=== PATIENT | male | born 1935 | race Caucasian/White ===

== ENCOUNTER 2020-08-05 23:30 | Inpatient (IN) | payer MEDICARE, SELFPAY ==
--- NOTE | 2020-08-05 | ECG_ITS ---
Test Reason : EPIGASTRIC PAIN Blood Pressure : / mmHG Vent. Rate : 057 BPM Atrial Rate : 057 BPM P-R Int : 160 ms QRS Dur : 092 ms QT Int : 446 ms P-R-T Axes : 036 012 031 degrees QTc Int : 434 ms Sinus bradycardia Incomplete right bundle branch block Borderline ECG When compared with ECG of 28-FEB-2015 13:59, No significant change was found Referred By: Kia Patel Electronically Signed By:GRAHAM VELARDE
--- NOTE | 2020-08-05 | CT_ITS ---
EXAMINATION: CT ABDOMEN AND PELVIS WITHOUT CONTRAST CLINICAL INFORMATION: Abdominal pain and distention. COMPARISON: Multiple prior exams are reviewed. The most recent is from 12/18/2014. TECHNIQUE: Contiguous axial thin section helical images of the abdomen and pelvis were performed without oral or IV contrast. The data set was reformatted in the coronal and sagittal planes and reviewed on an independent workstation. DLP: 847 mGy-cm. FINDINGS: There is stable scarring within the right lower lobe with a large bulla and several smaller blebs. The visualized portions of the heart are unremarkable. The liver is of normal size and attenuation without focal lesions nor intrahepatic biliary ductal dilation. A normal gallbladder is identified. There is no wall thickening or discernible pericholecystic fluid. The spleen, pancreas, adrenal glands are unremarkable. Both kidneys are of normal size and attenuation without hydronephrosis or nephrolithiasis. There is no abdominal free fluid. There is neither mesenteric nor retroperitoneal lymphadenopathy. There are numerous dilated loops of small bowel along with small bowel fecalization. The transition point appears to be close to a likely anastomosis site manifested by surgical chain sutures. There are numerous air-fluid levels within the dilated loops of small bowel. There is colonic diverticulosis without evidence of diverticulitis. Otherwise, unremarkable unopacified of small and large bowel are identified. There is no pelvic free fluid. The urinary bladder is unremarkable. There is neither pelvic nor inguinal lymphadenopathy. Bone windows: Neither sclerotic nor lytic bone lesions are identified. There is disc height loss at L3/L4 and L4/L5. 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 Diverticulosis without evidence of diverticulitis. Stable chronic changes at the right lung base. Automated exposure control (Care Dose) Adjustment of the mA and/or kv according to patient size (this includes techniques or standardized protocols for targeted exams where dose is matched to indication / reason for exam; i.e. extremities or head).
[2020-08-05 23:46] VITALS: BP 190/90; BP 191/83; PULSE 56; PULSE 61; RESP 18; TEMP 36.9; O2SAT 98; BMI 31.9
[2020-08-06] VITALS (10 sets, daily range): BP systolic 125–166; BP diastolic 66–83; PULSE 55–85; RESP 16–20; TEMP 35.9–37.4; O2SAT 92–99; BMI 31.8
--- NOTE | 2020-08-06 | XR_ITS ---
EXAMINATION: XR CHEST CLINICAL INFORMATION: NG tube placement COMPARISON: 04/09/2020 TECHNIQUE: Frontal view of the chest was obtained. FINDINGS: NG tube has been placed with its tip in the proximal stomach with the distal end near the GE junction. Again seen are chronic changes predominantly at the lung bases. IMPRESSION: NG tube coiled near the GE junction. It can probably be advanced.
--- NOTE | 2020-08-06 | XR_ITS ---
EXAMINATION: CHEST 1 VIEW CLINICAL INFORMATION: Enteric tube placement. COMPARISON: Same day film obtained at 0048 hours. TECHNIQUE: An AP view of the chest was obtained at 0148 hours. FINDINGS: The cardiac silhouette is not enlarged. An enteric tube is in place. The tip overlies left upper quadrant, likely within the stomach. The mediastinal and hilar contours are unremarkable. There are neither pleural effusions nor pneumothoraces. There are no consolidations. Mild interstitial prominence throughout both lungs is stable. The osseous structures are stable. IMPRESSION: Enteric tube in place. Stable mild interstitial prominence throughout both lungs. No consolidations.
--- NOTE | 2020-08-06 00:03 | PC.NURSE ---
Son Isrrael Methot to be call with updates [phone]
[2020-08-06] MEDS: 0.9 % Sodium Chloride 1,000 ML 999 ML IVCONT (00:11)
--- NOTE | 2020-08-06 00:11 | ED_ITS ---
HPI - Abdominal Pain General Chief Complaint: Abdominal Pain <SUKHDEV Ramos Last Filed: 08/06/20 03:26> Stated Complaint: abd pain <SUKHDEV Ramos Last Filed: 08/06/20 03:26> Time Seen by Provider: 08/05/20 23:52 <SUKHDEV Ramos Last Filed: 08/06/20 03:26> Source: patient <SUKHDEV Ramos Last Filed: 08/06/20 03:26> Mode of arrival: ambulatory <SUKHDEV Ramos Last Filed: 08/06/20 03:26> Limitations: no limitations <SUKHDEV Ramos Last Filed: 08/06/20 03:26> History of Present Illness HPI narrative: 85-year-old male presents with gradual onset of severe abdominal pain, abdominal distention, nausea, vomiting, and inability to pass flatus. he has had multiple abdominal surgeries in the past, has had a colon resection, colostomy, colostomy with reversal, has a history of lung cancer and hypertension. He is unable to get comfortable, and states that his abdomen is getting larger and harder by the minute. He does not report any chest pain or pressure, fevers, chills, dysuria, hematuria, edema, dizziness, lightheadedness, and weakness. <SUKHDEV Ramos Last Filed: 08/06/20 03:26> MD elicited complaint: abdominal pain <SUKHDEV Ramos Last Filed: 08/06/20 03:26> Pertinent past history: other ( colon resection, colostomy with reversal, lung cancer, hyper tension, obesity) <SUKHDEV Ramos Last Filed: 08/06/20 03:26> Onset (ago): day(s) ( 1) <SUKHDEV Ramos Last Filed: 08/06/20 03:26> Pain Consistency: intermittent <SUKHDEV Ramos Last Filed: 08/06/20 03:26> Location: diffuse <SUKHDEV Ramos Last Filed: 08/06/20 03:26> Severity: severe <SUKHDEV Ramos Last Filed: 08/06/20 03:26> Pain scale (0-10): 10 <Kia Patel NP - Last Filed: 08/06/20 03:26> Quality: cramping and fullness <Kia Patel NP - Last Filed: 08/06/20 03:26> Radiation: none <Kia Patel NP - Last Filed: 08/06/20 03:26> Migration to: no migration <Kia Patel NP - Last Filed: 08/06/20 03:26> Exacerbating factors: movement <Kia Patel NP - Last Filed: 08/06/20 03:26> Relieving factors: nothing <Kia Patel NP - Last Filed: 08/06/20 03:26> Associated symptoms: nausea, vomiting and anorexia <SUKHDEV Ramos Last Filed: 08/06/20 03:26> Related Data Home Medications: Home Medications Medication Instructions Recorded Confirmed Mucinex 08/06/20 albuterol sulfate 08/06/20 azithromycin 250 mg PO 3XW 08/06/20 08/06/20 bimatoprost [Lumigan] 1 drp OPHTHALMIC (EYE) BEDTIME 08/06/20 08/06/20 dextromethorphan-guaifenesin 1 tab PO Q12H PRN 08/06/20 08/06/20 [Mucinex DM] dorzolamide 2 drp OPHTHALMIC (EYE) BID 08/06/20 08/06/20 yvgcfqkiola-srhwzhsho-xdroyiqf 1 inh INHALATION DAILY 08/06/20 08/06/20 [Trelegy Ellipta] nystatin 4 ml PO 08/06/20 simvastatin 10 mg PO BEDTIME 08/06/20 08/06/20 tamsulosin 0.8 mg PO DAILY 08/06/20 08/06/20 <Kia Patel NP - Last Filed: 08/06/20 03:26> Allergies/Adverse Reactions: Allergies Allergy/AdvReac Type Severity Reaction Status Date / Time No Known Allergies Allergy Verified 08/06/20 10:18 <SUKHDEV Ramos Last Filed: 08/06/20 03:26> Review of Systems Review of Systems Yes all other systems are reviewed and are negative <Kia Patel NP - Last Filed: 08/06/20 03:26> Constitutional: Reports lethargy and Reports poor appetite <Candy Jorge, ELEVATOR TROUBL[employer]HO[employer]ER - Last Filed: 08/06/20 03:26> Eyes: Reports no additional eye complaints <Candy Jorge, ELEVATOR TROUBL[employer]HO[employer]ER - Last Filed: 08/06/20 03:26> Reports system reviewed and no additional complaints, except as documented <Candy Jorge, ELEVATOR TROUBL[employer]HO[employer]ER - Last Filed: 08/06/20 03:26> Cardiovascular: Reports no additional cardiovascular complaints, Reports Abdominal Distension, Reports Epigastric Pain and Reports epigastric discomfort <Candy Jorge, ELEVATOR TROUBL[employer]HO[employer]ER - Last Filed: 08/06/20 03:26> Respiratory: Reports no additional respiratory complaints <Candy Jorge, ELEVATOR TROUBLESHOOTER - Last Filed: 08/06/20 03:26> Gastrointestinal: Reports abdominal pain, Reports bloating, Reports GI cramping and Reports nausea <Candy Jorge, ELEVATOR TROUBL[employer]HO[employer]ER - Last Filed: 08/06/20 03:26> Comments: Inability to pass flatus <Candy Jorge, ELEVATOR TROUBLESHOOTER - Last Filed: 08/06/20 03:26> Genitourinary: Reports no additional male genitourinary complaints <Candy Jorge, ELEVATOR TROUBLESHOOTER - Last Filed: 08/06/20 03:26> Musculoskeletal: Reports no additional musculoskeletal complaints <Candy Jorge, ELEVATOR TROUBL[employer]HO[employer]ER - Last Filed: 08/06/20 03:26> Skin/Breast: Reports system reviewed and no additional complaints, except as docu <Candy Jorge, ELEVATOR TROUBLESHOOTER - Last Filed: 08/06/20 03:26> Reports system reviewed and no additional complaints, except as documented <Candy Jorge, ELEVATOR TROUBLESHOOTER - Last Filed: 08/06/20 03:26> Psychiatric: Reports no additional psychiatric complaints <Candy Jorge, ELEVATOR TROUBL[employer]HOOTER - Last Filed: 08/06/20 03:26> Endocrine: Reports no additional endocrine complaints <Candy Jorge, ELEVATOR TROUBLESHOOTER - Last Filed: 08/06/20 03:26> Hematologic/Lymphatic: Reports no additional hematologic/lymphatic complaints <Candy Jorge, ELEVATOR TROUBL[employer]HO[employer]ER - Last Filed: 08/06/20 03:26> Physical Exam Vital Signs and I&O and Narrative: Vital Signs and I&O: Vital Signs Temp 99.3 F 08/06/20 23:22 Pulse 65 08/06/20 23:22 Resp 16 08/06/20 23:22 BP 144/68 H 08/06/20 23:22 Pulse Ox 95 08/06/20 23:22 Intake & Output 08/06/20 08/06/20 08/07/20 06:59 18:59 06:59 Intake Total 1000 / 1050 Balance 1000 / 550 Weight 95.254 kg Intake: Intake, IV Amoun t 1000 / 1050 0.9 % Sodium C hloride 1,000 ml 1000 / 1000 @ 999 mls/hr I VCONT .Q1H1M [facility] Rx#:[id number] Body Mass Index 31.9 <Kia Patel ELEVATOR TR[employer]ER - Last Filed: 08/06/20 03:26> Vital Signs and I&O: Vital Signs Temp 99.3 F 08/06/20 23:22 Pulse 65 08/06/20 23:22 Resp 16 08/06/20 23:22 BP 144/68 H 08/06/20 23:22 Pulse Ox 95 08/06/20 23:22 Intake & Output 08/06/20 08/06/20 08/07/20 06:59 18:59 06:59 Intake Total 1000 / 1050 Balance 1000 / 550 Weight 95.254 kg Intake: Intake, IV Amoun t 1000 / 1050 0.9 % Sodium C hloride 1,000 ml 1000 / 1000 @ 999 mls/hr I VCONT .Q1H1M [facility] Rx#:[id number] Body Mass Index 31.9 <José Miguel Hutchinson DO - Last Filed: 08/07/20 02:11> Const: General: cooperative, well developed, alert, awake, Physically active, acute distress moderate and ill appearing <Kia Patel ELEVATOR TR[employer]BL[employer]ER - Last Filed: 08/06/20 03:26> Nutritional Appearance: obese <Kia Patel ELEVATOR TROU[employer]HO[employer]ER - Last Filed: 08/06/20 03:26> Orientation/consciousness: patient oriented x3 <Kia Patel ELEVATOR TROU[employer]HO[employer]ER - Last Filed: 08/06/20 03:26> Limitations: no limitations <Kia Patel ELEVATOR TROUBL[employer]HO[employer]ER - Last Filed: 08/06/20 03:26> HENMT: Head: Yes normal to inspection <Kia Patel ELEVATOR TROUBL[employer]HO[employer]ER - Last Filed: 08/06/20 03:26> Ears: hearing grossly normal bilaterally <Kia Patel ELEVATOR TROUBL[employer]HO[employer]ER - Last Filed: 08/06/20 03:26> General nose exam: Normal external nose present <Kia Patel NP - Last Filed: 08/06/20 03:26> Face and sinus: Yes normal facial exam <Kia Patel ELEVATOR TROUBL[employer]HO[employer]ER - Last Filed: 08/06/20 03:26> Mouth: Normal oral and palatal mucosa present <Kia Patel ELEVATOR TROUBL[employer]HO[employer]ER - Last Filed: 08/06/20 03:26> Throat: Yes posterior oropharynx normal <Kia Patel ELEVATOR TROUBL[employer]HO[employer]ER - Last Filed: 08/06/20 03:26> Eyes: General: appearance normal, both eyes and all related structures <Kia Patel ELEVATOR TROUBL[employer]HOOTER - Last Filed: 08/06/20 03:26> Pupils: Equal, round and reactive pupils present <Kia Patel ELEVATOR TROUBL[employer]HO[employer]ER - Last Filed: 08/06/20 03:26> EOM: EOMs intact bilaterally <Kia Patel ELEVATOR TROUBL[employer]HOOTER - Last Filed: 08/06/20 03:26> Neck: Neck: Yes normal visual inspection, Yes full ROM, Yes no lymp hadenopathy, Yes no meningeal signs and Yes trachea midline <Kia Patel ELEVATOR TROUBL[employer]HO[employer]ER - Last Filed: 08/06/20 03:26> Chest: Chest palpation & inspection: normal inspection of the chest and normal palpation of entire chest wall <Kia Patel ELEVATOR TROUBL[employer]HO[employer]ER - Last Filed: 08/06/20 03:26> Resp: Effort & Inspection: normal respiratory effort and able to speak in complete sentences <Kia Patel ELEVATOR TROUBL[employer]HO[employer]ER - Last Filed: 08/06/20 03:26> Auscultation: clear to auscultation bilaterally <Kia Patel ELEVATOR TROUBL[employer]HO[employer]ER - Last Filed: 08/06/20 03:26> Cardio: Rate: bradycardic <Kia Patel ELEVATOR TROUBL[employer]HO[employer]ER - Last Filed: 08/06/20 03:26> Rhythm: regular rhythm <Kia Patel NP - Last Filed: 08/06/20 03:26> Peripheral pulses: Peripheral pulses 2+ throughout <Kia Patel ELEVATOR TROUBL[employer]HOOTER - Last Filed: 08/06/20 03:26> GI: Inspection: Yes distended <Kia Patel ELEVATOR TROUBLESHOOTER - Last Filed: 08/06/20 03:26> Palpation (GI): Firmness to palpation present (GI) in the LLQ, in the RLQ, in the LUQ and in the RUQ <Kia Patel ELEVATOR TROUBLESHOOTER - Last Filed: 08/06/20 03:26> Percussion: Yes tympanic to percussion <Kia Patel ELEVATOR TROUBL[employer]HOOTER - Last Filed: 08/06/20 03:26> Auscultation: Hyperactive bowel sounds present <Candpelon Patel ELEVATOR TROUBL[employer]HOOTER - Last Filed: 08/06/20 03:26> Rectal Exam - Male: Yes deferred <iKa Patel ELEVATOR TROUBLESHOOTER - Last Filed: 08/06/20 03:26> Skin: General skin exam: no rashes or lesions noted <Kia Patel ELEVATOR TROUBL[employer]HOOTER - Last Filed: 08/06/20 03:26> Neuro: General: patient oriented x3 and no meningeal signs <Kia Patel ELEVATOR TROUBL[employer]HOOTER - Last Filed: 08/06/20 03:26> Cranial nerves: Yes CN's II-XII intact bilaterally, Yes Facial sensation intact/muscles of mastication intact, Yes Intact sense of smell present, Yes Equal, round and reactive pupils present and Yes Bilaterally intact EOM present <Kia Patel ELEVATOR TROUBL[employer]HOOTER - Last Filed: 08/06/20 03:26> Cognition (Neuro): normal cognition <Kia Patel ELEVATOR TROUBLESHOOTER - Last Filed: 08/06/20 03:26> Motor exam (neuro): 5/5 motor strength present throughout <Candpelon Patel ELEVATOR TROUBLESHOOTER - Last Filed: 08/06/20 03:26> Extrem: General: Yes normal to inspection and Yes full ROM <Kia Patel ELEVATOR TROUBLESHO[employer]ER - Last Filed: 08/06/20 03:26> Psych: Appearance: grossly normal <Kia Patel ELEVATOR TROUBLESHOOTER - Last Filed: 08/06/20 03:26> Mental Status: mental status grossly normal <Kia Patel ELEVATOR TROUBL[employer]HO[employer]ER - Last Filed: 08/06/20 03:26> Speech and movement: Normal speech and movement present <Kia Patel ELEVATOR TROUBL[employer]HO[employer]ER - Last Filed: 08/06/20 03:26> Affect: normal affect <Kia Patel NP - Last Filed: 08/06/20 03:26> Attitude: cooperative <Kia Patel NP - Last Filed: 08/06/20 03:26> Thought process: Normal thought process present <Kia Patel NP - Last Filed: 08/06/20 03:26> Thought content: Normal thought content present <Kia Patel NP - Last Filed: 08/06/20:26> Insight: Good insight present (Psych) <Kia Patel NP - Last Filed: 08/06/20 03:26> Judgement: Good judgement present (Psych) <Kia Patel NP - Last Filed: 08/06/20 03:26> Course Course Hospital Course: 85-year-old male presents with 10/10 abdominal pain, abdominal distention, nausea, vomiting, and inability to passed flatus. He did have a bowel movement earlier today. Looks very uncomfortable and has a high suspicion for small bowel obstruction. We will order CT scan of abdomen, CBC, Chem 7, lactic, cultures, EKG and troponins. <Kia Patel NP - Last Filed: 08/06/20 03:26> Reevaluation(s) Reevaluation #1: This ELEVATOR TROUBLESHOOTER was at bedside for CT scan. wet read of EKG shows indication of a bowel obstruction. We will order NG tube, NPO, pain management. Labs are pending. <Kia Patel NP - Last Filed: 08/06/20:> Time: 00:12 <Kia Patel NP - Last Filed: 08/06/20 03:26> Reevaluation #2: discussion with Dr. Sandhu at 1:[address] scan results. Plan is to admit to [facility] for bowel obstruction. Discussion with patient regarding plan of care, patient verbalized understanding of and agrees to plan. <Kia Patel NP - Last Filed: 08/06/20 03:26> Consultations Consultation #1: Edson <Kia Patel NP - Last Filed: 08/06/20:26> Time: 01:34 <Kia Patel NP - Last Filed: 08/06/20 03:26> MDM - Abdominal Pain Differential Diagnosis Differential diagnosis: Likely abdominal pain, aortic dissection, acute appendicitis, bowel perforation, calculus of kidney, diverticulitis, gastroenteritis, gastritis, mesenteric ischemia, pancreatitis and small bowel obstruction <Kia Patel NP - Last Filed: 08/06/20 03:26> Medical Records Attestation: I reviewed the patient's medical records. <Kia Patel NP - Last Filed: 08/06/20 03:26> Lab Data Attestation: I reviewed the patient's lab results. <Kia Patel NP - Last Filed: 08/06/20 03:26> Result diagrams: : 08/06/20 01:08 08/06/20 01:08 <Kia Patel NP - Last Filed: 08/06/20 03:26> Labs: Lab Results 08/06/20 08/06/20 08/06/20 Range/Units 01:08 01:08 01:08 WBC 10.9 H (4.8-10.8) X10*3/uL RBC 4.79 (4.60-5.80) X10*6/uL Hgb 14.6 (14.0-18.0) g/dl Hct 43.4 (42-52) % MCV 90.6 (80-98) fL MCH 30.5 (27.0-33.0) pg MCHC 33.6 (31.0-36.0) g/dl RDW 14.6 (11.0-16.0) % Plt Count 115 L (160-400) X10*3/uL MPV 9.4 (9.4-12.4) fL Immature Gran % (Auto) 0.8 H (0.0-0.4) % Neut % (Auto) 83.2 H (45-73) % Lymph % (Auto) 10.0 L (20-40) % [place] % (Auto) 4.8 (2-11) % Eos % (Auto) 0.7 (0-4) % Baso % (Auto) 0.5 (0-2) % Neut # (Auto) 9.1 H (2.0-8.3) X10*3/uL Lymph # (Auto) 1.1 L (1.2-4.9) X10*3/uL [place] # (Auto) 0.5 (0.1-1.2) X10*3/uL Eos # (Auto) 0.1 (0.0-0.4) X10*3/uL Baso # (Auto) 0.1 (0.0-0.2) X10*3/uL Abs Immat Gran (auto) 0.09 H (0.00-0.03) X10*3/uL Absolute Nucleated RBC 0.000 (0.0-0.012) X10*3/uL Nucleated RBC % (auto) 0.0 (0.0-0.2) /100WBC Sodium 140 (135-145) mmol/L Potassium 4.5 (3.3-5.1) mmol/l Chloride 107 (96-108) mmol/L Carbon Dioxide 25 (22-29) mmol/L Anion Gap 13 (12-20) BUN 24 H (9-16) mg/dL Creatinine 1.17 (0.5-1.4) mg/dL Estim Creat Clear Calc 51.6 Estimated GFR 59 Random Glucose 132 H (60-115) mg/dL Lactic Acid 0.9 (0.5-2.0) mmol/L Calcium 8.5 (8.4-10.2) mg/dL Total Bilirubin 0.7 (0.0-1.0) mg/dL Direct Bilirubin 0.3 (0.0-0.5) mg/dL AST 15 (5-37) U/L ALT 16 (0-40) U/L Alkaline Phosphatase 91 (39-117) U/L Troponin I High Sens (<3.5-35.0) ng/L Total Protein 6.4 L (6.5-8.0) g/dL Albumin 4.1 (3.5-5.0) g/dL Lipase 48 (8-78) U/L Blood Type Antibody Screen 08/06/20 08/06/20 Range/Units 01:08 01:43 WBC (4.8-10.8) X10*3/uL RBC (4.60-5.80) X10*6/uL Hgb (14.0-18.0) g/dl Hct (42-52) % MCV (80-98) fL MCH (27.0-33.0) pg MCHC (31.0-36.0) g/dl RDW (11.0-16.0) % Plt Count (160-400) X10*3/uL MPV (9.4-12.4) fL Immature Gran % (Auto) (0.0-0.4) % Neut % (Auto) (45-73) % Lymph % (Auto) (20-40) % Lar[place] % (Auto) (2-11) % Eos % (Auto) (0-4) % Baso % (Auto) (0-2) % Neut # (Auto) (2.0-8.3) X10*3/uL Lymph # (Auto) (1.2-4.9) X10*3/uL [place] # (Auto) (0.1-1.2) X10*3/uL Eos # (Auto) (0.0-0.4) X10*3/uL Baso # (Auto) (0.0-0.2) X10*3/uL Abs Immat Gran (auto) (0.00-0.03) X10*3/uL Absolute Nucleated RBC (0.0-0.012) X10*3/uL Nucleated RBC % (auto) (0.0-0.2) /100WBC Sodium (135-145) mmol/L Potassium (3.3-5.1) mmol/l Chloride (96-108) mmol/L Carbon Dioxide (22-29) mmol/L Anion Gap (12-20) BUN (9-16) mg/dL Creatinine (0.5-1.4) mg/dL Estim Creat Clear Calc Estimated GFR Random Glucose (60-115) mg/dL Lactic Acid (0.5-2.0) mmol/L Calcium (8.4-10.2) mg/dL Total Bilirubin (0.0-1.0) mg/dL Direct Bilirubin (0.0-0.5) mg/dL AST (5-37) U/L ALT (0-40) U/L Alkaline Phosphatase (39-117) U/L Troponin I High Sens 7.6 (<3.5-35.0) ng/L Total Protein (6.5-8.0) g/dL Albumin (3.5-5.0) g/dL Lipase (8-78) U/L Blood Type O Positive Antibody Screen NEGATIVE <Kia Patel NP - Last Filed: 08/06/20 03:26> Lab Results 08/06/20 08/06/20 08/06/20 Range/Units 01:08 01:08 01:08 WBC 10.9 H (4.8-10.8) X10*3/uL RBC 4.79 (4.60-5.80) X10*6/uL Hgb 14.6 (14.0-18.0) g/dl Hct 43.4 (42-52) % MCV 90.6 (80-98) fL MCH 30.5 (27.0-33.0) pg MCHC 33.6 (31.0-36.0) g/dl RDW 14.6 (11.0-16.0) % Plt Count 115 L (160-400) X10*3/uL MPV 9.4 (9.4-12.4) fL Immature Gran % (Auto) 0.8 H (0.0-0.4) % Neut % (Auto) 83.2 H (45-73) % Lymph % (Auto) 10.0 L (20-40) % [place] % (Auto) 4.8 (2-11) % Eos % (Auto) 0.7 (0-4) % Baso % (Auto) 0.5 (0-2) % Neut # (Auto) 9.1 H (2.0-8.3) X10*3/uL Lymph # (Auto) 1.1 L (1.2-4.9) X10*3/uL [place] # (Auto) 0.5 (0.1-1.2) X10*3/uL Eos # (Auto) 0.1 (0.0-0.4) X10*3/uL Baso # (Auto) 0.1 (0.0-0.2) X10*3/uL Abs Immat Gran (auto) 0.09 H (0.00-0.03) X10*3/uL Absolute Nucleated RBC 0.000 (0.0-0.012) X10*3/uL Nucleated RBC % (auto) 0.0 (0.0-0.2) /100WBC Sodium 140 (135-145) mmol/L Potassium 4.5 (3.3-5.1) mmol/l Chloride 107 (96-108) mmol/L Carbon Dioxide 25 (22-29) mmol/L Anion Gap 13 (12-20) BUN 24 H (9-16) mg/dL Creatinine 1.17 (0.5-1.4) mg/dL Estim Creat Clear Calc 51.6 Estimated GFR 59 Random Glucose 132 H (60-115) mg/dL Lactic Acid 0.9 (0.5-2.0) mmol/L Calcium 8.5 (8.4-10.2) mg/dL Total Bilirubin 0.7 (0.0-1.0) mg/dL Direct Bilirubin 0.3 (0.0-0.5) mg/dL AST 15 (5-37) U/L ALT 16 (0-40) U/L Alkaline Phosphatase 91 (39-117) U/L Troponin I High Sens (<3.5-35.0) ng/L Total Protein 6.4 L (6.5-8.0) g/dL Albumin 4.1 (3.5-5.0) g/dL Lipase 48 (8-78) U/L Blood Type Antibody Screen 08/06/20 08/06/20 Range/Units 01:08 01:43 WBC (4.8-10.8) X10*3/uL RBC (4.60-5.80) X10*6/uL Hgb (14.0-18.0) g/dl Hct (42-52) % MCV (80-98) fL MCH (27.0-33.0) pg MCHC (31.0-36.0) g/dl RDW (11.0-16.0) % Plt Count (160-400) X10*3/uL MPV (9.4-12.4) fL Immature Gran % (Auto) (0.0-0.4) % Neut % (Auto) (45-73) % Lymph % (Auto) (20-40) % [place] % (Auto) (2-11) % Eos % (Auto) (0-4) % Baso % (Auto) (0-2) % Neut # (Auto) (2.0-8.3) X10*3/uL Lymph # (Auto) (1.2-4.9) X10*3/uL [place] # (Auto) (0.1-1.2) X10*3/uL Eos # (Auto) (0.0-0.4) X10*3/uL Baso # (Auto) (0.0-0.2) X10*3/uL Abs Immat Gran (auto) (0.00-0.03) X10*3/uL Absolute Nucleated RBC (0.0-0.012) X10*3/uL Nucleated RBC % (auto) (0.0-0.2) /100WBC Sodium (135-145) mmol/L Potassium (3.3-5.1) mmol/l Chloride (96-108) mmol/L Carbon Dioxide (22-29) mmol/L Anion Gap (12-20) BUN (9-16) mg/dL Creatinine (0.5-1.4) mg/dL Estim Creat Clear Calc Estimated GFR Random Glucose (60-115) mg/dL Lactic Acid (0.5-2.0) mmol/L Calcium (8.4-10.2) mg/dL Total Bilirubin (0.0-1.0) mg/dL Direct Bilirubin (0.0-0.5) mg/dL AST (5-37) U/L ALT (0-40) U/L Alkaline Phosphatase (39-117) U/L Troponin I High Sens 7.6 (<3.5-35.0) ng/L Total Protein (6.5-8.0) g/dL Albumin (3.5-5.0) g/dL Lipase (8-78) U/L Blood Type O Positive Antibody Screen NEGATIVE <José Miguel Hutchinson DO - Last Filed: 08/07/20 02:11> Imaging Data CT scan - abdomen: Attestation: I personally reviewed and interpreted this imaging study as follows: <Kia Patel NP - Last Filed: 08/06/20 03:26> Radiologist's impression: CLINICAL INFORMATION: Abdominal pain and distention. COMPARISON: Multiple prior exams are reviewed. The most recent is from 12/18/2014. TECHNIQUE: Contiguous axial thin section helical images of the abdomen and pelvis were performed without oral or IV contrast. The data set was reformatted in the coronal and sagittal planes and reviewed on an independent workstation. DLP: 847 mGy-cm. FINDINGS: There is stable scarring within the right lower lobe with a large bulla and several smaller blebs. The visualized portions of the heart are unremarkable. The liver is of normal size and attenuation without focal lesions nor intrahepatic biliary ductal dilation. A normal gallbladder is identified. There is no wall thickening or discernible pericholecystic fluid. The spleen, pancreas, adrenal glands are unremarkable. Both kidneys are of normal size and attenuation without hydronephrosis or nephrolithiasis. There is no abdominal free fluid. There is neither mesenteric nor retroperitoneal lymphadenopathy. There are numerous dilated loops of small bowel along with small bowel fecalization. The transition point appears to be close to a likely anastomosis site manifested by surgical chain sutures. There are numerous air-fluid levels within the dilated loops of small bowel. There is colonic diverticulosis without evidence of diverticulitis. Otherwise, unremarkable unopacified of small and large bowel are identified. There is no pelvic free fluid. The urinary bladder is unremarkable. There is neither pelvic nor inguinal lymphadenopathy. Bone windows: Neither sclerotic nor lytic bone lesions are identified. There is disc height loss at L3/L4 and L4/L5. IMPRESSION: Multiple dilated loops of small bowel with small bowel fecalization and several air-fluid levels patient financial representative of a mid to distal small bowel obstruction. Diverticulosis without evidence of diverticulitis. Stable chronic changes at the right lung base. <Kia Patel NP - Last Filed: 08/06/20 03:26> ECG Data Attestation: I personally reviewed and interpreted this ECG as follows: <Kia Patel NP - Last Filed: 08/06/20 03:26> ECG interpretation date: 08/06/20 <Kia Patel NP - Last Filed: 08/06/20 03:26> ECG interpretation time: 01:15 <Kia Patel NP - Last Filed: 08/06/20 03:26> Interpretation: Sinus bradycardia 57 beats per minute, incomplete right bundle-branch block, p.r. interval 160, QT 446, QTC 434, no indication of ST elevation or d epression, no indication of ischemia at this time. No significant difference when compared to the EKG on February 28, 2015 <Kia Patel NP - Last Filed: 08/06/20 03:26> Critical Care Time Critical Care Time Critical Care Time: Yes <Kia Patel NP - Last Filed: 08/06/20 03:26> Total Critical Care Time: 60 <Kia Patel NP - Last Filed: 08/06/20 03:26> Attestation: I personally attest this time spent taking care of this patient <Kia Patel NP - Last Filed: 08/06/20 03:26> Discharge Plan Discharge Clinical Impression: Small bowel obstruction <Kia Patel NP - Last Filed: 08/06/20 03:26> Patient Disposition: Admitted As Inpatient <Kia Patel NP - Last Filed: 08/06/20 03:26> Interventions: Admission Worksheet (ED) Last Done: 08/06/20 02:57 <Kia Patel NP - Last Filed: 08/06/20 03:26> Discharge Date/Time: 08/06/20 03:01 <Kia Patel NP - Last Filed: 08/06/20 03:26> PMF Past Medical History Attestation statement: The following information was validated with the patient. <Kia Patel NP - Last Filed: 08/06/20 03:26> Medical History: Medical History (Updated 08/06/20 @ 09:50 by Carole Sandhu MD) COPD (chronic obstructive pulmonary disease) Diverticulitis Glaucoma History of lung cancer Hypercholesterolemia Osteoarthritis <Kia Patel NP - Last Filed: 08/06/20 03:26> Surgical History: Surgical History (Updated 08/06/20 @ 09:46 by Carole Sandhu MD) History of ERCP History of laparoscopic cholecystectomy History of total left knee replacement Status post Pat procedure <Kia Patel NP - Last Filed: 08/06/20 03:26> Family History Family History: Family History (Updated 08/06/20 @ 09:51 by Caroel Sandhu MD) Mother ALS (amyotrophic lateral sclerosis) <Kia Patel NP - Last Filed: 08/06/20 03:26> Social History Social History: Social History Alcohol intake: current Alcohol intake frequency: holidays/special occasions only Alcohol type: beer Smoking Status: Former smoker Smoked in Last 30 Days: No Use of substances other than those prescribed or required for medical reasons: No Currently Displaying Signs/Symptoms of Drug Intoxication Withdrawal: No Advance Directives: No Do you have thoughts of harming others: None Do you have a plan to hurt others: No Plan service: No Current occupational status: retired <Kia Patel NP - Last Filed: 08/06/20 03:26>
[2020-08-06] MEDS: ondansetron HCL 4 MG/2 ML VIAL IVPUSH (00:12)
[2020-08-06] MEDS: Morphine Sulfate 4 MG/ML CARTRIDGE IVPUSH ×2 (00:12→02:38)
--- NOTE | 2020-08-06 01:03 | PC.NURSE ---
pt ng tube inserted. 300 cc of food taken out. confirmed by x ray. pt pain better after ng tube placed.
[2020-08-06] MEDS: LORazepam 2 MG/ML VIAL 0.5 MG IVPUSH (01:16)
[2020-08-06 01:19] LABS: MANUAL DIFF FLAG NO
[2020-08-06 01:21] LABS: Basophils Absolute Auto 0.1 X10*3/uL (0.0-0.2); Basophils Percent Auto 0.5 % (0-2); Eosinophils Absolute Auto 0.1 X10*3/uL (0.0-0.4); Eosinophils Percent Auto 0.7 % (0-4); Hematocrit 43.4 % (42-52); Hemoglobin 14.6 g/dl (14.0-18.0); Imm Gran Abs Auto 0.09 X10*3/uL (0.00-0.03); Imm Gran Pct Auto 0.8 % (0.0-0.4); Lymphocytes Absolute Auto 1.1 X10*3/uL (1.2-4.9); Mean Corpuscular HGB Conc 33.6 g/dl (31.0-36.0); Mean Corpuscular Hemoglobin 30.5 pg (27.0-33.0); Mean Corpuscular Volume 90.6 fL (80-98); Mean Platelet Volume 9.4 fL (9.4-12.4); Monocytes Absolute Auto 0.5 X10*3/uL (0.1-1.2); Monocytes Percent Auto 4.8 % (2-11); Neutrophils Absolute Auto 9.1 X10*3/uL (2.0-8.3); Neutrophils Percent Auto 83.2 % (45-73); Platelet Count 115 X10*3/uL (160-400); Red Blood Count 4.79 X10*6/uL (4.60-5.80); Red Cell Distribution Width 14.6 % (11.0-16.0); White Blood Count 10.9 X10*3/uL (4.8-10.8)
[2020-08-06 01:45] LABS: Lactic Acid 0.9 mmol/L (0.5-2.0)
[2020-08-06 01:48] LABS: Alanine Aminotransferase 16 U/L (0-40); Albumin Level 4.1 g/dL (3.5-5.0); Alkaline Phosphatase 91 U/L (39-117); Anion Gap 13 (12-20); Aspartate Amino Transferase 15 U/L (5-37); Bilirubin Direct 0.3 mg/dL (0.0-0.5); Bilirubin Total 0.7 mg/dL (0.0-1.0); Blood Urea Nitrogen 24 mg/dL (9-16); Calcium 8.5 mg/dL (8.4-10.2); Carbon Dioxide 25 mmol/L (22-29); Chloride 107 mmol/L (96-108); Creatinine Clr Calc Pharmacy 51.6; Estimated Glomerular Filt Rate 59; Glucose Random 132 mg/dL (60-115); Lipase 48 U/L (8-78); Potassium 4.5 mmol/l (3.3-5.1); Sodium 140 mmol/L (135-145); Total Protein 6.4 g/dL (6.5-8.0)
[2020-08-06 01:54] LABS: Troponin-I High Sensitivity 7.6 ng/L (<3.5-35.0)
--- NOTE | 2020-08-06 02:00 | PC.NURSE ---
rico newton coiled per x ray. pulled out more. chest x ray confirmed better placement. labs sent. type and screen done. pt resting comfortably in stretcher. plan for antibiotics. vitals wnl. copd 92-95% on ra. called son and to give update.
[2020-08-06] MEDS: Piperacillin Sodium/Tazobactam 3.375 GM in 0.9 % Sodium Chloride 50 ML IV (02:13)
[2020-08-06] MEDS: Dextrose 5 % and Lactated Ring 1,000 ML 100 ML IVCONT ×2 (03:04→12:42)
[2020-08-06] MEDS: Heparin Sodium,Porcine 5,000 UNIT/ML VIAL 5000 UNIT SUBCUT ×2 (03:14→14:50)
--- NOTE | 2020-08-06 08:41 | P.HPGS_ITS ---
History of Present Illness History of Present Illness Chief complaint: abd pain Narrative: Fidencio Pastor is a 85 year old male who was feeling well early yesterday. After supper, he reports that he noted increasing abdominal distension and worsening pressure-like pain that would come and go. It was associated with nausea. He had 1 episode of vomiting just prior to coming to the emergency room. He has not had similar problems in the past. He does not report fever or chills. 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 He also has a history of laparoscopic cholecystectomy complicated by bile leak, which was treated by drainage and ERCP with sphincterotomy. Review of Systems Constitutional: Constitutional: Reports no additional constitutional complaints Eyes: Eyes: Reports blurry vision, Denies dry eyes and Reports loss of vision ( glaucoma, macular degeneration) Cardiovascular: Cardiovascular: Denies chest pain, Denies irregular heart rhythm, Denies palpitations and Reports dyspnea on exertion Respiratory: Respiratory: Reports cough, Reports dyspnea on exertion and Denies wheezing Gastrointestinal: Gastrointestinal: Reports as per HPI Genitourinary: Genitourinary: Denies dysuria, Denies nocturia (nocturia x 1-2) and Denies urinary frequency Musculoskeletal: Musculoskeletal: Reports abnormal gait ( due to difficulty with vision) Comments: Reports right knee arthritis and right-sided low back pain Integumentary/Breasts: Skin/Breast: Denies pruritus and Denies rash Neurologic: Denies Abnormal speech present, Reports abnormal gait ( due to difficulty with vision), Reports loss of vision ( glaucoma, macular degeneration) and Denies memory loss Psychiatric: Psychiatric: Denies memory loss Endocrine: Endocrine: Denies palpitations Hematologic/Lymphatic: Hematologic/Lymphatic: Denies easy bleeding and Reports other (history of blood clots) Allergic/Immunologic: Allergic/Immunologic: Denies wheezing PMFSH Past Medical History Medical History (Updated 08/06/20 @ 09:50 by Carole Sandhu MD) COPD (chronic obstructive pulmonary disease) Diverticulitis Glaucoma History of lung cancer Hypercholesterolemia Osteoarthritis Family History Family History (Updated 08/06/20 @ 09:51 by Carole Sandhu MD) Mother ALS (amyotrophic lateral sclerosis) Surgical History Surgical History (Updated 08/06/20 @ 09:46 by Carole Sandhu MD) History of ERCP History of laparoscopic cholecystectomy History of total left knee replacement Status post Pat procedure Social History Social History Alcohol intake: current Alcohol intake frequency: holidays/special occasions only Alcohol type: beer Smoking Status: Former smoker Smoked in Last 30 Days: No Use of substances other than those prescribed or required for medical reasons: No Currently Displaying Signs/Symptoms of Drug Intoxication Withdrawal: No Advance Directives: No Do you have thoughts of harming others: None Do you have a plan to hurt others: No Plan service: No Current occupational status: retired [employer] Allergies Allergy/AdvReac Type Severity Reaction Status Date / Time No Known Allergies Allergy Verified 08/06/20 10:18 Home Medications Medication Instructions Recorded Confirmed Type Mucinex 08/06/20 History albuterol sulfate 08/06/20 History azithromycin 250 mg PO 3XW 08/06/20 08/06/20 History bimatoprost [Lumigan] 1 drp OPHTHALMIC (EYE) BEDTIME 08/06/20 08/06/20 History dextromethorphan-guaifenesin 1 tab PO Q12H PRN 08/06/20 08/06/20 History [Mucinex DM] dorzolamide 2 drp OPHTHALMIC (EYE) BID 08/06/20 08/06/20 History szjhwbwjqdp-bqoundjkk-gvxcmhsg 1 inh INHALATION DAILY 08/06/20 08/06/20 History [Trelegy Ellipta] nystatin 4 ml PO 08/06/20 History simvastatin 10 mg PO BEDTIME 08/06/20 08/06/20 History tamsulosin 0.8 mg PO DAILY 08/06/20 08/06/20 History Physical Exam Vital Signs and I&O and Narrative: Vital Signs and I&O: Vital Signs Temp 96.6 F L 08/06/20 07:09 Pulse 58 08/06/20 07:09 Resp 19 08/06/20 07:09 BP 166/81 H 08/06/20 07:09 Pulse Ox 96 08/06/20 07:09 Intake & Output 08/05/20 08/06/20 08/06/20 18:59 06:59 18:59 Intake Total 1050 / 1050 Output Total 500 / 500 Balance 550 / 550 Urine Output (Aver age ml/kg/hr) 0.17 Weight 210 lb Intake: Intake, IV Amoun t 1050 / 1050 Piperacillin S odium/Tazobactam 50 / 50 3.375 gm In 0. 9 % Sodium Chloride 50 ml @ 100 mls/hr IV ONCE ONE Rx#:H [id number] 0.9 % Sodium C hloride 1,000 ml 1000 / 1000 @ 999 mls/hr I VCONT .Q1H1M KRISHNA Rx#:[id number] Output: Output, Urine Am ount 200 / 200 Output, Gastric Drainage Amount 300 / 300 Right Nare 300 / 300 Body Mass Index 31.9 Const: General: healthy appearing, no acute distress and alert Orientation/consciousness: oriented to person and oriented to place HENMT: Head: Yes normal to inspection Ears: hearing grossly normal bilaterally Face and sinus: Yes normal facial exam Eyes: Conjunctivae: conjunctivae normal Sclerae: sclerae normal EOM: EOMs intact bilaterally Neck: Neck: Yes normal visual inspection and Yes trachea midline Resp: Effort & Inspection: normal respiratory effort Auscultation: diminished lung sounds Cardio: Rate: regular rate Rhythm: regular rhythm Heart sounds: no murmurs GI: Inspection: Yes distended Palpation (GI): Soft to palpation, Tenderness to palpation present (GI) in the RUQ ( mild), no guarding and not rigid Auscultation: High-pitched bowel sounds present Rectal Exam - Male: Yes d eferred Skin: Other: normal color, warm and dry Neuro: General: oriented to person and oriented to place Cognition (Neuro): normal cognition Speech: No Abnormal speech present Extrem: General: Yes normal to inspection ( well-healed scar anterior aspect left knee) Psych: Appearance: grossly normal Mental Status: mental status grossly normal Affect: normal affect Thought process: Normal thought process present Insight: Good insight present (Psych) Results Results Labs: Short CBC 08/06/20 Range/Units 01:08 WBC 10.9 H (4.8-10.8) X10*3/uL Hgb 14.6 (14.0-18.0) g/dl Hct 43.4 (42-52) % Plt Count 115 L (160-400) X10*3/uL BMP 08/06/20 01:08 Sodium 140 Potassium 4.5 Chloride 107 Carbon Dioxide 25 BUN 24 H Creatinine 1.17 Calcium 8.5 Liver Function 10/05/20 Range/Units 01:08 Total Bilirubin 0.7 (0.0-1.0) mg/dL Direct Bilirubin 0.3 (0.0-0.5) mg/dL AST 15 (5-37) U/L ALT 16 (0-40) U/L Alkaline Phosphatase 91 (39-117) U/L Albumin 4.1 (3.5-5.0) g/dL Laboratory Tests Assessment and Plan (1) COPD (chronic obstructive pulmonary disease): Status: Acute continue usual medications, add incentive spirometry (2) Small bowel obstruction: Status: Acute He presents with a small-bowel obstruction, likely secondary to adhesions. NG tube has been placed. He is symptomatically improved. Continue NPO and IV fluids, NG decompression for now. If no clear improvement over next 24 hours, consider Gastrografin challenge. I discussed the plan with him and also with his son by phone.
[2020-08-06] MEDS: Tamsulosin HCL 0.4 MG CAPSULE PO (08:53)
--- NOTE | 2020-08-06 11:26 | MHC.CM.PN ---
PATIENT LIVES WITH HIS HCP/. HE USES NO DME OR [facility]NA SERVICES. 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 CASE MANAGEMENT FOLLOWING FOR DISCHARGE PLANS. IMM 08/06 IN CHART.
--- NOTE | 2020-08-06 11:30 | MHC.CM.PN ---
PER REVIEW OF ELECTRONIC CHART. NO HCP ON FILE. CASE MANAGEMENT TO ASK PATIENT TO HAVE IT BROUGHT IN FOR HIS CHART.
[2020-08-06 12:13] LABS: Glucose Urine UA NEG (NEG); Leukocyte Esterase Urine NEG (NEG); Nitrite Urine NEG (NEG); PH 5.5 (5.0-8.0); Specific Gravity - Urine >= 1.030 (1.005-1.025); Urine Blood TRACE (NEG); Urine Ketones NEG (NEG); Urine Protein NEG (NEG-TRACE)
[2020-08-06 12:29] LABS: Appearance Urine CLEAR; Color Urine YELLOW
[2020-08-06 14:06] LABS: RBC Urine 0 /HPF (0); Squamous Epithelial Cell Urine TRACE /LPF; WBC Urine 0-2 /HPF (0-4)
[2020-08-06 14:08] LABS: Amorphous Sediment Urine TRACE /LPF
[2020-08-06] MEDS: Morphine Sulfate 4 MG/ML CARTRIDGE 2 MG IVPUSH (16:45)
[2020-08-06] MEDS: 0.9 % Sodium Chloride Flush 3 ML SYRINGE 2 ML IVFLUSH (16:46)
[2020-08-07] VITALS (7 sets, daily range): BP systolic 135–156; BP diastolic 64–76; PULSE 55–84; RESP 16–19; TEMP 36.4–37.3; O2SAT 92–95
--- NOTE | 2020-08-07 | XR_ITS ---
EXAMINATION: XR ABDOMEN COMPLETE CLINICAL INDICATION: Follow-up small bowel obstruction COMPARISON: Previous CT of the abdomen and pelvis from yesterday TECHNIQUE: Supine and upright views of the abdomen and pelvis FINDINGS: There is a nasogastric tube with tip projecting over the proximal stomach. There are dilated loops of small bowel and air-fluid levels similar to previous CT scan. There is a paucity of bowel gas seen in the large bowel. There is no evidence of free air. There are no suspicious calcifications. There is evidence of atherosclerotic disease. There are surgical clips in the right upper quadrant suggestive of cholecystectomy. There are degenerative changes of the spine. IMPRESSION: No change in small bowel dilatation and air-fluid levels from yesterday's CT scan.
[2020-08-07] MEDS: Dextrose 5 % and Lactated Ring 1,000 ML 100 ML IVCONT ×3 (00:12→23:54)
[2020-08-07] MEDS: Heparin Sodium,Porcine 5,000 UNIT/ML VIAL 5000 UNIT SUBCUT ×2 (03:39→14:33)
[2020-08-07] MEDS: Morphine Sulfate 4 MG/ML CARTRIDGE 2 MG IVPUSH ×2 (03:39→23:52)
[2020-08-07] MEDS: ondansetron HCL 4 MG/2 ML VIAL IVPUSH (03:42)
[2020-08-07 06:47] LABS: Hemoglobin 14.4 g/dl (14.0-18.0); Mean Corpuscular HGB Conc 33.3 g/dl (31.0-36.0); PLT CLUMP 1
[2020-08-07 06:48] LABS: Hematocrit 43.3 % (42-52); Mean Corpuscular Hemoglobin 30.3 pg (27.0-33.0); Red Blood Count 4.76 X10*6/uL (4.60-5.80); Red Cell Distribution Width 14.7 % (11.0-16.0)
[2020-08-07 07:27] LABS: Anion Gap 13 (12-20); Blood Urea Nitrogen 19 mg/dL (9-16); Calcium 8.1 mg/dL (8.4-10.2); Carbon Dioxide 24 mmol/L (22-29); Chloride 107 mmol/L (96-108); Creatinine Clr Calc Pharmacy 62.3; Estimated Glomerular Filt Rate > 60; Glucose Fasting 134 mg/dL (60-99); Potassium 4.8 mmol/l (3.3-5.1); Sodium 139 mmol/L (135-145)
[2020-08-07 07:48] LABS: Platelet Count 151 X10*3/uL (160-400)
--- NOTE | 2020-08-07 08:07 | P.PNGS_ITS ---
Subjective Subjective Interval history: Feels better this morning. Continues to have intermittent abd pain but severity has improved significantly. Did have some nausea this morning but NGT was also clogged. Feels like gas is moving but has not passed flatus. <MORGAN Covington Last Filed: 08/07/20 08:13> Physical Exam Vital Signs and I&O and Narrative: Vital Signs and I&O: Vital Signs Temp 98.6 F 08/07/20 04:00 Pulse 84 08/07/20 04:00 Resp 19 08/07/20 04:00 BP 140/70 H 08/07/20 04:00 Pulse Ox 95 08/07/20 04:00 Intake & Output 08/06/20 08/07/20 08/07/20 18:59 06:59 18:59 Intake Total 963.334 / 6882.324 7624 / 1963.334 Output Total 500 / 1300 800 / 1300 Balance 463.334 / 663.334 200 / 663.334 Urine Output (Aver age ml/kg/hr) 0.44 0.00 Weight 209 lb 14.081 oz Intake: Intake, IV Amoun t 963.334 / 4621.139 7813 / 1963.334 Dextrose 5 % a nd Lactated Ring 963.334 / 4081.667 5550 / 1963.334 1,000 ml @ 100 mls/hr IVCONT . Q10H [facility] Rx#:H [id number] Output: Output, Urine Am ount 500 / 500 0 / 500 Output, Gastric Drainage Amount 800 / 800 Right Nare 800 / 800 Other: NPO Yes Yes Number of Incont inent Voids 0 Urine Urinal Urine Color Tea Body Mass Index 31.8 <MORGAN Tam Last Filed: 08/07/20 08:13> Const: General: comfortable, no acute distress and alert <MORGAN Tam Last Filed: 08/07/20 08:13> Orientation/consciousness: patient oriented x3 <MORGAN Tam Last Filed: 08/07/20 08:13> Eyes: Sclerae: sclerae normal <MORGAN Tam Last Filed: 08/07/20 08:13> Resp: Effort & Inspection: normal respiratory effort <Izzy Ibarraau, PALashanda Manjarrez Last Filed: 08/07/20 08:13> Cardio: Rate: regular rate <Izzy MejiaBALJINDER delacruzLashanda Manjarrez Last Filed: 08/07/20 08:13> GI: Inspection: Yes distended <Izzy MejiaBALJINDER delacruzLashanda Manjarrez Last Filed: 08/07/20 08:13> Palpation (GI): Soft to palpation, Tenderness to palpation present (GI) periumbilically, no guarding, not rigid and No Rebound tenderness present <Izzy MejiaBALJINDER delacruzLashanda Manjarrez Last Filed: 08/07/20 08:13> Percussion: Yes tympanic to percussion <Izzy MejiaBALJINDER delacruzLashanda Manjarrez Last Filed: 08/07/20 08:13> Auscultation: Hypoactive bowel sounds present <IzzyBALJINDER LarsonLashanda Manjarrez Last Filed: 08/07/20 08:13> Skin: General skin exam: no rashes or lesions noted <IzzyBALJINDER LarsonLashanda Manjarrez Last Filed: 08/07/20 08:13> Neuro: General: patient oriented x3 <Izzy BALJINDER SykesLashanda Manjarrez Last Filed: 08/07/20 08:13> Extrem: General: Yes no clubbing, cyanosis or edema <IzzyBALJINDER LarsonLashanda Manjarrez Last Filed: 08/07/20 08:13> Progress Note: A&P Assessment and plan (1) COPD (chronic obstructive pulmonary disease): Status: Acute <DAWN TamLisa Manjarrez Last Filed: 08/07/20 08:13> Assessment and Plan: Stable. Continue home meds. <IzzyDAWN LarsonLisa Manjarrez Last Filed: 08/07/20 08:13> (2) Small bowel obstruction: Status: Acute <BALJINDER TamLashanda Manjarrez Last Filed: 08/07/20 08:13> Assessment and Plan: Improving symptomatically. NGT out remains high. Will continue current treatment of NGT for decompression, NPO status, IVF. Strongly encouraged OOB and to ambulate today. Await return of GI fxn. If no further improvement, may still require further imaging. <Izzy Sykes PA-C - Last Filed: 08/07/20 08:13> Patient seen and examined, agree with above. Will repeat abdominal films today. <Carole Sandhu MD - Last Filed: 08/07/20 08:25> Fall Risk Details Current Medications: Current Medications Generic Name Dose Route Start Last Admin Trade Name Freq PRN Reason Stop Dose Admin Acetaminophen 650 mg 08/06/20 02:38 Acetaminophen 650 Mg Supp.Rect [place] Q6H PRN Pain, Mild (Pain Scale 1-3) Albuterol/Ipratropium 3 ml 08/06/20 11:44 Albuterol/Iprat 2.5/0.5mg 3 Ml Ampul.Neb INHALE RQ6H PRN Shortness of Breath/Wheezing Dorzolamide HCl 2 drop 08/06/20 21:00 08/07/20 01:22 Dorzolamide Hcl 2 % Ophth Fina 10 Ml Drpbtl EYE-BOTH Not Given BID KRISHNA Heparin Sodium (Porcine) 5,000 unit 08/06/20 02:38 08/07/20 03:39 Heparin Sodium,Porcine 5,000 Unit/Ml Vial SUBCUT 5,000 unit Q12H KRISHNA Administration Dextrose/Lactated Ringer's 1,000 mls @ 100 mls/hr 08/06/20 02:38 08/07/20 00:12 D5lr IVCONT 100 mls/hr .Q10H KRISHNA Administration Morphine Sulfate 2 mg 08/06/20 02:38 08/07/20 03:39 Morphine Sulfate 4 Mg/Ml Cartridge IVPUSH 2 mg Q3H PRN Administration Pain, Severe (Pain Scale 7-10) Non-Formulary Medication 1 puff 08/06/20 09:15 Trelegy INHALE DAILY [facility] Non-Formulary Medication 1 drop 08/06/20 21:00 Bimatoprost [Lumigan] EYE-BOTH BEDTIME [facility] Ondansetron HCl 4 mg 08/06/20 02:38 08/07/20 03:42 Ondansetron Hcl 4 Mg/2 Ml Vial IVPUSH 4 mg Q8H PRN Administration Nausea and Vomiting Sodium Chloride 2 ml 08/06/20 08:00 08/07/20 08:03 0.9 % Sodium Chloride Flush 3 Ml Syringe IVFLUSH Not Given QSHIFT KRISHNA Tamsulosin HCl 0.4 mg 08/06/20 09:00 08/06/20 08:53 Tamsulosin Hcl 0.4 Mg Capsule PO 0.4 mg DAILY KRISHNA Administration <Izzy Sykes PA-C - Last Filed: 08/07/20 08:13> Time Spent With Patient Time: Total time spent is greater than 50% in coordination of care (as documented) at patient's floor/unit and/or counseling patient: <Izzy Sykes PA-C - Last Filed: 08/07/20 08:13> Time with patient: 15 - 24 minutes <MORGAN Tam Last Filed: 08/07/20 08:13>
[2020-08-07] MEDS: Tamsulosin HCL 0.4 MG CAPSULE PO (09:52)
[2020-08-07] MEDS: Throat Lozenge, Medicated LOZENGE 1 LOZENGE MUCOUS MEM (17:20)
[2020-08-07] MEDS: Famotidine/PF 20 MG/2 ML VIAL IVPUSH (20:35)
--- NOTE | 2020-08-07 22:50 | PC.NURSE ---
Zaheer Pastor requesting an update from Dr. Sandhu. His number is [phone] Patient reports no pain during this shift. 500ml dark brown drainage noted from NGT. Intermittent suction in place. ABD remains distended, noted to be less firm than yesterday.
[2020-08-08] VITALS (7 sets, daily range): BP systolic 125–159; BP diastolic 67–74; PULSE 52–76; RESP 16–20; TEMP 36–36.9; O2SAT 93–97
[2020-08-08] MEDS: Heparin Sodium,Porcine 5,000 UNIT/ML VIAL 5000 UNIT SUBCUT ×2 (02:49→14:28)
--- NOTE | 2020-08-08 09:09 | PM.PNGS ---
Subjective Subjective Interval history: F/u AXR yesterday no improvement in SB dilatation. Patient feels unchanged this morning. Continues to have crampy intermittent pain. Denies nausea. No flatus since yesterday afternoon. OOB and ambulated in room yesterday. <Izzy Sykes PA-C - Last Filed: 08/08/20 09:14> Physical Exam Vital Signs and I&O and Narrative: Vital Signs and I&O: Vital Signs Temp 98 F 08/08/20 06:57 Pulse 52 08/08/20 06:57 Resp 18 08/08/20 06:57 BP 157/74 H 08/08/20 06:57 Pulse Ox 96 08/08/20 06:57 Intake & Output 08/07/20 08/08/20 08/08/20 18:59 06:59 18:59 Intake Total 1000 / 1941.667 941.667 / 1941.667 Output Total 703 / 1503 800 / 1503 Balance 297 / 438.667 141.667 / 438.667 Urine Output (Aver age ml/kg/hr) 0.00 0.18 0.18 Intake: Intake, Oral Stacy unt 0 / 0 Intake, IV Amoun t 1000 / 1941.667 941.667 / 1941.667 Dextrose 5 % a nd Lactated Ring 1000 / 1941.667 941.667 / 1941.667 1,000 ml @ 100 mls/hr IVCONT . Q10H [facility] Rx#:H [id number] Output: Output, Urine Am ount 203 200 / 203 Output, Gastric Drainage Amount 700 / 1300 600 / 1300 Right Nare 700 / 1300 600 / 1300 Other: Meal Refused No NPO Yes Yes Yes Number of Incont inent Voids 0 Urine Urinal Urine Color Yumi Body Mass Index 31.8 <MORGAN Tam Last Filed: 08/08/20 09:14> Const: General: comfortable, no acute distress and alert <MORGAN Tam Last Filed: 08/08/20 09:14> Orientation/consciousness: patient oriented x3 <MORGAN Tam Last Filed: 08/08/20 09:14> HENMT: General nose exam: Other nasal findings present (NGT in place) <Izzy DAWN SykesLisa Last Filed: 08/08/20 09:14> Resp: Effort & Inspection: normal respiratory effort <Izzy MORGAN Sykes Loki Last Filed: 08/08/20 09:14> Cardio: Rate: regular rate <Izzy MejiaBALJINDER delacruzLashanda Manjarrez Last Filed: 08/08/20 09:14> GI: Inspection: Yes distended <BALJINDER TamLashanda Manjarrez Last Filed: 08/08/20 09:14> Palpation (GI): Soft to palpation, Tenderness to palpation present (GI) (periumbilical), no guarding, not rigid and No Rebound tenderness present <Izzyramon Sykes PA-C Loki Last Filed: 08/08/20 09:14> Percussion: Yes tympanic to percussion <IzzyBALJINDER LarsonLashanda Manjarrez Last Filed: 08/08/20 09:14> Skin: General skin exam: no rashes or lesions noted <Izzy BALJINDER SykesLashanda Last Filed: 08/08/20 09:14> Neuro: General: patient oriented x3 <BALJINDER TamLashanda Filed: 08/08/20 09:14> Extrem: General: Yes no clubbing, cyanosis or edema <BALJINDER TamLashanda Manjarrez Last Filed: 08/08/20 09:14> Progress Note: A&P Assessment and plan (1) Small bowel obstruction: Status: Acute <DAWN TamLisa Last Filed: 08/08/20 09:14> Assessment and Plan: F/u AXR yesterday showed unchanged SB dilatation and abdominal exam relatively unchanged this morning. Will give gastrograffin via NGT and clamp for 2hrs. Unclamp sooner if develops worsening symptoms. F/u AXR after. If this does not improve/resolve symptoms, he ultimately may require laparotomy for enterolysis. <Izzy Sykes PA-C Loki Last Filed: 08/08/20 09:14> Patient seen and examined, agree with above. Gastrografin ordered. Plan to check abdominal films early tomorrow morning. Likely will proceed with exploratory laparotomy later in day if no improvement by tomorrow. <Carole Sandhu MD - Last Filed: 08/08/20 12:14> (2) COPD (chronic obstructive pulmonary disease): Status: Acute <Izzy Sykes PA-C - Last Filed: 08/08/20 09:14> Assessment and Plan: Stable. <Izzy Sykes PA-C - Last Filed: 08/08/20 09:14> Fall Risk Details Current Medications: Current Medications Generic Name Dose Route Start Last Admin Trade Name Freq PRN Reason Stop Dose Admin Acetaminophen 650 mg 08/06/20 02:38 Acetaminophen 650 Mg Supp.Rect [place] Q6H PRN Pain, Mild (Pain Scale 1-3) Albuterol/Ipratropium 3 ml 08/06/20 11:44 Albuterol/Iprat 2.5/0.5mg 3 Ml Ampul.Neb INHALE RQ6H PRN Shortness of Breath/Wheezing Benzocaine 1 lozenge 08/07/20 15:29 08/07/20 17:20 Throat Lozenge, Medicated Lozenge MUCOUS MEM 1 lozenge Q2H PRN Administration Sore Throat Dorzolamide HCl 2 drop 08/06/20 21:00 08/07/20 20:40 Dorzolamide Hcl 2 % Ophth Fina 10 Ml Drpbtl EYE-BOTH Not Given BID KRISHNA Famotidine 20 mg 08/07/20 21:00 08/07/20 20:35 Famotidine/Pf 20 Mg/2 Ml Vial IVPUSH 20 mg BID KRISHNA Administration Heparin Sodium (Porcine) 5,000 unit 08/06/20 02:38 08/08/20 02:49 Heparin Sodium,Porcine 5,000 Unit/Ml Vial SUBCUT 5,000 unit Q12H [facility] Administration Dextrose/Lactated Ringer's 1,000 mls @ 100 mls/hr 08/06/20 02:38 08/07/20 23:54 D5lr IVCONT 100 mls/hr .Q10H [facility] Administration Morphine Sulfate 2 mg 08/06/20 02:38 08/07/20 23:52 Morphine Sulfate 4 Mg/Ml Cartridge IVPUSH 2 mg Q3H PRN Administration Pain, Severe (Pain Scale 7-10) Non-Formulary Medication 1 puff 08/06/20 09:15 Trelegy INHALE DAILY [facility] Non-Formulary Medication 1 drop 08/06/20 21:00 Bimatoprost [Lumigan] EYE-BOTH BEDTIME [facility] Ondansetron HCl 4 mg 08/06/20 02:38 08/07/20 03:42 Ondansetron Hcl 4 Mg/2 Ml Vial IVPUSH 4 mg Q8H PRN Administration Nausea and Vomiting Sodium Chloride 2 ml 08/06/20 08:00 08/08/20 00:08 0.9 % Sodium Chloride Flush 3 Ml Syringe IVFLUSH Not Given QSHIFT [facility]NA Tamsulosin HCl 0.4 mg 08/06/20 09:00 08/07/20 09:52 Tamsulosin Hcl 0.4 Mg Capsule PO 0.4 mg DAILY KR[facility] Administration <Izzy Sykes PA-C - Last Filed: 08/08/20 09:14> Time Spent With Patient Time: Total time spent is greater than 50% in coordination of care (as documented) at patient's floor/unit and/or counseling patient: <Izzy Sykes PA-C - Last Filed: 08/08/20 09:14> Time with patient: 15 - 24 minutes <Izzy Sykes PA-C - Last Filed: 08/08/20 09:14>
[2020-08-08] MEDS: Dextrose 5 % and Lactated Ring 1,000 ML 100 ML IVCONT ×2 (10:07→23:55)
[2020-08-08] MEDS: Famotidine/PF 20 MG/2 ML VIAL IVPUSH ×2 (10:10→21:45)
--- NOTE | 2020-08-08 11:01 | PC.NURSE ---
gastrograph given at 11am via ngt. patient tolerates without difficulty. ngt clamped.
--- NOTE | 2020-08-08 15:16 | PC.NURSE ---
contrast instilled in abdomen x 2 hours. patient tolerated with co mild abdominal pain which resolved after ngt suction resumed.
--- NOTE | 2020-08-08 15:31 | MHC.CM.PN ---
PER REVIEW OF CHART, NO PLAN FOR DISCHARGE AT THIS TIME. IMM 08/08 SIGNED AND IN CHART. PATIENT AND (IN ROOM) AWARE THAT CASE MANAGEMENT IS AVAILABLE FOR DISCHARGE NEEDS.
[2020-08-08] MEDS: Throat Lozenge, Medicated LOZENGE 1 LOZENGE MUCOUS MEM (18:50)
--- NOTE | 2020-08-08 22:50 | PC.NURSE ---
Patient OOB to bathroom with assist x1, NGT clamped. Patient had multiple large BMs with dark brown, semi formed and loose stool mixed. Patient requested to have NGT pulled immediately. Educated patient that NGT should remain in place until AM when evaluated by physician. Pt agreeable. 500ml of dark brown liquid with green sediment emptied from NGT canister. IVF paused to allow pt ability to move to bathroom unimpeded, per pt request. Report given to oncoming nurse
[2020-08-09 04:00] VITALS: BP 144/68; PULSE 66; RESP 19; TEMP 36.8; O2SAT 96
[2020-08-09 06:57] LABS: PLT CLUMP 1; Red Cell Distribution Width 14.7 % (11.0-16.0)
[2020-08-09 06:59] LABS: Hematocrit 41.5 % (42-52); Hemoglobin 13.6 g/dl (14.0-18.0); Mean Corpuscular HGB Conc 32.8 g/dl (31.0-36.0); Mean Corpuscular Volume 91.6 fL (80-98); Mean Platelet Volume 9.4 fL (9.4-12.4); Platelet Count 141 X10*3/uL (160-400); Red Blood Count 4.53 X10*6/uL (4.60-5.80); White Blood Count 8.3 X10*3/uL (4.8-10.8)
--- NOTE | 2020-08-09 07:00 | XR_ITS ---
EXAMINATION: XR ABDOMEN COMPLETE CLINICAL INDICATION: Small bowel obstruction. 100 mL of oral Gastrografin given 08/08/2020 COMPARISON: Previous abdominal x-ray 08/07/[address] 08/05/2020 TECHNIQUE: 2 views of the abdomen. FINDINGS: There are still dilated loops of small bowel with air-fluid levels similar to previous exams. There is oral contrast seen throughout the colon. The colon is normal in caliber. There is no evidence of free air. No calcifications are seen. There are degenerative changes of the spine and hip joints. IMPRESSION: There are still dilated loops of small bowel with air-fluid levels. There is oral contrast in normal caliber colon. Differential would include small bowel ileus and partial small bowel obstruction.
[2020-08-09 07:19] LABS: Anion Gap 15 (12-20); Blood Urea Nitrogen 18 mg/dL (9-16); Calcium 8.3 mg/dL (8.4-10.2); Carbon Dioxide 27 mmol/L (22-29); Chloride 106 mmol/L (96-108); Estimated Glomerular Filt Rate > 60; Glucose Fasting 103 mg/dL (60-99); Potassium 3.6 mmol/l (3.3-5.1); Sodium 144 mmol/L (135-145)
[2020-08-09 08:00] VITALS: BP 128/70; PULSE 57; RESP 18; TEMP 36.7; O2SAT 91
[2020-08-09] MEDS: Famotidine/PF 20 MG/2 ML VIAL IVPUSH ×2 (08:08→22:10)
[2020-08-09] MEDS: Tamsulosin HCL 0.4 MG CAPSULE PO (08:08)
--- NOTE | 2020-08-09 08:39 | P.PNGS_ITS ---
Subjective Subjective Interval history: Feels much better this morning. Began passing flatus again yesterday afternoon. Had multiple bowel movements last night, both loose and formed. Has had no abdominal pain since. Denies nausea or vomiting. Feels less bloated this morning. Feels hungry and wants to eat. <MORGAN Tam Last Filed: 08/09/20 08:42> Physical Exam Vital Signs and I&O and Narrative: Vital Signs and I&O: Vital Signs Temp 98.0 F 08/09/20 08:00 Pulse 57 08/09/20 08:00 Resp 18 08/09/20 08:00 BP 128/70 08/09/20 08:00 Pulse Ox 91 L 08/09/20 08:00 Intake & Output 08/08/20 08/09/20 08/09/20 18:59 06:59 18:59 Intake Total 1000 / 1813.333 813.333 / 1813.333 865 / 865 Output Total 600 / 1625 1025 / 1625 Balance 400 / 188.333 -211.667 / 188.333 865 / 865 Urine Output (Aver age ml/kg/hr) 0.24 0.24 Intake: Intake, IV Amoun t 1000 / 1813.333 813.333 / 1813.333 865 / 865 Dextrose 5 % a nd Lactated Ring 1000 / 1813.333 813.333 / 1813.333 865 / 865 1,000 ml @ 100 mls/hr IVCONT . Q10H [facility] Rx#:H [id number] Output: Output, Urine Am ount 275 / 275 Output, Gastric Drainage Amount 600 / 1350 750 / 1350 Right Nare 600 / 1350 750 / 1350 Other: NPO Yes Yes Number of Bowel Movements 3 Urine Urinal Urine Color Tea Last Bowel Movem ent 08/08/20 Stool Bathroom Stool Color Dark Brown Stool Consistenc y Semi Formed Body Mass Index 31.8 <MORGAN Tam Last Filed: 08/09/20 08:42> Const: General: comfortable, no acute distress and alert <MORGAN Tam Last Filed: 08/09/20 08:42> Orientation/consciousness: patient oriented x3 <MORGAN Tam Filed: 08/09/20 08:42> Resp: Effort & Inspection: normal respiratory effort <Izzy MORGAN Sykes - Last Filed: 08/09/20 08:42> Cardio: Rate: regular rate <Izzy MejiaOMRGAN delacruz - Last Filed: 08/09/20 08:42> GI: Inspection: No distended <Izzy Sykes PA-C - Last Filed: 08/09/20 08:42> Palpation (GI): Soft to palpation, nontender, no guarding and No Rebound tenderness present <Izzy MORGAN Sykes - Last Filed: 08/09/20 08:42> Skin: General skin exam: no rashes or lesions noted <Izzy Sykes PA-C - Last Filed: 08/09/20 08:42> Neuro: General: patient oriented x3 <Izzy Sykes PA-C Loki Last Filed: 08/09/20 08:42> Extrem: General: Yes no clubbing, cyanosis or edema <DAWN TamLisa - Last Filed: 08/09/20 08:42> Progress Note: A&P Assessment and plan (1) COPD (chronic obstructive pulmonary disease): Status: Acute <Izzy Sykes PA-C - Last Filed: 08/09/20 08:42> (2) Small bowel obstruction: Status: Acute <Izzy Sykes PA-C Loki Last Filed: 08/09/20 08:42> Assessment and Plan: Appears to have resolved. Patient has had multiple bowel movements and his abdominal exam is significantly improved- soft, NTND. Will remove NGT today and begin on clear liquids. Advance further as tolerated. Continue to encourage OOB/ambulation. <Izzy Sykes PA-C - Last Filed: 08/09/20 08:42> Patient seen and examined, progress discussed. Doing well. Clear liquid diet has been initiated in he appears to be tolerating it so far. Will stop IV fluids. Abdominal films will be done this morning per Gastrografin protocol. <Carole Sandhu MD - Last Filed: 08/09/20 08:52> Fall Risk Details Current Medications: Current Medications Generic Name Dose Route Start Last Admin Trade Name Freq PRN Reason Stop Dose Admin Acetaminophen 650 mg 08/06/20 02:38 Acetaminophen 650 Mg Supp.Rect [place] Q6H PRN Pain, Mild (Pain Scale 1-3) Albuterol/Ipratropium 3 ml 08/06/20 11:44 Albuterol/Iprat 2.5/0.5mg 3 Ml Ampul.Neb INHALE RQ6H PRN Shortness of Breath/Wheezing Benzocaine 1 lozenge 08/07/20 15:29 08/08/20 18:50 Throat Lozenge, Medicated Lozenge MUCOUS MEM 1 lozenge Q2H PRN Administration Sore Throat Dorzolamide HCl 2 drop 08/06/20 21:00 08/09/20 08:09 Dorzolamide Hcl 2 % Ophth Fina 10 Ml Drpbtl EYE-BOTH Not Given BID [facility] Famotidine 20 mg 08/07/20 21:00 08/09/20 08:08 Famotidine/Pf 20 Mg/2 Ml Vial IVPUSH 20 mg BID KRISHNA Administration Heparin Sodium (Porcine) 5,000 unit 08/06/20 02:38 08/09/20 03:05 Heparin Sodium,Porcine 5,000 Unit/Ml Vial SUBCUT Not Given Q12H [facility] Morphine Sulfate 2 mg 08/06/20 02:38 08/07/20 23:52 Morphine Sulfate 4 Mg/Ml Cartridge IVPUSH 2 mg Q3H PRN Administration Pain, Severe (Pain Scale 7-10) Non-Formulary Medication 1 puff 08/06/20 09:15 Trelegy INHALE DAILY [facility] Non-Formulary Medication 1 drop 08/06/20 21:00 Bimatoprost [Lumigan] EYE-BOTH BEDTIME [facility] Ondansetron HCl 4 mg 08/06/20 02:38 08/07/20 03:42 Ondansetron Hcl 4 Mg/2 Ml Vial IVPUSH 4 mg Q8H PRN Administration Nausea and Vomiting Sodium Chloride 2 ml 08/06/20 08:00 08/09/20 08:09 0.9 % Sodium Chloride Flush 3 Ml Syringe IVFLUSH Not Given QSHIFT [facility] Tamsulosin HCl 0.4 mg 08/06/20 09:00 08/09/20 08:08 Tamsulosin Hcl 0.4 Mg Capsule PO 0.4 mg DAILY KRISHNA Administration <Izzy Sykes PA-C - Last Filed: 08/09/20 08:42> Time Spent With Patient Time: Total time spent is greater than 50% in coordination of care (as documented) at patient's floor/unit and/or counseling patient: <Izzy Sykes PA-C - Last Filed: 08/09/20 08:42> Time with patient: 15 - 24 minutes <MORGAN Tam Last Filed: 08/09/20 08:42>
[2020-08-09 11:50] VITALS: BP 116/58; PULSE 52; RESP 18; TEMP 36.3; O2SAT 96
[2020-08-09 15:19] VITALS: BP 145/76; PULSE 55; RESP 16; TEMP 36.8; O2SAT 93
[2020-08-09] MEDS: 0.9 % Sodium Chloride Flush 3 ML SYRINGE 2 ML IVFLUSH ×2 (15:31→22:18)
[2020-08-09 20:00] VITALS: BP 131/69; PULSE 66; RESP 16; TEMP 36.3; O2SAT 94
[2020-08-10] VITALS: BP 119/59; PULSE 56; RESP 18; TEMP 36.4; O2SAT 96
[2020-08-10 03:50] VITALS: RESP 16
[2020-08-10 08:00] VITALS: BP 138/68; PULSE 62; RESP 18; TEMP 36; O2SAT 95
--- NOTE | 2020-08-10 08:09 | PM.PNGS ---
Subjective Subjective Interval history: Feels well this morning. Tolerated clear liquids yesterday for breakfast and lunch. Passed large amounts of flatus and two BM following this. Had solid food for dinner without recurrent abdominal pain, nausea or vomiting. Continues to pass flatus and BM. Denies abdominal pain. Feels ready for discharge. Physical Exam Vital Signs and I&O and Narrative: Vital Signs and I&O: Vital Signs Temp 97.6 F 08/10/20 00:00 Pulse 56 08/10/20 00:00 Resp 16 08/10/20 03:50 BP 119/59 L 08/10/20 00:00 Pulse Ox 96 08/10/20 00:00 Intake & Output 08/09/20 08/10/20 08/10/20 18:59 06:59 18:59 Intake Total 3265 / 3265 Output Total Balance 3261 / 3260 - 3260 Urine Output (Aver age ml/kg/hr) 0.00 0.00 Intake: Intake, Oral Herminia unt 2400 / 2400 Intake, IV Amoun t 865 / 865 Dextrose 5 % a nd Lactated Ring 865 / 865 1,000 ml @ 100 mls/hr IVCONT . Q10H [facility] Rx#:H [id number] Output: Output, Urine Am ount Other: NPO Yes Breakfast % Eate n 100% Lunch % Eaten 100% Number of Unmeas ured Voids 2 Number of Bowel Movements 1 Urine Bathroom Urine Color Yumi Last Bowel Movem ent 08/09/20 Stool Bathroom Stool Color Brown Stool Consistenc y Formed Body Mass Index 31.8 Const: General: comfortable, no acute distress and alert Orientation/consciousness: patient oriented x3 Eyes: Sclerae: sclerae normal Resp: Effort & Inspection: normal respiratory effort Cardio: Rate: regular rate GI: Inspection: No distended Palpation (GI): Soft to palpation, nontender, no guarding, not rigid and No Rebound tenderness present Percussion: Yes normal to percussion Auscultation: normal bowel sounds Skin: General skin exam: no rashes or lesions noted Neuro: General: patient oriented x3 Extrem: General: Yes no clubbing, cyanosis or edema Progress Note: A&P Assessment and plan (1) Small bowel obstruction: Status: Acute Assessment and Plan: Resolved. Remains asymptomatic, tolerating solid diet with good GI fxn. Abdomen is benign- soft, NTND. He feels ready for discharge. Will d/c to home today. Follow up with Dr. Sandhu in office as needed. (2) COPD (chronic obstructive pulmonary disease): Status: Acute Fall Risk Details Current Medications: Current Medications Generic Name Dose Route Start Last Admin Trade Name Freq PRN Reason Stop Dose Admin Acetaminophen 650 mg 08/06/20 02:38 Acetaminophen 650 Mg Supp.Rect [place] Q6H PRN Pain, Mild (Pain Scale 1-3) Albuterol/Ipratropium 3 ml 08/06/20 11:44 Albuterol/Iprat 2.5/0.5mg 3 Ml Ampul.Neb INHALE RQ6H PRN Shortness of Breath/Wheezing Benzocaine 1 lozenge 08/07/20 15:29 08/08/20 18:50 Throat Lozenge, Medicated Lozenge MUCOUS MEM 1 lozenge Q2H PRN Administration Sore Throat Dorzolamide HCl 2 drop 08/06/20 21:00 08/09/20 22:17 Dorzolamide Hcl 2 % Ophth Fina 10 Ml Drpbtl EYE-BOTH Not Given BID KRISHNA Famotidine 20 mg 08/07/20 21:00 08/09/20 22:10 Famotidine/Pf 20 Mg/2 Ml Vial IVPUSH 20 mg BID KRISHNA Administration Heparin Sodium (Porcine) 5,000 unit 08/06/20 02:38 08/10/20 03:57 Heparin Sodium,Porcine 5,000 Unit/Ml Vial SUBCUT Not Given Q12H KRISHNA Latanoprost 1 drop 08/09/20 21:00 08/09/20 22:16 Latanoprost 0.005 % Ophth Fina 2.5 Ml Drops EYE-BOTH Not Given BEDTIME KRISHNA Morphine Sulfate 2 mg 08/06/20 02:38 08/07/20 23:52 Morphine Sulfate 4 Mg/Ml Cartridge IVPUSH 2 mg Q3H PRN Administration Pain, Severe (Pain Scale 7-10) Non-Formulary Medication 1 puff 08/06/20 09:15 Trelegy INHALE DAILY KRISHNA Ondansetron HCl 4 mg 08/06/20 02:38 08/07/20 03:42 Ondansetron Hcl 4 Mg/2 Ml Vial IVPUSH 4 mg Q8H PRN Administration Nausea and Vomiting Sodium Chloride 2 ml 08/06/20 08:00 08/09/20 22:18 0.9 % Sodium Chloride Flush 3 Ml Syringe IVFLUSH 2 ml QSHIFT KRISHNA Administration Tamsulosin HCl 0.4 mg 08/06/20 09:00 08/09/20 08:08 Tamsulosin Hcl 0.4 Mg Capsule PO 0.4 mg DAILY KRISHNA Administration Time Spent With Patient Time: Total time spent is greater than 50% in coordination of care (as documented) at patient's floor/unit and/or counseling patient: Time with patient: 15 - 24 minutes
[2020-08-10] MEDS: Tamsulosin HCL 0.4 MG CAPSULE PO (08:23)
[2020-08-10] MEDS: Famotidine/PF 20 MG/2 ML VIAL IVPUSH (08:23)
[2020-08-10] MEDS: 0.9 % Sodium Chloride Flush 3 ML SYRINGE 2 ML IVFLUSH (08:23)
--- NOTE | 2020-08-14 10:24 | P.DS_ITS ---
DS: Providers Provider Date of admission: 08/06/20 02:32 Primary care physician: Jomar Sung MD DS: Diagnosis Discharge Diagnosis (1) Small bowel obstruction: Status: Acute (2) COPD (chronic obstructive pulmonary disease): Status: Acute DS: Summary Hospital Course Hospital Course: Brief HPI: Fidecnio Pastor is a 85 year old male who was feeling well early yesterday. After supper, he reports that he noted increasing abdominal distension and worsening pressure-like pain that would come and go. It was associated with nausea. He had 1 episode of vomiting just prior to coming to the emergency room. He has not had similar problems in the past. He does not report fever or chills. 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 He also has a history of laparoscopic cholecystectomy complicated by bile leak, which was treated by drainage and ERCP with sphincterotomy. The patient was admitted to the surgical service for further treatment of the SBO likely secondary to adhesions. NG tube was inserted to bowel decompression and NPO status and IV fluids continued. If no clear improvement over next 24 hours, consider Gastrografin challenge. The patient had an uncomplicated hospital course. He initially felt improved with decreasing abdominal pain but he had no evidence of return of GI fxn. The following day, a gastrograffin challenge was performed with administration of Gastrograffin 100mL into the NGT and clamped for two hours. The patient felt improved following this and began to pass flatus and actually have multiple darrius l movements. He did not have any abdominal pain and felt less distended. The following day his NGT was removed. He was started on clear liquids and then a low residue diet later in the day. On the day of discharge, the patient felt well and was asymptomatic. He was tolerating a solid diet and had good GI fxn. His abdominal exam was very benign. He felt ready for discharge. He was discharged to home in stable condition on 08/10/20. Time Spent with Patient Time attestation: Total time spent providing and/or coordinating discharge services: 20 Physical Exam Vital Signs: Vital Signs: Body Mass Index 31.8 Const: General: comfortable, no acute distress and alert Orientation/consci ousness: patient oriented x3 Eyes: Sclerae: sclerae normal Resp: Effort & Inspection: normal respiratory effort Cardio: Rate: regular rate GI: Inspection: No distended Palpation (GI): Soft to palpation, nontender, no guarding, not rigid and No Rebound tenderness present Auscultation: normal bowel sounds Skin: General skin exam: no rashes or lesions noted Neuro: General: patient oriented x3 Extrem: General: Yes no clubbing, cyanosis or edema Discharge Plan Discharge Patient Disposition: Home, Self-Care Referrals: Jomar Sung MD [Primary Care Provider] - Carole Sandhu MD [Physician] - (As needed) Discharge Medications: Continued albuterol sulfate 0.63 mg/3 mL Solution For Nebulization RF: 0 dorzolamide 2 % Drops 2 drp ophthalmic (eye) BID RF: 0 simvastatin 10 mg Tablet 10 mg PO BEDTIME RF: 0 tamsulosin 0.4 mg capsule 0.8 mg PO DAILY RF: 0 Mucinex RF: 0 azithromycin tablet 250 mg PO 3XW RF: 0 nystatin 100,000 unit/mL Suspension 4 ml PO RF: 0 Trelegy Ellipta 100-62.5-25 mcg Blister With Device 1 inh INHALATION DAILY RF: 0 Lumigan 0.01 % Drops 1 drp OPHTHALMIC (EYE) BEDTIME RF: 0 Mucinex DM 30-600 mg Tablet Extended Release 12 Hr 1 tab PO Q12H PRN (Reason: Congestion) RF: 0 Discharge Orders: Discharge Order (Routine); Ordered 08/10/20 Ordered By: Izzy Sykes Diet: advance to your usual diet and other Activity on Discharge: As tolerated Discharge Date/Time: 08/10/20 10:35 Activity Restrictions/Additional Instructions: Call the office or return to the ED if you develop recurrent abdominal pain, nausea or vomiting. Resume activities as tolerated. Continue low residue diet for 1 week. Visit Report Forms: Patient Portal Discharge page Care Plan Goals: Return of normal GI function; return to baseline health and activity Health Concerns: COPD, SBO Plan of Treatment: Supportive with NGT, bowel rest, IVF
== END 2020-08-10 10:35 | disposition home or self-care (01) | DRG 390 ==
LOC: HO.ED 08-06 00:39 → HO.S3 08-06 02:36
PROVIDERS: Nurse Practitioner Family; Admitting Provider Surgery; PCP Internal Medicine; Visit Provider Surgery
DX: K56.50 Intestinal adhesions [bands], unspecified as to partial versus complete obstruction (principal); E78.00 Pure hypercholesterolemia, unspecified; J44.9 Chronic obstructive pulmonary disease, unspecified; Z96.652 Presence of left artificial knee joint; Z79.899 Other long term (current) drug therapy
CPT/HCPCS: 36415; 71045; 74019; 74176; 80048; 80076; 81001; 83605; 83690; 84484; 85025; 85027; 86850; 86900; 86901; 87040; 93005; 93010; 96365; 96375; 96376; 99284; 99285; J2060; J2270; J2405; J2543

== ENCOUNTER → 2021-01-25 09:52 | Outpatient (BNVA) | payer MEDICARE, SELFPAY | PROVIDERS: PCP Internal Medicine; Visit Provider Hospitalist | DX: J41.0 Simple chronic bronchitis (principal); J84.9 Interstitial pulmonary disease, unspecified; Z99.81 Dependence on supplemental oxygen; Z79.899 Other long term (current) drug therapy | CPT/HCPCS: 99212; Q3014 ==

== ENCOUNTER → 2021-07-15 09:45 | Outpatient (BNVA) | payer MEDICARE, SELFPAY | PROVIDERS: PCP Internal Medicine; Visit Provider Hospitalist | DX: J41.0 Simple chronic bronchitis (principal); J84.9 Interstitial pulmonary disease, unspecified; Z99.81 Dependence on supplemental oxygen | CPT/HCPCS: 99212 ==

== ENCOUNTER 2021-09-18 07:50 | Outpatient (REF) | payer MEDICARE, SELFPAY ==
[2021-09-18 11:23] LABS: Appearance Urine CLOUDY; Color Urine YELLOW; Glucose Urine UA NEG (NEG); Leukocyte Esterase Urine NEG (NEG); Nitrite Urine NEG (NEG); PH 5.5 (5.0-8.0); Specific Gravity - Urine >= 1.030 (1.005-1.025); Urine Blood TRACE (NEG); Urine Ketones NEG (NEG); Urine Protein NEG (NEG-TRACE)
[2021-09-18 11:41] LABS: Amorphous Sediment Urine 3+ /LPF; Mucus Urine 3+ /LPF; RBC Urine 0-2 /HPF (0); Squamous Epithelial Cell Urine 1+ /LPF; WBC Urine 0-2 /HPF (0-4)
[2021-09-18 11:42] LABS: MANUAL DIFF FLAG SCAN; PLT CLUMP 1; Red Cell Distribution Width 15.4 % (11.0-16.0); SCAN SMEAR FLAG 1
[2021-09-18 11:44] LABS: Basophils Absolute Auto 0.1 X10*3/uL (0.0-0.2); Eosinophils Absolute Auto 0.1 X10*3/uL (0.0-0.4); Eosinophils Percent Auto 1.5 % (0-4); Hematocrit 38.8 % (42.0-52.0); Hemoglobin 12.8 g/dl (14.0-18.0); Imm Gran Abs Auto 0.08 X10*3/uL (0.00-0.03); Imm Gran Pct Auto 1.3 % (0.0-0.4); Lymphocytes Absolute Auto 1.5 X10*3/uL (1.2-4.9); Lymphocytes Percent Auto 25.3 % (20-40); Mean Corpuscular Hemoglobin 30.1 pg (27.0-33.0); Mean Corpuscular Volume 91.3 fL (80.0-98.0); Mean Platelet Volume 9.9 fL (9.4-12.4); Monocytes Absolute Auto 0.7 X10*3/uL (0.1-1.2); Neutrophils Absolute Auto 3.6 x10*3/uL (2.0-8.3); Neutrophils Percent Auto 58.9 % (45-73); Platelet Count 138 X10*3/uL (160-400); Red Blood Count 4.25 X10*6/uL (4.60-5.80); White Blood Count 6.1 X10*3/uL (4.8-10.8)
[2021-09-18 11:59] LABS: Alanine Aminotransferase 16 U/L (0-40); Alkaline Phosphatase 103 U/L (39-117); Anion Gap 15 (12-20); Aspartate Amino Transferase 14 U/L (5-37); Bilirubin Total 0.6 mg/dL (0.0-1.0); Blood Urea Nitrogen 22 mg/dL (9-16); Calcium 8.7 mg/dL (8.4-10.2); Carbon Dioxide 21 mmol/L (22-29); Chloride 108 mmol/L (96-108); Cholesterol 124 mg/dL; Estimated Glomerular Filt Rate 57; Glucose Fasting 115 mg/dL (60-99); HDL Cholesterol 32 mg/dL; LDL Cholesterol Calculated 75 mg/dl; Potassium 4.2 mmol/L (3.3-5.1); Sodium 140 mmol/L (135-145); Total Protein 6.4 g/dL (6.5-8.0); Triglycerides 86 mg/dL
[2021-09-18 12:22] LABS: Prostate Specific Antigen 2.24 ng/mL (<0.05-4.0); Vitamin D 25-OH Total 18.6 ng/mL (>30)
== END 2021-09-18 07:51 | disposition home or self-care (01) ==
LOC: HO.HMGCLDS 07:50
PROVIDERS: PCP Internal Medicine; Visit Provider Internal Medicine
DX: Z00.00 Encounter for general adult medical examination without abnormal findings (principal); Z12.5 Encounter for screening for malignant neoplasm of prostate; J44.9 Chronic obstructive pulmonary disease, unspecified; N18.9 Chronic kidney disease, unspecified; N40.0 Benign prostatic hyperplasia without lower urinary tract symptoms; Z85.118 Personal history of other malignant neoplasm of bronchus and lung
CPT/HCPCS: 36415; 80053; 80061; 81001; 82306; 84153; 85025

== ENCOUNTER 2021-10-14 10:08 | Outpatient (REF) | payer MEDICARE, SELFPAY | END 2021-10-14 10:09 | disposition home or self-care (01) | LOC: HO.LNP 10:08 | PROVIDERS: Visit Provider Hospitalist | DX: J41.0 Simple chronic bronchitis (principal); J84.9 Interstitial pulmonary disease, unspecified; Z99.81 Dependence on supplemental oxygen | CPT/HCPCS: 87070; 87205; 99212 ==

== ENCOUNTER → 2021-12-20 09:40 | Outpatient (BNVA) | payer MEDICARE, SELFPAY | PROVIDERS: PCP Internal Medicine; Visit Provider Hospitalist | DX: J41.0 Simple chronic bronchitis (principal); J84.9 Interstitial pulmonary disease, unspecified; Z99.81 Dependence on supplemental oxygen | CPT/HCPCS: 99212 ==

== ENCOUNTER 2022-01-23 09:57 | Outpatient (REF) | payer MEDICARE, SELFPAY ==
--- NOTE | ~2022-01-23 | XR_ITS ---
EXAMINATION: XR CHEST CLINICAL INFORMATION: Interstitial pulmonary disease COMPARISON: None TECHNIQUE: 2 views of the chest were obtained. FINDINGS: The lungs are hyperinflated but clear of acute pneumonic process. The heart size and pulmonary vascularity is normal. No gross bony abnormality seen. XR/XR chest 2V IMPRESSION: Hyperinflated lungs without acute process.
== END 2022-01-23 09:58 | disposition home or self-care (01) ==
LOC: HO.HMGCX 09:57
PROVIDERS: PCP Internal Medicine; Visit Provider Hospitalist
DX: J84.9 Interstitial pulmonary disease, unspecified (principal)
CPT/HCPCS: 71046

== ENCOUNTER → 2022-02-12 09:36 | Outpatient (BNVA) | payer MEDICARE, SELFPAY | PROVIDERS: PCP Internal Medicine; Visit Provider Hospitalist | DX: J84.9 Interstitial pulmonary disease, unspecified (principal); J41.8 Mixed simple and mucopurulent chronic bronchitis; Z99.81 Dependence on supplemental oxygen | CPT/HCPCS: 99212 ==

== ENCOUNTER 2022-02-25 15:36 | Inpatient (IN) | payer MEDICARE, SELFPAY ==
[2022-02-25] VITALS (11 sets, daily range): BP systolic 136–158; BP diastolic 44–76; PULSE 71–91; RESP 16–24; TEMP 36.6–36.9; O2SAT 95–100; BMI 36.9
--- NOTE | ~2022-02-25 | CT_ITS ---
EXAMINATION: CT ABDOMEN AND PELVIS WITHOUT CONTRAST CLINICAL INFORMATION: Anemia. Rule out retroperitoneal hemorrhage. COMPARISON: CT abdomen pelvis 08/05/2020. TECHNIQUE: Multidetector volumetric imaging was performed from the superior aspect of the liver through the pubic symphysis. Sagittal and coronal reformatted images were obtained on the technologist's workstation. This CT examination was performed using dose optimization techniques as appropriate, variously including the following: *Automated exposure control *Adjustment of mA and/or kV according to patient size (this includes techniques or standardized protocols for targeted exams where dose is matched to indication/reason for exam; i.e. extremities or head) *Use of iterative reconstruction technique DLP: 697 mGy-cm FINDINGS: LUNG BASES: Partial visualization is made of extensive emphysematous changes of the lungs. Partial visualization is made of a trace dependent layering left pleural effusion. Dense mitral annulus calcifications are partially visualized. LIVER, GALLBLADDER, AND BILIARY TREE: The liver is normal in size, shape, and attenuation. No focal hepatic lesion or biliary ductal dilatation is present. Cholecystectomy clips are noted. PANCREAS: Mild diffuse fatty atrophy of the pancreas is visualized. SPLEEN: Unremarkable. ADRENAL GLANDS: Unremarkable. KIDNEYS AND URETERS: Bilateral diffuse mild-moderate parenchymal atrophy of the kidneys noted. A vague 2.2 cm diameter rounded low-density (-17 Hounsfield units) focus is present inferiorly within the left pole the kidney and likely represents partial visualization of the benign, simple cyst s requiring no additional imaging follow-up. BLADDER: Physiologically distended. GASTROINTESTINAL TRACT: Sigmoid anastomotic sutures are present. Mild diverticulosis of the sigmoid colon is noted. Moderate diverticulosis of the transverse and ascending colon is visualized. A cecal bascule is noted. The appendix is not definitively visualized. No pericecal inflammatory changes are noted. No free intraperitoneal fluid or gas collections are visualized. No inflammatory changes of the sigmoid or small bowel mesentery is noted. The stomach is normal in appearance. ABDOMINAL WALL: A ventral midline incisional scar is noted. No abdominal wall hernias noted. LYMPH NODES: Normal. VASCULAR: Diffuse dense calcific atherosclerosis. PELVIC VISCERA: Unremarkable. OSSEOUS STRUCTURES: Multilevel intervertebral disc space narrowing chronic endplate discogenic changes and multilevel facet hypertrophic changes of the lumbar spine are noted. No vertebral body compression deformities visualized. CT/CT abdomen pelvis wo con IMPRESSION: Unenhanced CT of the abdomen and pelvis: *No acute intra-abdominal abnormalities identified. No retroperitoneal or abdominal wall hematomas visualized. *Partial visualization of marked centrilobular emphysematous changes of the lungs. *Partially visualized small left pleural effusion. *Status post cholecystectomy. Anastomotic sutures within the sigmoid colon. Colonic diverticulosis without evidence of diverticulitis.
--- NOTE | ~2022-02-25 | XR_ITS ---
EXAMINATION: XR CHEST CLINICAL INFORMATION: Shortness of breath COMPARISON: Chest radiograph 01/23/2022, CT abdomen pelvis 08/05/2020 TECHNIQUE: Frontal view of the chest was obtained. FINDINGS: Marked changes of COPD better appreciated on the 08/06/2020 CT scan. Increased peripheral interstitial markings consistent with interstitial lung disease which could also be seen on prior studies no new focal consolidation. Heart size normal. No evidence of CHF. No pleural effusions. No pneumothorax.. XR/XR chest 1V IMPRESSION: No acute intrathoracic disease. Stable changes of COPD and interstitial lung disease.
--- NOTE | 2022-02-25 16:51 | ECG_ITS ---
Test Reason : SOB Blood Pressure : / mmHG Vent. Rate : 072 BPM Atrial Rate : 072 BPM P-R Int : 158 ms QRS Dur : 082 ms QT Int : 390 ms P-R-T Axes : 025 034 044 degrees QTc Int : 427 ms Normal sinus rhythm Normal ECG When compared with ECG of 25-FEB-2022 12:40, No significant change was found Referred By: Ramonita Rodriguez Electronically Signed By:SOMMER RODRIGUEZ
--- NOTE | 2022-02-25 16:53 | ED.GENADULT ---
HPI - General Adult General Chief complaint: Recheck/Abnormal Lab/Rx Stated complaint: Blood transfusion Time Seen by Provider: 02/25/22 16:06 Source: patient Mode of arrival: ambulatory Limitations: no limitations History of Present Illness HPI narrative: Patient comes to the emergency room complaining of low H&H levels. Patient states that for at least 2 months, patient has noticed that with exertion he gets very short of breath, no chest pain. Patient states that he has been seen by pulmonology, he has been prescribed multiple different inhalers but nothing is working. Blood work was done today, patient went home and he got a phone call from his PCP, patient is to return to the emergency room for further evaluation and treatment for hemoglobin of 6.2. Patient has noticed that he gets lightheaded easily especially when he stands up, this recently started a few weeks ago. Again, no chest pain. 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 Patient had a colonoscopy approximately 7 years ago. Related Data Home Medications Medication Instructions Recorded Confirmed simvastatin 10 mg tablet 10 mg PO BEDTIME 08/06/20 02/25/22 tamsulosin 0.4 mg capsule 0.8 mg PO DAILY 08/06/20 02/25/22 dorzolamide 22.3 mg-timolol 6.8 1 drp OPHTHALMIC (EYE) 10/14/21 02/25/22 mg/mL eye drops BID@0900,1800 azithromycin 250 mg tablet 250 mg PO MOWEFR 02/25/22 02/25/22 tafluprost (PF) 0.0015 % eye drops 1 drp OPHTHALMIC (EYE) BEDTIME 02/25/22 02/25/22 in a dropperette (Zioptan (PF)) Previous Rx's Medication Instructions Recorded fluticasone fur. 200 mcg-umeclid 1 inh INHALATION DAILY 30 Days #60 01/25/21 62.5 mcg-vilant 25 mcg ea inhalat.powder (Trelegy Ellipta) ipratropium 0.5 mg-albuterol 3 mg 3 ml INHALATION BID 30 Days #180 ml 01/27/22 (2.5 mg base)/3 mL nebulization soln budesonide 0.5 mg/2 mL suspension 0.5 mg (2 mL) INHALATION BID 30 02/12/22 for nebulization Days #120 ml sodium chloride 7 % for 4 ml INHALATION BID 30 Days #240 ml 02/13/22 nebulization Allergies Allergy/AdvReac Type Severity Reaction Status Date / Time No Known Allergies Allergy Verified 02/25/22 13:51 Review of Systems Review of Systems: Constitutional : No Weight loss, No Fever, No Chills, No Night Sweats, No Fatigue, No Malaise ENT/Mouth : No Hearing loss, No Ear Pain, No Nasal Congestion, No Sinus Pain, No Hoarseness, No sore throat, No Rhinorrhea, No Swallowing Difficulty Eyes: No Eye Pain, No Swelling, No Redness, No Foreign Body, No Discharge, No Vision Changes Cardiovascular : No Chest Pain, complaining of dyspnea on exertion, orthopnea Respiratory : No Cough, No Sputum, No Wheezing, No Smoke Exposure, complaining of chronic shortness of breath, gradually getting worse over last 2 months Gastrointestinal : No Nausea, No Vomiting, No Diarrhea, No Constipation, No abdominal Pain, No Hematochezia, No Melena Genitourinary : no irregular bleeding, No Dysuria, No Urinary Frequency, No Hematuria, No Urinary Incontinence, No Urgency, No Flank Pain, No Urinary Flow Changes, No Hesitancy Musculoskeletal : No joint pain, No Myalgias, No Joint Swelling Skin : No Skin Lesions, No rash Neuro : No Weakness, No Numbness, No Paresthesias, No Loss of Consciousness, No Dizziness, No Headache Psych : No Anxiety/Panic, No Depression, No SI/HI/AH/VH, No Social Issues, Heme/Lymph: No Bruising, No Bleeding,No Lymphadenopathy Endocrine : No Polyuria, No Polydipsia, No Temperature Intolerance [facility] Past Medical History Medical History COPD (chronic obstructive pulmonary disease) Diverticulitis Glaucoma History of lung cancer Hypercholesterolemia ILD (interstitial lung disease) Osteoarthritis Oxygen dependent Surgical History History of ERCP History of laparoscopic cholecystectomy History of total left knee replacement Status post Pat procedure Family History Family History (Updated 08/06/20 @ 09:51 by Carole Sandhu MD) Mother ALS (amyotrophic lateral sclerosis) Social History Social History (Updated 07/15/21 @ 09:58 by Ree Laws Arlette) Alcohol intake: current Alcohol intake frequency: holidays/special occasions only Alcohol type: beer Patient Tobacco Use Status: Former Tobacco user Tobacco use type: Cigarette Years Smoked: 20 years Advance Directives: No Advance Directives Information Provided: No service: No Current occupational status: retired Physical Exam ED Vital Signs: Vital Signs - 24 hr 02/25/22 16:02 02/25/22 16:15 02/25/22 18:14 Temperature 98 F 98.1 F Pulse Rate 91 72 71 Respiratory Rate 24 H 16 18 Blood Pressure 138/44 L 156/72 H 153/57 H Pulse Oximetry 95 96 02/25/22 18:29 Temperature 98.3 F Pulse Rate 74 Respiratory Rate 20 Blood Pressure 136/76 Pulse Oximetry BMI result Body Mass Index 36.9 Const Other: Appearance: Alert. Oriented X3. No acute distress. Eyes: Pupils equal, round and reactive to light. ENT: Pharynx normal. Neck: Normal inspection. Neck supple. No lymph nodes noted. No crepitus CVS: Normal heart rate and rhythm. Pulses normal. Normal S1 and S2 Respiratory: No respiratory distress. Breath sounds normal. No Wheezing. No rales Abdomen: Soft and nontender. No rigidity. No distention. Digital rectal exam showed brown stool Skin: Skin warm and dry. Normal skin color. Normal skin turgor. Extremities: No lower extremity edema. No Lacerations. No Rash Neuro: Oriented X 3. No motor deficit. No sensory deficit. Moving all extremities. No slurred speech. CN 2 through 12 grossly intact Psych: calm, cooperative, normal affect Course Course Course Narrative: With minimal physical exertion, patient's oxygen dropped quite a bit. When I asked patient to roll to the side for digital rectal exam, his oxygen dropped to 87%. I discussed the benefits versus risks of a blood transfusion. Patient has never had a transfusion before. Patient agrees to have a blood transfusion. Consent signed. Fecal Occult blood test negative. Patient has history of lung cancer. Medical Decision Making Lab Data Result diagrams: 02/25/22 17:29 02/25/22 17:29 Labs: Lab Results 02/25/22 02/25/22 02/25/22 Range/Units 16:52 17:14 17:29 WBC 5.0 (4.8-10.8) X10*3/uL RBC 3.59 L (4.60-5.80) X10*6/uL Hgb 6.2 L* (14.0-18.0) g/dl Hct 23.9 L (42.0-52.0) % MCV 66.6 L (80.0-98.0) fL MCH 17.3 L (27.0-33.0) pg MCHC 25.9 L (31.0-36.0) g/dl RDW 19.1 H (11.0-16.0) % Plt Count 119 L (160-400) X10*3/uL MPV 8.1 L (9.4-12.4) fL Immature Gran % (Auto) 1.2 H (0.0-0.4) % Neut % (Auto) 60.6 (45-73) % Lymph % (Auto) 22.4 (20-40) % [place] % (Auto) 10.0 (2-11) % Eos % (Auto) 5.0 H (0-4) % Baso % (Auto) 0.8 (0-2) % Lymph # (Auto) 1.1 L (1.2-4.9) X10*3/uL [place] # (Auto) 0.5 (0.1-1.2) X10*3/uL Eos # (Auto) 0.3 (0.0-0.4) X10*3/uL Baso # (Auto) 0.0 (0.0-0.2) X10*3/uL Abs Immat Gran (auto) 0.06 H (0.00-0.03) X10*3/uL Absolute Neuts (auto) 3.0 (2.0-8.3) x10*3/uL Absolute Nucleated RBC 0.000 (0.0-0.012) X10*3/uL Nucleated RBC % (auto) 0.0 (0.0-0.2) /100WBC PT (9.9-13.0) SEC INR (0.9-1.1) Sodium (135-145) mmol/L Potassium (3.3-5.1) mmol/L Chloride (96-108) mmol/L Carbon Dioxide (22-29) mmol/L Anion Gap (12-20) BUN (9-16) mg/dL Creatinine (0.5-1.4) mg/dL Estim Creat Clear Calc Estimated GFR Random Glucose (60-115) mg/dL Calcium (8.4-10.2) mg/dL Magnesium (1.6-2.6) mg/dL Total Bilirubin (0.0-1.0) mg/dL Direct Bilirubin (0.0-0.5) mg/dL AST (5-37) U/L ALT (0-40) U/L Alkaline Phosphatase (39-117) U/L Troponin I High Sens (<3.5-35.0) ng/L B-Natriuretic Peptide (<100) pg/mL Total Protein (6.5-8.0) g/dL Albumin (3.5-5.0) g/dL Stool Occult Blood NEGATIVE (NEGATIVE) COVID-19 ([facility]) (Negative) COVID-19 Clin Com Blood Type O Positive Antibody Screen NEGATIVE Crossmatch See Detail 02/25/22 02/25/22 02/25/22 Range/Units 17:29 17:29 17:29 WBC (4.8-10.8) X10*3/uL RBC (4.60-5.80) X10*6/uL Hgb (14.0-18.0) g/dl Hct (42.0-52.0) % MCV (80.0-98.0) fL MCH (27.0-33.0) pg MCHC (31.0-36.0) g/dl RDW (11.0-16.0) % Plt Count (160-400) X10*3/uL MPV (9.4-12.4) fL Immature Gran % (Auto) (0.0-0.4) % Neut % (Auto) (45-73) % Lymph % (Auto) (20-40) % [place] % (Auto) (2-11) % Eos % (Auto) (0-4) % Baso % (Auto) (0-2) % Lymph # (Auto) (1.2-4.9) X10*3/uL [place] # (Auto) (0.1-1.2) X10*3/uL Eos # (Auto) (0.0-0.4) X10*3/uL Baso # (Auto) (0.0-0.2) X10*3/uL Abs Immat Gran (auto) (0.00-0.03) X10*3/uL Absolute Neuts (auto) (2.0-8.3) x10*3/uL Absolute Nucleated RBC (0.0-0.012) X10*3/uL Nucleated RBC % (auto) (0.0-0.2) /100WBC PT 13.8 H (9.9-13.0) SEC INR 1.2 H (0.9-1.1) Sodium 142 (135-145) mmol/L Potassium 4.2 (3.3-5.1) mmol/L Chloride 111 H (96-108) mmol/L Carbon Dioxide 23 (22-29) mmol/L Anion Gap 12 (12-20) BUN 24 H (9-16) mg/dL Creatinine 1.45 H (0.5-1.4) mg/dL Estim Creat Clear Calc 39.2 Estimated GFR 46 Random Glucose 98 (60-115) mg/dL Calcium 8.7 (8.4-10.2) mg/dL Magnesium 2.0 (1.6-2.6) mg/dL Total Bilirubin 0.7 (0.0-1.0) mg/dL Direct Bilirubin 0.3 (0.0-0.5) mg/dL AST 12 (5-37) U/L ALT 11 (0-40) U/L Alkaline Phosphatase 94 (39-117) U/L Troponin I High Sens 5.6 (<3.5-35.0) ng/L B-Natriuretic Peptide 96 (<100) pg/mL Total Protein 5.9 L (6.5-8.0) g/dL Albumin 3.7 (3.5-5.0) g/dL Stool Occult Blood (NEGATIVE) COVID-19 ([facility]) (Negative) COVID-19 Clin Com Blood Type Antibody Screen Crossmatch 02/25/22 Range/Units 17:29 WBC (4.8-10.8) X10*3/uL RBC (4.60-5.80) X10*6/uL Hgb (14.0-18.0) g/dl Hct (42.0-52.0) % MCV (80.0-98.0) fL MCH (27.0-33.0) pg MCHC (31.0-36.0) g/dl RDW (11.0-16.0) % Plt Count (160-400) X10*3/uL MPV (9.4-12.4) fL Immature Gran % (Auto) (0.0-0.4) % Neut % (Auto) (45-73) % Lymph % (Auto) (20-40) % [place] % (Auto) (2-11) % Eos % (Auto) (0-4) % Baso % (Auto) (0-2) % Lymph # (Auto) (1.2-4.9) X10*3/uL [place] # (Auto) (0.1-1.2) X10*3/uL Eos # (Auto) (0.0-0.4) X10*3/uL Baso # (Auto) (0.0-0.2) X10*3/uL Abs Immat Gran (auto) (0.00-0.03) X10*3/uL Absolute Neuts (auto) (2.0-8.3) x10*3/uL Absolute Nucleated RBC (0.0-0.012) X10*3/uL Nucleated RBC % (auto) (0.0-0.2) /100WBC PT (9.9-13.0) SEC INR (0.9-1.1) Sodium (135-145) mmol/L Potassium (3.3-5.1) mmol/L Chloride (96-108) mmol/L Carbon Dioxide (22-29) mmol/L Anion Gap (12-20) BUN (9-16) mg/dL Creatinine (0.5-1.4) mg/dL Estim Creat Clear Calc Estimated GFR Random Glucose (60-115) mg/dL Calcium (8.4-10.2) mg/dL Magnesium (1.6-2.6) mg/dL Total Bilirubin (0.0-1.0) mg/dL Direct Bilirubin (0.0-0.5) mg/dL AST (5-37) U/L ALT (0-40) U/L Alkaline Phosphatase (39-117) U/L Troponin I High Sens (<3.5-35.0) ng/L B-Natriuretic Peptide (<100) pg/mL Total Protein (6.5-8.0) g/dL Albumin (3.5-5.0) g/dL Stool Occult Blood (NEGATIVE) COVID-19 ([facility]) Negative (Negative) COVID-19 Clin Com See Note Blood Type Antibody Screen Crossmatch Discharge Plan Discharge Clinical Impression: Anemia Patient Disposition: Admitted As Inpatient Prescriptions: No Action ipratropium-albuterol 0.5 mg-3 mg(2.5 mg base)/3 mL solution for nebulization 3 ml inhalation BID 30 Days Qty: 180 11RF sodium chloride 7 % solution for nebulization 4 ml inhalation BID 30 Days Qty: 240 11RF simvastatin 10 mg Tablet 10 mg PO BEDTIME 0RF tamsulosin 0.4 mg capsule 0.8 mg PO DAILY 0RF azithromycin 250 mg tablet 250 mg PO MOWEFR 0RF Rx Instructions: Take 1 tablet on Thursday/Thursday/Thursday Zioptan (PF) 0.0015 % dropperette 1 drp ophthalmic (eye) BEDTIME 0RF Trelegy Ellipta 200-62.5-25 mcg blister with device 1 inh inhalation DAILY 30 Days Qty: 60 12RF dorzolamide-timolol 22.3-6.8 mg/mL drops 1 drp ophthalmic (eye) BID@0900,1800 0RF budesonide 0.5 mg/2 mL suspension for nebulization 0.5 mg inhalation BID 30 Days Qty: 120 11RF
[2022-02-25 17:28] LABS: OBS Int Ctl Valid YES; OBS1 NEGATIVE (NEGATIVE)
[2022-02-25 17:33] LABS: MANUAL DIFF FLAG NO
[2022-02-25 17:38] LABS: Basophils Percent Auto 0.8 % (0-2); Eosinophils Absolute Auto 0.3 X10*3/uL (0.0-0.4); Hematocrit 23.9 % (42.0-52.0); Imm Gran Abs Auto 0.06 X10*3/uL (0.00-0.03); Imm Gran Pct Auto 1.2 % (0.0-0.4); Lymphocytes Absolute Auto 1.1 X10*3/uL (1.2-4.9); Lymphocytes Percent Auto 22.4 % (20-40); Mean Corpuscular HGB Conc 25.9 g/dl (31.0-36.0); Mean Corpuscular Hemoglobin 17.3 pg (27.0-33.0); Mean Corpuscular Volume 66.6 fL (80.0-98.0); Mean Platelet Volume 8.1 fL (9.4-12.4); Monocytes Absolute Auto 0.5 X10*3/uL (0.1-1.2); Neutrophils Percent Auto 60.6 % (45-73); Platelet Count 119 X10*3/uL (160-400); Red Blood Count 3.59 X10*6/uL (4.60-5.80); Red Cell Distribution Width 19.1 % (11.0-16.0)
[2022-02-25 17:48] LABS: Hemoglobin 6.2 g/dl (14.0-18.0)
[2022-02-25 17:52] LABS: INTERNATIONAL NORM RATIO 1.2 (0.9-1.1); Prothrombin Time 13.8 SEC (9.9-13.0)
[2022-02-25 17:54] LABS: Alanine Aminotransferase 11 U/L (0-40); Albumin Level 3.7 g/dL (3.5-5.0); Alkaline Phosphatase 94 U/L (39-117); Anion Gap 12 (12-20); Aspartate Amino Transferase 12 U/L (5-37); Bilirubin Direct 0.3 mg/dL (0.0-0.5); Bilirubin Total 0.7 mg/dL (0.0-1.0); Blood Urea Nitrogen 24 mg/dL (9-16); Calcium 8.7 mg/dL (8.4-10.2); Carbon Dioxide 23 mmol/L (22-29); Chloride 111 mmol/L (96-108); Creatinine Clr Calc Pharmacy 39.2; Estimated Glomerular Filt Rate 46; Glucose Random 98 mg/dL (60-115); Potassium 4.2 mmol/L (3.3-5.1); Sodium 142 mmol/L (135-145); Total Protein 5.9 g/dL (6.5-8.0)
[2022-02-25 17:57] LABS: COVID-19 Test Negative (Negative); IDNOW Serial# 16C4AD1C
[2022-02-25 17:59] LABS: B Type Natriuretic Peptide 96 pg/mL (<100); Troponin-I High Sensitivity 5.6 ng/L (<3.5-35.0)
--- NOTE | 2022-02-25 18:49 | PHA.MEDREC ---
Pharmacy Consult ? Medication Reconciliation Pharmacy has completed the medication reconciliation.
--- NOTE | 2022-02-25 19:44 | PM.IMHP ---
History of Present Illness Date of Service: 02/25/22 Chief Complaint: SOB 87-year-old male with a past medical history of hypertension, hyperlipidemia, COPD/ILD-not on home oxygen, history of lung cancer status post resection, legally blind; presented to the hospital today with chief complaint of shortness of breath/dyspnea on exertion. 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 But had routine blood work done today and noted to have drop in hemoglobin to 6.2; subsequently asked him to go to the ER for further evaluation. Patient denies any nausea vomiting diarrhea. Denies any chest pain palpitations lightheadedness or dizziness. Denies any fever chills cough. Mentions that he is legally blind and has not checked his stool-unsure if he has black stool or red stool. Denies any numbness tingling or focal weakness. Review of all other systems is negative except mentioned above ER course: Per ER team patient's stool guaiac was negative; hemoglobin noted to be 6.2; vitals stable; chest x-ray showed no acute findings; EKG was nonischemic; troponin negative; patient being transfused 2 units of blood. Admitted to the hospital for further management [facility] Medical History COPD (chronic obstructive pulmonary disease) Diverticulitis Glaucoma History of lung cancer Hypercholesterolemia ILD (interstitial lung disease) Osteoarthritis Oxygen dependent Family History (Updated 08/06/20 @ 09:51 by Carole Sandhu MD) Mother ALS (amyotrophic lateral sclerosis) Surgical History History of ERCP History of laparoscopic cholecystectomy History of total left knee replacement Status post Pat procedure Social History (Updated 07/15/21 @ 09:58 by HAROON Ramos) Alcohol intake: never Patient Tobacco Use Status: Former Tobacco user Tobacco use type: Cigarette Years Smoked: 20 years Use of substances other than those prescribed or required for medical reasons: No Advance Directives: No Advance Directives Information Provided: No service: No Current occupational status: retired Meds Allergies Allergy/AdvReac Type Severity Reaction Status Date / Time No Known Allergies Allergy Verified 02/25/22 13:51 Active Medications: Current Medications Albuterol/Ipratropium (Albuterol/Iprat 2.5/0.5mg 3 Ml Ampul.Neb) 3 ml INHALE BID [facility] Azithromycin (Azithromycin 250 Mg Tablet) 250 mg PO MOWEFR [facility] Dorzolamide/Timolol (Dorzolamide/Timolo 2.23%/0.68% 10 Ml Drbtl) 1 drop EYE-BOTH BID@0900,1800 [facility] Non-Formulary Medication (Budesonide) 0.5 mg INHALE BID [facility] Non-Formulary Medication (Nkganieqccw-Oovghuzmt-Jirifkem [Trelegy Ellipta]) 1 inhalation INHALE DAILY [facility] Non-Formulary Medication (Simvastatin) 10 mg PO BEDTIME [facility] Non-Formulary Medication (Sodium Chloride) 4 ml INHALE BID [facility] Non-Formulary Medication (Tafluprost (Pf) [Zioptan (Pf)]) 1 drop EYE-BOTH BEDTIME [facility] Pharmacy Consult (Consult Rx Perform Med Rec) 1 each MISCELLANE ONCE PRN PRN Reason: Consult order Tamsulosin HCl (Tamsulosin Hcl 0.4 Mg Capsule) 0.8 mg PO DAILY [facility] Home Medications Medication Instructions Recorded Confirmed Last Taken Type simvastatin 10 mg tablet 10 mg PO BEDTIME 08/06/20 02/25/22 02/24/22 History tamsulosin 0.4 mg capsule 0.8 mg PO DAILY 08/06/20 02/25/22 02/25/22 History dorzolamide 22.3 mg-timolol 6.8 1 drp OPHTHALMIC (EYE) 10/14/21 02/25/22 02/25/22 History mg/mL eye drops BID@0900,1800 azithromycin 250 mg tablet 250 mg PO MOWEFR 02/25/22 02/25/22 02/24/22 History tafluprost (PF) 0.0015 % eye drops 1 drp OPHTHALMIC (EYE) BEDTIME 02/25/22 02/25/22 02/24/22 History in a dropperette (Zioptan (PF)) Physical Exam Vital Signs and Narrative: Vital Signs: Last Vital Signs Temp 98.3 F 02/25/22 18:29 Pulse 74 02/25/22 18:29 Resp 20 02/25/22 18:29 BP 136/76 02/25/22 18:29 Pulse Ox 96 02/25/22 16:15 BMI result Body Mass Index 36.9 Gen: Appears be in no acute distress. Saturating 98% on room air. Desaturating to 87% with minimal exertion. Able to finish full sentences. Placed on supplemental exam. HEENT: NCAT, Moist mucosa. Pulmonary: Slightly diminished breath sounds. Occasional expiratory wheezing noted. CVS: Normal S1-S2 Abdomen: BS+, Soft, Nontender Extremities: Warm well perfused Neuro: Alert and awake. Grossly nonfocal Results Labs CBC and Chem 7: 02/25/22 17:29 02/25/22 17:29 Labs: Laboratory Results - last 24 hr 02/25/22 02/25/22 02/25/22 16:52 17:14 17:29 MCV 66.6 L MCH 17.3 L MCHC 25.9 L RDW 19.1 H Plt Count 119 L MPV 8.1 L Immature Gran % (Auto) 1.2 H Neut % (Auto) 60.6 Lymph % (Auto) 22.4 [place] % (Auto) 10.0 Eos % (Auto) 5.0 H Baso % (Auto) 0.8 Lymph # (Auto) 1.1 L [place] # (Auto) 0.5 Eos # (Auto) 0.3 Baso # (Auto) 0.0 Abs Immat Gran (auto) 0.06 H Absolute Neuts (auto) 3.0 Absolute Nucleated RBC 0.000 Nucleated RBC % (auto) 0.0 PT INR Anion Gap Estim Creat Clear Calc Estimated GFR Random Glucose Calcium Magnesium Total Bilirubin Direct Bilirubin AST ALT Alkaline Phosphatase Troponin I High Sens B-Natriuretic Peptide Total Protein Albumin Stool Occult Blood NEGATIVE COVID-19 ([facility]) COVID-19 Clin Com Blood Type O Positive Antibody Screen NEGATIVE Crossmatch See Detail 02/25/22 02/25/22 02/25/22 17:29 17:29 17:29 MCV MCH MCHC RDW Plt Count MPV Immature Gran % (Auto) Neut % (Auto) Lymph % (Auto) [place] % (Auto) Eos % (Auto) Baso % (Auto) Lymph # (Auto) [place] # (Auto) Eos # (Auto) Baso # (Auto) Abs Immat Gran (auto) Absolute Neuts (auto) Absolute Nucleated RBC Nucleated RBC % (auto) PT 13.8 H INR 1.2 H Anion Gap 12 Estim Creat Clear Calc 39.2 Estimated GFR 46 Random Glucose 98 Calcium 8.7 Magnesium 2.0 Total Bilirubin 0.7 Direct Bilirubin 0.3 AST 12 ALT 11 Alkaline Phosphatase 94 Troponin I High Sens 5.6 B-Natriuretic Peptide 96 Total Protein 5.9 L Albumin 3.7 Stool Occult Blood COVID-19 ([facility]) COVID-19 Clin Com Blood Type Antibody Screen Crossmatch 02/25/22 17:29 MCV MCH MCHC RDW Plt Count MPV Immature Gran % (Auto) Neut % (Auto) Lymph % (Auto) [place] % (Auto) Eos % (Auto) Baso % (Auto) Lymph # (Auto) [place] # (Auto) Eos # (Auto) Baso # (Auto) Abs Immat Gran (auto) Absolute Neuts (auto) Absolute Nucleated RBC Nucleated RBC % (auto) PT INR Anion Gap Estim Creat Clear Calc Estimated GFR Random Glucose Calcium Magnesium Total Bilirubin Direct Bilirubin AST ALT Alkaline Phosphatase Troponin I High Sens B-Natriuretic Peptide Total Protein Albumin Stool Occult Blood COVID-19 ([facility]) Negative COVID-19 Clin Com See Note Blood Type Antibody Screen Crossmatch Imaging Radiologist's Impressions: Impressions Chest X-Ray 02/25/22 16:59 IMPRESSION: No acute intrathoracic disease. Stable changes of COPD and interstitial lung disease. 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 Being transfused blood. Admitted for further management. Anemia: Stool guaiac negative in the ER Microcytic. Will obtain iron studies, folate B12, LDH. Hematology consult. Baseline hemoglobin around 12 to 14. Hemoglobin on presentation was 6.2. Monitor H&H. Will obtain CT abdomen to rule out any retroperitoneal hemorrhage. Hematology consult Dyspnea on exertion: Likely in setting of symptomatic anemia. Patient denies any chest pain. EKG nonischemic. Troponin negative. Also has chronic ILD/COPD contributing. Patient being following with pulmonology. History of COPD/ILD: Patient reports he is not on home oxygen. Patient has slightly diminished breath sounds and mild expiratory wheezing. DuoNebs p.r.n.. Continue home inhalers, azithromycin Thursday. Patient currently saturating well at rest on room air. On ambulation/minimal exertion patient desaturating. Attending follow-up is oximetry. History of glaucoma: Continue home eye drops History of BPH: Continue home Flomax History of hyperlipidemia: Continue home statin DVT prophylaxis: SCD boots Code status: Full code Quality Stroke Does the patient have a stroke diagnosis?: No VTE Prior VTE?: No VTE Risk Level:: Medical - moderate - high VTE Device Contraindication: N/A - Device Ordered VTE Drug Contraindication: Treatment Not Indicated
--- NOTE | 2022-02-25 20:18 | MHC.CM.PN ---
Pt brought in own Zioptan eye gtts from home. Need to be refrigerated. Individual dosages. Per Pharmacist, they will dispense a dose nightly from pharmacy. Meds to remain in pharmacy refrigerator. Pt and son aware they need to ask for them at discharge.
--- NOTE | 2022-02-25 20:32 | PC.NURSE ---
Pt alert and oriented x4, calm and cooperative. Pt denies pain. Pt denies SOB, denies cough. Pt received 1 unit PRBC transfusion and tolerated well, denies any reaction symptoms. Vitals stable. IV intact. Pt in stretcher without complaints, son at bedside. Second PRBC transfusing at this time per MD orders, will continue to monitor.
--- NOTE | 2022-02-25 20:41 | PC.NURSE ---
Addendum entered by Karmen Holman 02/26/22 06:54: Report given to CESAR Bowman Addendum entered by Karmen Holman 02/25/22 20:42: pt currently transfusing blood. no signs or symptoms of reaction notice at this time Original Note: report received from CESAR [place]. pt is alert and oriented. resting in bed. denies any chest pain. pt on continuos cardiac monitoring
[2022-02-25 20:58] LABS: Iron 16 mcg/dL (45-160); Percent Iron Saturation 4 % (15-50); Total Iron Binding Capacity 405 mcg/dL (228-428); Unsaturated Iron Binding 389 ug/dL
[2022-02-25 21:02] LABS: Ferritin 10 ng/mL (20-250)
--- NOTE | 2022-02-25 21:02 | MHC.CM.PN ---
CM met with admitted patient with bed assignment pending. IMM 02/25. SonJose Enrique, present. Pt vaxx/boosted x2. Unknown director online marketing. Pt states his vax card is in his wallet. Will address in the morning. Pt is legally blind, uses no DME or services. Lives in elderly housing w ith his . Independent. Pt states he has a will. CM attempted to explain HCP, but patient is sure that is included in his will and would not discuss it further with CM. Copy is with his case mgr, Fransisca Mckenzie in [place] Pt and son are aware that we may need a copy at discharge if pt goes to [facility] or has [facility]NA/PT. Pt and son aware that CM can complete a HCP in the hospital if needed. Contact are pt son's Isrrael Darby ([phone]) and Jose Enrique Darby ([phone]). Pt and son aware that pt may need STR or [facility]NA services at d/c. Pt not willing to discuss at this time. States he will decide if he needs and services at discharge. Pt states he will not go to STR in a facility. Pt is a bit abrupt and dismissive in his conversations with CM. Family is requesting [facility], [facility] or [facility] for home services if needed. No referrrals placed at this time. CM contact card given to sonJose Enrique. CM to follow for d/c needs.
[2022-02-25 21:08] LABS: Lactate Dehydrogenase 248 U/L (118-273)
[2022-02-25] MEDS: Atorvastatin Calcium 10 MG TABLET PO (22:44)
[2022-02-26] VITALS (10 sets, daily range): BP systolic 132–151; BP diastolic 59–70; PULSE 69–87; RESP 18–25; TEMP 36.8–37.1; O2SAT 92–98
[2022-02-26] MEDS: 0.9 % Sodium Chloride 1,000 ML 50 ML IVCONT (00:11)
--- NOTE | 2022-02-26 05:57 | PC.NURSE ---
pt transferred into hospital bed. pt resting comfortably at this time.
[2022-02-26 06:20] LABS: Folate 12.3 ng/mL (> or = 4.0); Vitamin B12 577 pg/mL (200-900)
[2022-02-26 07:00] LABS: MANUAL DIFF FLAG NO
[2022-02-26 07:15] LABS: Anion Gap 14 (12-20); Blood Urea Nitrogen 22 mg/dL (9-16); Calcium 8.2 mg/dL (8.4-10.2); Carbon Dioxide 20 mmol/L (22-29); Chloride 112 mmol/L (96-108); Creatinine Clr Calc Pharmacy 48.5; Estimated Glomerular Filt Rate 59; Glucose Random 98 mg/dL (60-115); Potassium 4.4 mmol/L (3.3-5.1); Sodium 142 mmol/L (135-145)
[2022-02-26 07:21] LABS: Basophils Absolute Auto 0.1 X10*3/uL (0.0-0.2); Eosinophils Absolute Auto 0.3 X10*3/uL (0.0-0.4); Eosinophils Percent Auto 4.2 % (0-4); Hematocrit 29.3 % (42.0-52.0); Hemoglobin 8.4 g/dl (14.0-18.0); Imm Gran Abs Auto 0.19 X10*3/uL (0.00-0.03); Imm Gran Pct Auto 3.1 % (0.0-0.4); Lymphocytes Absolute Auto 1.1 X10*3/uL (1.2-4.9); Lymphocytes Percent Auto 18.2 % (20-40); Mean Corpuscular HGB Conc 28.7 g/dl (31.0-36.0); Mean Corpuscular Hemoglobin 20.5 pg (27.0-33.0); Mean Corpuscular Volume 71.5 fL (80.0-98.0); Mean Platelet Volume 8.8 fL (9.4-12.4); Monocytes Absolute Auto 0.6 X10*3/uL (0.1-1.2); Monocytes Percent Auto 9.9 % (2-11); Neutrophils Absolute Auto 3.9 x10*3/uL (2.0-8.3); Neutrophils Percent Auto 63.6 % (45-73); Platelet Count 107 X10*3/uL (160-400); Red Cell Distribution Width 23.8 % (11.0-16.0); White Blood Count 6.1 X10*3/uL (4.8-10.8)
[2022-02-26] MEDS: 0.9 % Sodium Chloride Flush 3 ML SYRINGE IVFLUSH ×3 (08:01→23:36)
[2022-02-26] MEDS: Albuterol/Iprat 2.5/0.5MG 3 ML AMPUL.NEB INHALE ×2 (08:05→20:33)
[2022-02-26] MEDS: Azithromycin 250 MG TABLET PO (08:59)
--- NOTE | 2022-02-26 09:04 | PC.NURSE ---
Patient is resting comfortably on hospital bed. Dr. Iraheta at bedside discussing plan for hematology consult. CBC reveals improvement since transfusion. Patient is alert and oriented, reports no pain, mild fatigue. Respirations regular and even, just finished respiratory treatment. Administered Zithromax as ordered. Patient request Flomax be administered in PM, discussed and corrected by pharmacy. Patient updated on plan for the day and is agreeable. Will continue to monitor.
--- NOTE | 2022-02-26 10:02 | HO.PM.IMPN ---
Subjective Subjective Date of Service: 02/26/22 Interval History: seen and examined this AM doesnt know how he feels because he has not walked around denies bleeding Review of Systems negative except HPI Physical Exam Vital Signs: Vital Signs: Last Vital Signs Temp 98.2 F 02/26/22 07:29 Pulse 72 02/26/22 08:06 Resp 18 02/26/22 07:29 BP 151/68 H 02/26/22 07:29 Pulse Ox 94 02/26/22 07:29 BMI result Body Mass Index 36.9 Const: Other: General - no acute distress, appears comfortable Cardiovascular - regular rate and rhythm, S1-S2 Lungs - normal respiratory effort, clear to auscultation bilaterally, no wheezing Abdomen - soft, nontender, no rebound or guarding Extremities - no edema bilaterally Neuro - awake and alert, no focal deficits Objective Data Active Medications Albuterol/Ipratropium (Albuterol/Iprat 2.5/0.5mg 3 Ml Ampul.Neb) 3 ml INHALE BID [facility] Last Admin: 02/26/22 08:05 Dose: 3 ml Documented by: STACI Atorvastatin Calcium (Atorvastatin Calcium 10 Mg Tablet) 10 mg PO BEDTIME [facility] Last Admin: 02/25/22 22:44 Dose: 10 mg Documented by: CHACHA Azithromycin (Azithromycin 250 Mg Tablet) 250 mg PO MoWeFr@0900 [facility] Last Admin: 02/26/22 08:59 Dose: 250 mg Documented by: JOHN Dorzolamide/Timolol (Dorzolamide/Timolo 2.23%/0.68% 10 Ml Drbtl) 1 drop EYE-BOTH BID@0900,1800 [facility] Last Admin: 02/26/22 09:00 Dose: Not Given Documented by: JOHN Non-Admin Reason: See Note Comments: Patient self administered with medication from home- educated patient that in future will be administered by us. Sodium Chloride (Ns) 1,000 mls @ 50 mls/hr IVCONT .Q20H [facility] Last Admin: 02/26/22 00:11 Dose: 50 mls/hr Documented by: JACKIEICL Melatonin (Melatonin 3 Mg Tablet) 6 mg PO BEDTIME PRN PRN Reason: Insomnia Non-Formulary Medication (Budesonide) 0.5 mg INHALE BID [facility] Non-Formulary Medication (Uypiaogsgdk-Gxtaqjkmg-Fdpgtfhh [Trelegy Ellipta]) 1 inhalation INHALE DAILY [facility] Non-Formulary Medication (Sodium Chloride) 4 ml INHALE BID [facility] Patient Own Med ( Tafluprost (Pf) Zioptan (Pf) 0.0015 %)) 1 each EYE-BOTH BEDTIME [facility] Last Admin: 02/25/22 20:50 Dose: 1 each Documented by: JORDEN Pharmacy Consult (Consult Rx Perform Med Rec) 1 each MISCELLANE ONCE PRN PRN Reason: Consult order Senna (Sennosides 8.6 Mg Tablet) 17.2 mg PO BEDTIME PRN PRN Reason: Constipation Sodium Chloride (0.9 % Sodium Chloride Flush 3 Ml Syringe) 3 ml IVFLUSH QSHIFT [facility] Last Admin: 02/26/22 08:01 Dose: 3 ml Documented by: JOHN Tamsulosin HCl (Tamsulosin Hcl 0.4 Mg Capsule) 0.8 mg PO DAILY@1630 [facility] Labs CBC & Chem 7: 02/26/22 06:55 02/26/22 06:55 Labs: Laboratory Results - last 24 hr 02/25/22 02/25/22 02/25/22 16:52 17:14 17:29 MCV 66.6 L MCH 17.3 L MCHC 25.9 L RDW 19.1 H Plt Count 119 L MPV 8.1 L Immature Gran % (Auto) 1.2 H Neut % (Auto) 60.6 Lymph % (Auto) 22.4 Monona % (Auto) 10.0 Eos % (Auto) 5.0 H Baso % (Auto) 0.8 Lymph # (Auto) 1.1 L Mon[place] # (Auto) 0.5 Eos # (Auto) 0.3 Baso # (Auto) 0.0 Abs Immat Gran (auto) 0.06 H Absolute Neuts (auto) 3.0 Absolute Nucleated RBC 0.000 Nucleated RBC % (auto) 0.0 PT INR Anion Gap Estim Creat Clear Calc Estimated GFR Random Glucose Calcium Magnesium Iron TIBC % Saturation Unsat Iron Binding Ferritin Total Bilirubin Direct Bilirubin AST ALT Alkaline Phosphatase Lactate Dehydrogenase Troponin I High Sens B-Natriuretic Peptide Total Protein Albumin Vitamin B12 Folate Stool Occult Blood NEGATIVE COVID-19 ([facility]) COVID-19 Clin Com Blood Type O Positive Antibody Screen NEGATIVE Crossmatch See Detail 02/25/22 02/25/22 02/25/22 17:29 17:29 17:29 MCV MCH MCHC RDW Plt Count MPV Immature Gran % (Auto) Neut % (Auto) Lymph % (Auto) Monona % (Auto) Eos % (Auto) Baso % (Auto) Lymph # (Auto) Monona # (Auto) Eos # (Auto) Baso # (Auto) Abs Immat Gran (auto) Absolute Neuts (auto) Absolute Nucleated RBC Nucleated RBC % (auto) PT 13.8 H INR 1.2 H Anion Gap 12 Estim Creat Clear Calc 39.2 Estimated GFR 46 Random Glucose 98 Calcium 8.7 Magnesium 2.0 Iron 16 L TIBC 405 % Saturation 4 L Unsat Iron Binding 389 Ferritin 10 L Total Bilirubin 0.7 Direct Bilirubin 0.3 AST 12 ALT 11 Alkaline Phosphatase 94 Lactate Dehydrogenase 248 Troponin I High Sens 5.6 B-Natriuretic Peptide 96 Total Protein 5.9 L Albumin 3.7 Vitamin B12 Folate Stool Occult Blood COVID-19 ([facility]) COVID-[employer] Com Blood Type Antibody Screen Crossmatch 02/25/22 02/25/22 02/26/22 17:29 17:29 06:55 MCV 71.5 L MCH 20.5 L MCHC 28.7 L RDW 23.8 H Plt Count 107 L MPV 8.8 L Immature Gran % (Auto) 3.1 H Neut % (Auto) 63.6 Lymph % (Auto) 18.2 L Monona % (Auto) 9.9 Eos % (Auto) 4.2 H Baso % (Auto) 1.0 Lymph # (Auto) 1.1 L Monona # (Auto) 0.6 Eos # (Auto) 0.3 Baso # (Auto) 0.1 Abs Immat Gran (auto) 0.19 H Absolute Neuts (auto) 3.9 Absolute Nucleated RBC 0.000 Nucleated RBC % (auto) 0.0 PT INR Anion Gap Estim Creat Clear Calc Estimated GFR Random Glucose Calcium Magnesium Iron TIBC % Saturation Unsat Iron Binding Ferritin Total Bilirubin Direct Bilirubin AST ALT Alkaline Phosphatase Lactate Dehydrogenase Troponin I High Sens B-Natriuretic Peptide Total Protein Albumin Vitamin B12 577 Folate 12.3 Stool Occult Blood COVID-19 ([facility]) Negative COVID-19 [employer] See Note Blood Type Antibody Screen Crossmatch 04/27/22 06:55 MCV MCH MCHC RDW Plt Count MPV Immature Gran % (Auto) Neut % (Auto) Lymph % (Auto) Monona % (Auto) Eos % (Auto) Baso % (Auto) Lymph # (Auto) Monona # (Auto) Eos # (Auto) Baso # (Auto) Abs Immat Gran (auto) Absolute Neuts (auto) Absolute Nucleated RBC Nucleated RBC % (auto) PT INR Anion Gap 14 Estim Creat Clear Calc 48.5 Estimated GFR 59 Random Glucose 98 Calcium 8.2 L Magnesium Iron TIBC % Saturation Unsat Iron Binding Ferritin Total Bilirubin Direct Bilirubin AST ALT Alkaline Phosphatase Lactate Dehydrogenase Troponin I High Sens B-Natriuretic Peptide Total Protein Albumin Vitamin B12 Folate Stool Occult Blood COVID-19 ([facility]) COVID-19 Clin Com Blood Type Antibody Screen Crossmatch Assessment and Plan (1) Anemia: Status: Acute Plan This is an 87 yo M with a PMH of HTN, HLD, COPD/ILD, Lung Ca s/p resection who prsented to the hospital with ISAAC. He was found to have a hb of 6.2 and is now admitted for further work up/treatment. 1. Acute symptomatic Anemia, WICHO no evidence of blood loss or hemolysis at this time s/p PRBC transfusion with improvement in h/h start PO iron supplementation hematology consulted 2. Chronic COPD, chronic respiratory failure with hyopxia does not appear to be in exacerbation continue baseline inhalers outpatient pulm note from 02/25 reviewed -- states the patient will be started on home O2 at 2L 3. BPH flow max 4. Generalized deconditioning PT evaluation Full Code DVT pptx, mechanical due to significant anemia Quality Stroke Does the patient have a stroke diagnosis?: No VTE Prior VTE?: No VTE Risk Level:: Medical - moderate - high VTE Device Contraindication: N/A - Device Ordered VTE Drug Contraindication: Treatment Not Indicated
--- NOTE | 2022-02-26 13:21 | PC.NURSE ---
pt a&ox3, vss, pt denies any pain at this time. requesting food - notified that lunch should be arriving soon. 20G IV in right AC - flush and patent. no new orders at this time. family at bedside.
--- NOTE | 2022-02-26 15:38 | PC.NURSE ---
pt sleeping, IV flushed and patent
--- NOTE | 2022-02-26 16:13 | PC.NURSE ---
patient expressed he was upset as he was told that he will be consulted with another provider but was unsure which one, this nurse looked up the consult and it was Dr. Holguin-Hematology. A tiger text was sent to Dr. Holguin on behalf of the patient asking if there is any update this nurse could give the patient as to when the consult would take place as he was a little upset. Awaiting answer from the doctor, patient was notified of the consult he was in for and what doctor, the patient stated at one point he used to see this provider as his cancer doctor. Patient appreciated the update and would like to be notified if we hear back as to when the consult will take place.
--- NOTE | 2022-02-26 16:18 | PM.HEMONCCN ---
Subjective - Subjective Chief complaint: Consult for: Anemia. Patient: new to practice Consult date: 02/26/22 Requesting Physician: Jasmeet. Primary Care Provider: Jomar Sung MD Medical Summary: DIAGNOSIS: ANEMIA. HPI - Consult Narrative Reason for consult: CONSULT for: Anemia. Narrative: Fidencio Pastor is a pleasant 87 year old gentleman, ; presented to the hospital today with chief complaint of shortness of breath/dyspnea on exertion. Patient reports that symptoms have been going on for the past couple of months; progressively worsened over the past couple weeks. He was able to walk shorter and shorter distance before he got short of breath. He has been following with his temporary administrative assistant, Dr. Plata,thinking is probably his COPD/ILD contributing to his symptoms. He had routine blood work done 02/25 and noted to have drop in hemoglobin to 6.2. Denies any fever chills nor night sweats. Patient does admit to feeling dizzy on movement. Denies headaches. Denies any chest pain palpitations. He did feel dyspnea on exertion. Patient denies any nausea, vomiting heartburn or indigestion. He denies diarrhea. No gross blood in the stools however patient is legally blind so hard to tell. Denies cough nor sputum production. No urinary complaints. His left knee hurts he had a replacement done 8 years ago. Malinda with the shortness of breath he felt his legs to be weak. He could not walk. Denies any numbness tingling or focal weakness. Denies depression. No rashes nor pruritus. ER course: Patient's stool guaiac was negative; Hemoglobin noted to be 6.2; vitals stable; chest x-ray showed no acute findings; EKG was nonischemic; troponin negative; Patient transfused 2 units of blood. Review of his hemoglobin in the computer revealed the following trend: 08/21: 13.6. 09/22: 12.8. 02/25/22: 6.2. He had previous colonoscopies by Dr. Dela Cruz. He does have a history of bowel obstruction related to diverticulitis. He had surgery by Dr. Sandhu. He had the temporary colostomy bag. Past medical history of: 1. Hypertension, 2. Hyperlipidemia, 3. 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 History of lung cancer status post resection, 5. 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 He is . His 2 boys. He has 7 grandkids and 17 great grand kids. He used to smoke for about 50 years. Quit in 1999. He drinks socially, cocktail after work or wine with dinner. Review of Systems - Constitutional Reports system reviewed and no additional complaints, except as documented, Reports lack of energy, Reports malaise - Eyes Reports system reviewed and no additional complaints, except as documented - ENT Reports system reviewed and no additional complaints, except as documented - Cardiovascular Reports system reviewed and no additional complaints, except as documented - Respiratory Reports no additional respiratory complaints - Gastrointestinal Reports system reviewed and no additional complaints, except as documented - Genitourinary Genitourinary: Reports no additional male genitourinary complaints - Musculoskeletal Reports system reviewed and no additional complaints, except as documented - Integumentary/Breasts Skin/Breast: Reports no additional skin complaints - Neurologic Reports system reviewed and no additional complaints, except as documented - Psychiatric Reports system reviewed and no additional complaints, except as documented - Endocrine Reports no additional endocrine complaints - Hematologic/Lymphatic Reports system reviewed and no additional complaints, except as documented - Allergic/Immunologic Reports system reviewed and no additional complaints, except as documented Oncology Screenings - ECOG Performance Status ECOG Performance Status: 1 [facility] Medical History: Medical History (Last Updated 02/28/22 @ 11:20 by Olga Garcia MD) COPD (chronic obstructive pulmonary disease) Diverticulitis Glaucoma History of lung cancer Hypercholesterolemia ILD (interstitial lung disease) Normal esophagogastroduodenoscopy (EGD) Osteoarthritis Oxygen dependent Family History: Family History (Last Reviewed 02/28/22 @ 11:16 by Olga Garcia MD) Mother ALS (amyotrophic lateral sclerosis) Surgical History: Surgical History (Last Updated 02/28/22 @ 11:20 by Olga Garcia MD) H/O colonoscopy History of ERCP History of laparoscopic cholecystectomy History of total left knee replacement Status post Pat procedure Social History: Social History (Last Reviewed 02/28/22 @ 11:16 by Olga Garcia MD) Living Situation History: Household Members: Spouse Housing: House Do you presently have visiting nurse or other home services: No Tobacco History: Patient Tobacco Use Status: Former Tobacco user Tobacco use type: Cigarette Years Smoked: 20 years Smoke Quit Date: 25 YEARS AGO Second Hand Smoke Exposure: No Occupation Assessmet: service: No Current occupational status: retired Home Medications and Allergies Current Medications: Current Medications Albuterol/Ipratropium (Albuterol/Iprat 2.5/0.5mg 3 Ml Ampul.Neb) 3 ml INHALE BID [facility] Last Admin: 02/26/22 08:05 Dose: 3 ml Documented by: Atorvastatin Calcium (Atorvastatin Calcium 10 Mg Tablet) 10 mg PO BEDTIME [facility] Last Admin: 02/25/22 22:44 Dose: 10 mg Documented by: Azithromycin (Azithromycin 250 Mg Tablet) 250 mg PO MoWeFr@0900 [facility] Last Admin: 02/26/22 08:59 Dose: 250 mg Documented by: Dorzolamide/Timolol (Dorzolamide/Timolo 2.23%/0.68% 10 Ml Drbtl) 1 drop EYE-BOTH BID@0900,1800 [facility] Last Admin: 02/26/22 09:00 Dose: Not Given Documented by: Fluticasone/Vilanterol (Fluticasone/Vilanterol 100/25 Blst.W.Dev) 1 puff INHALE RDAILY [facility] Melatonin (Melatonin 3 Mg Tablet) 6 mg PO BEDTIME PRN PRN Reason: Insomnia Non-Formulary Medication (Sodium Chloride) 4 ml INHALE BID [facility] Patient Own Med ( Tafluprost (Pf) Zioptan (Pf) 0.0015 %)) 1 each EYE-BOTH BEDTIME [facility] Last Admin: 02/25/22 20:50 Dose: 1 each Documented by: Pharmacy Consult (Consult Rx Perform Med Rec) 1 each MISCELLANE ONCE PRN PRN Reason: Consult order Senna (Sennosides 8.6 Mg Tablet) 17.2 mg PO BEDTIME PRN PRN Reason: Constipation Sodium Chloride (0.9 % Sodium Chloride Flush 3 Ml Syringe) 3 ml IVFLUSH QSHIFT [facility] Last Admin: 02/26/22 15:38 Dose: 3 ml Documented by: Tamsulosin HCl (Tamsulosin Hcl 0.4 Mg Capsule) 0.8 mg PO DAILY@1630 [facility] Home Medications Medication Instructions Recorded Confirmed Type simvastatin 10 mg tablet 10 mg PO BEDTIME 08/06/20 02/25/22 History tamsulosin 0.4 mg capsule 0.8 mg PO DAILY 08/06/20 02/25/22 History dorzolamide 22.3 mg-timolol 6.8 1 drp OPHTHALMIC (EYE) 10/14/21 02/25/22 History mg/mL eye drops BID@0900,1800 azithromycin 250 mg tablet 250 mg PO MOWEFR 02/25/22 02/25/22 History tafluprost (PF) 0.0015 % eye drops 1 drp OPHTHALMIC (EYE) BEDTIME 02/25/22 02/25/22 History in a dropperette (Zioptan (PF)) Allergies Allergy/AdvReac Type Severity Reaction Status Date / Time No Known Allergies Allergy Verified 02/25/22 13:51 Physical Exam Vital signs: Vital Signs Temp 98.2 F 02/26/22 07:29 Pulse 76 02/26/22 12:17 Resp 20 02/26/22 12:17 BP 140/63 H 02/26/22 12:17 Pulse Ox 98 02/26/22 12:17 Intake & Output 02/25/22 02/26/22 02/26/22 18:59 06:59 18:59 Intake Total 0 / 800 800 / 800 525 / 525 Output Total 150 / 150 Balance 0 / 650 650 / 650 525 / 525 Intake: Intake, Oral Amount 100 / 100 Intake (Blood Product) Amount 0 / 700 700 / 700 Red Blood Cells (E0382) Unit 0 / 350 350 / 350 [id number] Red Blood Cells (E0382) Unit 350 / 350 [id number] Intake, IV Amount 525 / 525 0.9 % Sodium Chloride 1,000 ml 525 / 525 @ 50 mls/hr IVCONT .Q20H [facility] Rx #:[id number] Output: Output, Emesis Amount 150 / 150 Other: Number of Unmeasured Voids 1 Weight 100.8 kg Weight 100.8 kg - Constitutional Present: mild distress - Routine HEENT Exam Head: Present: normal inspection ENT: Present: mucous membranes moist - Routine Neck Exam Present: supple Hem/Onc Consult Result - Labs CBC & Chem 7: 02/28/22 05:39 02/26/22 06:55 Labs: Short CBC 02/25/22 02/26/22 Range/Units 17:29 06:55 WBC 5.0 6.1 (4.8-10.8) X10*3/uL Hgb 6.2 L* 8.4 L D (14.0-18.0) g/dl Hct 23.9 L 29.3 L D (42.0-52.0) % Plt Count 119 L 107 L (160-400) X10*3/uL BMP 02/25/22 02/26/22 17:29 06:55 Sodium 142 142 Potassium 4.2 4.4 Chloride 111 H 112 H Carbon Dioxide 23 20 L BUN 24 H 22 H Creatinine 1.45 H 1.17 Calcium 8.7 8.2 L Liver Function 02/25/22 Range/Units 17:29 Total Bilirubin 0.7 (0.0-1.0) mg/dL Direct Bilirubin 0.3 (0.0-0.5) mg/dL AST 12 (5-37) U/L ALT 11 (0-40) U/L Alkaline Phosphatase 94 (39-117) U/L Albumin 3.7 (3.5-5.0) g/dL Assessment and Plan Patient Active problem list reviewed?: Yes (1) Anemia Status: Acute Assessment and plan: 87-year-old gentleman presents with fatigue and shortness of breath. Noted to have microcytic anemia. Hemoglobin down to 6.1. He did receive 2 units of blood. Hemoglobin up to 8.4. DIFFERENTIAL DIAGNOSIS: 1. IRON DEFICIENCY: Iron studies: . These are consistent with iron deficiency anemia. He most likely has occult GI blood loss. 2. ANEMIA OF CHRONIC DISEASE: Could be coexisting. 3. HEMOLYTIC ANEMIA: Is in the differential. However LDH is normal 248. 4. UNDERLYING MYELO INFILTRATIVE DISORDER: MDS versus lymphoma versus multiple myeloma. 5. B12 FOLATE DEFICIENCY: Could be combined with iron deficiency. B12 level: 577. PLAN: I will proceed with further workup. Check B12 and folate levels: 577. Check iron studies: . 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 Something that needs to be followed along. I would request further GI evaluation. He could have diverticular bleed versus angiodysplasia versus malignancy. Will make further plans based upon the above results. Thank you, Cc: Dr. Sung. Dr. Plata. - Time Spent With Patient Time Spent with Patient (in minutes): 30
[2022-02-26] MEDS: Tamsulosin HCL 0.4 MG CAPSULE 0.8 MG PO (16:45)
--- NOTE | 2022-02-26 16:46 | PC.NURSE ---
medicated per provider order. operator vacuum and son at bedside.
--- NOTE | 2022-02-26 17:46 | PC.NURSE ---
Pharmacy contacted for cosopt opth drops.
[2022-02-26] MEDS: Atorvastatin Calcium 10 MG TABLET PO (21:15)
[2022-02-27] VITALS (11 sets, daily range): BP systolic 138–170; BP diastolic 54–75; PULSE 63–78; RESP 14–22; TEMP 36.1–36.8; O2SAT 89–98; BMI 36.7
[2022-02-27] MEDS: Albuterol/Iprat 2.5/0.5MG 3 ML AMPUL.NEB INHALE ×2 (08:20→21:37)
[2022-02-27] MEDS: Fluticasone/Vilanterol 100/25 BLST.W.DEV 1 PUFF INHALE (08:28)
[2022-02-27 09:32] LABS: Hematocrit 30.6 % (42.0-52.0); Hemoglobin 8.5 g/dl (14.0-18.0); Mean Corpuscular HGB Conc 27.8 g/dl (31.0-36.0); Mean Corpuscular Hemoglobin 20.1 pg (27.0-33.0); Mean Corpuscular Volume 72.5 fL (80.0-98.0); Mean Platelet Volume 8.2 fL (9.4-12.4); NRBC Pct Auto 0.4 /100WBC (0.0-0.2); Platelet Count 116 X10*3/uL (160-400); Red Blood Count 4.22 X10*6/uL (4.60-5.80); Red Cell Distribution Width 24.6 % (11.0-16.0); White Blood Count 5.6 X10*3/uL (4.8-10.8)
--- NOTE | 2022-02-27 10:46 | MHC.SHP ---
Pre-Procedural Eval Section A Date of Service: 02/27/22 The patient is an INPATIENT: Yes Changes since office visit: No Cold of Flu in the past 2 weeks, No New Medical Problems, No Changes in Medication and No Patient answered all questions The History & Physical has been completed within 30 days and I have reviewed it.: Yes Section B Chief Complaint: Anemia Allergies: Allergies Allergy/AdvReac Type Severity Reaction Status Date / Time No Known Allergies Allergy Verified 02/25/22 13:51 Plan I have reviewed the history and physical and performed a pertinent physical examination on my patient. No changes have occurred unless specified.
--- NOTE | 2022-02-27 10:47 | PM.EVENT ---
Event Note Date of Service: 02/27/22 Event Note: GI consult dictated iron def anemia without active gi bleeding stable after 2u prbcs. egd colonoscopy scheduled 02/28 fir further evaluation. pt aware of risks and benefits and agrees to proceed.
[2022-02-27] MEDS: 0.9 % Sodium Chloride Flush 3 ML SYRINGE IVFLUSH ×3 (11:22→23:33)
[2022-02-27] MEDS: Dorzolamide/Timolo 2.23%/0.68% 10 ML DRBTL 1 DROP EYE-BOTH ×2 (11:23→17:40)
--- NOTE | 2022-02-27 11:57 | MHC.CM.PN ---
NURSE DIRECTOR OF EARLY CHILDHOOD EDUCATION NOTE ELECTRONIC MEDICAL RECORD REVIEWED ALONG WITH CASE DISCUSSED WITH STAFF NURSE AND HOSPITLSIT , MET WITH PATIENT ANS HIS SON , PATIENT IS SCHEDULED FOR EGD AND COLONOSCOPY TOMORROW DISCHARGE PLAN HOME WITH FAMILY NO SERVICES VS VNA ID NEEDED PCP DR ADILSON CURTIS HEM/ONC FOLLOW UP TO BE FURTHER DETERMINED TRANSPORTATION FAMILY MEDICARE IMM 02/24/22
--- NOTE | 2022-02-27 12:29 | P.PNIM_ITS ---
Subjective Subjective Date of Service: 02/27/22 Interval History: seen and examined this morning follow up for anemia denies GI bleeding, no abdominal pain, nausea or vomiting Review of Systems Review of Systems: Yes all other systems are reviewed and are negative Constitutional Constitutional: Denies chills and Denies fever(s) Cardiovascular Cardiovascular: Denies chest pain, Denies palpitations and Denies dyspnea Respiratory Respiratory: Denies cough and Denies dyspnea Gastrointestinal Gastrointestinal: Denies abdominal pain, Denies melena, Denies hematochezia, Denies nausea and Denies vomiting Endocrine Endocrine: Denies palpitations Physical Exam Vital Signs: Vital Signs: Last Vital Signs Temp 97.4 F 02/27/22 11:24 Pulse 68 02/27/22 11:24 Resp 18 02/27/22 11:24 BP 140/68 H 02/27/22 11:24 Pulse Ox 93 02/27/22 11:24 BMI result Body Mass Index 36.7 Const: General: cooperative, comfortable, alert and awake Nutritional Appearance: overweight Orientation/consciousness: patient oriented x3 Eyes: Pupils: Equal, round and reactive pupils present EOM: EOMs intact bilaterally Resp: Effort & Inspection: normal respiratory effort and able to speak in complete sentences Cardio: Rate: regular rate Heart sounds: S1 normal heart sound present and S2 normal heart sound present GI: Palpation (GI): Soft to palpation and nontender Neuro: General: patient oriented x3 Cranial nerves: Yes Equal, round and reactive pupils present Extrem: General: Yes no pedal edema Objective Data Active Medications Albuterol/Ipratropium (Albuterol/Iprat 2.5/0.5mg 3 Ml Ampul.Neb) 3 ml INHALE BID [facility] Last Admin: 02/27/22 08:20 Dose: 3 ml Documented by: DAHIANA Atorvastatin Calcium (Atorvastatin Calcium 10 Mg Tablet) 10 mg PO BEDTIME [facility] Last Admin: 02/26/22 21:15 Dose: 10 mg Documented by: RAMOS Azithromycin (Azithromycin 250 Mg Tablet) 250 mg PO MoWeFr@0900 [facility] Last Admin: 02/26/22 08:59 Dose: 250 mg Documented by: JOHN Dorzolamide/Timolol (Dorzolamide/Timolo 2.23%/0.68% 10 Ml Drbtl) 1 drop EYE- BOTH BID@0900,1800 [facility] Last Admin: 02/27/22 11:23 Dose: 1 drop Documented by: STEPHANIE Fluticasone/Vilanterol (Fluticasone/Vilanterol 100/25 Blst.W.Dev) 1 puff INHALE RDAILY [facility] Last Admin: 02/27/22 08:28 Dose: 1 puff Documented by: DAHIANA Melatonin (Melatonin 3 Mg Tablet) 6 mg PO BEDTIME PRN PRN Reason: Insomnia Non-Formulary Medication (Sodium Chloride) 4 ml INHALE BID [facility] Patient Own Med ( Tafluprost (Pf) Zioptan (Pf) 0.0015 %)) 1 each EYE-BOTH BEDTIME [facility] Last Admin: 02/26/22 21:10 Dose: 1 each Documented by: RAMOS Pharmacy Consult (Consult Rx Perform Med Rec) 1 each MISCELLANE ONCE PRN PRN Reason: Consult order Polyethylene Glycol/Electrolytes (Peg 3350/Na Sulf,Bicarb,Cl/Kcl 4,000 Ml Soln.Recon) 4,000 ml PO ONCE ONE Stop: 02/27/22 13:01 Senna (Sennosides 8.6 Mg Tablet) 17.2 mg PO BEDTIME PRN PRN Reason: Constipation Sodium Chloride (0.9 % Sodium Chloride Flush 3 Ml Syringe) 3 ml IVFLUSH QSHIFT [facility] Last Admin: 02/27/22 11:22 Dose: 3 ml Documented by: STEPHANIE Tamsulosin HCl (Tamsulosin Hcl 0.4 Mg Capsule) 0.8 mg PO DAILY@1630 [facility] Last Admin: 02/26/22 16:45 Dose: 0.8 mg Documented by: PB Labs CBC & Chem 7: 02/27/22 09:25 02/26/22 06:55 Labs: Laboratory Results - last 24 hr 02/27/22 09:25 MCV 72.5 L MCH 20.1 L MCHC 27.8 L RDW 24.6 H Plt Count 116 L MPV 8.2 L Absolute Nucleated RBC 0.020 H Nucleated RBC % (auto) 0.4 H Assessment and Plan (1) Anemia: Status: Acute Plan This is an 87 yo M with a PMH of HTN, HLD, COPD/ILD, Lung Ca s/p resection who prsented to the hospital with ISAAC. He was found to have a hb of 6.2 and is now admitted for further work up/treatment. Acute symptomatic Anemia, WICHO no evidence of blood loss or hemolysis at this time s/p PRBC transfusion with improvement in h/h start PO iron supplementation hematology consulted, recommended GI eval for ?occult GI bleed as stool occult was negative seen by GI, plan for EGD/colonoscopy in AM Chronic COPD, chronic respiratory failure with hypoxia does not appear to be in exacerbation continue baseline inhalers outpatient pulm note from 02/25 reviewed - states the patient will be started on home O2 at 2L. discussed with respiratory, rx has been sent and o2 will be set up when patient is d/c from hospital Thrombocytopenia Chronic, platelets stable BPH flomax HLD continue statin Generalized deconditioning PT evaluation prior to d/c Full Code DVT pptx, mechanical due to significant anemia Attending: dr. jackson Quality Stroke Does the patient have a stroke diagnosis?: No VTE Prior VTE?: No VTE Risk Level:: Medical - moderate - high VTE Device Contraindication: N/A - Device Ordered VTE Drug Contraindication: Treatment Not Indicated
[2022-02-27] MEDS: PEG 3350/Na Sulf,Bicarb,Cl/KCL 4,000 ML SOLN.RECON 4000 ML PO (13:39)
[2022-02-27] MEDS: Tamsulosin HCL 0.4 MG CAPSULE 0.8 MG PO (15:42)
[2022-02-27] MEDS: Atorvastatin Calcium 10 MG TABLET PO (20:17)
--- NOTE | 2022-02-27 22:37 | CONS_ITS ---
DATE OF SERVICE: 02/27/2022 REFERRING PHYSICIAN: Dr. Iraheta REASON FOR CONSULTATION: Iron-deficiency anemia. HISTORY OF PRESENT ILLNESS: The patient is a pleasant 87-year-old man who was admitted to the hospital after presenting to the emergency room with anemia. He had lab work done through his mental retardation aide yesterday, which documented a hematocrit of 24.3, which was down from 38.8 in September. Iron studies were consistent with iron deficiency. He was transfused 2 units of packed red blood cells with improvement in his symptomatic shortness of breath. He had no complaints of chest pain. The patient is legally blind and has not seen any blood or black stools. He has no complaints of abdominal pain. He was short of breath prior to his blood transfusion. He has no history of peptic ulcer disease. His last colonoscopy in March 2011 showed diverticulosis and internal hemorrhoids. PAST MEDICAL HISTORY: 1. Diverticulitis, status post colostomy and colostomy takedown. 2. Cholecystectomy with postoperative bile leak requiring ERCP and stent placement. 3. COPD/interstitial lung disease. 4. Elevated cholesterol. 5. Glaucoma. 6. Osteoarthritis. 7. Anemia. 8. Liver abscess. 9. Hypertension. 10. Lung cancer. CURRENT MEDICATIONS: Current medication list is reviewed in the chart. ALLERGIES: THERE ARE NONE REPORTED. FAMILY HISTORY: This is reviewed with the patient and is negative for GI malignancy. SOCIAL HISTORY: There is a history of tobacco use in the past, and formally, he had fairly heavy alcohol use. REVIEW OF SYSTEMS: SKIN: No pruritus. HEENT: Negative. CARDIOPULMONARY: He denies shortness of breath or chest pain currently. GASTROINTESTINAL: As above. GENITOURINARY: Negative. NEUROPSYCHIATRIC: Negative. PHYSICAL EXAMINATION: GENERAL: Shows a pleasant male, lying comfortably in bed. VITAL SIGNS: Reviewed in the electronic medical record and are stable. SKIN: Anicteric. HEENT: Shows no scleral icterus. NECK: Without lymphadenopathy or thyromegaly. LUNGS: Clear with decreased breath sounds. HEART: Shows regular rate and rhythm. S1, S2. No murmur. ABDOMEN: Soft without focal masses or tenderness. Bowel sounds present. No organomegaly is noted. EXTREMITIES: Without edema. LABORATORY DATA: Shows a white blood cell count of 5.6, hematocrit 38.6 after 2 units of packed red blood cells. Chemistries are consistent with iron deficiency. CT scanning of the abdomen and pelvis was obtained. This is reviewed and shows surgical changes in the sigmoid colon but no obvious mass lesion. IMPRESSION: Iron-deficiency anemia. I would recommend further evaluation with endoscopy and colonoscopy to rule out a malignancy as a cause for his underlying iron deficiency. I have discussed risks and benefits of both procedures with him. He understands these and agrees to proceed. This will be arranged for tomorrow. After his procedure, he can be started on iron supplementation, and if he needs further evaluation with small bowel capsule endoscopy, this can be arranged as an outpatient. Thanks for asking me to see him. I will follow him in the hospital with you. MD SHELL Pearson/BING / [phone]
[2022-02-28] VITALS (8 sets, daily range): BP systolic 98–157; BP diastolic 46–76; PULSE 63–73; RESP 16–18; TEMP 36.1–36.7; O2SAT 91–100
[2022-02-28 06:17] LABS: Hematocrit 30.1 % (42.0-52.0); Hemoglobin 8.6 g/dl (14.0-18.0); Mean Corpuscular HGB Conc 28.6 g/dl (31.0-36.0); Mean Corpuscular Hemoglobin 20.5 pg (27.0-33.0); Mean Corpuscular Volume 71.7 fL (80.0-98.0); Mean Platelet Volume 8.5 fL (9.4-12.4); Platelet Count 140 X10*3/uL (160-400)
[2022-02-28] MEDS: Albuterol/Iprat 2.5/0.5MG 3 ML AMPUL.NEB INHALE (08:26)
[2022-02-28] MEDS: Fluticasone/Vilanterol 100/25 BLST.W.DEV 1 PUFF INHALE (08:33)
[2022-02-28] MEDS: Dorzolamide/Timolo 2.23%/0.68% 10 ML DRBTL 1 DROP EYE-BOTH (09:37)
[2022-02-28] MEDS: 0.9 % Sodium Chloride Flush 3 ML SYRINGE IVFLUSH (09:37)
--- NOTE | 2022-02-28 11:14 | HO.ANESPROP2 ---
[facility] Active Problems Active Problems: All Active Problems (Updated 02/26/22 @ 16:23 by Sarah Holguin MD) Anemia (Acute) Dyspnea (Acute) Oxygen dependent- Patient denies being O2 dependent ILD (interstitial lung disease) (Acute) Osteoarthritis (Acute) Glaucoma (Acute) Hypercholesterolemia (Acute) COPD (chronic obstructive pulmonary disease) (Acute) Past Medical History Medical History (Updated 02/28/22 @ 11:20 by Olga Garcia MD) COPD (chronic obstructive pulmonary disease) Diverticulitis Glaucoma History of lung cancer Hypercholesterolemia ILD (interstitial lung disease) Normal esophagogastroduodenoscopy (EGD) Osteoarthritis Oxygen dependent Family History Family History Mother ALS (amyotrophic lateral sclerosis) Family history of problems with anesthesia: No Surgical History Surgical History (Updated 02/28/22 @ 11:20 by Olga Garcia MD) H/O colonoscopy History of ERCP History of laparoscopic cholecystectomy History of total left knee replacement Status post Pat procedure History of Problems with Anesthesia: No Social History Social History Household Members: Spouse Housing: House Do you presently have visiting nurse or other home services: No Alcohol intake: never Patient Tobacco Use Status: Former Tobacco user Quit Date: 25 YEARS AGO Tobacco use type: Cigarette Years Smoked: 20 years Second Hand Smoke Exposure: No service: No Current occupational status: retired [employer] Allergies Allergy/AdvReac Type Severity Reaction Status Date / Time No Known Allergies Allergy Verified 02/25/22 13:51 Active Medications: Current Medications Albuterol/Ipratropium (Albuterol/Iprat 2.5/0.5mg 3 Ml Ampul.Neb) 3 ml INHALE BID [facility] Last Admin: 02/28/22 08:26 Dose: 3 ml Documented by: Atorvastatin Calcium (Atorvastatin Calcium 10 Mg Tablet) 10 mg PO BEDTIME [facility] Last Admin: 02/27/22 20:17 Dose: 10 mg Documented by: Azithromycin (Azithromycin 250 Mg Tablet) 250 mg PO MoWeFr@0900 [facility] Last Admin: 02/26/22 08:59 Dose: 250 mg Documented by: Dorzolamide/Timolol (Dorzolamide/Timolo 2.23%/0.68% 10 Ml Drbtl) 1 drop EYE-BOTH BID@0900,1800 [facility] Last Admin: 02/28/22 09:37 Dose: 1 drop Documented by: Fluticasone/Vilanterol (Fluticasone/Vilanterol 100/25 Blst.W.Dev) 1 puff INHALE RDAILY [facility] Last Admin: 02/28/22 08:33 Dose: 1 puff Documented by: Melatonin (Melatonin 3 Mg Tablet) 6 mg PO BEDTIME PRN PRN Reason: Insomnia Non-Formulary Medication (Sodium Chloride) 4 ml INHALE BID [facility] Patient Own Med ( Tafluprost (Pf) Zioptan (Pf) 0.0015 %)) 1 each EYE-BOTH BEDTIME [facility] Last Admin: 02/27/22 20:40 Dose: 1 each Documented by: Pharmacy Consult (Consult Rx Perform Med Rec) 1 each MISCELLANE ONCE PRN PRN Reason: Consult order Senna (Sennosides 8.6 Mg Tablet) 17.2 mg PO BEDTIME PRN PRN Reason: Constipation Sodium Chloride (0.9 % Sodium Chloride Flush 3 Ml Syringe) 3 ml IVFLUSH QSHIFT [facility] Last Admin: 02/28/22 09:37 Dose: 3 ml Documented by: Tamsulosin HCl (Tamsulosin Hcl 0.4 Mg Capsule) 0.8 mg PO DAILY@1630 [facility] Last Admin: 02/27/22 15:42 Dose: 0.8 mg Documented by: Home Medications Medication Instructions Recorded Confirmed Last Taken Type simvastatin 10 mg tablet 10 mg PO BEDTIME 08/06/20 02/25/22 02/24/22 History tamsulosin 0.4 mg capsule 0.8 mg PO DAILY 08/06/20 02/25/22 02/25/22 History dorzolamide 22.3 mg-timolol 6.8 1 drp OPHTHALMIC (EYE) 10/14/21 02/25/22 02/25/22 History mg/mL eye drops BID@0900,1800 azithromycin 250 mg tablet 250 mg PO MOWEFR 02/25/22 02/25/22 02/24/22 History tafluprost (PF) 0.0015 % eye drops 1 drp OPHTHALMIC (EYE) BEDTIME 02/25/22 02/25/22 02/24/22 History in a dropperette (Zioptan (PF)) Exam Exam Date and Time: February 28, 2022 1114 Height,Weight and Vital Signs: Height 5 ft 5 in Weight 100.2 kg Last Vital Signs Temp 98 F 02/28/22 10:51 Pulse 71 02/28/22 10:51 Resp 18 02/28/22 10:51 BP 157/76 H 02/28/22 10:51 Pulse Ox 94 02/28/22 10:51 Pertinent Lab Results Pertinent Lab Results: Laboratory Tests 02/25/22 02/25/22 02/25/22 16:52 17:14 17:29 WBC 5.0 RBC 3.59 L Hgb 6.2 L* Hct 23.9 L MCV 66.6 L MCH 17.3 L MCHC 25.9 L RDW 19.1 H Plt Count 119 L MPV 8.1 L Immature Gran % (Auto) 1.2 H Neut % (Auto) 60.6 Lymph % (Auto) 22.4 [place] % (Auto) 10.0 Eos % (Auto) 5.0 H Baso % (Auto) 0.8 Lymph # (Auto) 1.1 L [place] # (Auto) 0.5 Eos # (Auto) 0.3 Baso # (Auto) 0.0 Abs Immat Gran (auto) 0.06 H Absolute Neuts (auto) 3.0 Absolute Nucleated RBC 0.000 Nucleated RBC % (auto) 0.0 PT INR Sodium Potassium Chloride Carbon Dioxide Anion Gap BUN Creatinine Estim Creat Clear Calc Estimated GFR Random Glucose Calcium Magnesium Iron TIBC % Saturation Unsat Iron Binding Ferritin Total Bilirubin Direct Bilirubin AST ALT Alkaline Phosphatase Lactate Dehydrogenase Troponin I High Sens B-Natriuretic Peptide Total Protein Albumin Vitamin B12 Folate Stool Occult Blood NEGATIVE COVID-19 ([facility]) COVID-19 Clin Com Blood Type O Positive Antibody Screen NEGATIVE Crossmatch See Detail 02/25/22 02/25/22 02/25/22 17:29 17:29 17:29 WBC RBC Hgb Hct MCV MCH MCHC RDW Plt Count MPV Immature Gran % (Auto) Neut % (Auto) Lymph % (Auto) [place] % (Auto) Eos % (Auto) Baso % (Auto) Lymph # (Auto) [place] # (Auto) Eos # (Auto) Baso # (Auto) Abs Immat Gran (auto) Absolute Neuts (auto) Absolute Nucleated RBC Nucleated RBC % (auto) PT 13.8 H INR 1.2 H Sodium 142 Potassium 4.2 Chloride 111 H Carbon Dioxide 23 Anion Gap 12 BUN 24 H Creatinine 1.45 H Estim Creat Clear Calc 39.2 Estimated GFR 46 Random Glucose 98 Calcium 8.7 Magnesium 2.0 Iron 16 L TIBC 405 % Saturation 4 L Unsat Iron Binding 389 Ferritin 10 L Total Bilirubin 0.7 Direct Bilirubin 0.3 AST 12 ALT 11 Alkaline Phosphatase 94 Lactate Dehydrogenase 248 Troponin I High Sens 5.6 B-Natriuretic Peptide 96 Total Protein 5.9 L Albumin 3.7 Vitamin B12 Folate Stool Occult Blood COVID-19 ([facility]) COVID-19 Clin Com Blood Type Antibody Screen Crossmatch 02/25/22 02/25/22 02/26/22 17:29 17:29 06:55 WBC 6.1 RBC 4.10 L Hgb 8.4 L D Hct 29.3 L D MCV 71.5 L MCH 20.5 L MCHC 28.7 L RDW 23.8 H Plt Count 107 L MPV 8.8 L Immature Gran % (Auto) 3.1 H Neut % (Auto) 63.6 Lymph % (Auto) 18.2 L [place] % (Auto) 9.9 Eos % (Auto) 4.2 H Baso % (Auto) 1.0 Lymph # (Auto) 1.1 L [place] # (Auto) 0.6 Eos # (Auto) 0.3 Baso # (Auto) 0.1 Abs Immat Gran (auto) 0.19 H Absolute Neuts (auto) 3.9 Absolute Nucleated RBC 0.000 Nucleated RBC % (auto) 0.0 PT INR Sodium Potassium Chloride Carbon Dioxide Anion Gap BUN Creatinine Estim Creat Clear Calc Estimated GFR Random Glucose Calcium Magnesium Iron TIBC % Saturation Unsat Iron Binding Ferritin Total Bilirubin Direct Bilirubin AST ALT Alkaline Phosphatase Lactate Dehydrogenase Troponin I High Sens B-Natriuretic Peptide Total Protein Albumin Vitamin B12 577 Folate 12.3 Stool Occult Blood COVID-19 ([facility]) Negative COVID-19 Clin Com See Note Blood Type Antibody Screen Crossmatch 02/26/22 02/27/22 02/28/22 06:55 09:25 05:39 WBC 5.6 5.0 RBC 4.22 L 4.20 L Hgb 8.5 L 8.6 L Hct 30.6 L 30.1 L MCV 72.5 L 71.7 L MCH 20.1 L 20.5 L MCHC 27.8 L 28.6 L RDW 24.6 H 25.0 H Plt Count 116 L 140 L MPV 8.2 L 8.5 L Immature Gran % (Auto) Neut % (Auto) Lymph % (Auto) [place] % (Auto) Eos % (Auto) Baso % (Auto) Lymph # (Auto) [place] # (Auto) Eos # (Auto) Baso # (Auto) Abs Immat Gran (auto) Absolute Neuts (auto) Absolute Nucleated RBC 0.020 H 0.000 Nucleated RBC % (auto) 0.4 H 0.0 PT INR Sodium 142 Potassium 4.4 Chloride 112 H Carbon Dioxide 20 L Anion Gap 14 BUN 22 H Creatinine 1.17 Estim Creat Clear Calc 48.5 Estimated GFR 59 Random Glucose 98 Calcium 8.2 L Magnesium Iron TIBC % Saturation Unsat Iron Binding Ferritin Total Bilirubin Direct Bilirubin AST ALT Alkaline Phosphatase Lactate Dehydrogenase Troponin I High Sens B-Natriuretic Peptide Total Protein Albumin Vitamin B12 Folate Stool Occult Blood COVID-19 ([facility]) COVID-19 Clin Com Blood Type Antibody Screen Crossmatch Airway Mallampati Class: II TM Dist: >3cm Neck ROM: Full Denture: Upper and Lower Heart: RRR Lungs: Distant BS. Occasional wheeze. Had nebulizer treatment this am Assessment and Plan Assessment Anesthesia Assessment: Anesthesia Plan Discussed and Chart Reviewed Final Anesthetic Review Family History of Problems with Anesthesia: No History of Problems with Anesthesia: No NPO: Yes ASA Class: III Final Preanesthetic Review: No Changes in Pt Med Stat, Meds/Allgs Chart Reviewed, Consent Obtained/Reviewed and Anes Risks/Benef Reviewed Patient Risk: Intermediate Procedure Risk: Low Assessment/Block/Sedation in SS: Assess/Block/Sedation- Anesthetic Plan Anesthetic Plan: MAC: Disposition: Standard PACU
--- NOTE | 2022-02-28 11:23 | MHC.CM.PN ---
Addendum entered by Rose Marie Marie 02/28/22 13:36: nurse case manger note patient returned from his egd (per documentation showed oozing antral avm,cauterized duodenitis in bulb and in second portion antral and duodnal bx were taken ) colonscopy (per documentation showed no bleeidng or mass, mod extensive zabala diverticulosis ) case diuscussed with the hospitlait and patient will be discharge d home today after lunch no services medicare iu updated Original Note: NURSE SURVEILLANCE SYSTEM MONITOR NOTE ELECTRONIC MEDICQL RECORD REVIEWED ALONG WITH CASE DISCHUSSED WITH [facility] PATIRNE WILL BE GOING FOR EGD AND COLONOSCOPY TODAY AND PER HOSPITLAIST SHOULD BE ABLE TO BE DISCHARGED THER AFTER, MET WITHPATIENT AND SPOKE WITH HIM ABOUT VNA POST DISVHARGE INITIAL ASSESSMENT FAMILY REQUESTING VNBA , PATIENT DOES NOT FEEL VNA IS NEEDED ALSO CASE DISCUSSED WITH HOSPITLAIT AND NOP VNA SERVICES AT DISCHRGE ARE NEEDED DISCHARGE PLAN HOME WITH DFAMILY NO SERVICES PCP DR ADILSON CURTIS PATIENT TO CALL FOR POST HOSPITAL DISCHARGE FOLLOW UP TRANSPORTYATION FAMILY
--- NOTE | 2022-02-28 12:05 | PM.EVENT ---
Event Note Date of Service: 02/28/22 Event Note: EGD/Colonoscopy EGD shows 3 mm oozing antral avm, cauterized duodenitis in bulb and 2nd portion antral and duodenal biopsies taken. colonoscopy to ti showed no bleeding or mass mod-extensive pandiverticulosis rec ppi f/u bx results start iron supplementation advance diet, d/c when stable
[2022-02-28 12:37] LABS: Transglutaminase IgA <1.0 U/mL
[2022-02-28] MEDS: Azithromycin 250 MG TABLET PO (14:31)
[2022-02-28] MEDS: Omeprazole 20 MG CAPSULE.DR PO (14:31)
[2022-02-28] MEDS: Ferrous Sulfate 324 MG TABLET.DR PO (14:31)
[2022-02-28 14:37] LABS: IgA 99 mg/dL (70-320); IgG 446 mg/dL (600-1540); IgM 260 mg/dL (50-300)
--- NOTE | 2022-02-28 14:56 | P.DS_ITS ---
DS: Providers Provider Date of Service: 02/28/22 Date of admission: 02/25/22 19:43 Date of discharge: 02/28/22 Primary care physician: Jomar Sung MD Consults: 02/25/22 19:42 Consult to Hematology / Oncology Routine Consulting Provider: Sarah Holguin Reason for consultation: Anemia 02/26/22 17:13 Consult to Gastroenterology Routine Consulting Provider: Vikram Dela Cruz Reason for consultation: ANEMIA, OCCULT GI BLEEDING. 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 But had routine blood work done today and noted to have drop in hemoglobin to 6.2; subsequently asked him to go to the ER for further evaluation.? Patient denies any nausea vomiting diarrhea.? Denies any chest pain palpitations lightheadedness or dizziness.? Denies any fever chills cough.? Mentions that he is legally blind and has not checked his stool-unsure if he has black stool or red stool.? Denies any numbness tingling or focal weakness.? Review of all other systems is negative except mentioned above ER course: Per ER team patient's stool guaiac was negative; hemoglobin noted to be 6.2; vitals stable; chest x-ray showed no acute findings; EKG was nonischemic; troponin negative; patient being transfused 2 units of blood.? Admitted to the hospital for further management discharge diagnosis: acute blood loss anemia secondary to GI bleeding from gastric AVM/duodenitis Patient was noted to have decrease in H/h from baseline but was guiac negative on admission. He was seen by hematology and lab work was consistent with Iron deficiency anemia, there was no evidence of hemolysis. He was transfused two units blood with improvement in h/h. hematology recommended GI evaluation for likely occult GI bleeding. He was seen by GI and underwent EGD on 02/28/2022. EGD shows 3 mm oozing antral avm which was cauterized and duodenitis in bulb and 2nd portion. antral and duodenal biopsies were taken. patient has been started on iron supplementation as well as oral Prilosec. He should call to schedule follow-up appointment with Gastroenterology as he may need capsule endoscopy in the future. Patient is currently tolerating regular diet, he denies any shortness of breath, dizziness. He has remained hemodynamically stable, he is stable for discharge home. Results of biopsy are pending at the time of discharge. Time Spent with Patient Time attestation: Total time spent providing and/or coordinating discharge services: Discharge coordination time: Greater than 30 minutes Quality: Safe Use of Opioids Does Pt have an Active Cancer Diagnosis on the Problem List?: No Quality: Stroke Does the patient have a stroke diagnosis?: No Physical Exam Vital Signs: Vital Signs: Last Vital Signs Temp 97.8 F 02/28/22 13:01 Pulse 64 02/28/22 13:01 Resp 18 02/28/22 13:01 BP 120/60 02/28/22 13:01 Pulse Ox 94 02/28/22 13:01 BMI result Body Mass Index 36.7 Const: General: cooperative, comfortable, alert and awake Nutritional Appearance: overweight Orientation/consciousness: patient oriented x3 Eyes: Pupils: Equal, round and reactive pupils present EOM: EOMs intact bilaterally Resp: Effort & Inspection: normal respiratory effort and able to speak in complete sentences Cardio: Rate: regular rate Heart sounds: S1 normal heart sound present and S2 normal heart sound present GI: Palpation (GI): Soft to palpation and nontender Neuro: General: patient oriented x3 Cranial nerves: Yes Equal, round and reactive pupils present Extrem: General: Yes no pedal edema DS: Data Data Completed and Pending Pending studies at discharge: Pending at discharge 02/28/22 11:49 Surgical [PTH] Routine Labs on day of discharge: Laboratory Results - last 24 hr 02/26/22 02/28/22 06:55 05:39 WBC 5.0 RBC 4.20 L Hgb 8.6 L Hct 30.1 L MCV 71.7 L MCH 20.5 L MCHC 28.6 L RDW 25.0 H Plt Count 140 L MPV 8.5 L Absolute Nucleated RBC 0.000 Nucleated RBC % (auto) 0.0 IgG Total 446 L IgA Total 99 IgM 260 JILL Interpretation SEE NOTE Tiss Transglutamin IgA <1.0 Discharge Plan Discharge Patient Disposition: Home, Self-Care Discharge Diagnosis: Anemia Gastric AVM/duodenitis Referrals: Vikram Dela Cruz [Physician] - 2 Weeks Jomar Sung MD [Primary Care Provider] - 1 Week Discharge Medications: New omeprazole 20 mg Capsule,Delayed Release(Dr/Ec) 20 mg PO DAILY@0630 30 Days Qty: 30 0RF ferrous sulfate 324 mg (65 mg iron) Tablet,Delayed Release (Dr/Ec) 324 mg PO DAILY 30 Days Qty: 30 0RF Continued ipratropium-albuterol 0.5 mg-3 mg(2.5 mg base)/3 mL solution for nebulization 3 ml inhalation BID 30 Days Qty: 180 11RF sodium chloride 7 % solution for nebulization 4 ml inhalation BID 30 Days Qty: 240 11RF simvastatin 10 mg Tablet 10 mg PO BEDTIME 0RF tamsulosin 0.4 mg capsule 0.8 mg PO DAILY 0RF azithromycin 250 mg tablet 250 mg PO MOWEFR 0RF Rx Instructions: Take 1 tablet on Thursday/Thursday/Thursday Zioptan (PF) 0.0015 % dropperette 1 drp ophthalmic (eye) BEDTIME 0RF Trelegy Ellipta 200-62.5-25 mcg blister with device 1 inh inhalation DAILY 30 Days Qty: 60 12RF dorzolamide-timolol 22.3-6.8 mg/mL drops 1 drp ophthalmic (eye) BID@0900,1800 0RF budesonide 0.5 mg/2 mL suspension for nebulization 0.5 mg inhalation BID 30 Days Qty: 120 11RF Discharge Orders: Discharge Order (Routine); Ordered 02/28/22 Ordered By: Seema Kenney Activity on Discharge: As tolerated Stand Alone Forms: Patient Portal Discharge page Care Plan Goals: see below Health Concerns: gastic AVM/duodenitis anemia Plan of Treatment: start taking omeprazole and iron supplement as prescribed call to schedule follow up appointment with GI monitor for signs of bleeding Assessment: see discharge summary Discharge Date/Time: 02/28/22 16:14
--- NOTE | 2022-02-28 23:37 | OP_ITS ---
SURGEON: Vikram Dela Cruz MD INDICATIONS: Iron deficiency anemia. PREOPERATIVE DIAGNOSIS: POSTOPERATIVE DIAGNOSIS: PROCEDURE PERFORMED: 1. Upper endoscopy with control of hemorrhage. 2. Colonoscopy to the terminal ileum. ESTIMATED BLOOD LOSS: COMPLICATIONS: ANESTHESIA: ASSISTANTS: SPECIMENS: MEDICATIONS: Monitored anesthesia care. DESCRIPTION OF PROCEDURE: History and physical were performed. The risks and benefits of the procedure were explained to the patient. Informed consent was obtained. The patient was placed in the left lateral decubitus position. The Olympus video gastroscope was introduced into the esophagus, stomach, and duodenum. Examination was performed and the scope was removed. He was repositioned for colonoscopy. Digital rectal exam was performed and was found to be normal. The Olympus pediatric video colonoscope was introduced into the rectum and advanced to the cecum without difficulty. The cecum was identified by transillumination, palpation, identification of the ileocecal valve. Examination was performed. The scope was removed. He tolerated both procedures well and was taken to recovery area in stable condition. FINDINGS: UPPER ENDOSCOPY: Esophagus: The esophagus was normal. There was a small sliding hiatal hernia. Stomach: The stomach showed a single AVM in the antrum measuring approximately 2-3 mm. This oozed some blood upon irrigation and had some old blood associated with it in the antrum. The AVM was cauterized using the tip of a snare with excellent hemostasis. At the termination of the procedure, antral biopsies were obtained to evaluate for H pylori. Duodenum: There was duodenitis involving the bulb with no active bleeding and no ulcer. The major papilla appeared normal. Biopsies were obtained from the second portion of the duodenum. COLONOSCOPY: The terminal ileum was normal. The visualized colonic mucosa was normal. There was diffuse diverticulosis throughout the colon without any evidence of diverticulitis. No bleeding source was identified in the terminal ileum or colon. Retroflexed examination showed small internal hemorrhoids. The quality of the prep was good. IMPRESSION: 1. Gastric arteriovenous malformation. 2. Duodenitis. 3. Diverticulosis. RECOMMENDATION: 1. Follow up the biopsy results. 2. Proton pump inhibitor for duodenitis. 3. No NSAIDs or aspirin. MD SHELL Pearson/BING / [id number]
== END 2022-02-28 16:14 | disposition home or self-care (01) | DRG 378 ==
LOC: HO.ED 19:20 → HO.EDOVER 19:47 → HO.S3 02-27 01:23
PROVIDERS: Internal Medicine Gastroenterology; Internal Medicine Medical Oncology; Admitting Provider Hospitalist; Emergency Provider Emergency Medicine; PCP Internal Medicine; Visit Provider Physician Assistant Medical
PROC: 0DB78ZX Excision of Stomach, Pylorus, Via Natural or Artificial Opening Endoscopic, Diagnostic (ICD-10-PCS; principal; 2022-02-28 11:30)
DX: K31.811 Angiodysplasia of stomach and duodenum with bleeding (principal); J96.11 Chronic respiratory failure with hypoxia; D62 Acute posthemorrhagic anemia; J84.9 Interstitial pulmonary disease, unspecified; J41.8 Mixed simple and mucopurulent chronic bronchitis; H54.8 Legal blindness, as defined in USA; E78.5 Hyperlipidemia, unspecified; D50.9 Iron deficiency anemia, unspecified; K29.80 Duodenitis without bleeding; K57.30 Diverticulosis of large intestine without perforation or abscess without bleeding; N40.0 Benign prostatic hyperplasia without lower urinary tract symptoms; Z20.822 Contact with and (suspected) exposure to COVID-19; Z85.118 Personal history of other malignant neoplasm of bronchus and lung; Z96.652 Presence of left artificial knee joint; Z87.891 Personal history of nicotine dependence; Z79.51 Long term (current) use of inhaled steroids; Z79.899 Other long term (current) drug therapy
CPT/HCPCS: 36415; 36430; 71045; 74176; 80048; 80076; 82272; 82607; 82728; 82746; 82784; 83540; 83615; 83735; 83880; 84484; 85025; 85027; 85610; 85652; 86334; 86364; 86850; 86900; 86901; 86923; 87635; 88305; 88342; 93005; 94618; 94640; 99212; 99285; P9016

== ENCOUNTER 2022-04-14 07:23 | Outpatient (REF) | payer MEDICARE, SELFPAY ==
[2022-04-14 12:55] LABS: Eosinophils Absolute Auto 0.3 X10*3/uL (0.0-0.4); Hemoglobin 13.5 g/dl (14.0-18.0); Mean Corpuscular Hemoglobin 23.4 pg (27.0-33.0); Platelet Count 145 X10*3/uL (160-400); Red Blood Count 5.76 X10*6/uL (4.60-5.80); SCAN SMEAR FLAG 1
[2022-04-14 12:57] LABS: Basophils Absolute Auto 0.2 X10*3/uL (0.0-0.2); Basophils Percent Auto 1.7 % (0-2); Eosinophils Percent Auto 3.8 % (0-4); Hematocrit 46.6 % (42.0-52.0); Imm Gran Abs Auto 0.13 X10*3/uL (0.00-0.03); Imm Gran Pct Auto 1.5 % (0.0-0.4); Lymphocytes Absolute Auto 1.7 X10*3/uL (1.2-4.9); Lymphocytes Percent Auto 19.1 % (20-40); Mean Corpuscular Volume 80.9 fL (80.0-98.0); Mean Platelet Volume 9.4 fL (9.4-12.4); Monocytes Absolute Auto 1.2 X10*3/uL (0.1-1.2); Monocytes Percent Auto 14.4 % (2-11); Neutrophils Absolute Auto 5.1 x10*3/uL (2.0-8.3); Neutrophils Percent Auto 59.5 % (45-73); Red Cell Distribution Width 23.5 % (11.0-16.0); White Blood Count 8.6 X10*3/uL (4.8-10.8)
[2022-04-14 13:06] LABS: MANUAL DIFF FLAG NO; PLT ABN DIST 1
[2022-04-14 13:07] LABS: Alanine Aminotransferase 13 U/L (0-40); Alkaline Phosphatase 104 U/L (39-117); Anion Gap 13 (12-20); Aspartate Amino Transferase 13 U/L (5-37); Bilirubin Total 0.8 mg/dL (0.0-1.0); Blood Urea Nitrogen 25 mg/dL (9-16); Calcium 9.3 mg/dL (8.4-10.2); Carbon Dioxide 25 mmol/L (22-29); Chloride 108 mmol/L (96-108); Cholesterol 119 mg/dL; Estimated Glomerular Filt Rate 53; Glucose Fasting 100 mg/dL (60-99); HDL Cholesterol 31 mg/dL; Iron 50 mcg/dL (45-160); LDL Cholesterol Calculated 73 mg/dl; Percent Iron Saturation 14 % (15-50); Potassium 4.5 mmol/L (3.3-5.1); Sodium 141 mmol/L (135-145); Total Iron Binding Capacity 349 mcg/dL (228-428); Total Protein 6.6 g/dL (6.5-8.0); Triglycerides 79 mg/dL; Unsaturated Iron Binding 299 ug/dL
[2022-04-14 13:31] LABS: Ferritin 66 ng/mL (20-250)
[2022-04-14 13:32] LABS: Prostate Specific Antigen Scr 0.77 ng/mL (<0.05-4.0)
== END 2022-04-14 07:24 | disposition home or self-care (01) ==
LOC: HO.HMGCLDS 07:23
PROVIDERS: PCP Internal Medicine; Visit Provider Internal Medicine Gastroenterology
DX: Z12.5 Encounter for screening for malignant neoplasm of prostate (principal); J44.9 Chronic obstructive pulmonary disease, unspecified; E78.00 Pure hypercholesterolemia, unspecified; D64.9 Anemia, unspecified; N40.0 Benign prostatic hyperplasia without lower urinary tract symptoms
CPT/HCPCS: 36415; 80053; 80061; 82728; 83540; 84153; 85025

== ENCOUNTER → 2022-04-16 09:43 | Outpatient (BNVA) | payer MEDICARE, SELFPAY | PROVIDERS: PCP Internal Medicine; Visit Provider Hospitalist | DX: J41.8 Mixed simple and mucopurulent chronic bronchitis (principal); J84.9 Interstitial pulmonary disease, unspecified; J96.10 Chronic respiratory failure, unspecified whether with hypoxia or hypercapnia; R06.00 Dyspnea, unspecified; D64.9 Anemia, unspecified; Z99.81 Dependence on supplemental oxygen | CPT/HCPCS: 99212 ==

== ENCOUNTER 2022-05-29 13:19 | Outpatient (REF) | payer MEDICARE, SELFPAY ==
[2022-05-29 16:40] LABS: MANUAL DIFF FLAG NO
[2022-05-29 16:54] LABS: Basophils Absolute Auto 0.1 X10*3/uL (0.0-0.2); Basophils Percent Auto 1.5 % (0-2); Eosinophils Absolute Auto 0.1 X10*3/uL (0.0-0.4); Eosinophils Percent Auto 1.4 % (0-4); Hematocrit 48.7 % (42.0-52.0); Hemoglobin 15.3 g/dl (14.0-18.0); Imm Gran Abs Auto 0.11 X10*3/uL (0.00-0.03); Imm Gran Pct Auto 1.2 % (0.0-0.4); Lymphocytes Absolute Auto 1.6 X10*3/uL (1.2-4.9); Mean Corpuscular HGB Conc 31.4 g/dl (31.0-36.0); Mean Corpuscular Hemoglobin 25.3 pg (27.0-33.0); Mean Corpuscular Volume 80.5 fL (80.0-98.0); Mean Platelet Volume 9.6 fL (9.4-12.4); Monocytes Absolute Auto 1.3 X10*3/uL (0.1-1.2); Monocytes Percent Auto 14.3 % (2-11); Neutrophils Absolute Auto 5.8 x10*3/uL (2.0-8.3); Neutrophils Percent Auto 63.6 % (45-73); Platelet Count 154 X10*3/uL (160-400); Red Blood Count 6.05 X10*6/uL (4.60-5.80); White Blood Count 9.1 X10*3/uL (4.8-10.8)
[2022-05-29 19:30] LABS: Anion Gap 15 (12-20); Carbon Dioxide 23 mmol/L (22-29); Chloride 104 mmol/L (96-108); Potassium 4.5 mmol/L (3.3-5.1); Sodium 137 mmol/L (135-145)
== END 2022-05-29 13:20 | disposition home or self-care (01) ==
LOC: HO.HMGCLDS 13:19
DX: D69.2 Other nonthrombocytopenic purpura (principal)
CPT/HCPCS: 36415; 80051; 85025

== ENCOUNTER 2022-06-02 12:36 | Outpatient (REF) | payer MEDICARE, SELFPAY ==
[2022-06-02 15:30] LABS: Alanine Aminotransferase 11 U/L (0-40); Albumin Level 4.2 g/dL (3.5-5.0); Alkaline Phosphatase 99 U/L (39-117); Anion Gap 17 (12-20); Aspartate Amino Transferase 14 U/L (5-37); Bilirubin Total 0.8 mg/dL (0.0-1.0); Blood Urea Nitrogen 20 mg/dL (9-16); C Reactive Protein 0.62 mg/dL (< or = 0.50); Calcium 9.4 mg/dL (8.4-10.2); Carbon Dioxide 24 mmol/L (22-29); Chloride 107 mmol/L (96-108); Estimated Glomerular Filt Rate > 60; Glucose Random 96 mg/dL (60-115); Sodium 143 mmol/L (135-145); Total Protein 6.9 g/dL (6.5-8.0)
[2022-06-02 16:17] LABS: Erythrocyte Sedimentation Rate 4 MM/HR (0-15)
== END 2022-06-02 12:37 | disposition home or self-care (01) ==
LOC: HO.HMGCLDS 12:36
PROVIDERS: PCP Internal Medicine; Visit Provider Internal Medicine
DX: R21 Rash and other nonspecific skin eruption (principal); N18.9 Chronic kidney disease, unspecified; J44.9 Chronic obstructive pulmonary disease, unspecified
CPT/HCPCS: 36415; 80053; 82550; 85652; 86140

== ENCOUNTER → 2022-07-16 09:41 | Outpatient (BNVA) | payer MEDICARE, SELFPAY | PROVIDERS: PCP Internal Medicine; Visit Provider Hospitalist | DX: J41.8 Mixed simple and mucopurulent chronic bronchitis (principal); J84.9 Interstitial pulmonary disease, unspecified; R06.00 Dyspnea, unspecified; D64.9 Anemia, unspecified; Z79.899 Other long term (current) drug therapy; Z99.81 Dependence on supplemental oxygen | CPT/HCPCS: 99212 ==

== ENCOUNTER → 2022-08-07 10:39 | Outpatient (BNVA) | payer MEDICARE, SELFPAY | PROVIDERS: PCP Internal Medicine; Visit Provider Student in an Organized Health Care Education/Training Program | DX: R76.8 Other specified abnormal immunological findings in serum (principal); D69.2 Other nonthrombocytopenic purpura | CPT/HCPCS: 99202 ==

== ENCOUNTER 2022-12-17 10:23 | Outpatient (REF) | payer MEDICARE, SELFPAY ==
--- NOTE | ~2022-12-17 | XR_ITS ---
EXAMINATION: XR CHEST CLINICAL INFORMATION: Interstitial pulmonary disease COMPARISON: CT abdomen 02/26/2022, chest radiograph 02/25/2022 TECHNIQUE: 2 views of the chest were obtained. FINDINGS: The lungs are hyperinflated compatible with COPD. Consistent with findings seen on the prior CT scan. Some increased interstitial markings seen at the right lung base consistent with interstitial disease seen on the prior CT scan. No acute consolidations, lung masses or pleural effusions are seen. Heart size normal. No evidence of CHF. XR/XR chest 2V IMPRESSION: COPD. No acute intrathoracic disease.
[2022-12-17 11:21] LABS: MANUAL DIFF FLAG NO
[2022-12-17 12:01] LABS: Basophils Absolute Auto 0.2 X10*3/uL (0.0-0.2); Basophils Percent Auto 1.9 % (0-2); Eosinophils Absolute Auto 0.1 X10*3/uL (0.0-0.4); Eosinophils Percent Auto 1.4 % (0-4); Hematocrit 52.5 % (42.0-52.0); Hemoglobin 16.5 g/dl (14.0-18.0); Imm Gran Abs Auto 0.12 X10*3/uL (0.00-0.03); Imm Gran Pct Auto 1.4 % (0.0-0.4); Lymphocytes Absolute Auto 1.5 X10*3/uL (1.2-4.9); Mean Corpuscular HGB Conc 31.4 g/dl (31.0-36.0); Mean Corpuscular Hemoglobin 26.1 pg (27.0-33.0); Mean Corpuscular Volume 82.9 fL (80.0-98.0); Mean Platelet Volume 9.9 fL (9.4-12.4); Monocytes Percent Auto 12.5 % (2-11); Neutrophils Absolute Auto 5.4 x10*3/uL (2.0-8.3); Neutrophils Percent Auto 64.8 % (45-73); Platelet Count 145 X10*3/uL (160-400); Red Blood Count 6.33 X10*6/uL (4.60-5.80); Red Cell Distribution Width 17.6 % (11.0-16.0); White Blood Count 8.4 X10*3/uL (4.8-10.8)
[2022-12-17 12:55] LABS: Erythrocyte Sedimentation Rate 2 MM/HR (0-15)
[2022-12-19 09:43] LABS: Immunoglobulin E 21 kU/L (<OR=114)
[2022-12-19 12:35] LABS: Immunoglobulin G Subclass 1 424 mg/dL (382-929); Immunoglobulin G Subclass 2 255 mg/dL (241-700); Immunoglobulin G Subclass 3 33 mg/dL (22-178); Immunoglobulin G Subclass 4 42.9 mg/dL (4-86); Immunoglobulin G Total 804 mg/dL (600-1540)
[2022-12-19 14:39] LABS: Cyclic Citrullinated Peptide <16 UNITS
[2022-12-19 18:59] LABS: Anti DNA DS Antibody <1 IU/mL
[2022-12-23 14:39] LABS: Anti Nuclear Antibody Screen POSITIVE (NEGATIVE)
== END 2022-12-17 10:24 | disposition home or self-care (01) ==
LOC: HO.HMGCLDS 10:23
PROVIDERS: Visit Provider Hospitalist
DX: J41.8 Mixed simple and mucopurulent chronic bronchitis (principal); J84.9 Interstitial pulmonary disease, unspecified; R76.8 Other specified abnormal immunological findings in serum
CPT/HCPCS: 36415; 71046; 82784; 82785; 85025; 85652; 86038; 86039; 86200; 86225

== ENCOUNTER → 2023-01-14 09:53 | Outpatient (BNVA) | payer MEDICARE, SELFPAY | PROVIDERS: PCP Internal Medicine; Visit Provider Hospitalist | DX: J44.1 Chronic obstructive pulmonary disease with (acute) exacerbation (principal); J84.9 Interstitial pulmonary disease, unspecified; R06.00 Dyspnea, unspecified; D64.9 Anemia, unspecified; K12.1 Other forms of stomatitis; K12.30 Oral mucositis (ulcerative), unspecified; U09.9 Post COVID-19 condition, unspecified; Z99.81 Dependence on supplemental oxygen | CPT/HCPCS: 99212 ==

== ENCOUNTER → 2023-02-12 09:52 | Outpatient (BNVA) | payer MEDICARE, SELFPAY | PROVIDERS: PCP Internal Medicine; Visit Provider Hospitalist | DX: J44.1 Chronic obstructive pulmonary disease with (acute) exacerbation (principal); J84.9 Interstitial pulmonary disease, unspecified; R06.00 Dyspnea, unspecified; D64.9 Anemia, unspecified; Z99.81 Dependence on supplemental oxygen | CPT/HCPCS: 99212 ==

== ENCOUNTER → 2023-04-21 09:22 | Outpatient (BNVA) | payer MEDICARE, SELFPAY | PROVIDERS: PCP Internal Medicine; Visit Provider Nurse Practitioner Family | DX: J44.1 Chronic obstructive pulmonary disease with (acute) exacerbation (principal); J84.9 Interstitial pulmonary disease, unspecified; R06.00 Dyspnea, unspecified; D64.9 Anemia, unspecified | CPT/HCPCS: 94618; 99212 ==

== ENCOUNTER 2023-04-22 08:56 | Outpatient (REF) | payer MEDICARE, SELFPAY ==
[2023-04-22 11:31] LABS: Hematocrit 52.3 % (42.0-52.0); Hemoglobin 16.7 g/dl (14.0-18.0); Mean Corpuscular HGB Conc 31.9 g/dl (31.0-36.0); Mean Corpuscular Hemoglobin 25.8 pg (27.0-33.0); Mean Corpuscular Volume 80.7 fL (80.0-98.0); Mean Platelet Volume 9.5 fL (9.4-12.4); Platelet Count 156 X10*3/uL (160-400); Red Blood Count 6.48 X10*6/uL (4.60-5.80); Red Cell Distribution Width 17.5 % (11.0-16.0)
[2023-04-22 11:32] LABS: WBC ABN SCTR FOR CBC 1
[2023-04-22 12:17] LABS: Band Neutrophils Percent 0 % (3-5); Basophils Percent Manual 4 % (0-2); Eosinophils Percent Manual 7 % (0-4); Lymphocytes Percent Manual 13 % (20-40); Monocytes Percent Manual 6 % (2-11); Neutrophils Percent Manual 70 % (45-73)
[2023-04-22 12:19] LABS: Burr Cells 2+ (3-5) /OIF; Hypochromasia 1+ (5-14) /OIF; Microcytosis 1+ (5-14) /OIF; Platelet Estimate NORMAL (NORMAL); Platelet Morphology Comment NORMAL; RBC Morphology NOTED
[2023-04-22 12:22] LABS: Basophils Abs Manual 0.4 X10*3/uL (0.0-0.2); Eosinophils Absolute Manual 0.7 X10*3/uL (0.0-0.4); Lymphocytes Absolute Manual 1.4 X10*3/uL (1.2-4.9); Monocytes Absolute Manual 0.6 X10*3/uL (0.1-1.2); Neutrophils Absolute Manual 7.3 X10*3/uL (2.0-8.3); White Blood Count 10.4 X10*3/uL (4.8-10.8)
== END 2023-04-22 08:57 | disposition home or self-care (01) ==
LOC: HO.HMGCLDS 08:56
PROVIDERS: PCP Internal Medicine; Visit Provider Nurse Practitioner Family
DX: D64.9 Anemia, unspecified (principal); R06.00 Dyspnea, unspecified
CPT/HCPCS: 36415; 85007; 85027

== ENCOUNTER 2023-04-28 09:45 | Inpatient (IN) | payer MEDICARE, SELFPAY ==
[2023-04-28] VITALS (10 sets, daily range): BP systolic 90–126; BP diastolic 60–79; PULSE 69–114; RESP 18–20; TEMP 36.4–36.8; O2SAT 83–98; BMI 26.0
--- NOTE | ~2023-04-28 | XR_ITS ---
EXAMINATION: XR CHEST CLINICAL INFORMATION: Chest pain. COMPARISON: 12/17/2022 chest radiograph. TECHNIQUE: 2 views of the chest were obtained. FINDINGS: There has been interval development of a moderate-sized left pleural effusion. Mild blunting of the right costophrenic angle is again noted. Deformity is again seen posterolaterally in the right sixth rib without significant change. The heart and mediastinal structures are unremarkable. XR/XR chest 2V IMPRESSION: 1. Interval development of moderate left pleural effusion. An underlying abnormality cannot be excluded. 2. Underlying chronic interstitial changes without significant change.
--- NOTE | ~2023-04-28 | CT_ITS ---
EXAMINATION: CT ANGIOGRAM OF THE CHEST WITH AND WITHOUT CONTRAST (CT PULMONARY ANGIOGRAM FOR PE) CLINICAL INFORMATION: Reason for Exam tachycardia, hypoxia COMPARISON: Previous chest CT most recent 04/28/2023 TECHNIQUE: Prior to contrast administration, noncontrast localization images were obtained. Subsequently, multidetector volumetric imaging was performed from the thoracic inlet to below the diaphragms following the administration of 80 mL Omnipaque 350 intravenous contrast. No contrast reaction reported Sagittal, coronal, and MIP oblique sagittal reformatted images were obtained on the CT workstation, uploaded to PACS, and reviewed. This CT examination was performed using dose optimization techniques as appropriate, variously including the following: *Automated exposure control *Adjustment of mA and/or kV according to patient size (this includes techniques or standardized protocols for targeted exams where dose is matched to indication/reason for exam; i.e. extremities or head) *Use of iterative reconstruction technique Total exam dose-length product mGy-cm FINDINGS: QUALITY OF STUDY/CONTRAST BOLUS: Satisfactory. PULMONARY ARTERIES: No pulmonary emboli. Pulmonary arteries are upper normal in size. THORACIC AORTA: Upper normal-size thoracic aorta. No aneurysm. LUNG: There is evidence of emphysema. There are postsurgical changes following partial right upper lobe lobectomy. There is bronchial wall thickening and mucus plugging in the right lower lobe. There is question of mild interstitial lung disease at the right lung base with increased peripheral reticular markings, increased peripheral attenuation and small calcifications. Left apical pleural thickening and calcification. There is scarring or subsegmental atelectasis inferior segment of the lingula. There is a partial compressive atelectasis of the left lower lobe from the pleural effusion. PLEURA: Moderate to large left pleural effusion. No right pleural effusion. MEDIASTINUM: Normal heart size. Small pericardial effusion. No hilar or mediastinal lymphadenopathy. No evidence of septal bowing or right heart strain. CORONARY ARTERY CALCIFICATION: Mild CHEST WALL/AXILLA: No axillary or internal mammary lymphadenopathy. OSSEOUS STRUCTURES: No acute or suspicious osseous abnormality. Degenerative changes of the spine. Postsurgical changes following partial resection of the right posterior lateral sixth rib. UPPER ABDOMEN: Unremarkable. The gallbladder is been removed. No reflux of contrast into the hepatic veins to suggest elevated right heart pressures. CT/CT angio chest PE protocol IMPRESSION: No evidence of pulmonary embolism. Moderate to large left pleural effusion. Postsurgical changes following partial right upper lobe lobectomy. Severe emphysema. Question mild interstitial lung disease at the right lung base. Mild airways disease in the right lower lobe with bronchial wall thickening and mucus plugging. VTE: negative
--- NOTE | ~2023-04-28 | CT_ITS ---
EXAMINATION: CT CHEST WITH CONTRAST CLINICAL INFORMATION: Shortness of breath, worsening chest x-ray. COMPARISON: None available. TECHNIQUE: Multidetector volumetric CT imaging of the chest was obtained after the administration of 50 mL of Omnipaque 350 intravenous contrast without immediate adverse reactions. Axial MIP volume rendering provided. Sagittal and coronal reformatted images were obtained. This CT examination was performed using dose optimization techniques as appropriate, variously including the following: *Automated exposure control *Adjustment of mA and/or kV according to patient size (this includes techniques or standardized protocols for targeted exams where dose is matched to indication/reason for exam; i.e. extremities or head) *Use of iterative reconstruction technique DLP: 283 mGy-cm FINDINGS: LUNGS/PLEURA/AIRWAYS: Moderate to severe upper lobe predominant centrilobular and paraseptal emphysema is seen most pronounced in the right upper lobe. Postsurgical changes are seen in the right upper lobe as well. There is a moderate to large left pleural effusion with compressive atelectasis in the left lower lobe posteriorly and to a lesser extent posteriorly in the lingula. No suspicious mass/nodule is seen. The airways appear patent. MEDIASTINUM: The thyroid gland is unremarkable. The ascending aorta measures up to 4.0 cm in AP dimension (image 33, series 3). Moderate atherosclerosis is seen in the descending thoracic aorta. Mild to moderate coronary artery calcifications. Coarse mitral annular calcifications. Trace pericardial effusion. No significant esophageal abnormality. No mediastinal or hilar lymphadenopathy. UPPER ABDOMEN: Diffuse decreased hepatic attenuation in the visualized portions. MUSCULOSKELETAL: Increased thoracic kyphosis with mild to moderate multilevel flowing marginal osteophyte formation. No acute/suspicious abnormality. SOFT TISSUES: Unremarkable. CT/CT chest w IV con IMPRESSION: 1. Moderate to large left pleural effusion with associated left lower lobe and lingular compressive atelectasis. A definitive causative abnormality is not identified. Continued short-term monitoring with chest radiographs is recommended. 2. Moderate to severe centrilobular/paraseptal emphysema. 3. Borderline dilatation of the ascending aorta up to 4.0 cm. 4. Hepatic steatosis.
--- NOTE | ~2023-04-28 | US_ITS ---
EXAMINATION: Ultrasound-guided thoracentesis CLINICAL INFORMATION: Left pleural effusion COMPARISON: Previous chest x-ray and chest CT from yesterday TECHNIQUE: Procedure and risks and benefits including bleeding, infection and pneumothorax were discussed with the patient and informed consent was obtained. The left posterior lateral chest was prepped and draped in the usual sterile fashion. The skin and soft tissues were anesthetized with 1% lidocaine plain. Using ultrasound guidance and a 4 Wolof one stick system, access to the left pleural effusion was obtained. 1.16 L of clear yellow fluid was removed. Diagnostic specimen was sent as requested by the ordering physician. Postprocedure chest x-ray was performed. FINDINGS: There is a large left pleural effusion. US/US thoracentesis IMPRESSION: Ultrasound-guided left thoracentesis.
--- NOTE | ~2023-04-28 | XR_ITS ---
EXAMINATION: XR CHEST CLINICAL INFORMATION: Post left thoracentesis COMPARISON: Previous chest x-ray and chest CT from yesterday TECHNIQUE: Frontal view of the chest was obtained. FINDINGS: The cardiac and mediastinal contours are stable. There is interval decrease in the left pleural effusion post left thoracentesis. There may be atelectasis or consolidation at the left lung. There is no pneumothorax. There are increased interstitial markings seen at the right lung base. There are postsurgical changes with surgical staple line seen in the right upper lung. No right pleural effusion. There are degenerative changes of the spine. There is partial resection of the right posterior lateral sixth rib. XR/XR chest 1V IMPRESSION: No pneumothorax post left thoracentesis.
--- NOTE | 2023-04-28 09:59 | ED_ITS ---
HPI - General Adult General Chief complaint: General Medical Stated complaint: New onset afib Time Seen by Provider: 04/28/23 09:59 Source: patient and family (patient's son) Mode of arrival: ambulatory Limitations: no limitations History of Present Illness HPI narrative: Patient is an 88 year old assigned male at with a history of lung cancer status post partial lobectomy, COPD on chronic oxygen via nasal cannula, anemia, and interstitial lung disease presenting to the emergency department today with new onset atrial fibrillation and worsening shortness of breath over the last few months. Patient states that his shortness of breath has been getting worse over the last few months but he is here today because while he was in his pulmonologists office, he was found to have atrial fibrillation. Patient states that he does not have a history of atrial fibrillation. Patient states that his lung cancer was decades ago and he can't remember which side it was on. Patient denies any dizziness, lightheadedness, abdominal pain, nausea, vomiting, fever, chills, blurry vision, double vision, loss of vision, chest pain, back pain, night sweats, pain with urination, increased urinary frequency, increased uri nary urgency, blood in his urine or stool, syncope or a near syncopal episode, recent trauma or falls, bowel incontinence, bladder incontinence, bowel retention, bladder retention, or any other complaints at this time. Relieving factors: none Exacerbating factors: none Associated symptoms: shortness of breath Treatments prior to arrival: none Related Data Home Medications Medication Instructions Recorded Confirmed simvastatin 10 mg tablet 10 mg PO BEDTIME 08/06/20 04/21/23 tamsulosin 0.4 mg capsule 0.8 mg PO DAILY 08/06/20 04/21/23 dorzolamide 22.3 mg-timolol 6.8 1 drp ophthalmic (eye) 10/14/21 04/21/23 mg/mL eye drops BID@0900,1800 nebulizers 01/14/23 04/21/23 albuterol sulfate 2.5 mg/3 mL 2.5 mg inhalation QID PRN 04/28/23 04/28/23 (0.083 %) solution for nebulization Shortness Of Breath Previous Rx's Medication Instructions Recorded amoxicillin 875 mg-potassium 1 tab PO BID 10 days #20 tabs 04/21/23 clavulanate 125 mg tablet Allergies Allergy/AdvReac Type Severity Reaction Status Date / Time No Known Allergies Allergy Verified 04/21/23 09:47 Review of Systems Constitutional: Constitutional: Reports no additional constitutional complaints, Denies chills, Denies fever(s) and Denies night sweats Eyes: Eyes: Reports no additional eye complaints, Denies blurry vision, Denies change in vision, Denies diplopia, Denies eye discharge, Denies loss of vision and Denies eye pain ENT: Denies dizziness Cardiovascular: Cardiovascular: Reports no additional cardiovascular complaints, Denies chest pain, Denies lightheadedness, Denies Loss of Consciousness and Reports dyspnea Respiratory: Respiratory: Reports dyspnea Comments: patient on chronic oxygenation via nasal cannula Gastrointestinal: Gastrointestinal: Reports no additional gastrointestinal complaints, Denies abdominal pain, Denies melena, Denies hematochezia, Denies change in bowel habits and Denies change in stool character Genitourinary: Genitourinary: Reports no additional male genitourinary complaints, Denies hematuria, Denies oliguria, Denies difficulty urinating, Denies dysuria, Denies urinary frequency, Denies urinary hesitancy, Denies urinary incontinence and Denies urinary urgency Musculoskeletal: Musculoskeletal: Reports no additional musculoskeletal complaints, Denies numbness and Denies tingling Neurologic: Denies dizziness, Denies loss of vision, Denies numbness and Denies tingling Psychiatric: Psychiatric: Reports no additional psychiatric complaints Endocrine: Endocrine: Reports no additional endocrine complaints Hematologic/Lymphatic: Hematologic/Lymphatic: Reports no additional hematologic/lymphatic complaints Allergic/Immunologic: Allergic/Immunologic: Reports no additional allergic/imm unologic complaints [facility] Past Medical History Attestation statement: The following information was validated with the patient. (all information was validated with the patient's son) Source: old records reviewed, obtained from family (patient's son) and nursing notes reviewed Medical History COPD (chronic obstructive pulmonary disease) COVID-19 (~01/14/23) Diverticulitis Glaucoma History of lung cancer Hypercholesterolemia ILD (interstitial lung disease) Normal esophagogastroduodenoscopy (EGD) Osteoarthritis Oxygen dependent Purpura Surgical History H/O colonoscopy History of ERCP History of laparoscopic cholecystectomy History of total left knee replacement Status post Pat procedure Family History Family History Mother ALS (amyotrophic lateral sclerosis) Social History Social History Household Members: Spouse Housing: Apartment Do you presently have visiting nurse or other home services: No Alcohol intake: former Patient Tobacco Use Status: Former Tobacco user Quit Date: 12-13 yrs ago Tobacco use type: Cigarette Years Smoked: 20 years Smoked in Last 30 Days: No Second Hand Smoke Exposure: No Use of substances other than those prescribed or required for medical reasons: No Advance Directives: Yes Advance Directives Information Provided: Yes Advance Directives on File: No service: No Current occupational status: retired Physical Exam ED Vital Signs: Vital Signs - 24 hr 04/28/23 09:58 04/28/23 12:29 04/28/23 12:00 Temperature 98.1 F Pulse Rate 113 H 114 H Respiratory Rate 18 18 Blood Pressure 109/77 126/79 Pulse Oximetry 95 83 L 96 Oxygen Delivery Method Nasal Cannula Nasal Cannula Nasal Cannula Oxygen Flow Rate 04/28/23 12:44 04/28/23 14:32 Temperature Pulse Rate 97 109 H Respiratory Rate 20 18 Blood Pressure 107/62 116/63 Pulse Oximetry 95 98 Oxygen Delivery Method Nasal Cannula Room Air Oxygen Flow Rate 3 BMI result Body Mass Index 26.0 Const General: cooperative, no acute distress, alert and awake Nutritional Appearance: well nourished Orientation/consciousness: patient oriented x3 Limitations: no limitations HENMT Head: Yes normal to inspection and Yes atraumatic Ears: hearing grossly normal bilaterally and external ears normal General nose exam: Normal external nose present, no nasal discharge noted and no epistaxis Face and sinus: Yes normal facial exam, No abrasion and No laceration Mouth: Normal oral and palatal mucosa present, no drooling and no muffled voice Eyes General: appearance normal, both eyes and all related structures Periorbital: periorbital findings normal Eyelids: Yes eyelids normal Conjunctivae: conjunctivae normal Pupils: Equal, round and reactive pupils present EOM: EOMs intact bilaterally Neck Neck: Yes normal visual inspection, Yes full ROM and Yes no lymphadenopathy Chest Chest palpation & inspection: normal inspection of the chest Resp Other: on chronic oxygenation via nasal cannula Effort & Inspection: able to speak in complete sentences and labored Auscultation: diminished lung sounds on the left in the lower lung wilkinson Cardio Rate: tachycardic Rhythm: abnormal rhythm irregularly irregular GI Inspection: Yes normal to inspection Neuro General: patient oriented x3 and moves all extremities Cranial nerves: Yes Equal, round and reactive pupils present Cognition (Neuro): normal cognition Motor exam (neuro): 5/5 motor strength present throughout Sensory Exam: Normal double simultaneous stimulation for sensation Coordination: [id number] test normal Extrem General: Yes normal to inspection, Yes full ROM and Yes capillary refill normal Psych Appearance: grossly normal Mental Status: mental status grossly normal Affect: normal affect Attitude: cooperative Thought process: Normal thought process present Thought content: Normal thought content present Insight: Good insight present (Psych) Medications Administered Discontinued Medications Generic Name Dose Route Start Last Admin Trade Name Freq PRN Reason Stop Dose Admin Diltiazem HCl 10 mg 04/28/23 12:12 04/28/23 12:39 Diltiazem Hcl 50 Mg/10 Ml Vial IVPUSH 04/28/23 12:13 10 mg STAT STA Administration Ceftriaxone Sodium 2 gm/ 50 mls @ 100 mls/hr 04/28/23 12:08 04/28/23 13:26 Sodium Chloride IV 04/28/23 12:37 Infused ONCE ONE Infusion Iohexol 100 ml 04/28/23 11:37 04/28/23 11:39 Iohexol 350 Mg/Ml 100 Ml Infus..Btl IV 04/28/23 11:38 85 ml ONCE ONE Administration Metoprolol Tartrate 2.5 mg 04/28/23 10:10 04/28/23 10:30 Metoprolol Tartrate 5 Mg/5 Ml Vial IVPUSH 04/28/23 10:11 2.5 mg ONCE ONE Administration Sodium Polystyrene Sulfonate 15 gm 04/28/23 13:13 04/28/23 13:32 Sodium Polystyrene Sulfon/Sorb 15 Gm/60 Ml Oral.Susp PO 04/28/23 13:14 15 gm ONCE ONE Administration Medical Decision Making Medical Decision Making [facility] Narrative: Patient is an 88 year old assigned male at with a history of lung cancer status post partial lobectomy, COPD on chronic oxygen via nasal cannula, anemia, and interstitial lung disease presenting to the emergency department today with months of increased shortness of breath and new onset atrial fibrillation with RVR. Patient's physical exam was as noted in the physical exam portion of this chart. Patient's blood work showed an elevated potassium of 5.7 but was otherwis e grossly normal. Patient's EKG new onset atrial fibrillation with rapid ventricular response. Patient's chest x-ray showed interval development of moderate left pleural effusion. Patient's chest CT showed a moderate to large left pleural effusion with associated left lower lobe and lingular compressive atelectasis. Given the unknown origin of the patient's pleural effusion, patient was covered for infectious process with IV Ceftriaxone. Patient desaturated to the mid 80s while in the department and ambulating however, at rest on his baseline chronic oxygen via nasal cannula he is satting in the mid 90s. Patient was given IV metoprolol and caridzem which decreased his heart rate to the low 1 00s and his atrial fib persisted. I spoke with the hospitalist team who agreed to admission. Patient's clinical presentation is most consistent with new onset atrial fib and a moderate / large pleural effusion. Patient's clinical presentation is not consistent with sepsis (@1500). I explained my physical exam findings as well as all test results to the patient and the patient's son. I answered all questions asked by the patient and the patient's son. Patient and the patient's son verbalized agreement and understanding with this treatment plan and admission. Differential Diagnosis Differential Diagnoses: The differential diagnosis associated with the presentation includes Pleural effusion Atrial fibrillation Atrial fibrillation with RVR COPD Admission/Observation Consideration of admission/observation: Escalation of care including admission/observation considered Patient to be admitted. Consult Healthcare Provider Management of the patient was discussed with: Hospitalist (agreed to admission as noted in the MDM portion of this chart.) Lab Data [facility] Lab Attestation statement: I reviewed the patient's lab results. Patient's labs were interpreted as noted in the MDM portion of this note. 04/28/23 10:21 04/28/23 10:21 Labs: Lab Results 04/28/23 04/28/23 04/28/23 Range/Units 10:21 10:21 10:21 WBC 9.9 (4.8-10.8) X10*3/uL RBC 6.83 H (4.60-5.80) X10*6/uL Hgb 17.3 (14.0-18.0) g/dl Hct 54.6 H (42.0-52.0) % MCV 79.9 L (80.0-98.0) fL MCH 25.3 L (27.0-33.0) pg MCHC 31.7 (31.0-36.0) g/dl RDW 17.7 H (11.0-16.0) % Plt Count 143 L (160-400) X10*3/uL MPV 9.4 (9.4-12.4) fL Immature Gran % (Auto) 1.1 H (0.0-0.4) % Neut % (Auto) 65.9 (45-73) % Lymph % (Auto) 15.0 L (20-40) % [place] % (Auto) 14.1 H (2-11) % Eos % (Auto) 3.2 (0-4) % Baso % (Auto) 0.7 (0-2) % Lymph # (Auto) 1.5 (1.2-4.9) X10*3/uL [place] # (Auto) 1.4 H (0.1-1.2) X10*3/uL Eos # (Auto) 0.3 (0.0-0.4) X10*3/uL Baso # (Auto) 0.1 (0.0-0.2) X10*3/uL Abs Immat Gran (auto) 0.11 H (0.00-0.03) X10*3/uL Absolute Neuts (auto) 6.6 (2.0-8.3) x10*3/uL Absolute Nucleated RBC 0.000 (0.0-0.012) X10*3/uL Nucleated RBC % (auto) 0.0 (0.0-0.2) /100WBC PT 12.1 (10.0-13.1) SEC INR 1.1 (0.9-1.1) APTT 25.1 L (26.0-36.4) SEC Sodium 141 (135-145) mmol/L Potassium 5.7 H (3.3-5.1) mmol/L Chloride 106 (96-108) mmol/L Carbon Dioxide 24 (22-29) mmol/L Anion Gap 17 (12-20) BUN 36 H (9-16) mg/dL Creatinine 1.24 (0.5-1.4) mg/dL Estim Creat Clear Calc 41.1 Estimated GFR 55 Random Glucose 99 (60-115) mg/dL Lactic Acid (0.5-2.0) mmol/L Calcium 9.9 (8.4-10.2) mg/dL Magnesium 2.3 (1.6-2.6) mg/dL Total Bilirubin 1.8 H (0.0-1.0) mg/dL AST 33 (5-37) U/L ALT 33 (0-40) U/L Alkaline Phosphatase 81 (39-117) U/L Troponin I High Sens (<3.5-35.0) ng/L Total Protein 7.4 (6.5-8.0) g/dL Albumin 4.0 (3.5-5.0) g/dL 04/28/23 04/28/23 Range/Units 10:21 12:38 WBC (4.8-10.8) X10*3/uL RBC (4.60-5.80) X10*6/uL Hgb (14.0-18.0) g/dl Hct (42.0-52.0) % MCV (80.0-98.0) fL MCH (27.0-33.0) pg MCHC (31.0-36.0) g/dl RDW (11.0-16.0) % Plt Count (160-400) X10*3/uL MPV (9.4-12.4) fL Immature Gran % (Auto) (0.0-0.4) % Neut % (Auto) (45-73) % Lymph % (Auto) (20-40) % [place] % (Auto) (2-11) % Eos % (Auto) (0-4) % Baso % (Auto) (0-2) % Lymph # (Auto) (1.2-4.9) X10*3/uL [place] # (Auto) (0.1-1.2) X10*3/uL Eos # (Auto) (0.0-0.4) X10*3/uL Baso # (Auto) (0.0-0.2) X10*3/uL Abs Immat Gran (auto) (0.00-0.03) X10*3/uL Absolute Neuts (auto) (2.0-8.3) x10*3/uL Absolute Nucleated RBC (0.0-0.012) X10*3/uL Nucleated RBC % (auto) (0.0-0.2) /100WBC PT (10.0-13.1) SEC INR (0.9-1.1) APTT (26.0-36.4) SEC Sodium (135-145) mmol/L Potassium (3.3-5.1) mmol/L Chloride (96-108) mmol/L Carbon Dioxide (22-29) mmol/L Anion Gap (12-20) BUN (9-16) mg/dL Creatinine (0.5-1.4) mg/dL Estim Creat Clear Calc Estimated GFR Random Glucose (60-115) mg/dL Lactic Acid 0.9 (0.5-2.0) mmol/L Calcium (8.4-10.2) mg/dL Magnesium (1.6-2.6) mg/dL Total Bilirubin (0.0-1.0) mg/dL AST (5-37) U/L ALT (0-40) U/L Alkaline Phosphatase (39-117) U/L Troponin I High Sens < 2.7 (<3.5-35.0) ng/L Total Protein (6.5-8.0) g/dL Albumin (3.5-5.0) g/dL Independent Interpretation I performed an independent interpretation of an: EKG, Plain X-Ray and CT Scan Interpretation: My interpretation is in agreement with the radiologist's impression of these imaging studies. EXAMINATION: XR CHEST CLINICAL INFORMATION: Chest pain. COMPARISON: 12/17/2022 chest radiograph. TECHNIQUE: 2 views of the chest were obtained. FINDINGS: There has been interval development of a moderate-sized left pleural effusion. Mild blunting of the right costophrenic angle is again noted. Deformity is again seen posterolaterally in the right sixth rib without significant change. The heart and mediastinal structures are unremarkable. XR/XR chest 2V IMPRESSION: ? 1. Interval development of moderate left pleural effusion. An underlying abnormality cannot be excluded. 2. Underlying chronic interstitial changes without significant change. ? Dictated By: Devyn De La Rosa MD Signed By: Electronically signed by Devyn De La Rosa MD 04/28/23 1110 EXAMINATION: CT CHEST WITH CONTRAST CLINICAL INFORMATION: Shortness of breath, worsening chest x-ray.? COMPARISON: None available. TECHNIQUE: Multidetector volumetric CT imaging of the chest was obtained after the administration of 50 mL of Omnipaque 350 intravenous contrast without immediate adverse reactions. Axial MIP volume rendering provided. Sagittal and coronal reformatted images were obtained. This CT examination was performed using dose optimization techniques as appropriate, variously including the following: *Automated exposure control *Adjustment of mA and/or kV according to patient size (this includes techniques or standardized protocols for targeted exams where dose is matched to indication/reason for exam; i.e. extremities or head) *Use of iterative reconstruction technique DLP: 283 mGy-cm FINDINGS: LUNGS/PLEURA/AIRWAYS: Moderate to severe upper lobe predominant centrilobular and paraseptal emphysema is seen most pronounced in the right upper lobe. Postsurgical changes are seen in the right upper lobe as well. There is a moderate to large left pleural effusion with compressive atelectasis in the left lower lobe posteriorly and to a lesser extent posteriorly in the lingula. No suspicious mass/nodule is seen. The airways appear patent. MEDIASTINUM: The thyroid gland is unremarkable. The ascending aorta measures up to 4.0 cm in AP dimension (image 33, series 3). Moderate atherosclerosis is seen in the descending thoracic aorta. Mild to moderate coronary artery calcifications. Coarse mitral annular calcifications. Trace pericardial effusion. No significant esophageal abnormality. No mediastinal or hilar lymphadenopathy. UPPER ABDOMEN: Diffuse decreased hepatic attenuation in the visualized portions. MUSCULOSKELETAL: Increased thoracic kyphosis with mild to moderate multilevel flowing marginal osteophyte formation. No acute/suspicious abnormality. SOFT TISSUES: Unremarkable. CT/CT chest w IV con IMPRESSION: 1. Moderate to large left pleural effusion with associated left lower lobe and lingular compressive atelectasis. A definitive causative abnormality is not identified. Continued short-term monitoring with chest radiographs is recommended. 2. Moderate to severe centrilobular/paraseptal emphysema. 3. Borderline dilatation of the ascending aorta up to 4.0 cm. 4. Hepatic steatosis. Dictated By: Devyn De La Rosa MD Signed By: Electronically signed by Devyn De La Rosa MD 04/28/23 1433 Vent. Rate: 107 BPM ? ? Atrial Rate: 000 BPM P-R Int: 000 ms? QRS Dur: 084 ms QT Int: 334 ms ? ? ? P-R-T Axes: 000 017 -01 degrees QTc Int: 445 ms ? Atrial fibrillation with rapid ventricular response with premature ventricular or aberrantly conducted complexes Low voltage QRS Abnormal ECG When compared with ECG of 25-FEB-2022 16:59, Atrial fibrillation has replaced Sinus rhythm Vent. rate has increased BY? 35 BPM Nonspecific T wave abnormality now evident in Inferior leads T wave amplitude has decreased in Anterior leads DD/ 0927 ------- Vent. Rate: 101 BPM ? ? Atrial Rate: 000 BPM P-R Int: 000 ms? QRS Dur: 084 ms QT Int: 346 ms ? ? ? P-R-T Axes: 000 027 -04 degrees QTc Int: 448 ms ? Atrial fibrillation with rapid ventricular response with premature ventricular or aberrantly conducted complexes Low voltage QRS T wave abnormality, consider anterior ischemia Abnormal ECG When compared with ECG of 28-APR-2023 09:27, T wave inversion now evident in Anterior leads DD/ 1428 Radiology Impression Discussion of test interpretation with radiology: I have reviewed the radiologist's reading. Independent Historian Clinical information obtained from an independent historian. History obtained from or confirmed by: Other (patient's son provided additional history and confirmed the history provided by the patient) External Record Review External record reviewed: Office record (reviewed all records from the certified nursing assistant office) Chronic Conditions Patient?s care impacted by: Other (COPD) Critical Care Time Critical Care Time Critical Care Time: Yes Total Critical Care Time: 45 Attestation: I spent 45 minutes of Critical Care Time with this patient. This does not include time spent on separately reported billable procedures. Discharge Plan Discharge Clinical Impression: Pleural effusion, COPD (chronic obstructive pulmonary disease), Atrial fibrillation Patient Disposition: Admitted As Inpatient Prescriptions: No Action sodium chloride 7 % solution for nebulization 4 ml inhalation BID 30 Days Qty: 240 11RF budesonide 0.5 mg/2 mL suspension for nebulization 0.5 mg inhalation BID 30 Days Qty: 120 11RF fluticasone propion-salmeterol [AirDuo RespiClick] 232-14 mcg/actuation aerosol powdr breath activated 1 inh inhalation Q12H 30 Days Qty: 1 11RF albuterol sulfate 2.5 mg /3 mL (0.083 %) solution for nebulization 2.5 mg inhalation QID 30 Days Qty: 360 11RF azithromycin 250 mg tablet 250 mg PO 3XW 28 Days Qty: 12 1RF Rx Instructions: Take 1 tablet on Thursday/Thursday/Thursday Trelegy Ellipta 200-62.5-25 mcg blister with device 1 inh inhalation DAILY 30 Days Qty: 60 12RF simvastatin 10 mg Tablet 10 mg PO BEDTIME tamsulosin 0.4 mg capsule 0.8 mg PO DAILY tafluprost (PF) [Zioptan (PF)] 0.0015 % dropperette 1 drp ophthalmic (eye) BEDTIME omeprazole 20 mg Capsule,Delayed Release(Dr/Ec) 20 mg PO DAILY@0630 30 Days Qty: 30 0RF ferrous sulfate 324 mg (65 mg iron) Tablet,Delayed Release (Dr/Ec) 324 mg PO DAILY 30 Days Qty: 30 0RF dorzolamide-timolol 22.3-6.8 mg/mL drops 1 drp ophthalmic (eye) BID@0900,1800 budesonide-formoterol [Symbicort] 160-4.5 mcg/actuation HFA aerosol inhaler 2 puff inhalation BID 30 Days Qty: 10.2 11RF (DME) nebulizers Misc See Rx Instructions .Route Rx Instructions: As directed Magic Mouthwash Diphen/Lido/Antacid 1:1:1 240 mL suspension 5 ml PO .Q6 PRN (Reason: sore throat) 30 Days Qty: 240 2RF Rx Instructions: Lidocaine Viscous 2 % 80mL; diphenhydramine 12.5 mg/5 mL 80mL; aluminum-mag hydrox-simeth 224mk-[id number]-87fs/5mL 80mL prednisone 20 mg tablet 40 mg PO DAILY Qty: 10 0RF amoxicillin-pot clavulanate 875-125 mg tablet 1 tab PO BID 10 Days Qty: 20 0RF Rx Instructions: stop azithromycin while using augmentin
--- NOTE | 2023-04-28 10:04 | PC.NURSE ---
Alert and oriented. Arrived with son from pulmonogy office after ekg showed new on set afib. Patient denies chest pain or sob. Denies palpitations. afib noted on monitor. 87% on RA placed on 2 liters 02 with improvement to 97 %. No edema to bilat lower extremities. States legally blind. States history of anemia in past. Son at bedside.
[2023-04-28 10:25] LABS: MANUAL DIFF FLAG NO
[2023-04-28 10:29] LABS: Basophils Absolute Auto 0.1 X10*3/uL (0.0-0.2); Basophils Percent Auto 0.7 % (0-2); Eosinophils Absolute Auto 0.3 X10*3/uL (0.0-0.4); Eosinophils Percent Auto 3.2 % (0-4); Hematocrit 54.6 % (42.0-52.0); Hemoglobin 17.3 g/dl (14.0-18.0); Imm Gran Abs Auto 0.11 X10*3/uL (0.00-0.03); Imm Gran Pct Auto 1.1 % (0.0-0.4); Lymphocytes Absolute Auto 1.5 X10*3/uL (1.2-4.9); Mean Corpuscular HGB Conc 31.7 g/dl (31.0-36.0); Mean Corpuscular Hemoglobin 25.3 pg (27.0-33.0); Mean Corpuscular Volume 79.9 fL (80.0-98.0); Mean Platelet Volume 9.4 fL (9.4-12.4); Monocytes Absolute Auto 1.4 X10*3/uL (0.1-1.2); Monocytes Percent Auto 14.1 % (2-11); Neutrophils Absolute Auto 6.6 x10*3/uL (2.0-8.3); Neutrophils Percent Auto 65.9 % (45-73); Platelet Count 143 X10*3/uL (160-400); Red Blood Count 6.83 X10*6/uL (4.60-5.80); Red Cell Distribution Width 17.7 % (11.0-16.0); White Blood Count 9.9 X10*3/uL (4.8-10.8)
[2023-04-28] MEDS: Metoprolol Tartrate 5 MG/5 ML VIAL 2.5 MG IVPUSH (10:30)
[2023-04-28 10:36] LABS: INTERNATIONAL NORM RATIO 1.1 (0.9-1.1); Prothrombin Time 12.1 SEC (10.0-13.1)
[2023-04-28 10:39] LABS: Partial Thromboplastin Time 25.1 SEC (26.0-36.4)
[2023-04-28 11:13] LABS: Alanine Aminotransferase 33 U/L (0-40); Alkaline Phosphatase 81 U/L (39-117); Anion Gap 17 (12-20); Aspartate Amino Transferase 33 U/L (5-37); Bilirubin Total 1.8 mg/dL (0.0-1.0); Blood Urea Nitrogen 36 mg/dL (9-16); Calcium 9.9 mg/dL (8.4-10.2); Carbon Dioxide 24 mmol/L (22-29); Chloride 106 mmol/L (96-108); Creatinine Clr Calc Pharmacy 41.1; Estimated Glomerular Filt Rate 55; Glucose Random 99 mg/dL (60-115); Magnesium 2.3 mg/dL (1.6-2.6); Potassium 5.7 mmol/L (3.3-5.1); Sodium 141 mmol/L (135-145); Total Protein 7.4 g/dL (6.5-8.0); Troponin-I High Sensitivity < 2.7 ng/L (<3.5-35.0)
--- NOTE | 2023-04-28 11:19 | PC.NURSE ---
EKG performed prior to arrival, provider to cancel EKG
[2023-04-28] MEDS: iohexoL 350 MG/ML 100 ML INFUS..BTL IV (11:39)
[2023-04-28] MEDS: dilTIAZem HCL 50 MG/10 ML VIAL 10 MG IVPUSH (12:39)
[2023-04-28] MEDS: cefTRIAXone sodium 2 GM in 0.9 % Sodium Chloride 50 ML IV (12:42)
[2023-04-28 13:10] LABS: Lactic Acid 0.9 mmol/L (0.5-2.0)
[2023-04-28] MEDS: Sodium Polystyrene Sulfon/Sorb 15 GM/60 ML ORAL.SUSP PO (13:32)
--- NOTE | 2023-04-28 13:37 | PC.NURSE ---
Alert and oriented. no complaints of sob or chest pain. hr btween 100-130 bpm. ate well for lunch, family at bedside.
--- NOTE | 2023-04-28 14:04 | ECG_ITS ---
Test Reason : SOB Blood Pressure : / mmHG Vent. Rate : 101 BPM Atrial Rate : 000 BPM P-R Int : 000 ms QRS Dur : 084 ms QT Int : 346 ms P-R-T Axes : 000 027 -04 degrees QTc Int : 448 ms Atrial fibrillation with rapid ventricular response with premature ventricular or aberrantly conducted complexes Low voltage QRS T wave abnormality, consider anterior ischemia Abnormal ECG When compared with ECG of 28-APR-2023 09:27, T wave inversion now evident in Anterior leads Referred By: Marylu Landrum Electronically Signed By:Mark Rico
--- NOTE | 2023-04-28 14:33 | PC.NURSE ---
Alert and oriented, repeat ekg obtained, denies chest pain or sob, sinus tachy on monitor at this time.
--- NOTE | 2023-04-28 15:50 | PC.NURSE ---
vss, afib on monitor between 110-130`s. denies chest pain or palpitations.
--- NOTE | 2023-04-28 15:52 | PHA.MEDREC ---
Pharmacy Consult ? Medication Reconciliation Pharmacy has completed the medication reconciliation. Spoke to patient and his son at bedside, noted that he is not taking the Advair that he was prescribed. His son also stated that he is off the azithromycin while he is taking Augmentin. Unsure of how much he has left for the Augmentin rx. Pt was mostly concerned about his eye drops, his son said he would bring them in so pharmacy can label his Zioptan.
--- NOTE | 2023-04-28 15:59 | PM.IMHP ---
History of Present Illness Date of Service: 04/28/23 Chief Complaint: SOB 88-year-old man presenting from a routine Cardiology appointment after being found to be in atrial fibrillation which is a new diagnosis for the patient. He has a history of lung cancer and is status post partial lobectomy. He also has COPD and is on chronic oxygen. Apparently has had worsening shortness of breath over the last several months especially with ambulation. He denied chest pain, nausea, vomiting, diarrhea, recent illness, recent travel, sick contacts. Chest CT showing moderate to large left pleural effusion with associated left lower lobe and lingular compressive atelectasis with moderate to severe emphysema. He also had an oxygen saturation of 83% on room air which did improve after oxygen administration. Potassium 5.7, creatinine 1.24. He was placed on oxygen in the ER for hypoxia. He was given a dose of diltiazem, metoprolol. Kayexalate for hyperkalemia. He will be admitted for further management treatment of new onset atrial fibrillation with rapid ventricular response and pleural effusion. Review of Systems Review of Systems: Denies any recent fever chills or decrease in appetite respiratory see HPI cardiovascular denies chest pain gastrointestinal denies any dysphagia abdominal pain nausea vomiting or diarrhea genitourinary denies any dysuria frequency or hematuria musculoskeletal denies any joint pain or swelling neuropsych denies any weakness or seizures all other systems reviewed are negative [facility] Medical History (Updated 04/28/23 @ 15:53 by BALJINDER Lozada) COPD (chronic obstructive pulmonary disease) COVID-19 (~01/14/23) Diverticulitis Glaucoma History of lung cancer Hypercholesterolemia ILD (interstitial lung disease) Normal esophagogastroduodenoscopy (EGD) Osteoarthritis Oxygen dependent Purpura Family History Mother ALS (amyotrophic lateral sclerosis) Surgical History (Updated 04/28/23 @ 16:12 by Yanci Plata NP) H/O colonoscopy History of ERCP History of laparoscopic cholecystectomy History of total left knee replacement S/P lobectomy of lung Status post Pat procedure Social History Household Members: Spouse Housing: Apartment Do you presently have visiting nurse or other home services: No Alcohol intake: former Patient Tobacco Use Status: Former Tobacco user Quit Date: 12-13 yrs ago Tobacco use type: Cigarette Years Smoked: 20 years Smoked in Last 30 Days: No Second Hand Smoke Exposure: No Use of substances other than those prescribed or required for medical reasons: No Advance Directives: Yes Advance Directives Information Provided: Yes Advance Directives on File: No service: No Current occupational status: retired Meds Allergies Allergy/AdvReac Type Severity Reaction Status Date / Time No Known Allergies Allergy Verified 04/21/23 09:47 Active Medications: Current Medications Pharmacy Consult (Consult Rx Perform Med Rec) 1 each MISCELLANE ONCE PRN PRN Reason: Consult order Home Medications Medication Instructions Recorded Confirmed Last Taken Type simvastatin 10 mg tablet 10 mg PO BEDTIME 08/06/20 04/28/23 04/27/23 History tamsulosin 0.4 mg capsule 0.8 mg PO BEDTIME 08/06/20 04/28/23 04/27/23 History dorzolamide 22.3 mg-timolol 6.8 1 drp ophthalmic (eye) 10/14/21 04/28/23 04/28/23 History mg/mL eye drops BID@0900,1800 nebulizers 01/14/23 04/21/23 Unknown History albuterol sulfate 2.5 mg/3 mL 2.5 mg inhalation QID PRN 04/28/23 04/28/23 Unknown History (0.083 %) solution for nebulization Shortness Of Breath Physical Exam Vital Signs and Narrative: Vital Signs: Last Vital Signs Temp 98.1 F 04/28/23 09:58 Pulse 109 H 04/28/23 14:32 Resp 18 04/28/23 14:32 BP 116/63 04/28/23 14:32 Pulse Ox 98 04/28/23 14:32 O2 Del Method Room Air 04/28/23 14:32 O2 Flow Rate 3 04/28/23 12:44 Oxygen Flow Rate 2 04/28/23 09:58 BMI result Body Mass Index 26.0 Appearing in no acute distress head is normocephalic atraumatic eyes pupils are PERRLA sclera is anicteric mouth throat mucous membranes are intact and moist neck is supple no lymphadenopathy, no JVD noted lung sounds are clear to auscultation heart regular rate rhythm, clear S1, S2 positive bowel sounds, abdomen is soft, nontender neuro patient is alert x3, no focal deficits Results Labs 04/28/23 10:21 04/28/23 10:21 Labs: Laboratory Results - last 24 hr 04/28/23 04/28/23 04/28/23 10:21 10:21 10:21 MCV 79.9 L MCH 25.3 L MCHC 31.7 RDW 17.7 H Plt Count 143 L MPV 9.4 Immature Gran % (Auto) 1.1 H Neut % (Auto) 65.9 Lymph % (Auto) 15.0 L Hancock % (Auto) 14.1 H Eos % (Auto) 3.2 Baso % (Auto) 0.7 Lymph # (Auto) 1.5 Hancock # (Auto) 1.4 H Eos # (Auto) 0.3 Baso # (Auto) 0.1 Abs Immat Gran (auto) 0.11 H Absolute Neuts (auto) 6.6 Absolute Nucleated RBC 0.000 Nucleated RBC % (auto) 0.0 PT 12.1 INR 1.1 APTT 25.1 L Anion Gap 17 Estim Creat Clear Calc 41.1 Estimated GFR 55 Random Glucose 99 Lactic Acid Calcium 9.9 Magnesium 2.3 Total Bilirubin 1.8 H AST 33 ALT 33 Alkaline Phosphatase 81 Troponin I High Sens Total Protein 7.4 Albumin 4.0 04/28/23 04/28/23 10:21 12:38 MCV MCH MCHC RDW Plt Count MPV Immature Gran % (Auto) Neut % (Auto) Lymph % (Auto) Hancock % (Auto) Eos % (Auto) Baso % (Auto) Lymph # (Auto) Hancock # (Auto) Eos # (Auto) Baso # (Auto) Abs Immat Gran (auto) Absolute Neuts (auto) Absolute Nucleated RBC Nucleated RBC % (auto) PT INR APTT Anion Gap Estim Creat Clear Calc Estimated GFR Random Glucose Lactic Acid 0.9 Calcium Magnesium Total Bilirubin AST ALT Alkaline Phosphatase Troponin I High Sens < 2.7 Total Protein Albumin Imaging Radiologist's Impressions: Impressions Chest X-Ray 04/28/23 10:28 IMPRESSION: 1. Interval development of moderate left pleural effusion. An underlying abnormality cannot be excluded. 2. Underlying chronic interstitial changes without significant change. Chest CT 04/28/23 11:43 IMPRESSION: 1. Moderate to large left pleural effusion with associated left lower lobe and lingular compressive atelectasis. A definitive causative abnormality is not identified. Continued short-term monitoring with chest radiographs is recommended. 2. Moderate to severe centrilobular/paraseptal emphysema. 3. Borderline dilatation of the ascending aorta up to 4.0 cm. 4. Hepatic steatosis. Assessment and Plan (1) Pleural effusion: Status: Acute Plan 88-year-old man admitted with new onset atrial fibrillation and moderate to large pleural effusion New onset atrial fibrillation Will monitor on telemetry Cardiology consultation Echocardiogram Diltiazem 30 mg q.6 hours Acute hypoxic respiratory failure likely secondary to Pleural effusion New onset, history of partial lobectomy Thoracentesis, diagnostic and therapeutic in light of history of lung cancer Continue oxygen 2 L nasal cannula History of ILD/COPD Does not seem to be in exacerbation Albuterol as needed Recently started on oxygen Hyperkalemia Received a dose of Kayexalate in the ER Recheck potassium this evening BPH Continue tamsulosin Hyperlipidemia Continue statin DVT prophylaxis with heparin Full code Patient requires 2 inpatient midnights for treatment of new onset atrial fibrillation requiring medications to control heart rate with close monitoring and thoracentesis for pleural effusion. Time Spent With Patient Time: Total time managing care of this patient today ____ minutes. Quality Stroke Does the patient have a stroke diagnosis?: No VTE Prior VTE?: No VTE Risk Level:: Medical - moderate - high VTE Device Contraindication: Treatment Not Indicated VTE Drug Contraindication: N/A - Med Ordered
[2023-04-28] MEDS: Dorzolamide/Timolo 2.23%/0.68% 10 ML DRBTL 1 DROP EYE-BOTH (17:29)
[2023-04-28] MEDS: dilTIAZem HCL 30 MG TABLET PO (17:29)
--- NOTE | 2023-04-28 17:51 | PC.NURSE ---
Report given to [place] on receiving unit
[2023-04-28 18:15] LABS: Glucose Random 93 mg/dL (60-115); Lactate Dehydrogenase 173 U/L (118-273); Total Protein 5.4 g/dL (6.5-8.0)
--- NOTE | 2023-04-28 18:28 | PC.NURSE ---
transferred to unit by transport accompanied by family
[2023-04-28] MEDS: Atorvastatin Calcium 10 MG TABLET PO (20:57)
[2023-04-28] MEDS: Tamsulosin HCL 0.4 MG CAPSULE 0.8 MG PO (20:58)
[2023-04-28 21:29] LABS: B Type Natriuretic Peptide 167 pg/mL (<100)
--- NOTE | 2023-04-28 22:29 | PC.NURSE ---
BP 90/60 heart rate 96 afib, Cardizem 30 mg Po held tonight d/t low BP. DR Luz was notified about BP and decision was made to skip Cardizem dose tonight .
[2023-04-28] MEDS: 0.9 % Sodium Chloride Flush 3 ML SYRINGE IVFLUSH (23:42)
[2023-04-29 03:07] VITALS: BP 97/62; PULSE 85; RESP 14; TEMP 36.5; O2SAT 97
--- NOTE | 2023-04-29 07:00 | CA_ITS ---
Transthoracic Echocardiogram Patient (Last, First, Middle): Fidencio Pastor A Gender: Male Date of : 1935 Age: 88 Procedure Date: 04/29/2023 Procedure Type: Transthoracic Echocardiogram Location: [facility] [place] Height: 175.26 cm Weight: 81.19 kg BSA: 1.97 m2 Heart Rate: bpm BP: 97 / 62 mmHg Infrastructure Developer: SB Referring MD: Yanci Plata NP Symptoms: new onset afib Study Quality: Adequate ECG Rhythm: Atrial Fibrillation Conclusions: - Normal left ventricular cavity size. There is normal left ventricular wall thickness. The left ventricular systolic function is low normal. The visually estimated ejection fraction is between 50-55%. - Mildly increased right ventricular cavity size. There is mild to moderately decreased right ventricular systolic function. - The left atrium is moderately dilated. The right atrium is moderately dilated. - There is moderate calcification of the aortic valve. There is mild thickening of the aortic valve. There is no aortic valve stenosis. - Low right atrial pressure. - There is mild dilatation of the sinuses of Valsalva measuring 4.10 cm and mild dilatation of the ascending aorta measuring 3.80 cm. - There is a large left sided pleural effusion. Findings Left Ventricle Normal left ventricular cavity size. There is normal left ventricular wall thickness. The left ventricular systolic function is low normal. The visually estimated ejection fraction is between 50-55%. There is no evidence of regional wall motion abnormalities. Diastolic function is indeterminate on the basis of available data. Right Ventricle Mildly increased right ventricular cavity size. There is mild to moderately decreased right ventricular systolic function. Atria The left atrium is moderately dilated. The right atrium is moderately dilated. Aortic Valve There is a normal trileaflet aortic valve. There is moderate calcification of the aortic valve. There is mild thickening of the aortic valve. There is no aortic valve stenosis. There is no aortic valve regurgitation. Mitral Valve There is mild mitral annular calcification. There is trace mitral valve regurgitation. There is no mitral valve stenosis. Pulmonic Valve The pulmonic valve is likely normal. Tricuspid Valve Normal tricuspid valve structure and function. There is trace tricuspid valve regurgitation. Low right atrial pressure. There is no evidence of pulmonary hypertension. Great Vessels There is mild dilatation of the sinuses of Valsalva measuring 4.10 cm and mild dilatation of the ascending aorta measuring 3.80 cm. The visualized portions of the pulmonary artery and branches are normal. Venous The inferior vena cava is collapsed, consistent with reduced intravascular volume. Pericardium/Pleural Prominent epicardial adipose tissue noted. There is no evidence of pericardial effusion. There is a large left sided pleural effusion. Prior Study Comparison No prior study available for comparison. Measurements 2D Linear Measurements IVSd: 0.90 0.6-0.9/0.6-1.0 cm LVIDd: 4.51 3.9-5.3/4.2-5.9 cm LVIDd Index: 2.29 2.4-3.2/2.2-3.1 cm/m2 LVIDs: 3.58 2.0-3.6 cm LVPWd: 0.61 0.7-1.1 cm LA Diam: 3.60 2.7-3.8/3.0-4.0 cm LAIDs Index: 1.83 1.5-2.3 cm/m2 LV Mass: 131.26 67-162/88-224 g LV Mass Index: 66.63 43-95/49-115 g/m2 LVOT Diam: 2.10 3.0+(-)1.3 cm 2D Systolic Function EF 4C: 38.00 >55% EF 2C: 23.70 >55% Mitral Valve MV VTI: 0.24 MV Pk Diaz: 1.25 MV Mn Diaz: 0.80 MV Pk Grad: 6.00 MV Mn Grad: 3.00 MV Pk E: 1.24 MV Decel Time: 197.00 E'Medial: 6.87 E/E' Med: 18.00 MVA Continuity: 1.98 Aortic Valve AoV Pk Diaz: 1.62 AoV Mn Diaz: 1.13 AoV VTI: 0.28 AoV Pk Grad: 10.00 Aov Mn Grad: 6.00 ANSLEY Cont.VTI: 1.69 LVOT LVOT Pk Diaz: 0.78 LVOT Mn Diaz: 0.55 LVOT VTI: 0.14 LVOT Pk Grad: 2.00 LVOT Mn Grad: 1.00 LVOT Diam: 2.10 LVOT Area: 3.46 Diastolic Function MV Pk E: 1.24 E'Medial: 6.87 E/E' Med: 18.00 Right Ventricle TAPSE (mm): 10.20 TVS' Diaz: 6.08 Tricuspid Valve TR Pk Diaz: 2.35 TR Pk Grad: 22.00 RA Press: 3.00 RVSP: 25.00 Great Vessels Aorta Sinus of Valsalva: 4.10 2.0-3.5 cm Ao Asc: 3.80 2.1-3.4 cm Pulmonary Valve PV Pk Diaz: 0.71 Peak PV Grad: 2.00 Updated in Other Vendor System with Status of Final Mark Rico MD electronically signed on 04/29/2023 11:24:36 PM with status of Final
[2023-04-29 07:09] LABS: Alanine Aminotransferase 26 U/L (0-40); Alkaline Phosphatase 67 U/L (39-117); Anion Gap 13 (12-20); Aspartate Amino Transferase 18 U/L (5-37); Bilirubin Total 1.3 mg/dL (0.0-1.0); Blood Urea Nitrogen 24 mg/dL (9-16); Calcium 8.7 mg/dL (8.4-10.2); Carbon Dioxide 20 mmol/L (22-29); Chloride 111 mmol/L (96-108); Estimated Glomerular Filt Rate > 60; Glucose Random 104 mg/dL (60-115); Sodium 140 mmol/L (135-145); Total Protein 5.3 g/dL (6.5-8.0)
[2023-04-29 07:11] VITALS: BP 113/69; PULSE 106; RESP 20; TEMP 36.5; O2SAT 94
[2023-04-29] MEDS: dilTIAZem HCL 50 MG/10 ML VIAL IVPUSH (08:43)
[2023-04-29] MEDS: 0.9 % Sodium Chloride Flush 3 ML SYRINGE IVFLUSH ×3 (08:44→20:52)
--- NOTE | 2023-04-29 09:26 | MHC.CM.PN ---
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 PT VERIFIES PCP IS ADILSON CURTIS, FULLY VACC'D FOR COVID19 AND HCP IS PT'S TWO SONS STEPAN METHOT [phone] AND ANNA LIDA [phone], COPY REQUESTED. ANTIC D/C HOME NO SERVICES W/FAMILY FOR TRANSPORT
[2023-04-29] MEDS: dilTIAZem HCL 30 MG TABLET PO ×3 (09:31→17:01)
[2023-04-29] MEDS: Dorzolamide/Timolo 2.23%/0.68% 10 ML DRBTL 1 DROP EYE-BOTH ×2 (09:33→17:57)
--- NOTE | 2023-04-29 10:29 | HO.PM.IMPN ---
Subjective Subjective Date of Service: 04/29/23 Interval History: f/u on AFIB with RVR Interval history: no sob, no palpiation, AFIB with RVR HR 110s to 130s Physical Exam Vital Signs: Vital Signs: Last Vital Signs Temp 97.7 F 04/29/23 07:11 Pulse 106 H 04/29/23 07:11 Resp 20 04/29/23 07:11 BP 113/69 04/29/23 07:11 Pulse Ox 94 04/29/23 07:11 O2 Del Method Nasal Cannula 04/29/23 07:11 O2 Flow Rate 3 04/29/23 07:11 Oxygen Flow Rate 2 04/28/23 09:58 BMI result Body Mass Index 26.0 Const: Other: General: AO X 3, no acute distress Resp: CTA bilateral CVS: S1,S2, iregular iregular GI: +BS, NT, no distention Skin: No rash Neuro: motor grossly intact Psych: appropriate affect Objective Data Active Medications Acetaminophen (Acetaminophen 325 Mg Tablet) 650 mg PO Q6H PRN PRN Reason: Pain, Mild (Pain Scale 1-3) Albuterol Sulfate (Albuterol Sulfate (0.083%) 2.5 Mg/3 Ml Vial.Neb) 2.5 mg INHALE QID PRN PRN Reason: Shortness Of Breath Atorvastatin Calcium (Atorvastatin Calcium 10 Mg Tablet) 10 mg PO BEDTIME [facility] Last Admin: 04/28/23 20:57 Dose: 10 mg Documented By: JARRED Diltiazem HCl (Diltiazem Hcl 30 Mg Tablet) 30 mg PO QID [facility]; Protocol Last Admin: 04/29/23 09:31 Dose: 30 mg Documented By: JEN Dorzolamide/Timolol (Dorzolamide/Timolo 2.23%/0.68% 10 Ml Drbtl) 1 drop EYE-BOTH BID@0900,1800 [facility] Last Admin: 04/29/23 09:33 Dose: 1 drop Documented By: JEN Pt Own (Tafluprost ( Pf) [Zioptan (Pf)] 0 .0015 % Dropperette) 1 drop EYE-BOTH BEDTIME [facility] Last Admin: 04/28/23 21:36 Dose: 1 drop Documented By: JARRED Ondansetron HCl (Ondansetron Hcl 4 Mg/2 Ml Vial) 4 mg IVPUSH Q8H PRN PRN Reason: Nausea and Vomiting Pharmacy Consult (Consult Rx Perform Med Rec) 1 each MISCELLANE ONCE PRN PRN Reason: Consult order Sodium Chloride (0.9 % Sodium Chloride Flush 3 Ml Syringe) 3 ml IVFLUSH QSHIFT [facility] Last Admin: 04/29/23 08:44 Dose: 3 ml Documented By: JEN Tamsulosin HCl (Tamsulosin Hcl 0.4 Mg Capsule) 0.8 mg PO BEDTIME [facility] Last Admin: 04/28/23 20:58 Dose: 0.8 mg Documented By: JARRED Labs 04/28/23 10:21 04/29/23 06:26 Labs: Laboratory Results - last 24 hr 04/28/23 04/28/23 04/28/23 10:21 10:21 10:21 MCV 79.9 L MCH 25.3 L MCHC 31.7 RDW 17.7 H Plt Count 143 L MPV 9.4 Immature Gran % (Auto) 1.1 H Neut % (Auto) 65.9 Lymph % (Auto) 15.0 L [place] % (Auto) 14.1 H Eos % (Auto) 3.2 Baso % (Auto) 0.7 Lymph # (Auto) 1.5 [place] # (Auto) 1.4 H Eos # (Auto) 0.3 Baso # (Auto) 0.1 Abs Immat Gran (auto) 0.11 H Absolute Neuts (auto) 6.6 Absolute Nucleated RBC 0.000 Nucleated RBC % (auto) 0.0 PT 12.1 INR 1.1 APTT 25.1 L Anion Gap 17 Estim Creat Clear Calc 41.1 Estimated GFR 55 Random Glucose 99 Lactic Acid Calcium 9.9 Magnesium 2.3 Total Bilirubin 1.8 H AST 33 ALT 33 Alkaline Phosphatase 81 Lactate Dehydrogenase Troponin I High Sens B-Natriuretic Peptide Total Protein 7.4 Albumin 4.0 04/28/23 04/28/23 04/28/23 10:21 12:38 17:37 MCV MCH MCHC RDW Plt Count MPV Immature Gran % (Auto) Neut % (Auto) Lymph % (Auto) [place] % (Auto) Eos % (Auto) Baso % (Auto) Lymph # (Auto) [place] # (Auto) Eos # (Auto) Baso # (Auto) Abs Immat Gran (auto) Absolute Neuts (auto) Absolute Nucleated RBC Nucleated RBC % (auto) PT INR APTT Anion Gap Estim Creat Clear Calc Estimated GFR Random Glucose 93 Lactic Acid 0.9 Calcium Magnesium Total Bilirubin AST ALT Alkaline Phosphatase Lactate Dehydrogenase 173 Troponin I High Sens < 2.7 B-Natriuretic Peptide Total Protein 5.4 L Albumin 04/28/23 04/29/23 19:15 06:26 MCV MCH MCHC RDW Plt Count MPV Immature Gran % (Auto) Neut % (Auto) Lymph % (Auto) [place] % (Auto) Eos % (Auto) Baso % (Auto) Lymph # (Auto) [place] # (Auto) Eos # (Auto) Baso # (Auto) Abs Immat Gran (auto) Absolute Neuts (auto) Absolute Nucleated RBC Nucleated RBC % (auto) PT INR APTT Anion Gap 13 Estim Creat Clear Calc 63.0 Estimated GFR > 60 Random Glucose 104 Lactic Acid Calcium 8.7 D Magnesium Total Bilirubin 1.3 H AST 18 ALT 26 Alkaline Phosphatase 67 Lactate Dehydrogenase Troponin I High Sens B-Natriuretic Peptide 167 H Total Protein 5.3 L Albumin 3.0 L Assessment and Plan (1) Anemia: Status: Acute Assessment and Plan: 88-year-old man admitted with new onset atrial fibrillation and moderate to large pleural effusion New onset atrial fibrillation with RVR IV cardizem, oral diltiazem 30 qid, dig loading echo, check tsh, cardiology to offer input Acute hypoxic respiratory failure likely secondary to Pleural effusion New onset, history of partial lobectomy Thoracentesis, diagnostic and therapeutic in light of history of lung cancer Continue oxygen 2 L nasal cannula History of ILD/COPD Does not seem to be in exacerbation Albuterol as needed Recently started on oxygen Hyperkalemia-- Received a dose of Kayexalate in the ER and and now resolved BPH Continue tamsulosin Hyperlipidemia Continue statin DVT prophylaxis with heparin Full code need for inapatient: afib with RVR, (2) Pleural effusion: Status: Acute (3) Atrial fibrillation: Status: Acute Time Spent With Patient Time: Total time managing care of this patient today ____ minutes. Quality Stroke Does the patient have a stroke diagnosis?: No VTE Prior VTE?: No VTE Risk Level:: Medical - moderate - high VTE Device Contraindication: Treatment Not Indicated VTE Drug Contraindication: N/A - Med Ordered
[2023-04-29] MEDS: Lidocaine HCl 1 % MPF 5 ML VIAL SUBCUT (11:51)
[2023-04-29 12:00] VITALS: BP 114/69; PULSE 110; RESP 20; TEMP 36; O2SAT 97
[2023-04-29] MEDS: Digoxin 0.5 MG/2 ML AMPUL 0.25 MG IVPUSH ×2 (12:08→17:00)
[2023-04-29 15:12] VITALS: BP 99/67; PULSE 81; RESP 16; TEMP 35.7; O2SAT 96
--- NOTE | 2023-04-29 17:02 | P.CONCA_ITS ---
History of Present Illness History of Present Illness Date of Service: 04/29/23 Requesting physician: Ramone Mckeon Chief complaint: New onset atrial fibrillation, pleural effusion Narrative: YESY gentleman background history of COPD and previous lung cancer on the left side presenting with atrial fibrillation rapid ventricular response and left- sided pleural effusion. He is now status post thoracentesis. He is saying he is feeling better. He was short of breath previously and was having trouble taking a deep breath. No chest discomfort. His EKG showed AFib with RVR. Heart rate is better controlled currently. Thoracentesis fluid has been sent for analysis. He was previously not on anticoagulation. Overall he is feeling much better since thoracentesis. [facility] Past Medical History Medical History (Updated 04/28/23 @ 15:53 by BALJINDER Lozada) COPD (chronic obstructive pulmonary disease) COVID-19 (~01/14/23) Diverticulitis Glaucoma History of lung cancer Hypercholesterolemia ILD (interstitial lung disease) Normal esophagogastroduodenoscopy (EGD) Osteoarthritis Oxygen dependent Purpura Family History Family History Mother ALS (amyotrophic lateral sclerosis) Surgical History Surgical History (Updated 04/28/23 @ 16:12 by Yanci Plata NP) H/O colonoscopy History of ERCP History of laparoscopic cholecystectomy History of total left knee replacement S/P lobectomy of lung Status post Pat procedure Social History Social History Household Members: Significant Other Housing: Apartment Do you presently have visiting nurse or other home services: Yes Alcohol intake: former Patient Tobacco Use Status: Former Tobacco user Quit Date: 12-13 yrs ago Tobacco use type: Cigarette Years Smoked: 20 years Smoked in Last 30 Days: No Patient Interested in Nicotine Replacement: No Patient Given Instructions on How to Stop Smoking: No Second Hand Smoke Exposure: No Use of substances other than those prescribed or required for medical reasons: No Currently Displaying Signs/Symptoms of Drug Intoxication Withdrawal: No Any prior treatment program specific to substance use: No Have you been hit, kicked, punched, or otherwise hurt by someone within the past year? If so, by whom?: No Do you feel safe in your current relationship?: Yes Is there a partner from a previous relationship who is making you feel unsafe now?: No Are you made to feel afraid or neglected: No Advance Directives: Yes Advance Directives Information Provided: Yes Advance Directives on File: Yes Advance Directives Date on File: 04/28/23 Do you have thoughts of harming others: None Do you have a plan to hurt others: No Plan Recently lost weight without trying: Yes How much weight loss: 24-33 pounds Eating poorly because of decreased appetite: Yes Nutrition screen score: 6 Nutrition Risks: No Nutritional Risk Poor oral hygiene: Yes service: No Current occupational status: retired [employer] Allergies Allergy/AdvReac Type Severity Reaction Status Date / Time No Known Allergies Allergy Verified 04/21/23 09:47 Active Medications: Current Medications Acetaminophen (Acetaminophen 325 Mg Tablet) 650 mg PO Q6H PRN PRN Reason: Pain, Mild (Pain Scale 1-3) Albuterol Sulfate (Albuterol Sulfate (0.083%) 2.5 Mg/3 Ml Vial.Neb) 2.5 mg INHALE QID PRN PRN Reason: Shortness Of Breath Atorvastatin Calcium (Atorvastatin Calcium 10 Mg Tablet) 10 mg PO BEDTIME [facility] Last Admin: 04/28/23 20:57 Dose: 10 mg Diltiazem HCl (Diltiazem Hcl 30 Mg Tablet) 30 mg PO QID [facility]; Protocol Last Admin: 04/29/23 13:56 Dose: 30 mg Dorzolamide/Timolol (Dorzolamide/Timolo 2.23%/0.68% 10 Ml Drbtl) 1 drop EYE- BOTH BID@0900,1800 [facility] Last Admin: 04/29/23 09:33 Dose: 1 drop Pt Own (Tafluprost ( Pf) [Zioptan (Pf)] 0 .0015 % Dropperette) 1 drop EYE-BOTH BEDTIME [facility] Last Admin: 04/28/23 21:36 Dose: 1 drop Ondansetron HCl (Ondansetron Hcl 4 Mg/2 Ml Vial) 4 mg IVPUSH Q8H PRN PRN Reason: Nausea and Vomiting Pharmacy Consult (Consult Rx Perform Med Rec) 1 each MISCELLANE ONCE PRN PRN Reason: Consult order Sodium Chloride (0.9 % Sodium Chloride Flush 3 Ml Syringe) [facility] Last Admin: 04/29/23 08:44 Dose: 3 ml Tamsulosin HCl (Tamsulosin Hcl 0.4 Mg Capsule) 0.8 mg PO BEDTIME [facility] Last Admin: 04/28/23 20:58 Dose: 0.8 mg Home Medications Medication Instructions Recorded Confirmed Last Taken Type simvastatin 10 mg tablet 10 mg PO BEDTIME 08/06/20 04/28/23 04/27/23 History tamsulosin 0.4 mg capsule 0.8 mg PO BEDTIME 08/06/20 04/28/23 04/27/23 History dorzolamide 22.3 mg-timolol 6.8 1 drp ophthalmic (eye) 10/14/21 04/28/23 04/28/23 History mg/mL eye drops BID@0900,1800 nebulizers 01/14/23 04/21/23 Unknown History albuterol sulfate 2.5 mg/3 mL 2.5 mg inhalation QID PRN 04/28/23 04/28/23 Unknown History (0.083 %) solution for nebulization Shortness Of Breath tafluprost (PF) 0.0015 % eye drops 1 drp ophthalmic (eye) BEDTIME 04/28/23 04/28/23 Unknown History in a dropperette (Zioptan (PF)) Physical Exam Vital Signs: Vital Signs: Last Vital Signs Temp 96.2 F L 04/29/23 15:12 Pulse 81 04/29/23 15:12 Resp 16 04/29/23 15:12 BP 99/67 04/29/23 15:12 Pulse Ox 96 04/29/23 15:12 O2 Del Method Nasal Cannula 04/29/23 15:12 O2 Flow Rate 1 04/29/23 15:12 Oxygen Flow Rate 2 04/28/23 09:58 BMI result Body Mass Index 26.0 GENERAL APPEARANCE: in no acute distress, pleasant. NECK: no carotid bruit, no jugular venous distention. SKIN: no suspicious lesions, warm and dry. HEART: no murmurs, irregular rate and rhythm. LUNGS: Diminished breath sounds at left base. ABDOMEN: soft, nontender. EXTREMITIES: no edema. PERIPHERAL PULSES: equal. NEUROLOGIC: No gross deficits, AAO X 3 Objective Labs and Meds 04/28/23 10:21 04/29/23 06:26 Lab results: Laboratory Results - last 24 hr 04/28/23 04/28/23 04/28/23 17:37 17:37 19:15 Sodium Potassium 4.0 D Chloride Carbon Dioxide Anion Gap BUN Creatinine Estim Creat Clear Calc Estimated GFR Random Glucose 93 Calcium Total Bilirubin AST ALT Alkaline Phosphatase Lactate Dehydrogenase 173 B-Natriuretic Peptide 167 H Total Protein 5.4 L Albumin 04/29/23 06:26 Sodium 140 Potassium 4.0 Chloride 111 H Carbon Dioxide 20 L Anion Gap 13 BUN 24 H Creatinine 0.81 Estim Creat Clear Calc 63.0 Estimated GFR > 60 Random Glucose 104 Calcium 8.7 D Total Bilirubin 1.3 H AST 18 ALT 26 Alkaline Phosphatase 67 Lactate Dehydrogenase B-Natriuretic Peptide Total Protein 5.3 L Albumin 3.0 L Imaging Radiologist's impression: Impressions Thoracentesis Ultrasound 04/29/23 11:25 IMPRESSION: Ultrasound-guided left thoracentesis. Chest X-Ray 04/29/23 11:35 IMPRESSION: No pneumothorax post left thoracentesis. Assessment and Plan (1) Pleural effusion: Status: Acute (2) Atrial fibrillation: Status: Acute Plan 88-year-old gentleman presenting with new onset atrial fibrillation and left- sided pleural effusion. Underwent thoracentesis today and is feeling better. Heart rate is better controlled currently. He can continue Cardizem for now. We will review the echocardiogram and give further recommendations. He previously had lung cancer on the left side and has a large pleural effusion. I thing is important to know what is the cause for the pleural effusion. Does not look significantly volume overloaded to explain the pleural effusion. He has some T-wave changes precordial leads and sometimes these changes are related with pulmonary embolism which eventually can cause pleural effusion. I think he should have a D-dimer checked and if it is elevated he should have up CT pulmonary angiogram to rule out PE or malignant process in the lungs. Agree with rate control for now. Anticoagulation for AFib is to be decided ba sed on whether further workup is required for the lung were not. His ECHO showing a large effusion still present any may need thoracentesis again. Thank you for allowing me to participate in the care of your patient. Please feel free to contact me if you have any questions. Time Spent With Patient Time: Total time managing care of this patient today ____ minutes. Procedures Date of Service Date of Service: 04/29/23
[2023-04-29 19:33] VITALS: BP 102/57; PULSE 87; RESP 18; TEMP 35.9; O2SAT 93
[2023-04-29] MEDS: Atorvastatin Calcium 10 MG TABLET PO (20:52)
[2023-04-29] MEDS: Tamsulosin HCL 0.4 MG CAPSULE 0.8 MG PO (20:52)
[2023-04-30] VITALS (10 sets, daily range): BP systolic 66–140; BP diastolic 52–71; PULSE 79–100; RESP 16–20; TEMP 36.1–36.9; O2SAT 94–97
[2023-04-30] MEDS: dilTIAZem HCL 30 MG TABLET PO (08:45)
[2023-04-30] MEDS: 0.9 % Sodium Chloride Flush 3 ML SYRINGE IVFLUSH ×3 (08:45→20:59)
--- NOTE | 2023-04-30 08:52 | HO.PM.IMPN ---
Subjective Subjective Date of Service: 05/01/23 Interval History: f/u on AFIB with RVR Interval history: no sob, no palpiation, AFIB with RVR HR 110s to 130s Physical Exam Vital Signs: Vital Signs: Last Vital Signs Temp 98.3 F 04/30/23 08:00 Pulse 97 04/30/23 08:00 Resp 16 04/30/23 08:00 BP 112/66 04/30/23 08:00 Pulse Ox 95 04/30/23 08:00 O2 Del Method Room Air 04/30/23 08:00 O2 Flow Rate 1 04/30/23 03:22 Oxygen Flow Rate 2 04/28/23 09:58 BMI result Body Mass Index 26.0 GENERAL APPEARANCE: in no acute distress, pleasant. NECK: no carotid bruit, no jugular venous distention. SKIN: no suspicious lesions, warm and dry. HEART: no murmurs, irregular rate and rhythm. LUNGS: Diminished breath sounds at left base. ABDOMEN: soft, nontender. EXTREMITIES: no edema. PERIPHERAL PULSES: equal. NEUROLOGIC: No gross deficits, AAO X 3 Const: Other: General: AO X 3, no acute distress Resp: CTA bilateral CVS: S1,S2, iregular iregular GI: +BS, NT, no distention Skin: No rash Neuro: motor grossly intact Psych: appropriate affect Objective Data Active Medications Acetaminophen (Acetaminophen 325 Mg Tablet) 650 mg PO Q6H PRN PRN Reason: Pain, Mild (Pain Scale 1-3) Albuterol Sulfate (Albuterol Sulfate (0.083%) 2.5 Mg/3 Ml Vial.Neb) 2.5 mg INHALE QID PRN PRN Reason: Shortness Of Breath Atorvastatin Calcium (Atorvastatin Calcium 10 Mg Tablet) 10 mg PO BEDTIME [facility] Last Admin: 04/29/23 20:52 Dose: 10 mg Documented By: CASEYRISKg Diltiazem HCl (Diltiazem Hcl 30 Mg Tablet) 30 mg PO QID [facility]; Protocol Last Admin: 04/30/23 08:45 Dose: 30 mg Documented By: SANYA Dorzolamide/Timolol (Dorzolamide/Timolo 2.23%/0.68% 10 Ml Drbtl) 1 drop EYE-BOTH BID@0900,1800 [facility] Last Admin: 04/30/23 08:42 Dose: Not Given Documented By: SANYA Non-Admin Reason: pt used his own med previously Pt Own (Tafluprost ( Pf) [Zioptan (Pf)] 0 .0015 % Dropperette) 1 drop EYE-BOTH BEDTIME [facility] Last Admin: 04/29/23 17:52 Dose: 1 drop Documented By: FOSTEKJosé Ondansetron HCl (Ondansetron Hcl 4 Mg/2 Ml Vial) 4 mg IVPUSH Q8H PRN PRN Reason: Nausea and Vomiting Pharmacy Consult (Consult Rx Perform Med Rec) 1 each MISCELLANE ONCE PRN PRN Reason: Consult order Sodium Chloride (0.9 % Sodium Chloride Flush 3 Ml Syringe) 3 ml IVFLUSH QSHIFT [facility] Last Admin: 04/30/23 08:45 Dose: 3 ml Documented By: SANYA Tamsulosin HCl (Tamsulosin Hcl 0.4 Mg Capsule) 0.8 mg PO BEDTIME [facility] Last Admin: 04/29/23 20:52 Dose: 0.8 mg Documented By: ODRISM Labs 04/28/23 10:21 04/29/23 06:26 Microbiology Microbiology Results: Microbiology 04/29/23 11:15 Gram Stain - Final Pleural Fluid 04/28/23 12:37 Blood Culture - Preliminary Blood - Venous No growth after 24 hours. 04/28/23 12:38 Blood Culture - Preliminary Blood - Venous No growth after 24 hours. Assessment and Plan (1) Anemia: Status: Acute Assessment and Plan: 88-year-old man admitted with new onset atrial fibrillation and moderate to large pleural effusion New onset atrial fibrillation with RVR On 04/29 treated with IV cardizem, dig 0.25 x2, and oral diltiazem 30 qid and presently HR is better conrolle, echo 04/29 EF 55. cardilogy recommending continuing cardizem for now. Start Lovenox 1mg/kg for stroke prevention, and change to eliquis at discharge Acute hypoxic respiratory failure likely secondary to Pleural effusion New onset, history of partial lobectomy, s/p 1.2 L removal of pleural fluid on 04/29 Pending labs and cytology History of ILD/COPD Does not seem to be in exacerbation Albuterol as needed Recently started on oxygen Hyperkalemia-- Received a dose of Kayexalate in the ER and and now resolved BPH Continue tamsulosin Hyperlipidemia Continue statin DVT prophylaxis with heparin Full code need for inapatient: afib with RVR, (2) Pleural effusion: Status: Acute (3) Atrial fibrillation: Status: Acute Time Spent With Patient Time: Total time managing care of this patient today ____ minutes. Quality Stroke Does the patient have a stroke diagnosis?: No VTE Prior VTE?: No VTE Risk Level:: Medical - moderate - high VTE Device Contraindication: Treatment Not Indicated VTE Drug Contraindication: N/A - Med Ordered
[2023-04-30] MEDS: Enoxaparin Sodium 80 MG/0.8 ML SYRINGE SUBCUT ×2 (09:27→20:59)
[2023-04-30] MEDS: Albuterol Sulfate (0.083%) 2.5 MG/3 ML VIAL.NEB INHALE (10:28)
--- NOTE | 2023-04-30 10:44 | P.PNCA_ITS ---
Subjective Subjective Date of Service: 04/30/23 Interval history: Seen and examined at bedside. He had thoracentesis yesterday. His echocardiogram showed low normal ejection fraction and [id number] RV dysfunction. He has background of COPD. Echo also showed large left-sided pleu ral effusion. Heart rate control is okay on telemetry. He is in atrial fibrillation. Physical Exam Vital Signs: Last Vital Signs Temp 98.3 F 04/30/23 08:00 Pulse 93 04/30/23 10:29 Resp 18 04/30/23 10:29 BP 112/66 04/30/23 08:00 Pulse Ox 95 04/30/23 08:00 O2 Del Method Room Air 04/30/23 08:00 O2 Flow Rate 1 04/30/23 03:22 Oxygen Flow Rate 2 04/28/23 09:58 BMI result Body Mass Index 26.0 GENERAL APPEARANCE: in no acute distress, pleasant. NECK: no carotid bruit, no jugular venous distention. SKIN: no suspicious lesions, warm and dry. HEART: no murmurs, irregular rate and rhythm. LUNGS: Diminished breath sounds at left base. ABDOMEN: soft, nontender. EXTREMITIES: no edema. PERIPHERAL PULSES: equal. NEUROLOGIC: No gross deficits, AAO X 3 Objective Labs and Meds 04/28/23 10:21 04/29/23 06:26 Imaging Radiologist's impression: Impressions Thoracentesis Ultrasound 04/29/23 11:25 IMPRESSION: Ultrasound-guided left thoracentesis. Chest X-Ray 04/29/23 11:35 IMPRESSION: No pneumothorax post left thoracentesis. Progress Note: A&P Assessment and plan (1) Pleural effusion: Status: Acute (2) COPD (chronic obstructive pulmonary disease): Status: Acute (3) Atrial fibrillation: Status: Acute Plan 88-year-old gentleman presenting with large left-sided pleural effusion on background of previous lung cancer on the left side and new diagnosis of atrial fibrillation. He is being rate controlled. ECHO has shown [id number] RV dysfunction and low normal LV ejection fraction. Stop the diltiazem. Start metoprolol 25 mg twice a day. If heart rate not well controlled then digoxin 125 mcg every other day can be added. Adding a D-dimer. If elevated then he should get CT PA. He has precordial T- wave inversions which are sometimes seen with pulmonary emboli. ECHO also showing [id number] RV dysfunction. He also has a large effusion still present by echocardiography on the left side. Thank you for allowing me to participate in the care of your patient. Please feel free to contact me if you have any questions. Time Spent With Patient Time: Total time managing care of this patient today ____ minutes. Progress Note: Quality Stroke Does the patient have a stroke diagnosis?: No Procedures Date of Service Date of Service: 04/30/23
[2023-04-30] MEDS: 0.9 % Sodium Chloride 1,000 ML 500 ML IVCONT (12:14)
[2023-04-30 13:02] LABS: D Dimer High Sensitivity 391 NG/ML
[2023-04-30] MEDS: Dorzolamide/Timolo 2.23%/0.68% 10 ML DRBTL 1 DROP EYE-BOTH (17:11)
[2023-04-30] MEDS: Atorvastatin Calcium 10 MG TABLET PO (20:59)
[2023-04-30] MEDS: Tamsulosin HCL 0.4 MG CAPSULE 0.8 MG PO (20:59)
[2023-04-30] MEDS: Metoprolol Tartrate 25 MG TABLET PO (20:59)
[2023-05-01 03:48] VITALS: BP 106/75; PULSE 86; RESP 18; TEMP 36.8; O2SAT 94
[2023-05-01 06:24] LABS: CDiff Gene PCR NEGATIVE (Negative)
[2023-05-01 07:28] VITALS: BP 96/60; PULSE 82; RESP 20; TEMP 36.2; O2SAT 96
[2023-05-01] MEDS: Enoxaparin Sodium 80 MG/0.8 ML SYRINGE SUBCUT (08:32)
[2023-05-01] MEDS: 0.9 % Sodium Chloride Flush 3 ML SYRINGE IVFLUSH (08:32)
[2023-05-01] MEDS: Dorzolamide/Timolo 2.23%/0.68% 10 ML DRBTL 1 DROP EYE-BOTH (08:32)
[2023-05-01 09:07] VITALS: BP 96/60; PULSE 82; O2SAT 96
--- NOTE | 2023-05-01 10:21 | MHC.CM.PN ---
Addendum entered by Saranya Wright RN 05/01/23 10:24: PT WAS EVALUATED BY PHYSICAL THERAPY AND RECOMMENDATION HOME NO SERVICES NEEDED. Original Note: EMR REVIEWED, PT W/NEW AFIB AND PLEURAL EFFUSION, PLAN FOR CT SCAN TODAY AND PENDING RESULTS PT MAY BE ABLE TO D/C HOME NO SERVICES W/FAMILY FOR TRANSPORT.
[2023-05-01 11:28] VITALS: BP 97/65; PULSE 99; RESP 20; TEMP 36.4; O2SAT 94
[2023-05-01] MEDS: iohexoL 350 MG/ML 100 ML INFUS..BTL 65 ML IV (11:34)
--- NOTE | 2023-05-01 12:47 | P.DS_ITS ---
DS: Providers Provider Date of Service: 05/01/23 Date of admission: 04/28/23 16:45 Primary care physician: Joamr Sung MD Consults: 04/28/23 16:45 Consult to Cardiology Routine Consulting Provider: [facility] [place] Cardiovascular Services Reason for consultation: new afib rvr DS: Diagnosis Discharge Diagnosis (1) Anemia: Status: Acute (2) Pleural effusion: Status: Acute (3) Atrial fibrillation: Status: Acute DS: Summary Hospital Course Hospital Course: Chief Complaint: SOB 88-year-old man presenting from a routine Cardiology appointment after being found to be in atrial fibrillation which is a new diagnosis for the patient.? He has a history of lung cancer and is status post partial lobectomy.? He also has COPD and is on chronic oxygen.? Apparently has had worsening shortness of breath over the last several months especially with ambulation.? He denied chest pain, nausea, vomiting, diarrhea, recent illness, recent travel, sick contacts.? Chest CT showing moderate to large left pleural effusion with associated left lower lobe and lingular compressive atelectasis with moderate to severe emphysema.? He also had an oxygen saturation of 83% on room air which did improve after oxygen administration.? Potassium 5.7, creatinine 1.24.? He was placed on oxygen in the ER for hypoxia.? He was given a dose of diltiazem, metoprolol.? Kayexalate for hyperkalemia.? He will be admitted for further management treatment of new onset atrial fibrillation with rapid ventricular response and pleural effusion. Hospital course: This patient with history of lung cancer s/p partial lobectomy presented to cardiology office to be evaluated for ongoing dyspnea and was noted to be in atrial fibiration and sent to the ED for further evaluation. Additional work up in the ED revealed a large left pleural effusion and was admitted for further management. New onset atrial fibrillation with RVR, On 04/29 treated with IV cardizem,? dig 0.25 x2, and? oral diltiazem 30 qid and presently HR is better jagdeep, echo 04/29 EF 55. cardilogy later changed cardizem to metoprolol 25 mg twice a day. Given Lovnenox for anticoagulation and changing that to Eliquis at discharge for stroke prevention risk of increased bleeding discussed with the patient Pleural effusion --likely related to prior lobectomy, underwent thoracentesis on 04/29 with removal of 1.2 liters and feeling much better, sample pathology (cytology) is pending and no evidence of infection. PCP to follow up on final result Acute hypoxic respiratory failure likely secondary to Pleural effusionm and AFIB with RVR, resolved with addresing underlying issues. CT chest 05/01 showed persistent left effusion of moderate to large, No PTX or PE. He is seeing Dr. Plata (scrap yard worker) on Thursday05/08/23 to reassess pleural effusin and review of Pleural Cytology History of ILD/COPD Does not seem to be in exacerbation Albuterol as needed Recently started on oxygen Hyperkalemia-- Received a dose of Kayexalate in the ER and and now resolved BPH Continue tamsulosin Hyperlipidemia Continue statin Time Spent with Patient Time attestation: Total time managing care of this patient today ____ minutes. Discharge coordination time: Greater than 30 minutes Quality: Safe Use of Opioids Does Pt have an Active Cancer Diagnosis on the Problem List?: No Quality: Stroke Does the patient have a stroke diagnosis?: No Physical Exam Vital Signs: Vital Signs: Last Vital Signs Temp 97.5 F 05/01/23 11:28 Pulse 99 05/01/23 11:28 Resp 20 05/01/23 11:28 BP 97/65 05/01/23 11:28 Pulse Ox 94 05/01/23 11:28 O2 Del Method Room Air 05/01/23 11:28 O2 Flow Rate 1 04/30/23 03:22 Oxygen Flow Rate 2 04/28/23 09:58 BMI result Body Mass Index 26.0 DS: Data Data Completed and Pending Pending studies at discharge: Pending at discharge 04/28/23 16:47 Cytology [PTH] Routine Labs on day of discharge: Laboratory Results - last 24 hr 04/30/23 05/01/23 12:43 05:20 D-Dimer High Sensitivty 391 C. difficile Tox B Gene NEGATIVE Preliminary micro results at discharge 04/29/23 11:15 Anaerobic Culture - Preliminary Pleural Fluid No growth to date. 04/28/23 12:38 Blood Culture - Preliminary Blood - Venous No growth after 48 hours. 04/28/23 12:37 Blood Culture - Preliminary Blood - Venous No growth after 48 hours. Discharge Plan Discharge Anticipated Discharge Date/Time: 05/01/23 12:38 Patient Disposition: Home Health Service Discharge Diagnosis: New atrial fibrillation, Pleural effusion Referrals: Jomar Sung MD [Primary Care Provider] - 1 Week Discharge Medications: New metoprolol tartrate 25 mg Tablet 25 mg PO BID Qty: 60 0RF Protocol: Hold for SBP/HR < HOLD for SBP < : 90 HOLD for HR < : 60 Eliquis 5 mg tablet 5 mg PO BID Qty: 60 0RF digoxin 125 mcg (0.125 mg) tablet 125 mcg PO Q OTHER DAY Qty: 30 0RF Continued simvastatin 10 mg Tablet 10 mg PO BEDTIME tamsulosin 0.4 mg capsule 0.8 mg PO BEDTIME albuterol sulfate 2.5 mg /3 mL (0.083 %) solution for nebulization 2.5 mg inhalation QID PRN (Reason: Shortness Of Breath) tafluprost (PF) [Zioptan (PF)] 0.0015 % dropperette 1 drp ophthalmic (eye) BEDTIME dorzolamide-timolol 22.3-6.8 mg/mL drops 1 drp ophthalmic (eye) BID@0900,1800 (DME) nebulizers Misc See Rx Instructions .Route Rx Instructions: As directed amoxicillin-pot clavulanate 875-125 mg tablet 1 tab PO BID 10 Days Qty: 20 0RF Rx Instructions: stop azithromycin while using augmentin Discharge Orders: Discharge Order (Routine); Ordered 05/01/23 Ordered By: Ramone Mckeon Diet: Advance to usual diet Activity on Discharge: As tolerated Stand Alone Forms: Patient Portal Discharge page Other Ambulatory Orders: XR chest 2V (Routine) Timeframe: [id number] Facility: [facility] - Location: Radiology Ordered By: Ramone Mckeon Care Plan Goals: Full recovery from pleural effusion and atrial fibrilation Health Concerns: pleural effusion, atrial fibriliaton Plan of Treatment: You had pleural effusio which fluid accumulation around the lungs, and can caused by many things including cancer, pneumonia and others. The fluid was drained and sample is evaluated by pathyology and there should be result in the near future which your doctor should follow up on and make addtional testing or referal if needed. There is no specific medication to take for this You also had atrial fibrilation which is iregular beating of your heart and can cause stroke, especially if you are not on blood thiner, you are therefore been prescribed eliquis which is a blood thiner. Additionally you are prescribed Metoprolol to regulate your heart rate You should follow up with your doctor within a week, you may need more fluid drain from your lungs in the future. Assessment: See above
--- NOTE | 2023-05-01 13:08 | P.PNIM_ITS ---
Subjective Subjective Date of Service: 05/01/23 Interval History: f/u on AFIB with RVR Interval history: no sob, no palpiation, HR is controlled, wants to go home Physical Exam Vital Signs: Vital Signs: Last Vital Signs Temp 97.5 F 05/01/23 11:28 Pulse 99 05/01/23 11:28 Resp 20 05/01/23 11:28 BP 97/65 05/01/23 11:28 Pulse Ox 94 05/01/23 11:28 O2 Del Method Room Air 05/01/23 11:28 O2 Flow Rate 1 04/30/23 03:22 Oxygen Flow Rate 2 04/28/23 09:58 BMI result Body Mass Index 26.0 Const: Other: General: AO X 3, no acute distress Resp: CTA bilateral CVS: S1,S2, iregular iregular GI: +BS, NT, no distention Skin: No rash Neuro: motor grossly intact Psych: appropriate affect Objective Data Active Medications Acetaminophen (Acetaminophen 325 Mg Tablet) 650 mg PO Q6H PRN PRN Reason: Pain, Mild (Pain Scale 1-3) Albuterol Sulfate (Albuterol Sulfate (0.083%) 2.5 Mg/3 Ml Vial.Neb) 2.5 mg INHALE QID PRN PRN Reason: Shortness Of Breath Last Admin: 04/30/23 10:28 Dose: 2.5 mg Documented By: OMEGA Atorvastatin Calcium (Atorvastatin Calcium 10 Mg Tablet) 10 mg PO BEDTIME [facility] Last Admin: 04/30/23 20:59 Dose: 10 mg Documented By: LM Dorzolamide/Timolol (Dorzolamide/Timolo 2.23%/0.68% 10 Ml Drbtl) 1 drop EYE- BOTH BID@0900,1800 [facility] Last Admin: 05/01/23 08:32 Dose: 1 drop Documented By: SANYA Enoxaparin Sodium (Enoxaparin Sodium 80 Mg/0.8 Ml Syringe) 80 mg 1 mg/kg (80 mg) SUBCUT Q12H [facility] Last Admin: 05/01/23 08:32 Dose: 80 mg Documented By: SANYA Metoprolol Tartrate (Metoprolol Tartrate 25 Mg Tablet) 25 mg PO BID [facility]; Protocol Last Admin: 05/01/23 08:39 Dose: Not Given Documented By: SANYA Non-Admin Reason: Decreased Blood Pressure Pt Own (Tafluprost ( Pf) [Zioptan (Pf)] 0 .0015 % Dropperette) 1 drop EYE-BOTH BEDTIME [facility] Last Admin: 04/30/23 20:59 Dose: 1 drop Documented By: LM Ondansetron HCl (Ondansetron Hcl 4 Mg/2 Ml Vial) 4 mg IVPUSH Q8H PRN PRN Reason: Nausea and Vomiting Pharmacy Consult (Consult Rx Perform Med Rec) 1 each MISCELLANE ONCE PRN PRN Reason: Consult order Sodium Chloride (0.9 % Sodium Chloride Flush 3 Ml Syringe) 3 ml IVFLUSH QSHIFT [facility] Last Admin: 05/01/23 08:32 Dose: 3 ml Documented By: SANYA Tamsulosin HCl (Tamsulosin Hcl 0.4 Mg Capsule) 0.8 mg PO BEDTIME [facility] Last Admin: 04/30/23 20:59 Dose: 0.8 mg Documented By: LM Labs 04/28/23 10:21 04/29/23 06:26 Labs: Laboratory Results - last 24 hr 05/01/23 05:20 C. difficile Tox B Gene NEGATIVE Microbiology Microbiology Results: Microbiology 04/29/23 11:15 Gram Stain - Final Pleural Fluid Routine Culture - Final No growth after 2 days Anaerobic Culture - Preliminary No growth to date. 04/28/23 12:38 Blood Culture - Preliminary Blood - Venous No growth after 48 hours. 04/28/23 12:37 Blood Culture - Preliminary Blood - Venous No growth after 48 hours. Assessment and Plan (1) Pleural effusion: Status: Acute (2) COPD (chronic obstructive pulmonary disease): Status: Acute (3) Atrial fibrillation: Status: Acute Plan This patient with history of lung cancer s/p partial lobectomy presented to cardiology office to be evaluated for ongoing dyspnea and was noted to be in atrial fibiration and sent to the ED for further evaluation. Additional work up in the ED revealed a large left pleural effusion and was admitted for further management. New onset atrial fibrillation with RVR, On 04/29 treated with IV cardizem,? dig 0.25 x2, and? oral diltiazem 30 qid and presently HR is better lorenzorolljere, echo 04/29 EF 55. cardilogy later changed cardizem to metoprolol 25 mg twice a day. Given Lovnenox for anticoagulation and changing that to Eliquis at discharge for stroke prevention risk of increased bleeding discussed with the patient Pleural effusion --likely related to prior lobectomy, underwent thoracentesis on 04/29 with removal of 1.2 liters and feeling much better, sample pathology (cytology) is pending and no evidence of infection. PCP to follow up on final result Acute hypoxic respiratory failure likely secondary to Pleural effusionm and AFIB with RVR, resolved with addresing underlying issues. CT of chest 05/01 History of ILD/COPD Does not seem to be in exacerbation Albuterol as needed Recently started on oxygen Hyperkalemia-- Received a dose of Kayexalate in the ER and and now resolved BPH Continue tamsulosin Hyperlipidemia Continue statin DVT prophylaxis with heparin Full code need for inapatient: afib with RVR, pleural effusion Time Spent With Patient Time: Total time managing care of this patient today ____ minutes. Quality Stroke Does the patient have a stroke diagnosis?: No VTE Prior VTE?: No VTE Risk Level:: Medical - moderate - high VTE Device Contraindication: Treatment Not Indicated VTE Drug Contraindication: N/A - Med Ordered
--- NOTE | 2023-05-01 16:05 | MHC.CM.PN ---
PT WILL BE MEDICALLY CLEARED FOR D/C HOME NO SERVICES, PT HAS [employer] [employer] WHO WILL ADMINISTER LOVENOX INJECTIONS BID UNTIL NEXT WEEK, PT WILL FOLLOW UP NEXT WEEK FOR ANTIC ADDITIONAL THORACENTESIS, PT/SON PROVIDED W/A [place] 30DAY FREE TRIAL CARD, SON AT BEDSIDE AND WILL TRANSPORT
[2023-05-08 13:22] LABS: LDH Peritoneal Fluid 94
== END 2023-05-01 16:23 | disposition home or self-care (01) | DRG 186 ==
LOC: HO.ED 15:53 → HO.EDOVER 16:53 → HO.IMC 17:16
PROVIDERS: Internal Medicine Cardiovascular Disease; Physician Assistant; Physician Assistant Medical; Radiology Diagnostic Radiology; Admitting Provider Nurse Practitioner Acute Care; Emergency Provider Emergency Medicine; PCP Internal Medicine; Visit Provider Internal Medicine
PROC: 0W9B3ZZ Drainage of Left Pleural Cavity, Percutaneous Approach (ICD-10-PCS; principal; 2023-04-29 10:30)
DX: J90 Pleural effusion, not elsewhere classified (principal); J96.01 Acute respiratory failure with hypoxia; J98.11 Atelectasis; J43.9 Emphysema, unspecified; E78.00 Pure hypercholesterolemia, unspecified; Z90.2 Acquired absence of lung [part of]; I48.91 Unspecified atrial fibrillation; N40.0 Benign prostatic hyperplasia without lower urinary tract symptoms; E87.5 Hyperkalemia; Z99.81 Dependence on supplemental oxygen; Z85.118 Personal history of other malignant neoplasm of bronchus and lung; Z87.891 Personal history of nicotine dependence; Z79.899 Other long term (current) drug therapy
CPT/HCPCS: 32555; 36415; 71045; 71046; 71260; 71275; 80053; 82947; 83605; 83615; 83735; 83880; 84132; 84155; 84484; 85025; 85379; 85610; 85730; 87040; 87070; 87073; 87116; 87205; 87206; 87493; 88112; 88305; 93005; 93306; 94640; 97162; 99285; J0696; J1160; J1650; Q9957; Q9967

== ENCOUNTER 2023-05-04 08:18 | Outpatient (REF) | payer MEDICARE, SELFPAY | END 2023-05-04 08:19 | disposition home or self-care (01) | LOC: HO.HMGCX 08:18 | PROVIDERS: PCP Internal Medicine; Visit Provider Internal Medicine | DX: J90 Pleural effusion, not elsewhere classified (principal) | CPT/HCPCS: 71046 ==

== ENCOUNTER → 2023-05-06 09:24 | Outpatient (BNVA) | payer MEDICARE, SELFPAY | PROVIDERS: PCP Internal Medicine; Visit Provider Nurse Practitioner Family | DX: J44.1 Chronic obstructive pulmonary disease with (acute) exacerbation (principal); J84.9 Interstitial pulmonary disease, unspecified | CPT/HCPCS: 99212 ==

== ENCOUNTER 2023-05-12 10:48 | Outpatient (REF) | payer MEDICARE, SELFPAY ==
--- NOTE | ~2023-05-12 | XR_ITS ---
EXAMINATION: XR CHEST CLINICAL INFORMATION: Pleural effusion COMPARISON: Chest x-ray 05/04/2023 TECHNIQUE: 2 views of the chest were obtained. FINDINGS: There is moderate left pleural effusion with underlying atelectasis. There are surgical sutures visualized in right upper lobe likely from previous partial/total upper lobe lobectomy hence loss of right lung volume. The left upper lungs are clear. The right lung is expanded minimal atelectatic changes suspected in right lung base.. Heart size and progress clarities normal. No gross bony abnormality seen XR/XR chest 2V IMPRESSION: Moderate left pleural effusion with underlying atelectasis. Suspect minimal atelectatic changes right lung base.
== END 2023-05-12 10:49 | disposition home or self-care (01) ==
LOC: HO.HMGCX 10:48
PROVIDERS: PCP Internal Medicine; Visit Provider Nurse Practitioner Family
DX: J90 Pleural effusion, not elsewhere classified (principal)
CPT/HCPCS: 71046

== ENCOUNTER 2023-05-13 12:46 | Outpatient (REF) | payer MEDICARE, SELFPAY ==
[2023-05-13 16:11] LABS: MANUAL DIFF FLAG NO
[2023-05-13 16:24] LABS: Basophils Absolute Auto 0.2 X10*3/uL (0.0-0.2); Basophils Percent Auto 2.3 % (0-2); Eosinophils Absolute Auto 0.3 X10*3/uL (0.0-0.4); Eosinophils Percent Auto 3.6 % (0-4); Hemoglobin 15.2 g/dl (14.0-18.0); Imm Gran Abs Auto 0.05 X10*3/uL (0.00-0.03); Imm Gran Pct Auto 0.6 % (0.0-0.4); Lymphocytes Absolute Auto 1.3 X10*3/uL (1.2-4.9); Lymphocytes Percent Auto 17.1 % (20-40); Mean Corpuscular Hemoglobin 25.7 pg (27.0-33.0); Mean Corpuscular Volume 82.9 fL (80.0-98.0); Mean Platelet Volume 9.6 fL (9.4-12.4); Monocytes Absolute Auto 0.8 X10*3/uL (0.1-1.2); Monocytes Percent Auto 10.2 % (2-11); Neutrophils Absolute Auto 5.2 x10*3/uL (2.0-8.3); Neutrophils Percent Auto 66.2 % (45-73); Platelet Count 161 X10*3/uL (160-400); Red Blood Count 5.91 X10*6/uL (4.60-5.80); Red Cell Distribution Width 17.4 % (11.0-16.0); White Blood Count 7.8 X10*3/uL (4.8-10.8)
[2023-05-13 17:12] LABS: Alanine Aminotransferase 17 U/L (0-40); Albumin Level 3.7 g/dL (3.5-5.0); Alkaline Phosphatase 81 U/L (39-117); Anion Gap 16 (12-20); Aspartate Amino Transferase 18 U/L (5-37); Bilirubin Total 1.3 mg/dL (0.0-1.0); Blood Urea Nitrogen 19 mg/dL (9-16); Calcium 9.7 mg/dL (8.4-10.2); Carbon Dioxide 22 mmol/L (22-29); Chloride 107 mmol/L (96-108); Estimated Glomerular Filt Rate > 60; Glucose Random 87 mg/dL (60-115); Sodium 140 mmol/L (135-145); Total Protein 6.4 g/dL (6.5-8.0)
== END 2023-05-13 12:47 | disposition home or self-care (01) ==
LOC: HO.HMGCLDS 12:46
PROVIDERS: PCP Internal Medicine; Visit Provider Internal Medicine
DX: I48.91 Unspecified atrial fibrillation (principal); J44.9 Chronic obstructive pulmonary disease, unspecified; N18.9 Chronic kidney disease, unspecified
CPT/HCPCS: 36415; 80053; 85025

== ENCOUNTER 2023-06-03 08:58 | Outpatient (AMB) | payer MEDICARE, SELFPAY ==
[2023-06-03 09:02] VITALS: BP 110/64; PULSE 78; O2SAT 96; BMI 24.9
--- NOTE | 2023-06-03 09:02 | A.OFFVIS_ITS ---
Intake Vital Signs 06/03/23 09:02 Height 5 ft 9 in Weight 168 lb 10.458 oz BMI 24.9 BP 110/64 Blood Pressure Location Lt brachial Position Sitting Pulse 78 Pulse Source Pulse Oximeter Pulse Oximetry (%) 96 Oxygen Delivery Method Room Air Intake Visit Reasons: COPD Candy Bar Attendant Required: No Outside Installation Machinist: Outside Installation Machinist offered & declined Allergies No Known Allergies Allergy (Verified 06/03/23 09:06) Medication List - Last Reconciled 06/03/23 by Mariela Gomez LPN albuterol sulfate 2.5 mg inhalation QID PRN amoxicillin-pot clavulanate 875-125 mg 1 tab PO BID 10 days apixaban (Eliquis) 5 mg PO BID digoxin 125 mcg PO Q OTHER DAY dorzolamide-timolol 22.3-6.8 mg/mL 1 drp ophthalmic (eye) BID@0900,1800 furosemide (Lasix) 20 mg PO DAILY metoprolol tartrate 25 mg See Protocol PO BID nebulizers As directed simvastatin 10 mg PO BEDTIME tafluprost (PF) (Zioptan (PF)) 1 drp ophthalmic (eye) BEDTIME tamsulosin 0.8 mg PO BEDTIME HPI COPD HPI Details Fidencio is an 88 year old male who is followed for COPD and interstitial lung disease with underlying history of lung cancer s/p partial left lobectomy. Today he is here for a close follow up after having increased dyspnea secondary to large left sided pleural effusion and new onset atrial fibriallation, now on digoxin and metoprolol. He underwent a thoracentesis on 04/29/23 in which 1.16 L of clear yellow fluid was drained. Negative for malignant cells. He had repeat imaging showing recurrent effusion and patient with slowly worsening dyspnea and wheezing. Trialed lasix with no improvevments. Discussed the need for repeat thoracentesis today and patient in agreement. Of note, patient has had significant weight loss over the last few months of greater than 20 lbs in three months. He attributes this to decrease appetite related to loss of taste after COVID in October. He has tried multiple nutritional shakes with minimal improvement. [facility] Medical History (Updated 05/09/23 @ 00:10 by Scar Callahan) COPD (chronic obstructive pulmonary disease) COPD (chronic obstructive pulmonary disease) COVID-19 (~01/14/23) Diverticulitis Glaucoma History of lung cancer Hypercholesterolemia ILD (interstitial lung disease) Normal esophagogastroduodenoscopy (EGD) Osteoarthritis Oxygen dependent Purpura Surgical History H/O colonoscopy History of ERCP History of laparoscopic cholecystectomy History of total left knee replacement S/P lobectomy of lung Status post Pat procedure Family History Mother ALS (amyotrophic lateral sclerosis) Social History Household Members: Significant Other Housing: Apartment Do you presently have visiting nurse or other home services: Yes Alcohol intake: former Patient Tobacco Use Status: Former Tobacco user Quit Date: 12-13 yrs ago Tobacco use type: Cigarette Years Smoked: 20 years Second Hand Smoke Exposure: No Advance Directives Date on File: 04/28/23 service: No Current occupational status: retired Review of Systems Const Denies chills, Denies excessive sweating, Denies fever(s), Denies headache(s), Denies night sweats and Reports weight loss Eyes Details: patient legally blind ENT Reports Normal hearing present, Denies headache(s), Denies nasal congestion, Denies nasal discharge, Denies post nasal drip and Denies sore throat Card Denies chest pain, Denies chest pain at rest, Denies chest pain with activity, Reports irregular heart rhythm, Denies leg edema and Reports dyspnea on exertion Resp Reports cough, Denies hemoptysis, Reports excessive phlegm production, Denies p ain on inspiration, Denies pain with cough, Reports dyspnea on exertion, Denies stridor and Reports wheezing Musc Denies myalgias Neuro Reports Normal hearing present and Denies headache(s) Endo Denies excessive sweating Moustapha/Lymph Denies lymphadenopathy Aller/Immun Denies seasonal rhinorrhea and Reports wheezing Physical Exam Vital Signs: Last Vital Signs Pulse 78 06/03/23 09:02 BP 110/64 06/03/23 09:02 Pulse Ox 96 06/03/23 09:02 Oxygen Delivery Method Room Air 06/03/23 09:02 BMI result Body Mass Index 24.9 Const General: no acute distress and alert Orientation/consciousness: patient oriented x3 HEENT Head: Yes normal to inspection, Yes normocephalic and Yes atraumatic Ears: hearing grossly normal bilaterally and external ears normal Eyes Eyelids: Yes eyelids normal EOM: EOMs intact bilaterally Neck Neck: Yes normal visual inspection and Yes no lymphadenopathy Lymphatic: no lymphadenopathy noted Chest Chest palpation & inspection: normal inspection of the chest Resp Other: diminished lung sounds on lower left Effort & Inspection: normal respiratory effort, able to speak in complete sentences, no audible wheezes, no stridor, not tachypneic, no tripod positioning and no use of accessory muscles Auscultation: no crackles, no rales, rhonchi throughout and diminished lung sounds Cardio Rhythm: abnormal rhythm Skin Other: warm, dry General skin exam: no rashes or lesions noted Neuro General: patient oriented x3 Cranial nerves: Yes Normal hearing present Cognition (Neuro): normal cognition Gait exam (Neuro): Normal gait present Extrem General: Yes normal to inspection, Yes capillary refill normal, Yes no clubbing, cyanosis or edema and Yes no pedal edema Psych Appearance: grossly normal and well kempt Speech and movement: Normal speech and movement present and Clear speech present Affect: normal affect Attitude: cooperative Thought process: Normal thought process present Thought content: Normal thought content present Insight: Good insight present (Psych) Judgement: Good judgement present (Psych) Assessment & Plan Assessment & Plan (1) COPD (chronic obstructive pulmonary disease): Code(s): J44.9 - Chronic obstructive pulmonary disease, unspecified Qualifiers: COPD type: COPD with acute exacerbation Qualified Code(s): J44.1 - Chronic obstructive pulmonary disease with (acute) exacerbation (2) ILD (interstitial lung disease): Code(s): J84.9 - Interstitial pulmonary disease, unspecified (3) Pleural effusion: Code(s): J90 - Pleural effusion, not elsewhere classified Plan Fidencio presents for close follow up regarding recurrent left sided pleural effusion. We discussed the need for repeat thoracentesis due to worsening of symptoms and failed to improve with lasix. Discussed with Dr. Plata and will enter order for thoracentesis as well as cytology. Patient is aware that this is going to be scheduled on an outpatient basis and it may take 1-2 weeks to be scheduled. Notified patient if symptoms worsen to seek emergent care. We discussed the importance of holding Eliquis for three days prior to the procedure as well as the risks associated with holding the medication. He has a follow up with cardiology on 06/08/23, will notify office about upcoming procedure. We also discussed his weight loss and with prior history of cancer the possibility that the recurrent pleural effusion could be related to a neoplastic process. At this time, patient is in agreement of plan and all questions were answered. He will follow up at his regularly scheduled appointment with Dr. Plata next month or sooner if needed. 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
== END 2023-06-03 09:49 | disposition home or self-care (01) ==
PROVIDERS: PCP Internal Medicine; Visit Provider Nurse Practitioner Family
DX: J44.1 Chronic obstructive pulmonary disease with (acute) exacerbation (principal); J84.9 Interstitial pulmonary disease, unspecified; J90 Pleural effusion, not elsewhere classified
CPT/HCPCS: 99214

== ENCOUNTER → 2023-06-03 08:58 | Outpatient (BNVA) | payer MEDICARE, SELFPAY | PROVIDERS: PCP Internal Medicine; Visit Provider Nurse Practitioner Family | DX: J44.1 Chronic obstructive pulmonary disease with (acute) exacerbation (principal); J84.9 Interstitial pulmonary disease, unspecified; J90 Pleural effusion, not elsewhere classified | CPT/HCPCS: 99212 ==

== ENCOUNTER 2023-06-08 08:47 | Day surgery (SDC) | payer MEDICARE, SELFPAY ==
--- NOTE | ~2023-06-08 | XR_ITS ---
EXAMINATION: XR CHEST CLINICAL INFORMATION: Post left thoracentesis COMPARISON: Previous chest x-ray 8 05/12/2023 and chest CTA April 2023 TECHNIQUE: Frontal view of the chest was obtained. FINDINGS: The cardiac and mediastinal contours are stable. There is no pneumothorax post left thoracentesis. There is a moderate residual left pleural effusion. The cardiac and mediastinal contours are stable. There is evidence of previous surgery to the right upper lobe. There are emphysematous changes. There is question of increased interstitial markings at the right lung base. There is a small right pleural effusion. There are degenerative changes of the spine. There are postsurgical changes to the right sixth rib. XR/XR chest 1V IMPRESSION: No pneumothorax post left thoracentesis. Moderate residual left pleural effusion.
--- NOTE | ~2023-06-08 | US_ITS ---
EXAMINATION: Ultrasound-guided thoracentesis CLINICAL INFORMATION: Left pleural effusion COMPARISON: Previous chest x-ray recent 05/12/2023 and chest CTA 05/01/2023 TECHNIQUE: Procedure and risks and benefits including bleeding, infection and pneumothorax were discussed with the patient and informed consent was obtained. The left posterior lateral chest was prepped and draped in the usual sterile fashion. The skin and soft tissues were anesthetized with 1% lidocaine plain. Using ultrasound guidance and a 4 Jamaican one stick system, access to the left pleural effusion was obtained. 1.1 L of serosanguinous fluid was removed. Diagnostic specimen was sent. Post procedure chest x-ray was performed. FINDINGS: There is a large left pleural effusion. US/US thoracentesis IMPRESSION: Ultrasound-guided left thoracentesis.
--- OUTSIDE RECORDS SUMMARY | 2023-06-08 08:50 | XMS_ITS ---
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 339536123 Problem Iron deficiency anemia D50.9 Active 13094096 ALLERGIES No Known Allergies ENCOUNTERS Encounter Location Date Diagnosis [facility] [address] [place] [phone] Apr, Iron deficiency anemia due to chronic blood loss D50.0 and 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 [facility] [address] [place] [phone] March, Iron deficiency anemia due to chronic blood loss D50.0 [facility] Inpatient [address] [place] [id number] Jan, [facility] Outpatient [address] [place] [id number] Jan, [facility] [address] [place] [phone] Jan, [facility] [address] [place] [phone] Jan, [facility] [address] [place] [address] Jan, [facility] [address] [place] [address] Dec, [facility] [address] [place] [address] Dec, Bile leak 576.9 [facility] [address] [place] [address] Dec, [facility] Inpatient [address] [id number] Dec, [facility] Outpatient [address], [place] [id number] March, [facility] ER [address] [place], [place] [id number] Dec, IMMUNIZATIONS Vaccine Route Administration Date Status Influenza Unknown Aug 02, 2021 Administered SOCIAL HISTORY Never Assessed REASON FOR REFERRAL FUNCTIONAL STATUS PLAN OF CARE Activity Details VITAL SIGNS Weight 213 lbs 2022-04-23 Weight 204 lbs 2014-01-25 Height 69.5 in 2022-04-23 Height 69.5 in 2014-01-25 BMI 31.00 kg/m2 2022-04-23 BMI 29.69 kg/m2 2014-01-25 Heart Rate 54 /min 2014-01-25 Temperature 96.9 degrees Fahrenheit Blood pressure systolic 000 mm Hg Blood pressure diastolic 00 mm Hg 2022-04 MEDICATIONS Medication Instructions Dosage Frequency Start Date End Date Du ration Status Simvastatin Acti ve Symbicort Active Timolol Hemihydrate Active Flomax Active PROCEDURES Procedure Date Ordered Result Body Site DOC RSN FOR NOT SCREEN/REC F/U HBP April 23, 2022 Pt scrn tbco id as non user April 23, 2022 UPPER GI ENDOSCOPY, BIOPSY February 27, 2022 DOC MEDS VERIFIED W/PT OR RE April 23, 2022 DIAGNOSTIC COLONOSCOPY February 27, 2022 ENDO CHOLANGIOPANCREATOGRAPH Dec 16, 2013 ENDO CHOLANGIOPANCREATOGRAPH Dec 16, 2013 INIT HOSP-MOD CPLX February 27, 2022 OPERATIVE UPPER GI ENDOSCOPY February 27, 2022 INIT HOSP-HI CPLX Dec 16, 2013 RESULTS Name Result Date Reference Range Ferritin 2022-04-14 Ferritin 66 20-250 Pathology 2022-02-28 FLUOROSCOPY IN OR W IMAGES 2014-02-17 XR KUB 2014-02-03 BASIC METABOLIC PROFILE RANDOM 2013-12-17 NA 141 135-145 K 4.0 3.3-5.1 CL 106 96-108 CO2 26 22-29 ANION GAP 13 12-20 GLUCOSE,RANDOM 116 60-115 BUN 16 9-16 CREATININE 0.83 0.5-1.4 ESTIMATED GFR >60 ESTIMATED CrCl 71.3 CALCIUM 8.0 8.4-10.2 LIVER PROFILE 2013-12-17 PROTEIN, TOTAL 4.4 6.5-8.0 ALBUMIN 2.5 3.5-5.0 BILIRUBIN, TOTAL 1.2 0.0-1.0 BILIRUBIN, DIRECT 0.7 0.0-0.5 ALK. PHOS. 107 39-117 GOT 16 <3-37 GPT 18 <6-40 CBC w/o DIFF 2013-12-17 WBC 5.7 4.8-10.8 RBC 4.35 4.60-5.80 HEMOGLOBIN 12.7 14.0-18.0 HEMATOCRIT 36.5 42-52 MCV 83.9 80-98 MCH 29.2 27.0-33.0 MCHC 34.8 31.0-36.0 PLATELET COUNT 153 160-400 RDW 13.1 11.0-16.0 ERCP 2013-12-16 REASON FOR VISIT Patient presents today for fe def anemia, f/u appt, fe def anemia, BILE LEAK, RE: ERCP, RE; Stent removal, wants his KUB done now, 1 mo. f/u per Dr Dela Cruz, needs f/u in 1 month., Bile leak Insurance Providers Health Insurance Type Health Plan Insurance Address Health Plan Insurance Phone Health Plan Insurance Name Health Plan Coverage Dates Member ID Patient Relationship to Subscriber Patient Address Patient Phone Patient Name Patient Date of Subscriber ID Subscriber Name Subscriber Date of Group No MEDEX ATTN CLAIMS [address] [facility] [address] MEDEX self GRAHAM LIDA [id number] [facility] BLUE BCBS PROFESSION AL CLAIMS [address] [facility] [address] O BLUE self GRAHAM LIDA [id number] MEDICARE OF [place] [address] [facility] [address] MED[place]ARE OF [place] self GRAHAM HILTON [id number] MEDICARE OF [facility] [address] [facility] [address] [phone] MEDICARE OF KHUSHI rene GRAHAM HILTON [id number]
[2023-06-08 08:58] VITALS: BMI 24.8
[2023-06-08 09:22] VITALS: BP 101/65; PULSE 80; RESP 18; TEMP 36.2; O2SAT 95
[2023-06-08 09:24] LABS: MANUAL DIFF FLAG NO
[2023-06-08 09:34] LABS: Basophils Absolute Auto 0.2 X10*3/uL (0.0-0.2); Basophils Percent Auto 2.3 % (0-2); Eosinophils Absolute Auto 0.4 X10*3/uL (0.0-0.4); Eosinophils Percent Auto 5.5 % (0-4); Hematocrit 47.9 % (42.0-52.0); Hemoglobin 14.7 g/dl (14.0-18.0); Imm Gran Abs Auto 0.09 X10*3/uL (0.00-0.03); Imm Gran Pct Auto 1.2 % (0.0-0.4); Lymphocytes Absolute Auto 1.1 X10*3/uL (1.2-4.9); Lymphocytes Percent Auto 14.9 % (20-40); Mean Corpuscular HGB Conc 30.7 g/dl (31.0-36.0); Mean Corpuscular Hemoglobin 25.8 pg (27.0-33.0); Mean Platelet Volume 9.5 fL (9.4-12.4); Monocytes Absolute Auto 0.9 X10*3/uL (0.1-1.2); Monocytes Percent Auto 11.8 % (2-11); Neutrophils Absolute Auto 4.7 x10*3/uL (2.0-8.3); Neutrophils Percent Auto 64.3 % (45-73); Platelet Count 127 X10*3/uL (160-400); Red Cell Distribution Width 17.3 % (11.0-16.0); White Blood Count 7.3 X10*3/uL (4.8-10.8)
[2023-06-08 09:35] LABS: INTERNATIONAL NORM RATIO 1.1 (0.9-1.1); Prothrombin Time 13.2 SEC (11.1-13.3)
[2023-06-08 09:38] LABS: Partial Thromboplastin Time 36.6 SEC (26.0-36.4)
[2023-06-08 11:00] VITALS: BP 111/55; PULSE 81; RESP 18; TEMP 36.7; O2SAT 94
[2023-06-08] MEDS: Lidocaine HCl 1 % MPF 5 ML VIAL SUBCUT (11:03)
[2023-06-08 11:15] VITALS: BP 114/80; PULSE 80; RESP 16; O2SAT 94
[2023-06-08 11:30] VITALS: BP 115/63; PULSE 82; RESP 18; O2SAT 95
[2023-06-08 11:30] LABS: RBC Pleural Fluid 0.023 X10*6/uL; WBC Pleural Fluid 1.645 X10*3/uL
[2023-06-08 12:00] VITALS: BP 117/65; PULSE 81; RESP 18; TEMP 36.8; O2SAT 97
[2023-06-08 12:35] LABS: BF Shift QC OK YES; Eosinophils Pleural Fluid 2 %; Lymphocytes Pleural Fluid 87 %; Monocytes Pleural Fluid 8 %; Other Cells Plerual Fl 3 %
[2023-06-08 22:33] LABS: Glucose Pleural Fluid 83 MG/DL; Total Protein Pleural Fluid 3.3 GM/DL
[2023-06-08 22:34] LABS: LDH Pleural Fluid 116 U/L
== END 2023-06-08 12:17 | disposition home or self-care (01) ==
PROVIDERS: Radiology Diagnostic Radiology; PCP Internal Medicine; Visit Provider Radiology Diagnostic Radiology
DX: J90 Pleural effusion, not elsewhere classified (principal); J84.9 Interstitial pulmonary disease, unspecified; Z85.118 Personal history of other malignant neoplasm of bronchus and lung; I48.91 Unspecified atrial fibrillation; J44.9 Chronic obstructive pulmonary disease, unspecified; Z99.81 Dependence on supplemental oxygen; R63.4 Abnormal weight loss; Z68.24 Body mass index [BMI] 24.0-24.9, adult; Z79.01 Long term (current) use of anticoagulants; Z79.899 Other long term (current) drug therapy; Z87.891 Personal history of nicotine dependence
CPT/HCPCS: 32555; 36415; 71045; 82945; 83615; 84157; 85025; 85610; 85730; 87070; 87073; 87205; 88112; 88305; 88341; 88342; 89051; P9047

== ENCOUNTER → 2023-06-08 09:59 | Outpatient (BNV) | payer MEDICARE, SELFPAY | PROVIDERS: PCP Internal Medicine; Visit Provider Radiology Diagnostic Radiology | DX: J90 Pleural effusion, not elsewhere classified (principal) | CPT/HCPCS: 32555 ==

== ENCOUNTER 2023-06-29 08:37 | Outpatient (AMB) | payer MEDICARE, SELFPAY ==
--- NOTE | 2023-06-29 08:39 | MHC.OFFVIS ---
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 Allergies No Known Allergies Allergy (Verified 06/29/23 08:50) Medication List - Last Reconciled 06/29/23 by Ellie Lozano NP-C albuterol sulfate 2.5 mg inhalation QID PRN apixaban (Eliquis) 5 mg PO BID digoxin 125 mcg PO Q OTHER DAY dorzolamide-timolol 22.3-6.8 mg/mL 1 drp ophthalmic (eye) BID@0900,1800 furosemide (Lasix) 20 mg PO DAILY metoprolol tartrate 25 mg See Protocol PO BID nebulizers As directed simvastatin 10 mg PO BEDTIME tafluprost (PF) (Zioptan (PF)) 1 drp ophthalmic (eye) BEDTIME tamsulosin 0.8 mg PO BEDTIME HPI [facility] F/U PT HPI Details Fidencio is an 88-year-old male with past medical history of hyperlipidemia, lung cancer status post lobectomy, COPD, O2 dependent who was recently admitted to [facility] with increasing shortness of breath and found to have moderate to large left pleural effusion, AFib RVR. He underwent thoracentesis and was treated with heart rate control. He was started on anticoagulation with Eliquis. As outpatient he follows with Dr. Plata for pulmonology. He underwent a repeat thoracentesis on 06/08/23. Today he reports that his breathing is improved since having the 2 thoracentesis done. He says he does have chronic shortness of breath with activity which is his normal. He tells me he does not wear his oxygen all the time and tries to use it only if needed. No chest discomfort at rest or with activity. No heart palpitations, dizziness, presyncope, syncope, PND, orthopnea or edema. He is taking his medications as directed. He is mostly sedentary. He describes recent weight loss of 50 lb in the last 6 months. Tells me that he has no taste and that food is just not appealing. [facility] Medical History COPD (chronic obstructive pulmonary disease) COPD (chronic obstructive pulmonary disease) COVID-19 (~01/14/23) Diverticulitis Glaucoma History of lung cancer Hypercholesterolemia ILD (interstitial lung disease) Normal esophagogastroduodenoscopy (EGD) Osteoarthritis Oxygen dependent Purpura Surgical History H/O colonoscopy History of ERCP History of laparoscopic cholecystectomy History of total left knee replacement S/P lobectomy of lung Status post Pat procedure Family History Mother ALS (amyotrophic lateral sclerosis) Social History Household Members: Significant Other Housing: Apartment Do you presently have visiting nurse or other home services: Yes Alcohol intake: former Patient Tobacco Use Status: Former Tobacco user Quit Date: 12-13 yrs ago Tobacco use type: Cigarette Years Smoked: 20 years Second Hand Smoke Exposure: No Advance Directives Date on File: 04/28/23 service: No Current occupational status: retired Review of Systems Const All systems reviewed & are unremarkable except as noted in HPI and below ENT Denies dizziness Card Denies chest pain, Denies chest pain at rest, Denies chest pain with activity, Denies rapid heart rate, Denies pedal edema, Denies edema, Denies leg edema, Denies lightheadedness, Denies palpitations, Reports dyspnea, Reports dyspnea on exertion and Denies orthopnea Resp Denies cough, Reports dyspnea and Reports dyspnea on exertion GI Denies hematochezia and Denies change in stool character Musc Denies abnormal gait, Reports limited range of motion, Denies muscle cramps, Denies muscle weakness, Denies numbness, Denies radiating pain into limb, Denies stiffness and Denies tingling Neuro Denies abnormal gait, Denies dizziness, Denies numbness and Denies tingling Endo Denies palpitations Physical Exam Vital Signs: BMI result Body Mass Index 23.8 Const General: cooperative, healthy appearing, comfortable and no acute distress Orientation/consciousness: patient oriented x3 Neck Neck: Yes normal visual inspection Resp Effort & Inspection: normal respiratory effort Auscultation: clear to auscultation bilaterally (Diminished left lower lobe 1/2 up), no crackles, no rales, rhonchi (Few scattered on right) and no wheezes Cardio Jugular venous distension: no JVD Rate: regular rate Rhythm: abnormal rhythm Heart sounds: S1 normal heart sound present, S2 normal heart sound present, no gallops, no murmurs and no rubs Neuro General: patient oriented x3 Extrem General: Yes normal to inspection Psych Appearance: grossly normal Mental Status: mental status grossly normal Speech and movement: Normal speech and movement present Office Procedures EKG Details: Today, read by me, atrial fibrillation, low voltage QRS, T-wave abnormality V2, seen on prior EKG, this tracing has artifact as well, rate 96, QTC 449 millisecond [id number], Complete Assessment & Plan Assessment & Plan (1) Atrial fibrillation: Code(s): I48.91 - Unspecified atrial fibrillation Plan: Recent [facility] admission for increasing shortness of breath and found to have large pleural effusion, new onset atrial fibrillation. Echocardiogram showed EF 50-55%. His AFib was treated with heart rate control, initially using diltiazem then changing to metoprolol. He was discharged with metoprolol 25 mg b.i.d., digoxin 0.125 mg every other day. He was put on Eliquis for anticoagulation. An outpatient CBC was done on 06/08/2023 showing hematocrit 47.9. Today he reports no heart palpitations and no issues with bleeding. EKG done today is showing atrial fibrillation, heart rate 96. Will order Holter monitor to assess for heart rate control. Continue medications without change. Cardiology follow-up in 3 months, sooner if needed. (2) Pleural effusion: Code(s): J90 - Pleural effusion, not elsewhere classified Plan: Treated for large left pleural effusion with thoracentesis on 04/29/2023 removing 1.5 L of fluid. As outpatient he again underwent thoracentesis on 06/08/2023 with removal of 1.1 L of fluid with residual moderate left effusion. Pathology of each shows no malignant cells. He is being followed by Dr. Plata and has an outpatient CT scan scheduled for 07/08/2023 with pulmonology follow-up 07/22/2023. At present he reports his breathing is stable. He has chronic shortness of breath with activity but is not requiring his O2 continually. (3) Oxygen dependent: Code(s): Z99.81 - Dependence on supplemental oxygen Plan: Currently using as needed (4) COPD (chronic obstructive pulmonary disease): Code(s): J44.9 - Chronic obstructive pulmonary disease, unspecified Qualifiers: COPD type: COPD with acute exacerbation Qualified Code(s): J44.1 - Chronic obstructive pulmonary disease with (acute) exacerbation Plan: Being followed by Dr. 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
[2023-06-29 08:40] VITALS: BP 92/48; PULSE 96; BMI 23.8
== END 2023-06-29 09:15 | disposition home or self-care (01) ==
PROVIDERS: PCP Internal Medicine; Referring Provider Internal Medicine; Visit Provider Nurse Practitioner Family
DX: I48.91 Unspecified atrial fibrillation (principal); J90 Pleural effusion, not elsewhere classified; Z99.81 Dependence on supplemental oxygen; J44.1 Chronic obstructive pulmonary disease with (acute) exacerbation; Z09 Encounter for follow-up examination after completed treatment for conditions other than malignant neoplasm
CPT/HCPCS: 93010; 99214

== ENCOUNTER → 2023-06-29 08:37 | Outpatient (BNVA) | payer MEDICARE, SELFPAY | PROVIDERS: PCP Internal Medicine; Referring Provider Internal Medicine; Visit Provider Nurse Practitioner Family | DX: I48.91 Unspecified atrial fibrillation (principal); J90 Pleural effusion, not elsewhere classified; J44.1 Chronic obstructive pulmonary disease with (acute) exacerbation; Z79.01 Long term (current) use of anticoagulants; Z99.81 Dependence on supplemental oxygen | CPT/HCPCS: 93005; 99212 ==

== ENCOUNTER 2023-07-08 07:15 | Outpatient (REF) | payer MEDICARE, SELFPAY ==
--- NOTE | ~2023-07-08 | CT_ITS ---
EXAMINATION: CT CHEST WITHOUT CONTRAST CLINICAL INFORMATION: Pleural effusion, not elsewhere classified. COMPARISON: CTA chest 05/01/2023. TECHNIQUE: Multidetector volumetric CT imaging of the chest was done. Axial MIP volume rendering provided. Sagittal and coronal reformatted images were obtained. This CT examination was performed using dose optimization techniques as appropriate, variously including the following: *Automated exposure control *Adjustment of mA and/or kV according to patient size (this includes techniques or standardized protocols for targeted exams where dose is matched to indication/reason for exam; i.e. extremities or head) *Use of iterative reconstruction technique DLP: 197 mGy-cm. FINDINGS: BUSINESS DEVELOPMENT EXECUTIVE: There is a large opacity along the left CP angle likely pleural effusion. LUNGS: There is centrilobular emphysema. Right upper lobe post lobectomy changes are noted with expanded right middle lobe and lower lobe but no mediastinal shift. There is a large right lower lobe bulla and bullous changes in the lung base. Chronic scarring/atelectasis and postsurgical changes left lung apex, unchanged to CT chest from 04/28/2023. There is mild bronchial wall thickening and minimal mucous plugging in both lung bases. There is left basilar compressive atelectasis from large pleural effusion. MEDIASTINUM: Heart size and the great vessels are normal caliber. There is mild coronary artery and dense mitral valve calcification. Small anterior pericardial effusion is seen. No abnormal-sized mediastinal or hilar lymph nodes seen. Central trachea is widely patent. The thyroid lobes are symmetrical and normal. CORONARY ARTERY CALCIFICATION: Mild coronary artery calcification seen. PLEURA: Gunoyjas-jx-lymtv left pleural effusion. No pleural calcification or thickening visualized. AXILLA: Small shotty lymph nodes seen in the axilla. The chest wall is unremarkable. UPPER ABDOMEN: Visualized liver, spleen, pancreas and bilateral adrenal glands are unremarkable. OSSEOUS STRUCTURES: No aggressive lytic or sclerotic process seen. There is mild ventral spondylosis throughout the dorsal spine with exaggerated thoracic kyphosis. CT/CT chest wo IV con IMPRESSION: 1. [id number]-[id number] left pleural effusion with compressive atelectasis left lower lobe. 2. Right upper lobe post lobectomy changes with expanded right middle lobe and lower lobe but no mediastinal shift. 3. There is a large right lower lobe bulla and bullous changes in the right lung base. There is chronic scarring or atelectasis in left lung apex. No suspicious mass or pulmonary nodule. 4. There is mild bronchial wall thickening with minimal mucous plugging in both lung bases, stable to last exam 05/01/2023. 5. Small anterior pericardial effusion, stable. Fleischner guidelines were followed.
[2023-07-08 11:49] LABS: MANUAL DIFF FLAG NO
[2023-07-08 12:03] LABS: Basophils Absolute Auto 0.2 X10*3/uL (0.0-0.2); Eosinophils Absolute Auto 0.3 X10*3/uL (0.0-0.4); Eosinophils Percent Auto 3.2 % (0-4); Hemoglobin 15.7 g/dl (14.0-18.0); Imm Gran Abs Auto 0.08 X10*3/uL (0.00-0.03); Imm Gran Pct Auto 0.8 % (0.0-0.4); Lymphocytes Absolute Auto 1.3 X10*3/uL (1.2-4.9); Lymphocytes Percent Auto 13.3 % (20-40); Mean Corpuscular HGB Conc 31.4 g/dl (31.0-36.0); Mean Corpuscular Hemoglobin 26.2 pg (27.0-33.0); Mean Corpuscular Volume 83.3 fL (80.0-98.0); Mean Platelet Volume 10.5 fL (9.4-12.4); Monocytes Percent Auto 10.3 % (2-11); Neutrophils Percent Auto 70.4 % (45-73); Platelet Count 153 X10*3/uL (160-400); Red Cell Distribution Width 17.2 % (11.0-16.0); White Blood Count 9.9 X10*3/uL (4.8-10.8)
[2023-07-08 12:20] LABS: Alanine Aminotransferase 11 U/L (0-40); Alkaline Phosphatase 89 U/L (39-117); Anion Gap 15 (12-20); Aspartate Amino Transferase 18 U/L (5-37); Bilirubin Total 1.1 mg/dL (0.0-1.0); Blood Urea Nitrogen 32 mg/dL (9-16); Calcium 9.9 mg/dL (8.4-10.2); Carbon Dioxide 26 mmol/L (22-29); Chloride 106 mmol/L (96-108); Estimated Glomerular Filt Rate 56; Glucose Random 95 mg/dL (60-115); Potassium 4.9 mmol/L (3.3-5.1); Sodium 142 mmol/L (135-145); Total Protein 6.8 g/dL (6.5-8.0)
== END 2023-07-08 07:16 | disposition home or self-care (01) ==
LOC: HO.CT 07:15
PROVIDERS: Nurse Practitioner Family; Visit Provider Hospitalist
DX: J90 Pleural effusion, not elsewhere classified (principal); R06.00 Dyspnea, unspecified; D64.9 Anemia, unspecified
CPT/HCPCS: 36415; 71250; 80053; 85025

== ENCOUNTER 2023-07-15 11:11 | Outpatient (AMB) | payer MEDICARE, SELFPAY ==
[2023-07-15 11:44] VITALS: BP 100/60; PULSE 77; O2SAT 96; BMI 23.8
--- NOTE | 2023-07-15 11:44 | A.OFFVIS_ITS ---
Intake Vital Signs 07/15/23 11:44 Height 5 ft 9 in Weight 160 lb 14.999 oz BMI 23.8 BP 100/60 Blood Pressure Location Lt brachial Position Sitting Pulse 77 Pulse Source Pulse Oximeter Pulse Oximetry (%) 96 Oxygen Delivery Method Room Air Intake Visit Reasons: CT Chest Results Allergies No Known Allergies Allergy (Verified 07/15/23 11:48) HPI HPI Comments History of Present Illness Details The patient is an 88-year-old gentleman known COPD and also chronic respiratory failure on oxygen. She still developing dyspnea on exertion moderate severity. Does get some relief from the oxygen at times. He also continues to have cough. Cough is usually worse in the morning. We talked about making sure that he sleeps elevated to avoid pulling from the post nasal drip. He has been using budesonide and Perforomist but feels that they take too long. He is wondering if he should be using a mesh type of nebulizer. I advised him the this does not work well for his medications. However, I did provide him with a clive nebulizer kit. He continues using Mucinex as needed with good effect. He did have a chest x-ray that was read as normal. However, I did look at it myself in appears to have some hazy opacity in the right base. Increased interstitial markings an on decreased volume on the right hemithorax. Therefore, this x-rays in the abnormal specially when compared to previous and will have a repeated after we treat him with antibiotics and prednisone. In the meantime we talked about his chest x-ray that was to consider to be abnormal back in November 2019 and he is due to have a follow-up x-ray to see if there is any progression of the interstitial disease. I did send him a requisition to get an x-ray in the coming month in follow-up sometime after that. 07/27/2020 The patient is here for a follow up visit. He has been complaining of adverse effects from his nebulized medication. The budesonide is resulting in thrush and the performomist is worsening his cough. He does not want to continue that medicine. He did respond well to the trelegy and will place him back on that. He does complaining of dyspnea on exertion, mild to moderate. Does improve with the use of oxygen and rest. LAst CXR 04/2020 was jem husain. 01/25/2021 the patient is here for pulmonary follow-up visit. Since we last spoke she was having issues with his nebulized therapy getting significant symptoms. Therefore, he opted stopping the budesonide and Perforomist and restarted on the Trelegy inhaler. This is been very effective for him. He continues to have wheezing and cough although much better than before. Denies any significant shortness of breath, mild with activity. He continues to stay active as much as possible. Recently get vaccinated for the COVID-19 infection is happy about that as well. On examination he still has wheezing on exhalation so therefore will increase his his inhaler to the higher dose. 07/15/2021 the patient is here for a pulmonary follow-up visit. Overall he is doing okay. Continues to have a productive cough with chest congestion. He did stop the azithromycin. He slowly wean himself off. He did not feel like he was make much difference. He also had been on it for a while. He does continue on his respiratory therapy. The patient does have evidence of chronic bronchitis. He will be a good candidate for Daliresp in order to decrease flares and decrease prednisone need. He will start the medications slowly at the lowest dose to see that he can not tolerated. In the meantime he does use Mucinex as needed. The Trelegy inhaler has been helpful. 10/14/2021 the patient is here for a pulmonary follow-up visit. He continues to have productive cough. Seems like since he started the Daliresp he started coughing up more secretions. He is tolerating the lower dose of 250 mcg. He also had been on azithromycin previously. We work to get a sputum sample and sent for culture. In the meantime I did encourage him to continue on the Daliresp increase it to the full dose of 500 mcg to see if he has a more positive results. He continues on the Trelegy inhaler. On examination today however he does have increased wheezing. I did encourage him to him to use a nebulizer but I did not he needs a short-term prednisone taper. 12/20/2021 the patient is here for a pulmonary follow-up visit. He is complaining of worsening dyspnea on exertion. Moderate severity. Even with simple sure she is getting very winded. He was having a good response with the Daliresp. He was able to clear the mucus very well and was also help him lose weight. However when he went to fill it again it was 400 dollars due to his deductible. After his adductor was only 30 dollars. Therefore he was not able to fill it. Will go ahead and send him a prednisone to the pharmacy. Will put him on low-dose maintenance amount of prednisone to help him with the significant chronic bronchitis and wheezing. 02/12/2022 the patient is here for sick visit. Still complaining that he is not doing any better. Complains of persistent cough with chest congestion. The Trelegy has not been helpful. The Daliresp has been partially helpful. He did talk to his son was recommended that he start hypertonic saline. I do fully with his son the hypertonic saline his a good option for chest physical therapy and bronchopulmonary hygiene. But also because of his bronchospasm is a can also result in worsening bronchospasms. Therefore, he needs to uses bronchodilator prior to the hypertonic saline. the patient does have wheezing on examination. He does not want have to take prednisone again. Therefore will go back to the budesonide twice a day along with DuoNeb. As long as he is doing this he does not have to use the Trelegy. After the nebulized therapy he can use the hypertonic saline followed by the Acapella valve. I will request 1 from the [email or web address]. we did review his recent chest x-ray. Does have some hyperinflation of the lungs consistent with COPD. We can also consider a CT scan of the chest to better assess the airways. We could also consider bronchoscopy if the patient is no better. 02/25/2022 the patient is here for sick visit. Apparently he has been having worsening dyspnea on exertion. Seems that the cough has improved on the respiratory therapy but is his does notice that his shortness of breath even at rest. He feels like he should be on oxygen. He had been on oxygen before but then it was returned since he did not feel like he needed it. This point we had him come back for 6 minute walk test. Under brief walking oximetry the patient did desaturate down to 88% with activity and did benefit from oxygen at 2 L with activity. Of Will request that he starts oxygen supplementation at this time. Will make the arrangements with local [employer] company in order for him to have the oxygen delivered. In the meantime he looks very pale to me his conjunctiva appear to be very pale. Therefore I am also concerned for the possibility of other etiologies causing him to be dyspneic. The patient apparently did have blood work relatively recent but I do not have the results either at [place] nor at [facility]. Therefore prior to him leaving the hospital I will have him get blood work to assess his hemoglobin make sure that he is not anemic with the worsening dyspnea symptoms. The patient continue with current respiratory therapy. He also had a recent chest x-ray in the last few weeks which demonstrated hyperinflation COPD but otherwise no acute disease. He also had an EKG prior to arrival demonstrating no acute changes and no evidence of any ischemia. He has QT intervals also stable in order for him to tolerate the macrolide therapy. 04/16/2022 the patient is here for a pulmonary follow-up visit. Since we last spoke his want to have a critically low hemoglobin. He was admitted to the hospital and transfused 2 units. He did undergo a GI workup. Now is no longer bleeding. The patient had a hemoglobin checked to be 13.4 the last time was checked recently which is excellent. His energy level and exercise capacity significantly better. He still has a cough in moderate mucus production. But overall better. He is wondering if he should try going back inhaler therapy. At this point will be reasonable for him to travel out of try to find him something generic that is less expensive. If the inhaler therapy is not effective then he can go back on his nebulized therapy. I have given him some instructions on how to transition from the nebulized therapy to the inhaler. In the meantime he no longer needs the azithromycin. Seems that he is already exercise regularly. also to note was the patient was discharged from the hospital after the blood transfusions his breathing significantly improved and the patient no longer required oxygen. 07/16/2022 the patient is here for pulmonary follow-up visit. He continues to do very well. His shortness of breath has improved significantly. He is walking 2 miles a day. It is all since the had his hemoglobin corrected. After the blood transfusions in the hospitalizations he did develop a rash. Appears to be petechial in nature. He did follow-up with Rheumatology. Does not appear to be any worse and platelet function appears to be adequate. The patient responded well to prednisone. In the meantime from a respiratory status the patient had been on Symbicort. However, it made him cough more therefore stopped it. We switched him back to Trelegy. He seems to do very well on Trelegy response very good. Although last night he had a coughing fit while lying flat. We did talk about making sure that he is sleeping elevated. He does have a positional bed. His lungs sound good adherence significant wheezing or rhonchi to explain the episode last night although that was only transient. After that he has been doing okay. Denies any fevers or chills and denies any sick contacts. At this point will going to continue with current respiratory therapy. However, if the cough recurs or worsens he is to call the office in order to address it. 01/14/2023 the patient is here for a pulmonary follow-up visit. The patient recently had COVID-19 about 3-4 weeks ago. He did take the antiviral medication. And has been using his nebulized therapy. Since he has had COVID he has had significant weight loss about 20 lb. He cannot taste food well because of the metallic taste in his mouth. His mouth is also very dry and raw. He complains of significant coughing difficult to expectorate phlegm. He also has chest tightness and wheezing. He could not a longer afford the Trelegy so therefore he went back on his nebulized therapy. I do believe that DuoNeb is causing more dryness of his mouth in addition to stomatitis that he probably developed COVID-19. The patient looks very frail right now. He is also trying to help his who fell and fractured the hip and now is back home. He has other children that helping him with the medical issues right now. The patient has a significant weight loss in appears to be malnourished. I did give him some coupons for nutritional shakes. He does have some home. I do believe that he needs follow-up with his primary care doctor as well. In the meantime he did undergo blood work which was reassuring and also underwent an x-ray which was unchanged with COPD. 02/12/2023 the patient is here for a pulmonary follow-up visit. Overall the patient has been slowly improving. His chest congestion has improved in his mouth issues also have improved. He still having wheezing at nighttime and also coughing at night. He does continue the albuterol. A he does that once or twice a day. Will go ahead and start him on Symbicort with hopes that we can decrease some of the wheezing. We did review his imaging studies in no reassuring. He also complains of dyspnea on exertion. [id number] severity. He walks around 1-2 miles a day. More he does complaint of the chest congestion the mucus that is sticky. Will go ahead and try him on azithromycin for treatment of chronic bronchitis we can do that for 4-6 weeks to see if he tompkins s any improvement with that. 07/15/2023 the patient is here for a pulmonary follow-up visit. He continues to have significant weight loss, poor appetite and shortness of breath. He did undergo a thoracentesis draining partial of the effusion. The effusion appears to be lymphocytic predominant. Hard to know for sure if is an exudative process specially with his history of heart failure. We did request a CT scan of the chest after his thoracentesis. Still however, the still a moderate-size effusion difficult to assess if there is any occult malignancy that could explain his underlying symptoms and findings. Therefore, I do believe the patient would benefit from a video-assisted thoracoscopy with pleural biopsies and likely pleurodesis. Will go ahead and refer him to thoracic surgery to see if they can facilitate the procedure. In the meantime the patient has had worsening cough productive in nature. Very congested. Will go ahead and start him on some antibiotics to treat him for bronchitis to try to improve his overall respiratory status. [facility], [facility] Medical History COPD (chronic obstructive pulmonary disease) COPD (chronic obstructive pulmonary disease) COVID-19 (~01/14/23) Diverticulitis Glaucoma History of lung cancer Hypercholesterolemia ILD (interstitial lung disease) Normal esophagogastroduodenoscopy (EGD) Osteoarthritis Oxygen dependent Purpura Surgical History H/O colonoscopy History of ERCP History of laparoscopic cholecystectomy History of total left knee replacement S/P lobectomy of lung Status post Pat procedure Family History Mother ALS (amyotrophic lateral sclerosis) Social History Household Members: Significant Other Housing: Apartment Do you presently have visiting nurse or other home services: Yes Alcohol intake: former Patient Tobacco Use Status: Former Tobacco user Quit Date: 12-13 yrs ago Tobacco use type: Cigarette Years Smoked: 20 years Second Hand Smoke Exposure: No Advance Directives Date on File: 04/28/23 service: No Current occupational status: retired Review of Systems Const Denies daytime sleepiness, Reports fatigue, Denies night sweats, Reports poor appetite and Reports weight loss Eyes Denies change in vision ENT Denies change in voice, Reports dizziness, Denies dry mouth, Denies lip swelling, Denies mouth lesions, Denies mouth pain, Reports nasal congestion, Reports nasal discharge and Denies tongue swelling Card Denies chest pain, Denies dyspnea and Reports dyspnea on exertion Resp Reports chest congestion, Reports cough, Denies dyspnea, Reports dyspnea on exertion and Reports wheezing GI Denies abdominal pain Musc Denies no additional complaints and Reports muscle weakness Neuro Denies Neuro-related abnormal movements and Reports dizziness Psych Denies no additional complaints Endo Reports fatigue Moustapha/Lymph Denies easy bleeding and Denies lymphadenopathy Aller/Immun Denies lip swelling, Denies tongue swelling and Reports wheezing Physical Exam Vital Signs: Last Vital Signs Pulse 77 07/15/23 11:44 BP 100/60 07/15/23 11:44 Pulse Ox 96 07/15/23 11:44 Oxygen Delivery Method Room Air 07/15/23 11:44 BMI result Body Mass Index 23.8 Const General: awake, ill appearing and tired appearing Nutritional Appearance: underweight HEENT Mouth: Abnormal oral and palatal mucosa present erythematous Eyes Conjunctivae: conjunctival abnormal bilateral pallor Neck Neck: Yes normal visual inspection, Yes full ROM and Yes no lymphadenopathy Chest Chest palpation & inspection: normal inspection of the chest Resp Auscultation: no rhonchi, no wheezes and diminished lung sounds Cardio Rate: regular rate Rhythm: regular rhythm Heart sounds: S1 normal heart sound present and S2 normal heart sound present GI Palpation (GI): Soft to palpation and nontender Auscultation: normal bowel sounds Skin General skin exam: petechiae Assessment & Plan Assessment & Plan (1) COPD (chronic obstructive pulmonary disease): Code(s): J44.9 - Chronic obstructive pulmonary disease, unspecified Qualifiers: COPD type: COPD with acute exacerbation Qualified Code(s): J44.1 - Chronic obstructive pulmonary disease with (acute) exacerbation (2) ILD (interstitial lung disease): Code(s): J84.9 - Interstitial pulmonary disease, unspecified (3) Oxygen dependent: Code(s): Z99.81 - Dependence on supplemental oxygen (4) Dyspnea: Code(s): R06.00 - Dyspnea, unspecified Qualifiers: Dyspnea type: dyspnea on exertion Qualified Code(s): R06.09 - Other for ms of dyspnea (5) Pleural effusion: Comment: lymphocytic predominant Code(s): J90 - Pleural effusion, not elsewhere classified Plan Thoracic surgery referral for ?VATS and pleural biopsies and pleurodesis continue albuterol BID and as needed continue Symbicort BID stop Azithromycin MWF start Augmentin sleep with HOB elevated continue PPI F/U 4 months Orders: Referrals Thoracic Surgery Referral J90 - Pleural effusion, not elsewhere classified Medications: New amoxicillin-pot clavulanate 875-125 mg 1 tab PO BID 10 days 20 tabs 0RF Coding Level of Care Code Est Pt Level 5 (28442) Diagnoses Chronic obstructive pulmonary disease with acute exacerbation J44.1 COPD type: COPD with acute exacerbation ILD (interstitial lung disease) J84.9 Oxygen dependent Z99.81 Dyspnea on exertion R06.09 Dyspnea type: dyspnea on exertion Pleural effusion J90 Time Spent (min) 45
== END 2023-07-15 13:23 | disposition home or self-care (01) ==
PROVIDERS: PCP Internal Medicine; Visit Provider Hospitalist
DX: J44.1 Chronic obstructive pulmonary disease with (acute) exacerbation (principal); J84.9 Interstitial pulmonary disease, unspecified; Z99.81 Dependence on supplemental oxygen; J90 Pleural effusion, not elsewhere classified
CPT/HCPCS: 99215

== ENCOUNTER → 2023-07-15 11:11 | Outpatient (BNVA) | payer MEDICARE, SELFPAY | PROVIDERS: PCP Internal Medicine; Visit Provider Hospitalist | DX: J90 Pleural effusion, not elsewhere classified (principal); R06.09 Other forms of dyspnea; J84.9 Interstitial pulmonary disease, unspecified; J44.1 Chronic obstructive pulmonary disease with (acute) exacerbation; Z99.81 Dependence on supplemental oxygen | CPT/HCPCS: 99212 ==

== ENCOUNTER 2023-07-17 09:43 | Outpatient (AMB) | payer MEDICARE, SELFPAY ==
--- NOTE | 2023-07-17 10:12 | MHC.OFFVIS ---
Intake Vital Signs 07/17/23 10:13 Height 5 ft 9 in Weight 165 lb BMI 24.4 BP 100/60 Blood Pressure Location Lt brachial Position Sitting Intake Visit Reasons: Pleural Effusion Allergies No Known Allergies Allergy (Verified 07/17/23 10:46) Medication List - Last Reconciled 07/17/23 by Dann Ndiaye MD albuterol sulfate 2.5 mg inhalation QID PRN amoxicillin-pot clavulanate 875-125 mg 1 tab PO BID 10 days apixaban (Eliquis) 5 mg PO BID digoxin 125 mcg PO Q OTHER DAY dorzolamide-timolol 22.3-6.8 mg/mL 1 drp ophthalmic (eye) BID@0900,1800 furosemide (Lasix) 20 mg PO DAILY metoprolol tartrate 25 mg See Protocol PO BID nebulizers As directed simvastatin 10 mg PO BEDTIME tafluprost (PF) 0.0015% (Zioptan (PF)) 1 drp ophthalmic (eye) BEDTIME tamsulosin 0.8 mg PO BEDTIME HPI Pleural Effusion HPI Details 88-year-old man former smoker quit 25 years ago had a right upper lobectomy by thoracotomy [place] [address] Nagel's who recently has developed unintentional weight loss, poor appetite, and generalized fatigue/shortness of breath. He has had 2 thoracentesis for a large left pleural effusion after which the 1st 1 he tell me he felt much better but after the 2nd 1 he did not feel much better as not all the fluid was removed at that time. The fluid was lymphocyte rich and difficult to say whether exudate of or transudative. He had a CT scan after his last thoracentesis on 07/08/2023 which was a moderate to large left pleural effusion and postoperative changes on the right side. As above he does report weight loss decreased appetite but denies fevers chills soaking sweats or fatigue. He denies chest pain or hemoptysis. He does report shortness of breath with activity wheezing and a persistent cough. He denies any new neurologic symptoms. Of note he is on Eliquis. [facility] Medical History Atrial fibrillation (~04/2023) History of adenocarcinoma of lung (~2009) ILD (interstitial lung disease) Oxygen dependent COPD (chronic obstructive pulmonary disease) History of COVID-19 (~12/2022) Purpura Osteoarthritis Diverticulitis Hypercholesterolemia Glaucoma Surgical History History of lung surgery (~04/2010) History of thoracentesis (~2022) History of laparoscopic cholecystectomy (~12/2013) History of ERCP (~2013) History of partial colectomy (~12/2014) History of colostomy reversal (~03/2015) History of esophagogastroduodenoscopy (EGD) History of colonoscopy History of meniscectomy of left knee (~2013) History of total left knee replacement (~12/2014) Family History Mother ALS (amyotrophic lateral sclerosis) Social History Household Members: Significant Other Housing: Apartment Do you presently have visiting nurse or other home services: Yes Alcohol intake: former Patient Tobacco Use Status: Former Tobacco user Quit Date: 12-13 yrs ago Tobacco use type: Cigarette Years Smoked: 20 years Second Hand Smoke Exposure: No Advance Directives Date on File: 04/28/23 service: No Current occupational status: retired Physical Exam Vital Signs: Last Vital Signs BP 100/60 07/17/23 10:13 BMI result Body Mass Index 24.4 General: No acute distress HEENT: Moist mucous membranes, normocephalic, pupils equal round and reactive to light. Neck: No thyromegaly, supple, no JVD Lymph: No cervical, supraclavicular, or other lymphadenopathy Chest: No chest wall abnormalities or deformities well-healed thoracotomy scar on the right Heart: Regular rate and rhythm Lungs: Clear to auscultation bilaterally Abdomen: Soft, nontender, normal bowel sounds Extremities: No edema, cyanosis, or clubbing. Full range of motion Neuro: Grossly intact, alert and oriented x3, and nonfocal Skin: Warm and dry no rashes Affect: Normal Assessment & Plan Assessment & Plan (1) Pleural effusion: Onset Date: ~2022 Comment: (lymphocytic predominant - [id number] left pleural effusion - s/p thoracentesis 04/28/23 & 06/08/23) Code(s): J90 - Pleural effusion, not elsewhere classified Plan: 88-year-old man with recurrent left pleural effusions of unknown etiology in the setting of a history of right-sided lung cancer. I had a long discussion with him and his son about pleural effusions in general and how their causes can be from various different organs for example the heart/liver/or kidney versus infectious or malignant causes. Options for recurrent pleural effusions were discussed including repeated thoracentesis versus IR PleurX catheter versus surgical pleurodesis/PleurX/pleural biopsy. The risks and benefits of each of these were discussed in detail and he wants to proceed with the surgical option. Plan then will be for Davinci left-sided pleurodesis, pleural biopsy, and pleural biopsy probably in mid August. Given his symptoms now will plan on getting him a thoracentesis next week. He he will need to stop his Eliquis for both the thoracentesis and the surgery for 2 days prior at least. 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 All questions were answered. (2) Atrial fibrillation: Onset Date: ~04/2023 Code(s): I48.91 - Unspecified atrial fibrillation Plan: Hold Eliquis for at least 2 days prior to any procedure or operation. (3) History of adenocarcinoma of lung: Onset Date: ~2009 Comment: (hx RUL Adenocarcinoma Stage 1 - T2aN0 - s/p RUL wedge 04/2010) Code(s): Z85.118 - Personal history of other malignant neoplasm of bronchus and lung Coding Level of Care Code New Pt Level 5 (15401) Diagnoses Pleural effusion J90 Atrial fibrillation I48.91 History of adenocarcinoma of lung Z85.118
[2023-07-17 10:13] VITALS: BP 100/60; BMI 24.4
== END 2023-07-17 10:57 | disposition home or self-care (01) ==
PROVIDERS: PCP Internal Medicine; Visit Provider Surgery
DX: J90 Pleural effusion, not elsewhere classified (principal); I48.91 Unspecified atrial fibrillation; Z85.118 Personal history of other malignant neoplasm of bronchus and lung

== ENCOUNTER → 2023-07-17 09:43 | Outpatient (BNVA) | payer MEDICARE, SELFPAY | PROVIDERS: PCP Internal Medicine; Visit Provider Surgery | DX: J90 Pleural effusion, not elsewhere classified (principal); I48.91 Unspecified atrial fibrillation; Z85.118 Personal history of other malignant neoplasm of bronchus and lung | CPT/HCPCS: 99202 ==

== ENCOUNTER 2023-08-19 09:26 | Outpatient (REF) | payer MEDICARE, SELFPAY ==
[2023-08-19 13:22] LABS: MANUAL DIFF FLAG NO
[2023-08-19 14:02] LABS: Basophils Absolute Auto 0.2 X10*3/uL (0.0-0.2); Basophils Percent Auto 1.9 % (0-2); Eosinophils Absolute Auto 0.2 X10*3/uL (0.0-0.4); Eosinophils Percent Auto 2.3 % (0-4); Hematocrit 46.4 % (42.0-52.0); Hemoglobin 14.1 g/dl (14.0-18.0); Imm Gran Abs Auto 0.06 X10*3/uL (0.00-0.03); Imm Gran Pct Auto 0.7 % (0.0-0.4); Lymphocytes Absolute Auto 1.2 X10*3/uL (1.2-4.9); Lymphocytes Percent Auto 14.8 % (20-40); Mean Corpuscular HGB Conc 30.4 g/dl (31.0-36.0); Mean Corpuscular Hemoglobin 25.8 pg (27.0-33.0); Mean Corpuscular Volume 84.8 fL (80.0-98.0); Mean Platelet Volume 9.9 fL (9.4-12.4); Monocytes Absolute Auto 0.7 X10*3/uL (0.1-1.2); Monocytes Percent Auto 8.2 % (2-11); Neutrophils Percent Auto 72.1 % (45-73); Platelet Count 139 X10*3/uL (160-400); Red Blood Count 5.47 X10*6/uL (4.60-5.80); Red Cell Distribution Width 16.8 % (11.0-16.0); White Blood Count 8.3 X10*3/uL (4.8-10.8)
[2023-08-19 14:25] LABS: Vitamin D 25-OH Total 28.4 ng/mL (>30)
[2023-08-19 14:43] LABS: Anion Gap 15 (12-20); Blood Urea Nitrogen 23 mg/dL (9-16); Calcium 9.4 mg/dL (8.4-10.2); Carbon Dioxide 22 mmol/L (22-29); Chloride 106 mmol/L (96-108); Estimated Glomerular Filt Rate > 60; Glucose Random 108 mg/dL (60-115); Potassium 4.2 mmol/L (3.3-5.1); Sodium 139 mmol/L (135-145)
== END 2023-08-19 09:27 | disposition home or self-care (01) ==
LOC: HO.HMGCLDS 09:26
PROVIDERS: PCP Internal Medicine; Visit Provider Physician Assistant
DX: J90 Pleural effusion, not elsewhere classified (principal); N17.9 Acute kidney failure, unspecified
CPT/HCPCS: 36415; 80048; 82306; 85025

== ENCOUNTER 2023-09-12 11:42 | Emergency (ER) | payer MEDICARE, SELFPAY ==
--- NOTE | ~2023-09-12 | XR_ITS ---
EXAMINATION: XR CHEST CLINICAL INFORMATION: Left-sided effusion. COMPARISON: CT chest 07/08/2023. Chest radiograph 06/08/2023. TECHNIQUE: AP view of the chest was obtained. FINDINGS: Chronic moderate size left-sided pleural effusion. Postoperative changes with surgical anastomotic sutures projecting over the right upper lobe. Background of significant chronic interstitial coarsening with emphysematous changes and bullous distortion. Chronic focal peripheral interstitial coarsening in the lateral right lung base. Unchanged mild focal hazy opacities projecting over the right lower lobe. Chronic biapical subpleural thickening/scarring. Equivocal increase focal hazy opacities in the right lower lobe. No significant pneumothorax. Unchanged cardiomediastinal silhouette. No acute osseous findings. XR/XR chest 1V IMPRESSION: Complex examination, not significantly changed. Grossly unchanged chronic moderate left-sided pleural effusion. Overall similar appearance of significant emphysematous changes with multifocal distortion, as well as postoperative changes in the right upper lobe.
[2023-09-12 12:11] VITALS: BP 80/40; BP 90/60; PULSE 80; PULSE 92; RESP 18; TEMP 37.2; O2SAT 100; O2SAT 95; BMI 22.9
--- NOTE | 2023-09-12 12:20 | ECG_ITS ---
Test Reason : HYPOTENTION Blood Pressure : / mmHG Vent. Rate : 085 BPM Atrial Rate : 000 BPM P-R Int : 000 ms QRS Dur : 092 ms QT Int : 358 ms P-R-T Axes : 000 046 059 degrees QTc Int : 426 ms Atrial fibrillation Low voltage QRS Incomplete right bundle branch block Abnormal ECG When compared with ECG of 28-APR-2023 14:28, Nonspecific T wave abnormality no longer evident in Inferior leads Premature ventricular complexes is no longer Present Referred By: Generic ED Physician Electronically Signed By:HOA CURTIS MD
--- OUTSIDE RECORDS SUMMARY | 2023-09-12 13:22 | XMS_ITS | Patient Health Record ---
Author Name Unknown Organization [facility] Address [address] [place] [address] Care Team Providers Care Vessel Specialist Name Role Phone Jomar Sung MD Primary Care Provider Vikram Joel Jr Unavailable ALLERGIES No Known Allergies REASON FOR REFERRAL No Information MEDICATIONS Medication SIG (Take, Route, Fr equency, Duration) Notes Start Date End Date Status Timolol Hemihydrate Active Flomax Active Simvastatin Active Symbicort Active IMMUNIZATIONS Vaccine Route Administration Date Status Comme nts Influenza Unknown 08/02/2021 Administered SOCIAL HISTORY Sex Assigned At : Social History Observation Description Sex Assigned At Unknown PROBLEMS Problem Type ICD Code Onset Dates Problem Status W/U Status Risk SNOMED Code Notes Problem Iron deficiency anemia (D50.9) Active confirmed Iron deficiency anemia (48124251) Problem 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) Active confirmed 984800038 Problem 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 [id number] PLAN OF TREATMENT Pending Test Test Name Order Date IRON + IBC (FE) 03/06/2022 FERRITIN 03/06/2022 CBC w/o DIFF 03/06/2022 Future Test Test Name Order Date ERCP CHANGE OF STENT OR TUBE 01/25/2014 Insurance Providers Payer Name Payer Address Payer Phone Subscriber Number Group Number Insured Name Patient Relationship to Insured Coverage Start Date Coverage End Date [place] [address] [place] [id number] [id number] GRAHAM HILTON Self - patient is the insured [employer] ATT[employer] CLAIMS [address] [place] [phone] [id number] GRAHAM HILTON Self - patient is the insured MEDICAL (GENERAL) HISTORY Medical History History ICD Code Colonoscopy 02/28/22, diverticulosis, fol lowup p.r.n. EGD 02/28/22, gastric AVM cau terized, duodenal biopsies show duodenitis, treated with omeprazole Macular degeneration COPD Hyperlipidemia BPH Lung cancer Liver abscess, drainage by CT Legally blind Surgical History Surgery Date(Month/Year) right lung surgery in [address] f [address] Morton. This was followed by chemotherapy with Dr Holguin for 3 months. Cholecystectomy Hospitalization History Reason Date(Month/Year) Iron deficiency anemia, 2 un its packed red blood cell transfusion, EGD/colonoscopy as above 02/18
[2023-09-12 14:21] LABS: MANUAL DIFF FLAG NO
[2023-09-12 14:23] LABS: Basophils Absolute Auto 0.1 X10*3/uL (0.0-0.2); Basophils Percent Auto 1.6 % (0-2); Eosinophils Absolute Auto 0.1 X10*3/uL (0.0-0.4); Eosinophils Percent Auto 2.1 % (0-4); Hematocrit 35.7 % (42.0-52.0); Hemoglobin 11.1 g/dl (14.0-18.0); Imm Gran Abs Auto 0.04 X10*3/uL (0.00-0.03); Imm Gran Pct Auto 0.6 % (0.0-0.4); Lymphocytes Absolute Auto 0.9 X10*3/uL (1.2-4.9); Lymphocytes Percent Auto 14.2 % (20-40); Mean Corpuscular HGB Conc 31.1 g/dl (31.0-36.0); Mean Corpuscular Hemoglobin 24.3 pg (27.0-33.0); Mean Corpuscular Volume 78.3 fL (80.0-98.0); Mean Platelet Volume 8.3 fL (9.4-12.4); Monocytes Absolute Auto 0.6 X10*3/uL (0.1-1.2); Monocytes Percent Auto 10.1 % (2-11); Neutrophils Absolute Auto 4.5 x10*3/uL (2.0-8.3); Neutrophils Percent Auto 71.4 % (45-73); Platelet Count 294 X10*3/uL (160-400); Red Blood Count 4.56 X10*6/uL (4.60-5.80); Red Cell Distribution Width 15.4 % (11.0-16.0); White Blood Count 6.3 X10*3/uL (4.8-10.8)
[2023-09-12 14:28] LABS: INTERNATIONAL NORM RATIO 1.2 (0.9-1.1); Prothrombin Time 14.8 SEC (11.1-13.3)
[2023-09-12 14:30] LABS: Partial Thromboplastin Time 32.3 SEC (26.0-36.4)
[2023-09-12 14:41] LABS: Alanine Aminotransferase 13 U/L (0-40); Albumin Level 2.8 g/dL (3.5-5.0); Alkaline Phosphatase 95 U/L (39-117); Anion Gap 13 (12-20); Aspartate Amino Transferase 19 U/L (5-37); Bilirubin Total 0.6 mg/dL (0.0-1.0); Blood Urea Nitrogen 21 mg/dL (9-16); Calcium 8.6 mg/dL (8.4-10.2); Carbon Dioxide 22 mmol/L (22-29); Chloride 108 mmol/L (96-108); Creatinine Clr Calc Pharmacy 68.6; Estimated Glomerular Filt Rate > 60; Glucose Random 95 mg/dL (60-115); Potassium 4.2 mmol/L (3.3-5.1); Sodium 139 mmol/L (135-145)
[2023-09-12 14:47] VITALS: BP 106/61; PULSE 89; RESP 18; O2SAT 97
[2023-09-12 14:54] LABS: Troponin-I High Sensitivity < 2.7 ng/L (<3.5-35.0)
[2023-09-12 14:57] LABS: Influenza A PCR NEGATIVE (Negative); Influenza B PCR NEGATIVE (Negative); Resp Syncy Virus RNA Qual PCR NEGATIVE (Negative); SARS COV2 PCR INHOUSE NEGATIVE (Negative)
--- NOTE | 2023-09-12 15:53 | ED_ITS ---
HPI - General Adult General Chief complaint: General Medical Stated complaint: Low Blood Pressure Time Seen by Provider: 09/12/23 15:46 Source: patient, family (son), EMS and RN notes reviewed Mode of arrival: EMS Limitations: no limitations History of Present Illness HPI narrative: Patient is an 88-year-old male with history of atrial fibrillation on Eliquis, COPD, ILD, recent placement of drain to left chest for effusion presenting to the emergency department for low blood pressure readings and irregular heart rate at home this morning. He denies any chest pain, palpitations, shortness of breath, dizziness, lightheadedness or other physical complaint. Denies any hematochezia or melena. He states that his blood pressure typically runs low, around 100 systolic, and that his visiting nurses often have to check it several times due to it being low. He has held his Eliquis since Thursday as he is scheduled to have his chest tube removed on Thursday. Son also states that his digoxin was recently discontinued by poultry pathologist, but that he is still on metoprolol. Patient denies any cough or fever. Son reports that a family member who is a nurse assess patient's heart rate this morning and was found to be irregular. MD complaint: hypotension, irregular heart rate Onset (ago): hour(s) Associated symptoms: denies other symptoms Treatments prior to arrival: none Related Data Home Medications Medication Instructions Recorded Confirmed simvastatin 10 mg tablet 10 mg PO BEDTIME 08/06/20 07/17/23 tamsulosin 0.4 mg capsule 0.8 mg PO BEDTIME 08/06/20 07/17/23 dorzolamide 22.3 mg-timolol 6.8 1 drp ophthalmic (eye) 10/14/21 07/17/23 mg/mL eye drops BID@0900,1800 nebulizers 01/14/23 07/17/23 albuterol sulfate 2.5 mg/3 mL 2.5 mg inhalation QID PRN 04/28/23 07/17/23 (0.083 %) solution for nebulization Shortness Of Breath tafluprost (PF) 0.0015 % eye drops 1 drp ophthalmic (eye) BEDTIME 04/28/23 07/17/23 in a dropperette (Zioptan (PF)) Previous Rx's Medication Instructions Recorded apixaban 5 mg tablet (Eliquis) 5 mg PO BID #60 tabs 05/07/23 metoprolol tartrate 25 mg tablet 25 mg PO BID #60 tabs 06/02/23 furosemide 20 mg tablet (Lasix) 20 mg PO DAILY #30 tabs 06/10/23 fluticasone fur. 200 mcg-umeclid 1 inh inhalation DAILY 30 days #60 08/17/23 62.5 mcg-vilant 25 mcg ea inhalat.powder (Trelegy Ellipta) Allergies Allergy/AdvReac Type Severity Reaction Status Date / Time No Known Allergies Allergy Verified 07/17/23 10:46 Review of Systems 2 Review of Systems: As per HPI. Yes all other systems are reviewed and are negative Constitutional: Constitutional: Reports as per HPI PMFSH Past Medical History Medical History Atrial fibrillation (~04/2023) History of adenocarcinoma of lung (~2009) ILD (interstitial lung disease) Oxygen dependent COPD (chronic obstructive pulmonary disease) History of COVID-19 (~12/2022) Purpura Osteoarthritis Diverticulitis Hypercholesterolemia Glaucoma Surgical History History of lung surgery (~04/2010) History of thoracentesis (~2022) History of laparoscopic cholecystectomy (~12/2013) History of ERCP (~2013) History of partial colectomy (~12/2014) History of colostomy reversal (~03/2015) History of esophagogastroduodenoscopy (EGD) History of colonoscopy History of meniscectomy of left knee (~2013) History of total left knee replacement (~12/2014) Family History Family History Mother ALS (amyotrophic lateral sclerosis) Social History Social History Household Members: Significant Other Housing: Apartment Do you presently have visiting nurse or other home services: Yes Alcohol intake: former Patient Tobacco Use Status: Former Tobacco user Quit Date: 12-13 yrs ago Tobacco use type: Cigarette Years Smoked: 20 years Second Hand Smoke Exposure: No Advance Directives: Yes Advance Directives Information Provided: No Advance Directives on File: No Advance Directives Date on File: 04/28/23 service: No Current occupational status: retired Physical Exam ED Vital Signs: Vital Signs - 24 hr 09/12/23 12:11 09/12/23 14:47 09/12/23 18:15 Temperature 98.9 F Pulse Rate 92 89 94 Respiratory Rate 18 18 17 Blood Pressure 90/60 106/61 111/63 Pulse Oximetry 95 97 92 Oxygen Delivery Method Room Air Room Air Room Air BMI result Body Mass Index 22.9 Vital signs have been reviewed and appear to be correct. Blood pressure low initially, then improved somewhat on repeat. Heart rate normal. Respiratory rate normal. Temperature normal. Oxygen saturation normal. Const General: cooperative and no acute distress Orientation/consciousness: oriented to person, oriented to place, oriented to time and patient oriented x3 Limitations: no limitations HENMT Head: Yes normocephalic and Yes atraumatic Ears: external ears normal General nose exam: Normal external nose present Face and sinus: Yes face symmetric Mouth: oropharynx normal and moist mucous membranes Throat: Yes uvula midline Eyes Pupils: Equal, round and reactive pupils present Neck Neck: Yes normal visual inspection and Yes supple Chest Chest palpation & inspection: no tenderness and other (drain covered with clean dressing to left lower chest) Resp Effort & Inspection: normal respiratory effort and able to speak in complete sentences Auscultation: clear to auscultation bilaterally Cardio Rate: regular rate Rhythm: regular rhythm Heart sounds: S1 normal heart sound present and S2 normal heart sound present GI Palpation (GI): Soft to palpation and nontender Auscultation: normoactive bowel sounds General: Yes no CVA tenderness Back/Spine/Pelvis Back: no CVA tenderness Skin General skin exam: elasticity normal and turgor normal Neuro General: oriented to person, oriented to place, oriented to time, patient oriented x3, moves all extremities, no focal motor deficits and CN's II-XI intact bilaterally Cranial nerves: Yes Equal, round and reactive pupils present Cognition (Neuro): normal cognition Extrem General: Yes full ROM, Yes no pedal edema and Yes no calf tenderness Psych Mental Status: mental status grossly normal Affect: normal affect Thought process: Normal thought process present Medical Decision Making Medical Decision Making MDM Narrative: Patient is an 88-year-old male with history of atrial fibrillation on Eliquis, COPD, ILD, recent placement of drain to left chest for effusion presenting to the emergency department for low blood pressure readings and irregular heart rate at home this morning. On exam patient is awake, A+Ox3, VS WNL, afebrile, normal neurological exam without focal deficits, physical exam findings as above. Given reported symptoms and physical exam findings, initial differential includes dehydration, anemia, GI bleed, postprocedural blood loss. Labs notable for anemia since recent labs on 08/19, but does have history of anemia requiring transfusions in the past, elevated BUN consistent with prior values, no other significant electrolyte abnormalities. OBSX negative. EKG shows atrial fibrillation with rate of 85. Patient unable to provide urine specimen while in the ED as he used bathroom without specimen cup and was unable to go again. X- ray chest notable for no significant changes. My interpretation is in agreement with the radiologist's interpretation. Patient and family requesting discharge home as patient is asymptomatic and states he typically has low blood pressures at home and has history of anemia. Patient is not tachycardic here, blood pressure initially low, but improved in the ED. Strict return precautions discussed with patient and family. Patient and family verbalized understanding of and agreement with plan of care. Differential Diagnosis Differential Diagnoses: The differential diagnosis associated with the presentation includes As per [facility]. Admission/Observation Consideration of admission/observation: Escalation of care including admission/observation considered Lab Data [facility] Lab Attestation statement: I reviewed the patient's lab results. As per [facility] 09/12/23 14:09 09/12/23 14:09 Labs: Lab Results 09/12/23 09/12/23 Range/Units 14:09 17:52 WBC 6.3 (4.8-10.8) X10*3/uL RBC 4.56 L (4.60-5.80) X10*6/uL Hgb 11.1 L D (14.0-18.0) g/dl Hct 35.7 L D (42.0-52.0) % MCV 78.3 L (80.0-98.0) fL MCH 24.3 L (27.0-33.0) pg MCHC 31.1 (31.0-36.0) g/dl RDW 15.4 (11.0-16.0) % Plt Count 294 D (160-400) X10*3/uL MPV 8.3 L (9.4-12.4) fL Immature Gran % (Auto) 0.6 H (0.0-0.4) % Neut % (Auto) 71.4 (45-73) % Lymph % (Auto) 14.2 L (20-40) % [place] % (Auto) 10.1 (2-11) % Eos % (Auto) 2.1 (0-4) % Baso % (Auto) 1.6 (0-2) % Lymph # (Auto) 0.9 L (1.2-4.9) X10*3/uL [place] # (Auto) 0.6 (0.1-1.2) X10*3/uL Eos # (Auto) 0.1 (0.0-0.4) X10*3/uL Baso # (Auto) 0.1 (0.0-0.2) X10*3/uL Abs Immat Gran (auto) 0.04 H (0.00-0.03) X10*3/uL Absolute Neuts (auto) 4.5 (2.0-8.3) x10*3/uL Absolute Nucleated RBC 0.000 (0.0-0.012) X10*3/uL Nucleated RBC % (auto) 0.0 (0.0-0.2) /100WBC PT 14.8 H (11.1-13.3) SEC INR 1.2 H (0.9-1.1) APTT 32.3 (26.0-36.4) SEC Sodium 139 (135-145) mmol/L Potassium 4.2 (3.3-5.1) mmol/L Chloride 108 (96-108) mmol/L Carbon Dioxide 22 (22-29) mmol/L Anion Gap 13 (12-20) BUN 21 H (9-16) mg/dL Creatinine 0.74 (0.5-1.4) mg/dL Estim Creat Clear Calc 68.6 Estimated GFR > 60 Random Glucose 95 (60-115) mg/dL Calcium 8.6 D (8.4-10.2) mg/dL Magnesium 2.0 (1.6-2.6) mg/dL Total Bilirubin 0.6 (0.0-1.0) mg/dL AST 19 (5-37) U/L ALT 13 (0-40) U/L Alkaline Phosphatase 95 (39-117) U/L Troponin I High Sens < 2.7 (<3.5-35.0) ng/L Total Protein 6.0 L (6.5-8.0) g/dL Albumin 2.8 L (3.5-5.0) g/dL Stool Occult Blood NEGATIVE (NEGATIVE) Influenza Type A (PCR) NEGATIVE (Negative) Influenza Type B (PCR) NEGATIVE (Negative) RSV RNA Qual (PCR) NEGATIVE (Negative) SARS-CoV-2 RNA (RT-PCR) NEGATIVE (Negative) Independent Interpretation I performed an independent interpretation of an: EKG and Plain X-Ray Interpretation: No significant changes on CXR EKG shows atrial fibrillation, rate 85 bpm, incomplete RBBB Radiology Impression Discussion of test interpretation with radiology: I have reviewed the radiologist's reading. Radiologist Impression: XR/XR chest 1V IMPRESSION: Complex examination, not significantly changed. Grossly unchanged chronic moderate left-sided pleural effusion. Overall similar appearance of significant emphysematous changes with multifocal distortion, as well as postoperative changes in the right upper lobe. Independent Historian Clinical information obtained from an independent historian. History obtained from or confirmed by: Spouse and Other (son) External Record Review External record reviewed: Inpatient record, Office record and Outpatient record Chronic Conditions Patient?s care impacted by: Other Discharge Plan Discharge Clinical Impression: Low blood pressure reading, Atrial fibrillation Patient Disposition: Home, Self-Care Instructions: A-fib (Atrial Fibrillation) (DC) Additional Instructions: You are evaluated in the emergency department today for low blood pressure readings at home. Your blood pressures in the emergency department were normal. Your hematocrit and hemoglobin levels were lower than on your most recent labs. Please follow up with your primary care provider to discuss this. You should also make your surgeon aware of this at your visit on Thursday. Return to the emergency department if you develop chest pain, shortness of breath, palpitations, blood in your stool, dark, tarry stool, abdominal pain, vomiting blood, blood in your urine, or any other concerning symptoms. Prescriptions: No Action Eliquis 5 mg tablet 5 mg PO BID Qty: 60 5RF Rx Instructions: New medication metoprolol tartrate 25 mg tablet 25 mg PO BID Qty: 60 3RF Protocol: Hold for SBP/HR < HOLD for SBP < : 90 HOLD for HR < : 60 furosemide [Lasix] 20 mg tablet 20 mg PO DAILY Qty: 30 1RF Trelegy Ellipta 200-62.5-25 mcg blister with device 1 inh inhalation DAILY 30 Days Qty: 60 12RF simvastatin 10 mg Tablet 10 mg PO BEDTIME tamsulosin 0.4 mg capsule 0.8 mg PO BEDTIME albuterol sulfate 2.5 mg /3 mL (0.083 %) solution for nebulization 2.5 mg inhalation QID PRN (Reason: Shortness Of Breath) tafluprost (PF) [Zioptan (PF)] 0.0015 % dropperette 1 drp ophthalmic (eye) BEDTIME dorzolamide-timolol 22.3-6.8 mg/mL drops 1 drp ophthalmic (eye) BID@0900,1800 (DME) nebulizers Misc See Rx Instructions .Route Rx Instructions: As directed
[2023-09-12 18:06] LABS: OBS Int Ctl Valid YES; OBS1 NEGATIVE (NEGATIVE)
[2023-09-12 18:15] VITALS: BP 111/63; PULSE 94; RESP 17; O2SAT 92
[2023-09-12 19:49] VITALS: BP 113/69; PULSE 80; RESP 18; O2SAT 96
== END 2023-09-12 19:56 | disposition home or self-care (01) ==
PROVIDERS: Physician Assistant Medical; Registered Nurse Emergency; Emergency Provider Student in an Organized Health Care Education/Training Program; PCP Internal Medicine
DX: R03.1 Nonspecific low blood-pressure reading (principal); I48.91 Unspecified atrial fibrillation; Z20.822 Contact with and (suspected) exposure to COVID-19; Z20.828 Contact with and (suspected) exposure to other viral communicable diseases; E78.00 Pure hypercholesterolemia, unspecified; J44.9 Chronic obstructive pulmonary disease, unspecified; J84.9 Interstitial pulmonary disease, unspecified; J90 Pleural effusion, not elsewhere classified; Z99.81 Dependence on supplemental oxygen; Z85.118 Personal history of other malignant neoplasm of bronchus and lung; Z79.899 Other long term (current) drug therapy
CPT/HCPCS: 0241U; 71045; 80053; 82272; 83735; 84484; 85025; 85610; 85730; 93005; 99283; 99284

== ENCOUNTER 2023-09-29 08:55 | Outpatient (AMB) | payer MEDICARE, SELFPAY ==
[2023-09-29 09:04] VITALS: BP 86/42; PULSE 78; BMI 22.3
--- NOTE | 2023-09-29 09:04 | MHC.OFFVIS ---
Intake Vital Signs 09/29/23 09:04 Height 5 ft 9 in Weight 151 lb 3.794 oz BMI 22.3 BP 86/42 L Blood Pressure Location Lt brachial Position Sitting Pulse 78 Pulse Source Auscultation Intake Visit Reasons: 3 mth f/up holter Ear Specialist Required: No Chemical Production Machine Operator: Chemical Production Machine Operator Present Accompanied by: Son Allergies No Known Allergies Allergy (Verified 09/29/23 09:08) Medication List - Last Reconciled 09/29/23 by NOAH BlissC albuterol sulfate 2.5 mg inhalation QID PRN apixaban (Eliquis) 5 mg PO BID dorzolamide-timolol 22.3-6.8 mg/mL 1 drp ophthalmic (eye) BID@0900,1800 doxycycline hyclate 100 mg PO BID yjgpafjjuhk-nxwpwhdul-jxkckrli 200-62.5-25 mcg (Trelegy Ellipta) 1 inh inhalation DAILY 30 days metoprolol tartrate 25 mg See Protocol PO BID midodrine 5 mg PO TID nebulizers As directed simvastatin 10 mg PO BEDTIME tafluprost (PF) 0.0015% (Zioptan (PF)) 1 drp ophthalmic (eye) BEDTIME tamsulosin 0.8 mg PO BEDTIME HPI 3 mth f/up holter HPI Details Fidencio is an 88-year-old male with past medical history of hyperlipidemia, lung cancer status post lobectomy, COPD, O2 dependent who was recently admitted to [facility] with increasing shortness of breath and found to have moderate to large left pleural effusion, AFib RVR. He underwent thoracentesis and was treated with heart rate control. He was started on anticoagulation with Eliquis. As outpatient he follows with Dr. Plata for pulmonology. He underwent a repeat thoracentesis on 06/08/23. He then was seen by Dr. Ndiaye and underwent pleurodesis, pleurx and pleural biopsy recently. He was readmitted for infection and tells me he was hospitalized for 9 days at [facility]. Today he reports that since his hospital discharge he has had significant weakness and is followed by home VNA and physical therapy. He continues to have some shortness of breath with activity. He has no clear PND, orthopnea or edema. No chest discomfort at rest or with activity. No heart palpitations, presyncope, syncope, falls. Tells me he has lost 85 lb in the last year. He has a content coordinator coming to his house this week and he is hopeful this will help him choose foods that he can tolerate better. He has no appetite since having COVID last year. He is mostly sedentary and does only light activities in the home. His son is with him today. No bleeding issues have been reported. FOR[facility]LY [facility] Medical History Atrial fibrillation (~04/2023) History of adenocarcinoma of lung (~2009) ILD (interstitial lung disease) Oxygen dependent COPD (chronic obstructive pulmonary disease) History of COVID-19 (~12/2022) Purpura Osteoarthritis Diverticulitis Hypercholesterolemia Glaucoma Surgical History History of lung surgery (~04/2010) History of thoracentesis (~2022) History of laparoscopic cholecystectomy (~12/2013) History of ERCP (~2013) History of partial colectomy (~12/2014) History of colostomy reversal (~03/2015) History of esophagogastroduodenoscopy (EGD) History of colonoscopy History of meniscectomy of left knee (~2013) History of total left knee replacement (~12/2014) Family History Mother ALS (amyotrophic lateral sclerosis) Household Members: Significant Other Housing: Apartment Do you presently have visiting nurse or other home services: Yes Alcohol intake: former Patient Tobacco Use Status: Former Tobacco user Quit Date: 12-13 yrs ago Tobacco use type: Cigarette Years Smoked: 20 years Second Hand Smoke Exposure: No Advance Directives Date on File: 04/28/23 service: No Current occupational status: retired Review of Systems Const Details: general weakness. 85 lb weight loss in last year All systems reviewed & are unremarkable except as noted in HPI and below ENT Denies dizziness Card Denies chest pain, Denies chest pain at rest, Denies chest pain with activity, Denies rapid heart rate, Denies pedal edema, Denies edema, Denies leg edema, Denies lightheadedness, Denies palpitations, Reports dyspnea, Reports dyspnea on exertion and Denies orthopnea Resp Denies cough, Reports dyspnea and Reports dyspnea on exertion GI Denies hematochezia and Denies change in stool character Musc Denies abnormal gait, Denies limited range of motion, Denies muscle cramps, Reports muscle weakness, Denies numbness, Denies radiating pain into limb, Denies stiffness and Denies tingling Neuro Denies abnormal gait, Denies dizziness, Denies numbness and Denies tingling Endo Denies palpitations Physical Exam Vital Signs: Last Vital Signs Pulse 78 09/29/23 09:04 BP 86/42 L 09/29/23 09:04 BMI result Body Mass Index 22.3 Const Other: thin, frail appearance General: cooperative, comfortable and no acute distress Orientation/consciousness: patient oriented x3 Neck Neck: Yes normal visual inspection Resp Effort & Inspection: normal respiratory effort Auscultation: clear to auscultation bilaterally (Diminished left lung base), no crackles, no rales, no rhonchi and no wheezes Cardio Jugular venous distension: no JVD Rate: regular rate Rhythm: abnormal rhythm Heart sounds: S1 normal heart sound present, S2 normal heart sound present, no gallops, no murmurs and no rubs Neuro General: patient oriented x3 Extrem General: Yes normal to inspection Psych Appearance: grossly normal Mental Status: mental status grossly normal Speech and movement: Normal speech and movement present Assessment & Plan Assessment & Plan (1) Atrial fibrillation: Onset Date: ~04/2023 Code(s): I48.91 - Unspecified atrial fibrillation Plan: Recent [facility] admission for increasing shortness of breath and found to have large pleural effusion, new onset atrial fibrillation. Echocardiogram showed EF 50-55%. His AFib was treated with heart rate control, initially using diltiazem then changing to metoprolol. He was discharged with metoprolol 25 mg b.i.d., digoxin 0.125 mg every other day. He was put on Eliquis for anticoagulation. An outpatient CBC was done on 06/08/2023 showing hematocrit 47.9. Since his last visit he did undergo thoracic surgery as above. He does not recall having any complications with atrial fibrillation during his hospital admission. He was taken off digoxin and remains on metoprolol Today he reports no heart palpitations and no issues with bleeding. Pulse is noted to be irregularly irregular on exam. Rate normal range. Holter monitor ordered last visit however patient had prolonged hospital admission. Will review those records to see if any problems with AFib RVR. Will hold off on Holter monitor at this time. Continue medications without change. Cardiology follow-up in 6 months, sooner if needed. (2) Pleural effusion: Onset Date: ~2022 Comment: (lymphocytic predominant - Avgdrggk-go-yghde left pleural effusion - s/p thoracentesis 04/28/23 & 06/08/23) Code(s): J90 - Pleural effusion, not elsewhere classified Plan: Treated for large left pleural effusion with thoracentesis on 04/29/2023 removing 1.5 L of fluid. As outpatient he again underwent thoracentesis on 06/08/2023 with removal of 1.1 L of fluid with residual moderate left effusion. Pathology of each shows no malignant cells. He is being followed by Dr. Plata and has an outpatient CT scan scheduled for 07/08/2023 with pulmonology follow-up 07/22/2023. He was evaluated by Dr. DeL a Rosa and underwent pleurodesis, PleurX and pleural biopsy. Son states they have not heard any official results as of yet. He did have issues with infection following his procedure and was admitted to [facility] for 9 days. At this time he has a dry dressing in place along his left lateral chest. No drainage noted. He reports being short of breath with activity. On examination lungs are dim in the left base. He will continue to follow with Dr. Plata and Dr. Ndiaye for this issue. (3) COPD (chronic obstructive pulmonary disease): Code(s): J44.9 - Chronic obstructive pulmonary disease, unspecified Qualifiers: COPD type: COPD with acute exacerbation Qualified Code(s): J44.1 - Chronic obstructive pulmonary disease with (acute) exacerbation Plan: Being followed by Dr. Plata (4) Hospital discharge follow-up: Code(s): Z09 - Encounter for follow-up examination after completed treatment for conditions other than malignant neoplasm Coding Level of Care Code Est Pt Level 4 (06974) Diagnoses Atrial fibrillation I48.91 Pleural effusion J90 Chronic obstructive pulmonary disease with acute exacerbation J44.1 COPD type: COPD with acute exacerbation Hospital discharge follow-up Z09 Time Spent (min) 26
== END 2023-09-29 09:48 | disposition home or self-care (01) ==
PROVIDERS: PCP Internal Medicine; Visit Provider Nurse Practitioner Family
DX: I48.91 Unspecified atrial fibrillation (principal); J90 Pleural effusion, not elsewhere classified; J44.1 Chronic obstructive pulmonary disease with (acute) exacerbation; Z09 Encounter for follow-up examination after completed treatment for conditions other than malignant neoplasm
CPT/HCPCS: 99214

== ENCOUNTER → 2023-09-29 08:55 | Outpatient (BNVA) | payer MEDICARE, SELFPAY | PROVIDERS: PCP Internal Medicine; Visit Provider Nurse Practitioner Family | DX: Z09 Encounter for follow-up examination after completed treatment for conditions other than malignant neoplasm (principal); I48.91 Unspecified atrial fibrillation; J90 Pleural effusion, not elsewhere classified; J44.1 Chronic obstructive pulmonary disease with (acute) exacerbation | CPT/HCPCS: 99212 ==

== ENCOUNTER 2023-10-26 11:00 | Inpatient (IN) | payer MEDICARE, SELFPAY ==
[2023-10-26] VITALS (14 sets, daily range): BP systolic 88–125; BP diastolic 38–68; PULSE 106–129; RESP 16–26; TEMP 36–37.1; O2SAT 87–100; BMI 17.1; BMI 17.0
--- NOTE | ~2023-10-26 | CT_ITS ---
EXAMINATION: CT CHEST WITHOUT CONTRAST CLINICAL INFORMATION: Shortness of breath. Left pleural effusion. COMPARISON: 07/08/2023. Correlation made with chest x-rays performed on same day. TECHNIQUE: Multidetector volumetric CT imaging of the chest was done. Axial MIP volume rendering provided. Sagittal and coronal reformatted images were obtained. This CT examination was performed using dose optimization techniques as appropriate, variously including the following: *Automated exposure control *Adjustment of mA and/or kV according to patient size (this includes techniques or standardized protocols for targeted exams where dose is matched to indication/reason for exam; i.e. extremities or head) *Use of iterative reconstruction technique DLP: 310 mGy-cm FINDINGS: EXCELLENCE COACH: There is a left lung base opacity with volume loss on the left. LUNGS: There is complete opacification of the left lower lobe bronchus. There is significant consolidation left lower lobe with some associated patchy consolidation/infiltrate. There is also inferior lingular infiltrative change. There is diffuse emphysematous change. There is right upper lobe scarring and right lung base peripheral interstitial coarsening. MEDIASTINUM: The heart is normal in size. There is no significant pericardial effusion. There is no significant lymph node enlargement. There is atherosclerotic plaque of the aortic arch and descending thoracic aorta. CORONARY ARTERY CALCIFICATION: Moderate. PLEURA: There is a small partially loculated left pleural effusion. AXILLA: No lymphadenopathy. UPPER ABDOMEN: Unremarkable. OSSEOUS STRUCTURES: Unremarkable. CT/CT chest wo IV con IMPRESSION: Complete opacification of the left lower lobe bronchus with significant left lung base consolidation likely atelectasis with shift of the midline to the left. There is also patchy consolidation/infiltrative change left lower lobe and lingula possibly pneumonia. There is underlying diffuse emphysema/COPD. Fleischner guidelines were followed.
--- NOTE | ~2023-10-26 | XR_ITS ---
EXAMINATION: XR CHEST CLINICAL INFORMATION: Pneumonia. COMPARISON: 10/26/2023. TECHNIQUE: Frontal view of the chest was obtained. FINDINGS: There is now near-complete opacification of the left hemithorax with mild aeration at the left apex. Redemonstration of loss of left lung volume with shift of mediastinal structures to the left as before. Cardiac silhouette cannot be evaluated as it is obscured by increased opacification of the right hemithorax. Postsurgical changes right upper paramediastinal region redemonstrated. Mild patchy opacities in the [id number] right lung. Persistent chronic interstitial changes in the right lung. XR/XR chest 1V IMPRESSION: Persistent loss of left lung volume with increased opacification of the left hemithorax which could be attributable to pleural fluid, atelectasis, pneumonia and/or other underlying pathology. Mild patchy opacities in the [id number] right lung.
--- NOTE | ~2023-10-26 | XR_ITS ---
EXAMINATION: XR CHEST CLINICAL INFORMATION: Shortness of breath COMPARISON: Chest 09/12/2023 TECHNIQUE: Frontal view of the chest was obtained. FINDINGS: The lungs are hypoexpanded with moderate opacity left lung base likely pleural effusion with underlying atelectasis. There is mild increase interstitial markings in both lungs. Mild mediastinal shift to the left. No gross bony abnormality. XR/XR chest 1V IMPRESSION: Left pleural effusion and underlying atelectasis. Mild mediastinal shift to the left. Likely coarse interstitial changes in both lungs, stable.
--- NOTE | ~2023-10-26 | XR_ITS ---
EXAMINATION: XR CHEST CLINICAL INFORMATION: Atelectasis. COMPARISON: Prior chest radiographs, most recently 10/29/2023. TECHNIQUE: Frontal view of the chest was obtained. FINDINGS: There is persistent left lung field opacification and volume loss, with relatively stable mild residual left apical aeration. There is stable leftward mediastinal shift. There is now mild right perihilar airspace disease. No right pleural effusion or pneumothorax is seen. There are right perihilar and suprahilar postoperative changes. There is right apical capping. There are atherosclerotic calcifications of the thoracic aorta. No acute osseous abnormality is seen. There are degenerative changes of the shoulders. XR/XR chest 1V IMPRESSION: There is stable left lung opacification and volume loss. There is stable leftward mediastinal shift. There is interim appearance of right perihilar airspace disease.
--- NOTE | ~2023-10-26 | XR_ITS ---
EXAMINATION: XR CHEST CLINICAL INFORMATION: Shortness of breath and atelectasis. COMPARISON: Prior chest radiographs, most recently 10/28/2023. TECHNIQUE: Frontal view of the chest was obtained. FINDINGS: There is again near complete opacification of the left hemithorax, with mild, diminished left apical residual aeration. There is stable leftward mediastinal shift. Again, the cardiac contour is obscured. There is atherosclerotic calcification of the thoracic aorta. The right lung appears clear. Right perihilar and suprahilar surgical clips and scarring are noted. There is a postoperative defect of the lateral aspect of the right sixth rib. There are degenerative changes of the shoulders. XR/XR chest 1V IMPRESSION: There is persistent, increased left lung opacification and volume loss. There is stable leftward mediastinal shift. Again, differential possibilities include a large pleural effusion, diffuse airspace disease and/or central mucous plugging.
--- NOTE | ~2023-10-26 | XR_ITS ---
EXAMINATION: XR CHEST CLINICAL INFORMATION: Bradycardia. COMPARISON: None available. TECHNIQUE: Frontal view of the chest was obtained. FINDINGS: There is loss of left lung volume with patchy opacity left lung base likely effusion with chronic atelectasis or scarring. Minimal linear reticular interstitial changes seen in the left parahilar region and upper lobe as well. The right lung relatively is expanded and clear. Heart size and pulmonary vascularity is normal. There is bilateral apical pleural thickening. No gross bony abnormality seen. XR/XR chest 1V IMPRESSION: Loss of left lung volume with left lower lobe effusion/chronic atelectasis. Chronic interstitial changes left lung with bilateral apical pleural thickening.
--- NOTE | 2023-10-26 11:06 | ECG_ITS ---
Test Reason : SOB Blood Pressure : / mmHG Vent. Rate : 137 BPM Atrial Rate : 000 BPM P-R Int : 000 ms QRS Dur : 078 ms QT Int : 250 ms P-R-T Axes : 000 068 108 degrees QTc Int : 377 ms Atrial fibrillation with rapid ventricular response Low voltage QRS Septal infarct (cited on or before 26-OCT-2023) ST & T wave abnormality, consider lateral ischemia Abnormal ECG When compared with ECG of 12-SEP-2023 12:24, Vent. rate has increased BY 52 BPM Questionable change in initial forces of Septal leads Referred By: Yoly Willard Electronically Signed By:SOMMER RODRIGUEZ
--- NOTE | 2023-10-26 11:07 | ED_ITS ---
HPI - SOB/Dyspnea General Chief Complaint: Dyspnea Stated Complaint: SOB,TRIPODING PER EMS Time Seen by Provider: 10/26/23 11:06 Source: EMS Mode of arrival: EMS History of Present Illness HPI Narrative: 88-year-old patient is hypotensive but noted be in atrial fibrillation with RVR, tripoding on the toilet, hypoxic, received Solu-Medrol and nebs EN route. Has history of low blood pressure. Recently seen at [facility] and had a left pleural effusion. Related Data Home Medications Medication Instructions Recorded Confirmed simvastatin 10 mg tablet 10 mg PO BEDTIME 08/06/20 09/29/23 tamsulosin 0.4 mg capsule 0.8 mg PO BEDTIME 08/06/20 09/29/23 dorzolamide 22.3 mg-timolol 6.8 1 drp ophthalmic (eye) 10/14/21 09/29/23 mg/mL eye drops BID@0900,1800 nebulizers 01/14/23 09/29/23 albuterol sulfate 2.5 mg/3 mL 2.5 mg inhalation QID PRN 04/28/23 09/29/23 (0.083 %) solution for nebulization Shortness Of Breath tafluprost (PF) 0.0015 % eye drops 1 drp ophthalmic (eye) BEDTIME 04/28/23 09/29/23 in a dropperette (Zioptan (PF)) Previous Rx's Medication Instructions Recorded fluticasone fur. 200 mcg-umeclid 1 inh inhalation DAILY 30 days #60 08/17/23 62.5 mcg-vilant 25 mcg ea inhalat.powder (Trelegy Ellipta) apixaban 5 mg tablet (Eliquis) 5 mg PO BID #60 tabs 10/13/23 metoprolol tartrate 25 mg tablet 25 mg PO BID #60 tabs 10/13/23 midodrine 5 mg tablet 5 mg PO TID 30 days #90 tabs 10/13/23 Allergies Allergy/AdvReac Type Severity Reaction Status Date / Time No Known Allergies Allergy Verified 10/26/23 11:11 Review of Systems 2 Review of Systems: Pertinent positives and negatives as stated in HPI PMFSH Past Medical History Source: nursing notes reviewed Medical History Atrial fibrillation (~04/2023) History of adenocarcinoma of lung (~2009) ILD (interstitial lung disease) Oxygen dependent COPD (chronic obstructive pulmonary disease) History of COVID-19 (~12/2022) Purpura Osteoarthritis Diverticulitis Hypercholesterolemia Glaucoma Surgical History History of lung surgery (~04/2010) History of thoracentesis (~2022) History of laparoscopic cholecystectomy (~12/2013) History of ERCP (~2013) History of partial colectomy (~12/2014) History of colostomy reversal (~03/2015) History of esophagogastroduodenoscopy (EGD) History of colonoscopy History of meniscectomy of left knee (~2013) History of total left knee replacement (~12/2014) Family History Family History Mother ALS (amyotrophic lateral sclerosis) Social History Social History Household Members: Significant Other Housing: Apartment Do you presently have visiting nurse or other home services: Yes Alcohol intake: former Comment: SLEEPING Patient Tobacco Use Status: Former Tobacco user Quit Date: 12-13 yrs ago Tobacco use type: Cigarette Years Smoked: 20 years Smoked in Last 30 Days: No Second Hand Smoke Exposure: No Use of substances other than those prescribed or required for medical reasons: No Advance Directives: No Advance Directives Information Provided: No Advance Directives Date on File: 04/28/23 service: No Current occupational status: retired Physical Exam 2 Vital Signs: Vital Signs: Last Vital Signs Temp 98.2 F 10/26/23 11:13 Pulse 108 H 10/26/23 14:53 Resp 16 10/26/23 14:53 BP 99/61 10/26/23 15:01 Pulse Ox 91 L 10/26/23 14:53 O2 Del Method Oxymask 10/26/23 14:53 O2 Flow Rate 3 10/26/23 14:53 Oxygen Flow Rate 5 10/26/23 11:06 BMI result Body Mass Index 17.1 VITAL SIGNS: Reviewed. GENERAL: Cachectic, elderly, in moderate distress. HEAD: Normocephalic/atraumatic EYES: PERRLA, EOMI EARS: Ext canals without abnormality, TMs non-bulging and non-erythematous NOSE: Nares patent bilateral OROPHARYNX: no oral lesions noted, posterior pharynx clear and non-erythematous without noted tonsillar enlargement/erythema/exudates NECK: Supple, no adenopathy LUNGS: Decreased breath sounds on left base, expiratory wheeze, tachypnea and increased work of breathing. SpO2<91> nasal cannula CARDIOVASCULAR: IRR/IRR without noted murmurs, no JVD or lower extremity edema. ABDOMEN: Soft, non-tender, non-distended with bowel sounds. MUSCULOSKELETAL: No tenderness, deformities, or effusions noted on gross inspection. EXTREMITIES: No cyanosis, clubbing or edema. SKIN: Inspection of the skin reveals no rashes NEUROLOGIC: Alert and oriented x 3. Strength and sensation to light touch were grossly intact x 4. Medications Administered Discontinued Medications Generic Name Dose Route Start Last Admin Trade Name Freq PRN Reason Stop Dose Admin Albuterol Sulfate 5 mg/ 0 mg 10/26/23 11:10 10/26/23 11:24 Albuterol/Ipratropium 3 ml INHALE 10/26/23 11:11 1 each ONCE ONE Administration Furosemide 20 mg 10/26/23 13:32 10/26/23 14:55 Furosemide 20 Mg/2 Ml Vial IVPUSH 10/26/23 13:33 20 mg ONCE ONE Administration Protocol Sodium Chloride 1,000 mls @ 999 mls/hr 10/26/23 11:15 10/26/23 12:42 Ns IV 10/26/23 12:15 Infused .Q1H1M KRISHNA Infusion Magnesium Sulfate 2 gm in 50 mls @ 150 mls/hr 10/26/23 11:09 10/26/23 12:43 Magnesium Sulfate/H2o IV 10/26/23 11:28 Infused ONCE ONE Infusion Piperacillin Sod/Tazobactam 50 mls @ 100 mls/hr 10/26/23 13:37 10/26/23 15:00 Sod 3.375 gm/ Sodium Chloride IV 10/26/23 14:06 100 mls/hr ONCE ONE Administration Midodrine 5 mg 10/26/23 11:52 10/26/23 11:57 Midodrine Hcl 5 Mg Tablet PO 10/26/23 11:53 5 mg ONCE ONE Administration Medical Decision Making Medical Decision Making MDM Narrative: 88-year-old male with history and clinical presentation of hypoxia and increased work of breathing likely secondary to underlying significant lung disease interstitial lung, recurrent left pleural effusion, chronic lung disease, malnutrition, cachexia and significant weight loss over the past year (after discussion with patient's sons). INTERVENTION: Continued nebulized treatments, additional 5 mg of midodrine, IV fluids, bedside ultrasound demonstrates significant B-lines consistent with fluid overload-no pericardial effusion, patient already received steroids. 1245: Significant difficulty in obtaining venous access for laboratory workup, blood pressure is at patient's baseline value. 1330: I reviewed all investigations and hematologic indices demonstrate a not infectious leukocytosis as patient received 125 mg of Solu-Medrol prior to arrival, he has been afebrile, hemoglobin is decreased, patient has normocytic anemia and there is a chronically stable thrombocytopenia. Lactic acid is noted to be elevated but this is likely secondary to multiple nebulized treatments as well as a component of dehydration as we have been notified by family members that patient has had poor oral intake over several days. Coagulation studies are consistent with known chronic anticoagulation use. VBG does not demonstrate respiratory acidosis or hypercapnia. Chemistry indices do not demonstrate and WAYLON but there is a significant elevation in the BUN-of 50, otherwise electrolyte and liver enzymes are within normal limits. High sensitivity troponin is 4.2 which although detectable is likely reflective of patient's respiratory and atrial fibrillation with RVR status. BNP is noted to be elevated in patient will receive mild diuresis with 20 mg and this is in deference to patient's low blood pressure. Chest x-ray demonstrates left pleural effusion and underlying atelectasis which on reports by the family and on review of prior chest x-ray appears to be chronic in nature, radiologist also identify some mild mediastinal shift to the left however not entirely sure whether this is due to technique as patient's blood pressure is consistent with his home status for which he takes midodrine and assessment by bedside ultrasound did not demonstrate any pericardial effusion. Ultrasound-guided IV access has just blown, so will place central line. 1443: Placed right femoral central line. Patient doing well, baseline hemodynamics. Will proceed with blood transfusion and discuss patient with inpatient hospitalist for admission. May need to wait for blood transfusion. 1525: I discussed case with inpatient hospitalist who accepts admission. Differential Diagnosis Differential Diagnoses: The differential diagnosis associated with the presentation includes Please see the discussion above Admission/Observation Consideration of admission/observation: Escalation of care including admission/observation considered Please see the discussion above Consult Healthcare Provider Management of the patient was discussed with: Hospitalist Please see the discussion above Lab Data MDM Lab Attestation statement: I reviewed the patient's lab results. Please see the discussion above 10/26/23 12:43 10/26/23 12:43 Labs: Lab Results 10/26/23 10/26/23 10/26/23 Range/Units 12:41 12:43 14:55 WBC 13.0 H (4.8-10.8) X10*3/uL RBC 3.25 L D (4.60-5.80) X10*6/uL Hgb 7.9 L D (14.0-18.0) g/dl Hct 26.9 L D (42.0-52.0) % MCV 82.8 (80.0-98.0) fL MCH 24.3 L (27.0-33.0) pg MCHC 29.4 L (31.0-36.0) g/dl RDW 20.5 H (11.0-16.0) % Plt Count 136 L D (160-400) X10*3/uL MPV 10.3 (9.4-12.4) fL Immature Gran % (Auto) 0.8 H (0.0-0.4) % Neut % (Auto) 86.5 H (45-73) % Lymph % (Auto) 7.1 L (20-40) % Bibb % (Auto) 5.4 (2-11) % Eos % (Auto) 0.0 (0-4) % Baso % (Auto) 0.2 (0-2) % Lymph # (Auto) 0.9 L (1.2-4.9) X10*3/uL Bibb # (Auto) 0.7 (0.1-1.2) X10*3/uL Eos # (Auto) 0.0 (0.0-0.4) X10*3/uL Baso # (Auto) 0.0 (0.0-0.2) X10*3/uL Abs Immat Gran (auto) 0.11 H (0.00-0.03) X10*3/uL Absolute Neuts (auto) 11.3 H (2.0-8.3) x10*3/uL Absolute Nucleated RBC 0.000 (0.0-0.012) X10*3/uL Nucleated RBC % (auto) 0.0 (0.0-0.2) /100WBC PT 29.8 H D (11.1-13.3) SEC INR 2.4 H (0.9-1.1) VBG pH 7.37 (7.32-7.43) VBG pCO2 32 mmHg VBG pO2 43 mmHg VBG HCO3 18 L (22-26) mmol/L VBG O2 Saturation 64.0 % VBG Base Excess -5.5 mmol/L Sodium 142 (135-145) mmol/L Potassium 4.4 (3.3-5.1) mmol/L Chloride 109 H (96-108) mmol/L Carbon Dioxide 21 L (22-29) mmol/L Anion Gap 16 (12-20) BUN 50 H (9-16) mg/dL Creatinine 1.13 (0.5-1.4) mg/dL Estim Creat Clear Calc 38.6 Estimated GFR > 60 Random Glucose 128 H (60-115) mg/dL Lactic Acid 3.2 H* (0.5-2.0) mmol/L Lactic Acid F/U @ 2Hr (0.5-2.0) mmol/L Calcium 9.1 (8.4-10.2) mg/dL Total Bilirubin 0.9 (0.0-1.0) mg/dL AST 20 (5-37) U/L ALT 13 (0-40) U/L Alkaline Phosphatase 72 (39-117) U/L Troponin I High Sens 4.2 D (<3.5-35.0) ng/L B-Natriuretic Peptide 725 H (<100) pg/mL Total Protein 6.3 L (6.5-8.0) g/dL Albumin 3.3 L (3.5-5.0) g/dL Crossmatch See Detail 10/26/23 Range/Units 15:02 WBC (4.8-10.8) X10*3/uL RBC (4.60-5.80) X10*6/uL Hgb (14.0-18.0) g/dl Hct (42.0-52.0) % MCV (80.0-98.0) fL MCH (27.0-33.0) pg MCHC (31.0-36.0) g/dl RDW (11.0-16.0) % Plt Count (160-400) X10*3/uL MPV (9.4-12.4) fL Immature Gran % (Auto) (0.0-0.4) % Neut % (Auto) (45-73) % Lymph % (Auto) (20-40) % Bibb % (Auto) (2-11) % Eos % (Auto) (0-4) % Baso % (Auto) (0-2) % Lymph # (Auto) (1.2-4.9) X10*3/uL Bibb # (Auto) (0.1-1.2) X10*3/uL Eos # (Auto) (0.0-0.4) X10*3/uL Baso # (Auto) (0.0-0.2) X10*3/uL Abs Immat Gran (auto) (0.00-0.03) X10*3/uL Absolute Neuts (auto) (2.0-8.3) x10*3/uL Absolute Nucleated RBC (0.0-0.012) X10*3/uL Nucleated RBC % (auto) (0.0-0.2) /100WBC PT (11.1-13.3) SEC INR (0.9-1.1) VBG pH (7.32-7.43) VBG pCO2 mmHg VBG pO2 mmHg VBG HCO3 (22-26) mmol/L VBG O2 Saturation % VBG Base Excess mmol/L Sodium (135-145) mmol/L Potassium (3.3-5.1) mmol/L Chloride (96-108) mmol/L Carbon Dioxide (22-29) mmol/L Anion Gap (12-20) BUN (9-16) mg/dL Creatinine (0.5-1.4) mg/dL Estim Creat Clear Calc Estimated GFR Random Glucose (60-115) mg/dL Lactic Acid (0.5-2.0) mmol/L Lactic Acid F/U @ 2Hr 1.7 (0.5-2.0) mmol/L Calcium (8.4-10.2) mg/dL Total Bilirubin (0.0-1.0) mg/dL AST (5-37) U/L ALT (0-40) U/L Alkaline Phosphatase (39-117) U/L Troponin I High Sens (<3.5-35.0) ng/L B-Natriuretic Peptide (<100) pg/mL Total Protein (6.5-8.0) g/dL Albumin (3.5-5.0) g/dL Crossmatch Independent Interpretation I performed an independent interpretation of an: EKG Interpretation: Atrial fibrillation with RVR, HR-137, no STEMI, QRS/QTC is within normal limits. Radiology Impression Discussion of test interpretation with radiology: I have reviewed the radiologist's reading. Radiologist Impression: Please see the discussion above External Record Review External record reviewed: Outpatient record, Prior outpatient labs and Prior outpatient radiology Chronic Conditions Patient?s care impacted by: Other Atrial fibrillation with RVR, Procedures Central Line Placement Right IJ: Time Out Performed: No Patient Placed on Monitor/Pulse Ox: Yes MD Prep: mask, gown and gloves Central Line Prep: Chlorhexidine scrub Local Anesthetic: lidocaine 1% Amount of anesthesia used (mL): 2 Ultrasound Used for Placement: Yes Central Line Lumen Inserted: triple Complications: catheter malposition Additional Comments: Unable to advance guidewire beyond the 2nd at hash nikki, attempted visualization, attempted repositioning, however unable to advance. On repositioning blood return suspicious for arterial so aborted procedure and apply direct pressure for a minimum of 5 minutes and on evaluation of the site after direct pressure there is no hematoma, there is no expanding area of swelling. Right Femoral: Time Out Performed: No Patient Placed on Monitor/Pulse Ox: Yes MD Prep: mask, gown and gloves Central Line Prep: Chlorhexidine scrub Local Anesthetic: lidocaine 1% Amount of anesthesia used (mL): 2 Ultrasound Used for Placement: Yes Central Line Lumen Inserted: triple Post Procedure: sutured in place, good blood return, all ports aspirated, flushed, capped and sterile dressing applied Patient Tolerated Procedure: well Complications: none Critical Care Time Critical Care Time Critical Care Time: Yes Total Critical Care Time: 90 Attestation: I personally attest to this time spent taking care of the patient. Discharge Plan Discharge Clinical Impression: COPD exacerbation, Atrial fibrillation with RVR, Pleural effusion, left, Anemia Patient Disposition: Admitted As Inpatient Prescriptions: No Action Deheraj Oconnor 200-62.5-25 mcg blister with device 1 inh inhalation DAILY 30 Days Qty: 60 12RF metoprolol tartrate 25 mg tablet 25 mg PO BID Qty: 60 5RF Protocol: Hold for SBP/HR < HOLD for SBP < : 90 HOLD for HR < : 60 Eliquis 5 mg tablet 5 mg PO BID Qty: 60 5RF Rx Instructions: New medication midodrine 5 mg tablet 5 mg PO TID 30 Days Qty: 90 5RF Rx Instructions: do not give last dose of day after 6PM or within 4 hrs of bedtime simvastatin 10 mg Tablet 10 mg PO BEDTIME tamsulosin 0.4 mg capsule 0.8 mg PO BEDTIME albuterol sulfate 2.5 mg /3 mL (0.083 %) solution for nebulization 2.5 mg inhalation QID PRN (Reason: Shortness Of Breath) tafluprost (PF) [Zioptan (PF)] 0.0015 % dropperette 1 drp ophthalmic (eye) BEDTIME dorzolamide-timolol 22.3-6.8 mg/mL drops 1 drp ophthalmic (eye) BID@0900,1800 (DME) nebulizers Misc See Rx Instructions .Route Rx Instructions: As directed
[2023-10-26] MEDS: Magnesium Sulfate/H2O 2 GM/50 ML PIGGYBACK IV (11:14)
[2023-10-26] MEDS: 0.9 % Sodium Chloride 1,000 ML 999 ML IV (11:14)
[2023-10-26] MEDS: Albuterol Sulfate 5 MG, Albuterol/Iprat 2.5/0.5MG 3 ML 3 ML INHALE (11:24)
--- OUTSIDE RECORDS SUMMARY | 2023-10-26 11:42 | XMS_ITS | Patient Health Record ---
Author Name Unknown Organization 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 [id number] PLAN OF TREATMENT Pending Test Test Name Order Date IRON + IBC (FE) 03/06/2022 FERRITIN 03/06/2022 CBC w/o DIFF 03/06/2022 Future Test Test Name Order Date ERCP CHANGE OF STENT OR TUBE 01/25/2014 Insurance Providers Payer Name Payer Address Payer Phone Subscriber Number Group Number Insured Name Patient Relationship to Insured Coverage Start Date Coverage End Date MEDIC[place] [address] [place] [address] [id number] GRAHAM HILTON Self - patient is the insured MEDEX ATTN CLAIMS [address] [place] [phone] [id number] GRAHAM HILTON Self - patient is the [...]
[2023-10-26] MEDS: Midodrine HCl 5 MG TABLET PO (11:57)
[2023-10-26 12:48] LABS: VBG Base Excess -5.5 mmol/L; VBG HCO3 18 mmol/L (22-26); VBG pCO2 32 mmHg; VBG pH 7.37 (7.32-7.43); VBG pO2 43 mmHg
[2023-10-26 12:49] LABS: Venous Blood Gas Refer to POC result
[2023-10-26 12:54] LABS: MANUAL DIFF FLAG NO
[2023-10-26 12:56] LABS: Imm Gran Abs Auto 0.11 X10*3/uL (0.00-0.03); Monocytes Absolute Auto 0.7 X10*3/uL (0.1-1.2); Monocytes Percent Auto 5.4 % (2-11); Neutrophils Percent Auto 86.5 % (45-73); PLT CLUMP 1; Red Blood Count 3.25 X10*6/uL (4.60-5.80); SCAN SMEAR FLAG 1
[2023-10-26 12:58] LABS: Basophils Percent Auto 0.2 % (0-2); Hematocrit 26.9 % (42.0-52.0); Hemoglobin 7.9 g/dl (14.0-18.0); Imm Gran Pct Auto 0.8 % (0.0-0.4); Lymphocytes Absolute Auto 0.9 X10*3/uL (1.2-4.9); Lymphocytes Percent Auto 7.1 % (20-40); Mean Corpuscular HGB Conc 29.4 g/dl (31.0-36.0); Mean Corpuscular Hemoglobin 24.3 pg (27.0-33.0); Mean Corpuscular Volume 82.8 fL (80.0-98.0); Mean Platelet Volume 10.3 fL (9.4-12.4); Neutrophils Absolute Auto 11.3 x10*3/uL (2.0-8.3); Red Cell Distribution Width 20.5 % (11.0-16.0)
[2023-10-26 12:59] LABS: Platelet Count 136 X10*3/uL (160-400)
[2023-10-26 13:04] LABS: INTERNATIONAL NORM RATIO 2.4 (0.9-1.1); Prothrombin Time 29.8 SEC (11.1-13.3)
[2023-10-26 13:10] LABS: Alanine Aminotransferase 13 U/L (0-40); Albumin Level 3.3 g/dL (3.5-5.0); Alkaline Phosphatase 72 U/L (39-117); Anion Gap 16 (12-20); Aspartate Amino Transferase 20 U/L (5-37); Bilirubin Total 0.9 mg/dL (0.0-1.0); Blood Urea Nitrogen 50 mg/dL (9-16); Calcium 9.1 mg/dL (8.4-10.2); Carbon Dioxide 21 mmol/L (22-29); Chloride 109 mmol/L (96-108); Creatinine Clr Calc Pharmacy 38.6; Estimated Glomerular Filt Rate > 60; Glucose Random 128 mg/dL (60-115); Potassium 4.4 mmol/L (3.3-5.1); Sodium 142 mmol/L (135-145); Total Protein 6.3 g/dL (6.5-8.0)
[2023-10-26 13:16] LABS: B Type Natriuretic Peptide 725 pg/mL (<100)
[2023-10-26 13:17] LABS: Troponin-I High Sensitivity 4.2 ng/L (<3.5-35.0)
[2023-10-26 13:31] LABS: Lactic Acid 3.2 mmol/L (0.5-2.0)
--- NOTE | 2023-10-26 14:07 | PC.NURSE ---
Multiple attempts to get second IV in place/lab work. U/S guided line placed and MD bakari at bedside placing central line at this time
[2023-10-26 14:53] LABS: Reflex Lactate? Lactic Acid Added
[2023-10-26] MEDS: Furosemide 20 MG/2 ML VIAL IVPUSH (14:55)
[2023-10-26] MEDS: Piperacillin Sodium/Tazobactam 3.375 GM in 0.9 % Sodium Chloride 50 ML IV ×2 (15:00→23:15)
[2023-10-26 15:18] LABS: ~Lactic Acid-LAB USE ONLY 1.7 mmol/L (0.5-2.0)
--- NOTE | 2023-10-26 15:44 | MHC.EDTECH ---
This technician support association assist Neurpa, Hazardous Substances Scientist pivot patient for rectum temperature, change bed sheet, bed pad, and boost patient.
--- NOTE | 2023-10-26 15:46 | MHC.EDTECH ---
THIS PCT ASSUMED CARE OF PT AT 1500 ,VITALS TAKEN ,FLU/COVID SWAB COLLECTED AND SENT TO LAB ,PT BEDDING WAS SOILED ,BEDDING CHANGE ,PT FAMILY AT BEDSIDE .
[2023-10-26 15:54] LABS: COVID-19 Test Negative (Negative); IDNOW Serial# 9DB6401D; IDNOW Serial# BCCEAD1C; Influenza A Negative (Negative); Influenza B2 Negative (Negative)
--- NOTE | 2023-10-26 16:02 | PHA.MEDREC ---
Pharmacy Consult ? Medication Reconciliation Pharmacy has completed the medication reconciliation.Med rec complete, spoke with family member and compared with pharmacy claim history. Midodrine was decreased to twice a day, used to be 3 times a day.
[2023-10-26 16:11] LABS: Iron 25 mcg/dL (45-160); Percent Iron Saturation 14 % (15-50); Total Iron Binding Capacity 183 mcg/dL (228-428); Unsaturated Iron Binding 158 ug/dL
[2023-10-26 16:31] LABS: Ferritin 181 ng/mL (20-250)
--- NOTE | 2023-10-26 17:19 | PM.IMHP ---
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 De La Rosa on 07/21/2023 postoperative pathology was negative for malignancy, pleural fluid flow cytometry was also negative since drainage from the pleural catheter was only around 0-20 CC once or twice weekly therefore his pleural catheter was discontinued around Thanksgiving time patient was hospitalized during that time at [facility] since he was noted to have purulent drainage from the site of catheter removal, [facility] discharge summary is not available, today patient was brought in to [facility] since patient was unable to get out of bed to go to bathroom therefore called son he walked him to the bathroom but patient became dizzy weak, was tripoding on the toilet, was unable to stand, therefore EMS was called they found patient to be hypotensive, hypoxic, and in atrial fibrillation RVR patient was treated with IV Solu Medrol and nebulizer and he was brought in to [facility] where he was noted to be hypotensive, was in AFib with RVR ventricular rate in 130s , elevated BNP, mild leukocytosis ,BUN of 50 ,stable creatinine, low hematocrit 26.9, hemoglobin 7.9, Patient is complaining of lightheadedness and dizziness of couple week duration ,poor by mouth intake has lost 80 to100 lb in last 10 months, loss of taste, complaining of fatigue, lack of energy, has been unable to ambulate due to weakness and mostly in bed, in January patient was able to ambulate 2 mile, he complains of constipation, but gets diarrhea after protein shakes, denies hematemesis, no melena, complaining of shortness of breath with activity, no cough or sputum production, denies fever, no chills. In ED patient treated with 1 L of IV fluids 1 unit of packed RBC ordered and given 1 dose of IV Zosyn since CT chest showed complete opacification of left lower lobe bronchus with significant left lung base consult and station likely atelectasis wishes to the midline to left is also patchy consolidations/infiltrative change left lower lobe and lingula possible early pneumonia, there is also underlying diffuse emphysema. Patient will be admitted to [facility] due to acute anemia requiring blood transfusion, possible pneumonia and failure to thrive. Review of Systems Review of Systems: General no headache, on and off dizziness ,no fever chills, weakness, fatigue weight loss. CVS no chest pain, no palpitation. Respiratory no cough, no sob Gastrointestinal no nausea, no vomiting, no abdominal pain Musculoskeletal complaining of pain at site of prior pleural catheter no urgency, no frequency Skin easy bruisability [facility], [facility] Medical History (Updated 10/27/23 @ 13:13 by Med Osullivan MD) Cachexia Pneumonia Atrial fibrillation (~04/2023) History of adenocarcinoma of lung (~2009) ILD (interstitial lung disease) Oxygen dependent COPD (chronic obstructive pulmonary disease) History of COVID-19 (~12/2022) Purpura Osteoarthritis Diverticulitis Hypercholesterolemia Glaucoma Family History Mother ALS (amyotrophic lateral sclerosis) Surgical History History of lung surgery (~04/2010) History of thoracentesis (~2022) History of laparoscopic cholecystectomy (~12/2013) History of ERCP (~2013) History of partial colectomy (~12/2014) History of colostomy reversal (~03/2015) History of esophagogastroduodenoscopy (EGD) History of colonoscopy History of meniscectomy of left knee (~2013) History of total left knee replacement (~12/2014) Social History Household Members: Spouse Housing: Other Housing Other:: Elderly housing Do you presently have visiting nurse or other home services: Yes Alcohol intake: former Comment: SLEEPING Patient Tobacco Use Status: Former Tobacco user Quit Date: 12-13 yrs ago Tobacco use type: Cigarette Years Smoked: 20 years Smoked in Last 30 Days: No Patient Interested in Nicotine Replacement: No Patient Given Instructions on How to Stop Smoking: No Second Hand Smoke Exposure: No Use of substances other than those prescribed or required for medical reasons: No Currently Displaying Signs/Symptoms of Drug Intoxication Withdrawal: No Have you been hit, kicked, punched, or otherwise hurt by someone within the past year? If so, by whom?: No Do you feel safe in your current relationship?: Yes Is there a partner from a previous relationship who is making you feel unsafe now?: No Are you made to feel afraid or neglected: No Nondenominational Healthcare Practices: Bahai Advance Directives: No Advance Directives Information Provided: No Advance Directives Date on File: 04/28/23 Do you have thoughts of harming others: None Do you have a plan to hurt others: No Plan Recently lost weight without trying: Yes How much weight loss: 24-33 pounds Eating poorly because of decreased appetite: Yes Nutrition screen score: 6 Nutrition Risks: Emaciation/Cachexia and Poor intake 0-25% >4 days Poor oral hygiene: No service: No Current occupational status: retired [employer] Allergies Allergy/AdvReac Type Severity Reaction Status Date / Time No Known Allergies Allergy Verified 10/26/23 11:11 Active Medications: Current Medications Acetaminophen (Acetaminophen 325 Mg Tablet) 650 mg PO Q6H PRN PRN Reason: Pain, Mild (Pain Scale 1-3) Albuterol Sulfate (Albuterol Sulfate (0.083%) 2.5 Mg/3 Ml Vial.Neb) 2.5 mg INHALE QID PRN PRN Reason: Shortness Of Breath Apixaban (Apixaban 2.5 Mg Tablet) 2.5 mg PO BID KRISHNA Docusate Sodium (Docusate Sodium 100 Mg Capsule) 100 mg PO DAILY PRN PRN Reason: Constipation Dorzolamide/Timolol (Dorzolamide/Timolo 2.23%/0.68% 10 Ml Drbtl) 1 drop EYE-BOTH BID@0900,1800 KRISHNA Fluticasone/Umeclidinium/Vilanterol (Fluticasone/Umeclidinium/Vilanterol 200/62.5/25 Blst.W.Dev) 1 puff INHALE DAILY KRISHNA Piperacillin Sod/Tazobactam (Sod 3.375 gm/ Sodium Chloride) 50 mls @ 100 mls/hr IV Q6H KRISHNA Melatonin (Melatonin 3 Mg Tablet) 3 mg PO BEDTIME PRN PRN Reason: Insomnia Metoprolol Tartrate (Metoprolol Tartrate 25 Mg Tablet) 25 mg PO BID [facility]; Protocol Midodrine (Midodrine Hcl 5 Mg Tablet) 5 mg PO BID@0800,1500 [facility] Non-Formulary Medication (Tafluprost (Pf) [Zioptan (Pf)]) 1 drop EYE-BOTH BEDTIME [facility] Omeprazole (Omeprazole 20 Mg Capsule.Dr) 20 mg PO DAILY@0630 [facility] Ondansetron HCl (Ondansetron Hcl 4 Mg/2 Ml Vial) 4 mg IVPUSH Q8H PRN PRN Reason: Nausea and Vomiting Senna (Sennosides 8.6 Mg Tablet) 17.2 mg PO BEDTIME PRN PRN Reason: Constipation Sodium Chloride (0.9 % Sodium Chloride Flush 3 Ml Syringe) 3 ml IVFLUSH QSHIFT [facility] Tamsulosin HCl (Tamsulosin Hcl 0.4 Mg Capsule) 0.4 mg PO BEDTIME [facility] Home Medications Medication Instructions Recorded Confirmed Last Taken Type simvastatin 10 mg tablet 10 mg PO BEDTIME 08/06/20 10/26/23 04/27/23 History tamsulosin 0.4 mg capsule 0.8 mg PO BEDTIME 08/06/20 10/26/23 04/27/23 History dorzolamide 22.3 mg-timolol 6.8 1 drp ophthalmic (eye) 10/14/21 10/26/23 10/26/23 History mg/mL eye drops BID@0900,1800 nebulizers 01/14/23 09/29/23 Unknown History albuterol sulfate 2.5 mg/3 mL 2.5 mg inhalation QID PRN 04/28/23 10/26/23 Unknown History (0.083 %) solution for nebulization Shortness Of Breath tafluprost (PF) 0.0015 % eye drops 1 drp ophthalmic (eye) BEDTIME 04/28/23 10/26/23 Unknown History in a dropperette (Zioptan (PF)) midodrine 5 mg tablet 5 mg PO BID@0800,1500 10/26/23 10/26/23 10/26/23 History Physical Exam Vital Signs and Narrative: Vital Signs: Last Vital Signs Temp 98.4 F 10/26/23 16:44 Pulse 120 H 10/26/23 16:44 Resp 25 H 10/26/23 16:44 BP 104/50 L 10/26/23 16:44 Pulse Ox 98 10/26/23 16:15 O2 Del Method Oxymask 10/26/23 16:15 O2 Flow Rate 5 10/26/23 16:15 Oxygen Flow Rate 5 10/26/23 11:06 BMI result Body Mass Index 17.1 Const: Other: General awake alert x3, cachectic, pleasant gentleman in no acute distress. HEENT anicteric sclera Neck supple no JVD. CVS regular rate rhythm, Respiratory lungs clear to auscultation, no respiratory distress, no wheeze, no rhonchi. Gastrointestinal abdomen soft, non tender, bowel sounds audible, no guarding , no rigidity, small wound at the site of prior PleurX catheter no drainage. Extremities no edema. Neuro nonfocal moving all 4 extremity, speech clear. Skin multiple ecchymosis both upper extremities, skin tear right big toe Psych appropriate affect Results Labs 10/27/23 07:12 10/27/23 07:12 Labs: Laboratory Results - last 24 hr 10/26/23 10/26/23 10/26/23 12:41 12:43 14:55 MCV 82.8 MCH 24.3 L MCHC 29.4 L RDW 20.5 H Plt Count 136 L D MPV 10.3 Immature Gran % (Auto) 0.8 H Neut % (Auto) 86.5 H Lymph % (Auto) 7.1 L [place] % (Auto) 5.4 Eos % (Auto) 0.0 Baso % (Auto) 0.2 Lymph # (Auto) 0.9 L [place] # (Auto) 0.7 Eos # (Auto) 0.0 Baso # (Auto) 0.0 Abs Immat Gran (auto) 0.11 H Absolute Neuts (auto) 11.3 H Absolute Nucleated RBC 0.000 Nucleated RBC % (auto) 0.0 PT 29.8 H D INR 2.4 H VBG pH 7.37 VBG pCO2 32 VBG pO2 43 VBG HCO3 18 L VBG O2 Saturation 64.0 VBG Base Excess -5.5 Anion Gap 16 Estim Creat Clear Calc 38.6 Estimated GFR > 60 Random Glucose 128 H Lactic Acid 3.2 H* Lactic Acid F/U @ 2Hr Calcium 9.1 Iron 25 L TIBC 183 L % Saturation 14 L Unsat Iron Binding 158 Ferritin 181 Total Bilirubin 0.9 AST 20 ALT 13 Alkaline Phosphatase 72 B-Natriuretic Peptide 725 H Total Protein 6.3 L Albumin 3.3 L COVID-19 ([facility]) COVID-19 Clin Com Influenza Type A ([facility]) Influenza Type B ([facility]) Influenza A & B Note Blood Type O Positive Antibody Screen NEGATIVE Crossmatch See Detail 10/26/23 10/26/23 15:02 15:34 MCV MCH MCHC RDW Plt Count MPV Immature Gran % (Auto) Neut % (Auto) Lymph % (Auto) [place] % (Auto) Eos % (Auto) Baso % (Auto) Lymph # (Auto) [place] # (Auto) Eos # (Auto) Baso # (Auto) Abs Immat Gran (auto) Absolute Neuts (auto) Absolute Nucleated RBC Nucleated RBC % (auto) PT INR VBG pH VBG pCO2 VBG pO2 VBG HCO3 VBG O2 Saturation VBG Base Excess Anion Gap Estim Creat Clear Calc Estimated GFR Random Glucose Lactic Acid Lactic Acid F/U @ 2Hr 1.7 Calcium Iron TIBC % Saturation Unsat Iron Binding Ferritin Total Bilirubin AST ALT Alkaline Phosphatase B-Natriuretic Peptide Total Protein Albumin COVID-19 ([facility]) Negative COVID-19 Clin Com See Note Influenza Type A ([facility]) Negative Influenza Type B ([facility]) Negative Influenza A & B Note See Note Blood Type Antibody Screen Crossmatch Imaging Radiologist's Impressions: Impressions Chest X-Ray 10/26/23 11:38 IMPRESSION: Left pleural effusion and underlying atelectasis. Mild mediastinal shift to the left. Likely coarse interstitial changes in both lungs, stable. Chest X-Ray 10/26/23 14:45 IMPRESSION: Loss of left lung volume with left lower lobe effusion/chronic atelectasis. Chronic interstitial changes left lung with bilateral apical pleural thickening. Chest CT 10/26/23 15:22 IMPRESSION: Complete opacification of the left lower lobe bronchus with significant left lung base consolidation likely atelectasis with shift of the midline to the left. There is also patchy consolidation/infiltrative change left lower lobe and lingula possibly pneumonia. There is underlying diffuse emphysema/COPD. Fleischner guidelines were followed. Assessment and Plan (1) Atelectasis of left lung: Status: Acute (2) Cachexia: Status: Acute (3) Pneumonia: Qualifiers: Pneumonia type: due to unspecified organism Laterality: left Lung location: lower lobe of lung Qualified Code(s): J18.9 - Pneumonia, unspecified organism Status: Acute (4) Acute and chronic respiratory failure: Qualifiers: Respiratory failure complication: hypoxia Qualified Code(s): J96.21 - Acute and chronic respiratory failure with hypoxia Status: Acute Plan Acute on chronic hypoxic respiratory failure due to left lung collapse/pneumonia/atelectasis with shift of midline to left Admit to telemetry/place on 5 L OxyMask at home patient on 1.5 L of oxygen Obtain pulmonary consultation for possible bronchoscopy No acute COPD exacerbation noted, ABG unremarkable IV Zosyn/cough medication/ chest PT as tolerated Acute on chronic normocytic anemia likely due to malnutrition, no active bleed noted Placed on PPI ,check stool guaiac, iron profile, transfuse 1 unit of packed RBC follow repeat hematocrit Status post EGD and colonoscopy in January 2022 noted to have 3 mm oozing antral avm, cauterized, duodenitis in bulb and 2nd portion,colonoscopy showed no bleeding or mass Showed mod-extensive zabala diverticulosis. Obtain GI consult if noted to have active bleeding Chronic persistent atrial fibrillation with RVR continue metoprolol 25 mg b.i.d. treated anemia admitted to telemetry and adjust dose of Eliquis to 2.5 b.i.d. If noted to have persistent tachycardia will add digoxin. Failure to thrive/weight loss moderate to severe protein calorie malnutrition Poor by mouth intake, will obtain nutrition consult placed on protein supplements. History of ILD/COPD no acute exacerbation noted will continue home inhalers and oxygen as above. BPH Continue tamsulosin will reduce dose to 0.4 mg due to hypotension Hyperlipidemia significant weight loss hold statin DVT prophylaxis with Eliquis DNR DNI case discussed with patient's son healthcare proxy and discussed hospice care due to multiple comorbidities, son is agreeable to hospice will follow clinical course. In my clinical judgment patient need 2 night inpatient stay for management of failure to thrive atrial fibrillation with RVR and acute anemia requiring blood transfusion in need expert consultation for left lower lobe lung collapse. Quality Stroke Does the patient have a stroke diagnosis?: No VTE Prior VTE?: No VTE Risk Level:: Medical - moderate - high VTE Device Contraindication: Treatment Not Indicated VTE Drug Contraindication: N/A - Med Ordered
--- NOTE | 2023-10-26 18:22 | PC.NURSE ---
Addendum entered by Cherrie Kaplan LPN 10/26/23 18:27: 350mls emptied from previous [place] catheter drain bag. pt now utilizing bedside urinal Original Note: this nurse was called to Pt room. pt sts he thought he had an itch and thus removed his rigth triple lumen femoral line. pressure was applied, and bleeding was controlled utilizing 4x4 gauze and tegaderm. Dr Blevins notified via tiger connect. left external jugular access obtained by MD. Dixon. pt was cleaned and fresh line placed under pt. pt voided in urinal 300ml of urine. Plan is for pt to admit to IM. care ongoing
[2023-10-26] MEDS: Apixaban 2.5 MG TABLET PO (23:15)
[2023-10-26] MEDS: 0.9 % Sodium Chloride Flush 3 ML SYRINGE IVFLUSH (23:16)
[2023-10-26] MEDS: Tamsulosin HCL 0.4 MG CAPSULE PO (23:36)
[2023-10-27] VITALS (9 sets, daily range): BP systolic 84–112; BP diastolic 40–66; PULSE 94–120; RESP 12–22; TEMP 36.1–37.2; O2SAT 93–100; BMI 19.6
[2023-10-27] MEDS: Piperacillin Sodium/Tazobactam 3.375 GM in 0.9 % Sodium Chloride 50 ML IV ×4 (03:40→21:14)
[2023-10-27] MEDS: Omeprazole 20 MG CAPSULE.DR PO (05:17)
[2023-10-27 07:23] LABS: Hematocrit 33.2 % (42.0-52.0); Hemoglobin 10.1 g/dl (14.0-18.0); Mean Corpuscular HGB Conc 30.4 g/dl (31.0-36.0); Mean Corpuscular Hemoglobin 25.9 pg (27.0-33.0); Mean Corpuscular Volume 85.1 fL (80.0-98.0); Mean Platelet Volume 10.3 fL (9.4-12.4); Platelet Count 124 X10*3/uL (160-400); Red Cell Distribution Width 20.2 % (11.0-16.0)
[2023-10-27 07:43] LABS: Anion Gap 15 (12-20); Blood Urea Nitrogen 54 mg/dL (9-16); Calcium 9.3 mg/dL (8.4-10.2); Carbon Dioxide 21 mmol/L (22-29); Chloride 108 mmol/L (96-108); Creatinine Clr Calc Pharmacy 30.7; Estimated Glomerular Filt Rate 47; Glucose Random 144 mg/dL (60-115); Potassium 4.3 mmol/L (3.3-5.1); Sodium 140 mmol/L (135-145)
[2023-10-27] MEDS: Midodrine HCl 5 MG TABLET PO ×2 (08:19→14:51)
[2023-10-27] MEDS: Apixaban 2.5 MG TABLET PO (08:19)
[2023-10-27] MEDS: Metoprolol Tartrate 25 MG TABLET PO (08:19)
[2023-10-27] MEDS: Fluticasone/Umeclidinium/Vilanterol 200/62.5/25 BLST.W.DEV 1 PUFF INHALE (08:59)
--- NOTE | 2023-10-27 09:12 | MHC.CM.PN ---
IMM 10/27/23, Discussed with pt. 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 Pt lives with spouse, he was receiving skilled home care services from [facility]. He said that he is able to access assistance from [facility] in the building that he lives in which is elderly housing. PCP is Dr. Sung. Provider has spoken to pt and family about Hospice services, CM to follow and assist with DC planning.
[2023-10-27] MEDS: Digoxin 0.5 MG/2 ML AMPUL 0.25 MG IVPUSH ×2 (11:00→16:33)
[2023-10-27] MEDS: Dorzolamide/Timolo 2.23%/0.68% 10 ML DRBTL 1 DROP EYE-BOTH ×2 (11:00→16:49)
--- NOTE | 2023-10-27 12:41 | PM.CNPUL ---
History of Present Illness History of Present Illness Consult date: 10/27/23 Chief complaint: Atrial fib With RVR/Anemia Narrative: This is an inpatient pulmonary consultation. 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 De La Rosa on 07/21/2023 postoperative pathology was negative for malignancy, pleural fluid flow cytometry was also negative since drainage from the pleural catheter was only around 0-20 CC once or twice weekly therefore his pleural catheter was discontinued around Thanksgiving time patient was hospitalized during that time at [facility] since he was noted to have purulent drainage from the site of catheter removal, [facility] discharge summary is not available, today patient was brought in to [facility] since patient was unable to get out of bed to go to bathroom therefore called son he walked him to the bathroom but patient became dizzy weak, was tripoding on the toilet, was unable to stand, therefore EMS was called they found patient to be hypotensive, hypoxic, and in atrial fibrillation RVR patient was treated with IV Solu Medrol and nebulizer and he was brought in to [facility] where he was noted to be hypotensive, was in AFib with RVR ventricular rate in 130s , elevated BNP, mild leukocytosis ,BUN of 50 ,stable creatinine, low hematocrit 26.9, hemoglobin 7.9, Patient is complaining of lightheadedness and dizziness of couple week duration ,poor by mouth intake has lost 80 to100 lb in last 10 months. In ED patient treated with 1 L of IV fluids 1 unit of packed RBC ordered and given 1 dose of IV Zosyn since CT chest showed significant opacification of left lower lobe bronchus with significant left lung base consult and station likely atelectasis wishes to the midline to left is also patchy consolidations/infiltrative change left lower lobe and lingula possible early pneumonia, there is also underlying diffuse emphysema. The patient was started on Zosyn and has been on oxygen 8 L. He has also been on Eliquis. He responded well to the blood transfusion. At this point the patient is clinically feeling a little better. He does have a weakened cough. We talked about the importance of chest physical therapy. Briefly also we talked about his multiple comorbidities. Also, briefly spoke about considering bronchoscopy if no better. Although without a significant medical issues he is high risk for any semi invasive procedures. Review of Systems Review of Systems: General no headache, on and off dizziness ,no fever chills, weakness, fatigue weight loss. CVS no chest pain, no palpitation. Respiratory no cough, no sob Gastrointestinal no nausea, no vomiting, no abdominal pain Musculoskeletal complaining of pain at site of prior pleural catheter no urgency, no frequency Skin easy bruisability PMFSH Past Medical History Medical History (Updated 10/27/23 @ 12:47 by George Plata MD) Cachexia Pneumonia Atrial fibrillation (~04/2023) History of adenocarcinoma of lung (~2009) ILD (interstitial lung disease) Oxygen dependent COPD (chronic obstructive pulmonary disease) History of COVID-19 (~12/2022) Purpura Osteoarthritis Diverticulitis Hypercholesterolemia Glaucoma Family History Family History Mother ALS (amyotrophic lateral sclerosis) Surgical History Surgical History History of lung surgery (~04/2010) History of thoracentesis (~2022) History of laparoscopic cholecystectomy (~12/2013) History of ERCP (~2013) History of partial colectomy (~12/2014) History of colostomy reversal (~03/2015) History of esophagogastroduodenoscopy (EGD) History of colonoscopy History of meniscectomy of left knee (~2013) History of total left knee replacement (~12/2014) Social History Social History Household Members: Spouse Housing: Other Housing Other:: Elderly housing Do you presently have visiting nurse or other home services: Yes Alcohol intake: former Comment: SLEEPING Patient Tobacco Use Status: Former Tobacco user Quit Date: 12-13 yrs ago Tobacco use type: Cigarette Years Smoked: 20 years Smoked in Last 30 Days: No Patient Interested in Nicotine Replacement: No Patient Given Instructions on How to Stop Smoking: No Second Hand Smoke Exposure: No Use of substances other than those prescribed or required for medical reasons: No Currently Displaying Signs/Symptoms of Drug Intoxication Withdrawal: No Have you been hit, kicked, punched, or otherwise hurt by someone within the past year? If so, by whom?: No Do you feel safe in your current relationship?: Yes Is there a partner from a previous relationship who is making you feel unsafe now?: No Are you made to feel afraid or neglected: No Yarsanism Healthcare Practices: Anabaptist Advance Directives: No Advance Directives Information Provided: No Advance Directives Date on File: 04/28/23 Do you have thoughts of harming others: None Do you have a plan to hurt others: No Plan Recently lost weight without trying: Yes How much weight loss: 24-33 pounds Eating poorly because of decreased appetite: Yes Nutrition screen score: 6 Nutrition Risks: Emaciation/Cachexia and Poor intake 0-25% >4 days Poor oral hygiene: No service: No Current occupational status: retired [employer] Allergies Allergy/AdvReac Type Severity Reaction Status Date / Time No Known Allergies Allergy Verified 10/26/23 11:11 Active Medications: Current Medications Acetaminophen (Acetaminophen 325 Mg Tablet) 650 mg PO Q6H PRN PRN Reason: Pain, Mild (Pain Scale 1-3) Albuterol Sulfate (Albuterol Sulfate (0.083%) 2.5 Mg/3 Ml Vial.Neb) 2.5 mg INHALE QID PRN PRN Reason: Shortness Of Breath Digoxin (Digoxin 0.5 Mg/2 Ml Ampul) 0.25 mg IVPUSH Q6H [facility] Stop: 10/27/23 17:01 Last Admin: 10/27/23 11:00 Dose: 0.25 mg Docusate Sodium (Docusate Sodium 100 Mg Capsule) 100 mg PO DAILY PRN PRN Reason: Constipation Dorzolamide/Timolol (Dorzolamide/Timolo 2.23%/0.68% 10 Ml Drbtl) 1 drop EYE-BOTH BID@0900,1800 [facility] Last Admin: 10/27/23 11:00 Dose: 1 drop Fluticasone/Umeclidinium/Vilanterol (Fluticasone/Umeclidinium/Vilanterol 200/62.5/25 Blst.W.Dev) 1 puff INHALE RDAILY [facility] Last Admin: 10/27/23 08:59 Dose: 1 puff Piperacillin Sod/Tazobactam (Sod 3.375 gm/ Sodium Chloride) 50 mls @ 100 mls/hr IV Q6H [facility] Last Infusion: 10/27/23 08:55 Dose: Infused Melatonin (Melatonin 3 Mg Tablet) 3 mg PO BEDTIME PRN PRN Reason: Insomnia Metoprolol Tartrate (Metoprolol Tartrate 25 Mg Tablet) 25 mg PO BID [facility]; Protocol Last Admin: 10/27/23 08:19 Dose: 25 mg Midodrine (Midodrine Hcl 5 Mg Tablet) 5 mg PO BID@0800,1500 [facility] Last Admin: 10/27/23 08:19 Dose: 5 mg Non-Formulary Medication (Tafluprost (Pf) [Zioptan (Pf)]) 1 drop EYE-BOTH BEDTIME [facility] Omeprazole (Omeprazole 20 Mg Capsule.Dr) 20 mg PO DAILY@0630 [facility] Last Admin: 10/27/23 05:17 Dose: 20 mg Ondansetron HCl (Ondansetron Hcl 4 Mg/2 Ml Vial) 4 mg IVPUSH Q8H PRN PRN Reason: Nausea and Vomiting Senna (Sennosides 8.6 Mg Tablet) 17.2 mg PO BEDTIME PRN PRN Reason: Constipation Sodium Chloride (0.9 % Sodium Chloride Flush 3 Ml Syringe) 3 ml IVFLUSH QSHIFT [facility] Last Admin: 10/27/23 08:22 Dose: Not Given Tamsulosin HCl (Tamsulosin Hcl 0.4 Mg Capsule) 0.4 mg PO BEDTIME [facility] Last Admin: 10/26/23 23:36 Dose: 0.4 mg Home Medications Medication Instructions Recorded Confirmed Last Taken Type simvastatin 10 mg tablet 10 mg PO BEDTIME 08/06/20 10/26/23 04/27/23 History tamsulosin 0.4 mg capsule 0.8 mg PO BEDTIME 08/06/20 10/26/23 04/27/23 History dorzolamide 22.3 mg-timolol 6.8 1 drp ophthalmic (eye) 10/14/21 10/26/23 10/26/23 History mg/mL eye drops BID@0900,1800 nebulizers 01/14/23 09/29/23 Unknown History albuterol sulfate 2.5 mg/3 mL 2.5 mg inhalation QID PRN 04/28/23 10/26/23 Unknown History (0.083 %) solution for nebulization Shortness Of Breath tafluprost (PF) 0.0015 % eye drops 1 drp ophthalmic (eye) BEDTIME 04/28/23 10/26/23 Unknown History in a dropperette (Zioptan (PF)) midodrine 5 mg tablet 5 mg PO BID@0800,1500 10/26/23 10/26/23 10/26/23 History Physical Exam Vital Signs: Vital Signs: Last Vital Signs Temp 97.3 F 10/27/23 11:54 Pulse 107 H 10/27/23 11:54 Resp 20 10/27/23 11:54 BP 90/50 L 10/27/23 11:54 Pulse Ox 93 10/27/23 11:54 O2 Del Method Nasal Cannula 10/27/23 11:54 O2 Flow Rate 8 10/27/23 11:54 Oxygen Flow Rate 5 10/26/23 11:06 BMI result Body Mass Index 17.0 Const: Other: thin, frail appearance General: cooperative and comfortable Nutritional Appearance: underweight Orientation/consciousness: patient oriented x3 HEENT: Head: Yes atraumatic Neck: Neck: Yes normal visual inspection and Yes supple Chest: Chest palpation & inspection: normal inspection of the chest Resp: Effort & Inspection: normal respiratory effort Auscultation: no crackles, no rales, no rhonchi, no wheezes and diminished lung sounds Cardio: Jugular venous distension: no JVD Heart sounds: S1 normal heart sound present and S2 normal heart sound present GI: Palpation (GI): Soft to palpation Skin: General skin exam: no rashes or lesions noted Neuro: General: patient oriented x3 Extrem: General: Yes no clubbing, cyanosis or edema Psych: Appearance: grossly normal Mental Status: mental status grossly normal Speech and movement: Normal speech and movement present Results Laboratory Findings 10/27/23 07:12 10/27/23 07:12 ABG, PT/INR, D-dimer: PT/INR, D-dimer PT 29.8 SEC (11.1-13.3) H D 10/26/23 12:43 INR 2.4 (0.9-1.1) H 10/26/23 12:43 Abnormal lab findings: Abnormal Labs 10/26/23 10/26/23 10/26/23 12:41 12:43 14:55 WBC 13.0 H RBC 3.25 L D Hgb 7.9 L D Hct 26.9 L D MCH 24.3 L MCHC 29.4 L RDW 20.5 H Plt Count 136 L D Immature Gran % (Auto) 0.8 H Neut % (Auto) 86.5 H Lymph % (Auto) 7.1 L Lymph # (Auto) 0.9 L Abs Immat Gran (auto) 0.11 H Absolute Neuts (auto) 11.3 H PT 29.8 H D INR 2.4 H VBG HCO3 18 L Chloride 109 H Carbon Dioxide 21 L BUN 50 H Creatinine Random Glucose 128 H Lactic Acid 3.2 H* Iron 25 L TIBC 183 L % Saturation 14 L B-Natriuretic Peptide 725 H Total Protein 6.3 L Albumin 3.3 L Crossmatch See Detail 10/27/23 07:12 WBC RBC 3.90 L Hgb 10.1 L D Hct 33.2 L D MCH 25.9 L MCHC 30.4 L RDW 20.2 H Plt Count 124 L Immature Gran % (Auto) Neut % (Auto) Lymph % (Auto) Lymph # (Auto) Abs Immat Gran (auto) Absolute Neuts (auto) PT INR VBG HCO3 Chloride Carbon Dioxide 21 L BUN 54 H Creatinine 1.41 H Random Glucose 144 H Lactic Acid Iron TIBC % Saturation B-Natriuretic Peptide Total Protein Albumin Crossmatch Assessment and Plan (1) Acute and chronic respiratory failure: Qualifiers: Respiratory failure complication: hypoxia Qualified Code(s): J96.21 - Acute and chronic respiratory failure with hypoxia Status: Acute (2) Pneumonia: Qualifiers: Pneumonia type: due to unspecified organism Laterality: left Lung location: lower lobe of lung Qualified Code(s): J18.9 - Pneumonia, unspecified organism Status: Acute (3) Cachexia: Status: Acute (4) ILD (interstitial lung disease): Status: Acute (5) COPD (chronic obstructive pulmonary disease): Qualifiers: COPD type: COPD with acute exacerbation Qualified Code(s): J44.1 - Chronic obstructive pulmonary disease with (acute) exacerbation Status: Acute (6) Atrial fibrillation: Qualifiers: Atrial fibrillation type: paroxysmal Qualified Code(s): I48.0 - Paroxysmal atrial fibrillation Status: Acute (7) Anemia: Qualifiers: Anemia type: other cause Other causes of anemia: other cause, not classified Qualified Code(s): D64.89 - Other specified anemias Status: Acute Plan continue Zosyn Add CPT with acapella valve continue oxygen supplementation Hold Eliquis for now. OK to start Lovenox once INR is below 2. Would be high risk for bronchosocopy but we will consider if no better or worse start mucomyst BID and xopenex x 3 days multi organ failure, concerned with poor prognosis. Goals of care discussion with the family is important. Pt is a DNI/DNR CXR tomorrow Procedures Date of Service Date of Service: 10/27/23
--- NOTE | 2023-10-27 13:09 | HO.THORCON_ITS ---
History of Present Illness Consult details Consult date: 10/27/23 Narrative: Patient is an 88-year-old man with a plethora of comorbidities who presents here because of feeling unwell, weak, and on workup was found to have significant left lower lung atelectasis/consolidation. Patient has a very intricate past medical and surgical history. He recently had a PleurX catheter removed from his left hemithorax for treatment of chronic/recurrent left pleural effusion which was negative for malignancy. Chart was reviewed patient evaluated. Patient was on Eliquis pre-admission. Patient is status post right upper lobectomy for early stage lung cancer. He underwent thorascopic left pleurodesis and PleurX catheter placement at [facility]. [facility] Past Medical History Medical History (Updated 10/27/23 @ 13:13 by Med Osullivan MD) Cachexia Pneumonia Atrial fibrillation (~04/2023) History of adenocarcinoma of lung (~2009) ILD (interstitial lung disease) Oxygen dependent COPD (chronic obstructive pulmonary disease) History of COVID-19 (~12/2022) Purpura Osteoarthritis Diverticulitis Hypercholesterolemia Glaucoma Family History Family History Mother ALS (amyotrophic lateral sclerosis) Surgical History Surgical History History of lung surgery (~04/2010) History of thoracentesis (~2022) History of laparoscopic cholecystectomy (~12/2013) History of ERCP (~2013) History of partial colectomy (~12/2014) History of colostomy reversal (~03/2015) History of esophagogastroduodenoscopy (EGD) History of colonoscopy History of meniscectomy of left knee (~2013) History of total left knee replacement (~12/2014) Social History Social History Household Members: Spouse Housing: Other Housing Other:: Elderly housing Do you presently have visiting nurse or other home services: Yes Alcohol intake: former Comment: SLEEPING Patient Tobacco Use Status: Former Tobacco user Quit Date: 12-13 yrs ago Tobacco use type: Cigarette Years Smoked: 20 years Smoked in Last 30 Days: No Patient Interested in Nicotine Replacement: No Patient Given Instructions on How to Stop Smoking: No Second Hand Smoke Exposure: No Use of substances other than those prescribed or required for medical reasons: No Currently Displaying Signs/Symptoms of Drug Intoxication Withdrawal: No Have you been hit, kicked, punched, or otherwise hurt by someone within the past year? If so, by whom?: No Do you feel safe in your current relationship?: Yes Is there a partner from a previous relationship who is making you feel unsafe now?: No Are you made to feel afraid or neglected: No Pentecostal Healthcare Practices: Baptism Advance Directives: No Advance Directives Information Provided: No Advance Directives Date on File: 04/28/23 Do you have thoughts of harming others: None Do you have a plan to hurt others: No Plan Recently lost weight without trying: Yes How much weight loss: 24-33 pounds Eating poorly because of decreased appetite: Yes Nutrition screen score: 6 Nutrition Risks: Emaciation/Cachexia and Poor intake 0-25% >4 days Poor oral hygiene: No service: No Current occupational status: retired Meds Allergies Allergy/AdvReac Type Severity Reaction Status Date / Time No Known Allergies Allergy Verified 10/26/23 11:11 Active Medications: Current Medications Acetaminophen (Acetaminophen 325 Mg Tablet) 650 mg PO Q6H PRN PRN Reason: Pain, Mild (Pain Scale 1-3) Acetylcysteine (Acetylcysteine 10 % 400 Mg/4 Ml Vial) 400 mg INHALE RBID [facility] Albuterol Sulfate (Albuterol Sulfate (0.083%) 2.5 Mg/3 Ml Vial.Neb) 2.5 mg INHALE QID PRN PRN Reason: Shortness Of Breath Digoxin (Digoxin 0.5 Mg/2 Ml Ampul) 0.25 mg IVPUSH Q6H [facility] Stop: 10/27/23 17:01 Last Admin: 10/27/23 11:00 Dose: 0.25 mg Docusate Sodium (Docusate Sodium 100 Mg Capsule) 100 mg PO DAILY PRN PRN Reason: Constipation Dorzolamide/Timolol (Dorzolamide/Timolo 2.23%/0.68% 10 Ml Drbtl) 1 drop EYE- BOTH BID@0900,1800 [facility] Last Admin: 10/27/23 11:00 Dose: 1 drop Fluticasone/Umeclidinium/Vilanterol (Fluticasone/Umeclidinium/Vilanterol 200/62.5/25 Blst.W.Dev) 1 puff INHALE RDAILY [facility] Last Admin: 10/27/23 08:59 Dose: 1 puff Piperacillin Sod/Tazobactam (Sod 3.375 gm/ Sodium Chloride) 50 mls @ 100 mls/hr IV Q6H [facility] Last Infusion: 10/27/23 08:55 Dose: Infused Levalbuterol HCl (Levalbuterol Hcl 1.25 Mg/3 Ml Vial.Neb) 1.25 mg INHALE RBID [facility] Melatonin (Melatonin 3 Mg Tablet) 3 mg PO BEDTIME PRN PRN Reason: Insomnia Metoprolol Tartrate (Metoprolol Tartrate 25 Mg Tablet) 25 mg PO BID [facility]; Protocol Last Admin: 10/27/23 08:19 Dose: 25 mg Midodrine (Midodrine Hcl 5 Mg Tablet) 5 mg PO BID@0800,1500 [facility] Last Admin: 10/27/23 08:19 Dose: 5 mg Non-Formulary Medication (Tafluprost (Pf) [Zioptan (Pf)]) 1 drop EYE-BOTH BEDTIME [facility] Omeprazole (Omeprazole 20 Mg Capsule.Dr) 20 mg PO DAILY@0630 [facility] Last Admin: 10/27/23 05:17 Dose: 20 mg Ondansetron HCl (Ondansetron Hcl 4 Mg/2 Ml Vial) 4 mg IVPUSH Q8H PRN PRN Reason: Nausea and Vomiting Senna (Sennosides 8.6 Mg Tablet) 17.2 mg PO BEDTIME PRN PRN Reason: Constipation Sodium Chloride (0.9 % Sodium Chloride Flush 3 Ml Syringe) 3 ml IVFLUSH QSHIFT [facility] Last Admin: 10/27/23 08:22 Dose: Not Given Tamsulosin HCl (Tamsulosin Hcl 0.4 Mg Capsule) 0.4 mg PO BEDTIME [facility] Last Admin: 10/26/23 23:36 Dose: 0.4 mg Home Medications Medication Instructions Recorded Confirmed Last Taken Type simvastatin 10 mg tablet 10 mg PO BEDTIME 08/06/20 10/26/23 04/27/23 History tamsulosin 0.4 mg capsule 0.8 mg PO BEDTIME 08/06/20 10/26/23 04/27/23 History dorzolamide 22.3 mg-timolol 6.8 1 drp ophthalmic (eye) 10/14/21 10/26/23 10/26/23 History mg/mL eye drops BID@0900,1800 nebulizers 01/14/23 09/29/23 Unknown History albuterol sulfate 2.5 mg/3 mL 2.5 mg inhalation QID PRN 04/28/23 10/26/23 Unknown History (0.083 %) solution for nebulization Shortness Of Breath tafluprost (PF) 0.0015 % eye drops 1 drp ophthalmic (eye) BEDTIME 04/28/23 10/26/23 Unknown History in a dropperette (Zioptan (PF)) midodrine 5 mg tablet 5 mg PO BID@0800,1500 10/26/23 10/26/23 10/26/23 History Physical Exam 2 Vital Signs: Vital Signs: Last Vital Signs Temp 97.3 F 10/27/23 11:54 Pulse 107 H 10/27/23 11:54 Resp 20 10/27/23 11:54 BP 90/50 L 10/27/23 11:54 Pulse Ox 93 10/27/23 11:54 O2 Del Method Nasal Cannula 10/27/23 11:54 O2 Flow Rate 8 10/27/23 11:54 Oxygen Flow Rate 5 10/26/23 11:06 BMI result Body Mass Index 17.0 Const: Other: Elderly , thin frail looking patient. Chest: Other: Chest breath sounds bilaterally, bilateral scars. Diminished breath sounds left base GI: Other: Abdomen soft, scaphoid, benign. Results Labs 10/27/23 07:12 10/27/23 07:12 Labs: Abnormal lab results 10/26/23 10/26/23 10/27/23 Range/Units 12:43 14:55 07:12 RBC 3.90 L (4.60-5.80) X10*6/uL Hgb 10.1 L D (14.0-18.0) g/dl Hct 33.2 L D (42.0-52.0) % MCH 25.9 L (27.0-33.0) pg MCHC 30.4 L (31.0-36.0) g/dl RDW 20.2 H (11.0-16.0) % Plt Count 124 L (160-400) X10*3/uL PT 29.8 H D (11.1-13.3) SEC INR 2.4 H (0.9-1.1) Chloride 109 H (96-108) mmol/L Carbon Dioxide 21 L 21 L (22-29) mmol/L BUN 50 H 54 H (9-16) mg/dL Creatinine 1.41 H (0.5-1.4) mg/dL Random Glucose 128 H 144 H (60-115) mg/dL Lactic Acid 3.2 H* (0.5-2.0) mmol/L Iron 25 L (45-160) mcg/dL TIBC 183 L (228-428) mcg/dL % Saturation 14 L (15-50) % B-Natriuretic Peptide 725 H (<100) pg/mL Total Protein 6.3 L (6.5-8.0) g/dL Albumin 3.3 L (3.5-5.0) g/dL Crossmatch See Detail Short CBC 10/27/23 Range/Units 07:12 WBC 7.0 (4.8-10.8) X10*3/uL Hgb 10.1 L D (14.0-18.0) g/dl Hct 33.2 L D (42.0-52.0) % Plt Count 124 L (160-400) X10*3/uL BMP 10/26/23 10/27/23 12:43 07:12 Sodium 142 140 Potassium 4.4 4.3 Chloride 109 H 108 Carbon Dioxide 21 L 21 L BUN 50 H 54 H Creatinine 1.13 1.41 H Calcium 9.1 9.3 Liver Function 10/26/23 Range/Units 12:43 Total Bilirubin 0.9 (0.0-1.0) mg/dL AST 20 (5-37) U/L ALT 13 (0-40) U/L Alkaline Phosphatase 72 (39-117) U/L Albumin 3.3 L (3.5-5.0) g/dL All other labs normal. Assessment and Plan (1) Atelectasis of left lung: Status: Acute Plan Patient has been evaluated by Pulmonary. Current recommendation is for pulmonary therapy, incentive spirometry, out of bed/ambulation/physical therapy consult, and serial exams and chest x-ray. Further interventions studies will be directed by the patient's clinical course and chest x-ray results. Pulmonary will consider bronchoscopy if minimal improvement. At present, no acute surgical issues or interventions required. Procedures Date of Service Date of Service: 10/27/23
--- NOTE | 2023-10-27 14:33 | P.PNIM_ITS ---
Subjective Subjective Date of Service: 10/27/23 Interval History: Feeling better this morning, tolerating breakfast denies nausea vomiting, denies abdominal pain, denies dizziness, no acute issues overnight, denies shortness of breath, no chest pain, no fevers no chills. Review of Systems All other system reviewed and negative. Physical Exam 2 Vital Signs: Vital Signs: Last Vital Signs Temp 97.3 F 10/27/23 11:54 Pulse 107 H 10/27/23 11:54 Resp 20 10/27/23 11:54 BP 90/50 L 10/27/23 11:54 Pulse Ox 93 10/27/23 11:54 O2 Del Method Nasal Cannula 10/27/23 11:54 O2 Flow Rate 8 10/27/23 11:54 Oxygen Flow Rate 5 10/26/23 11:06 BMI result Body Mass Index 17.0 Const: Other: General awake alert x3, cachectic, pleasant gentleman in no acute distress. Neck supple no JVD. CVS regular rate rhythm, Respiratory lungs clear to auscultation, no respiratory distress, no wheeze, no rhonchi. Gastrointestinal abdomen soft, non tender, bowel sounds audible, no guarding , no rigidity, small wound at the site of prior PleurX catheter no drainage. Extremities no edema. Neuro non focal moving all 4 extremity, speech clear. Skin multiple ecchymosis both upper extremities, skin tear right big toe Psych appropriate affect Objective Data Active Medications Acetaminophen (Acetaminophen 325 Mg Tablet) 650 mg PO Q6H PRN PRN Reason: Pain, Mild (Pain Scale 1-3) Acetylcysteine (Acetylcysteine 10 % 400 Mg/4 Ml Vial) 400 mg INHALE RBID KRISHNA Albuterol Sulfate (Albuterol Sulfate (0.083%) 2.5 Mg/3 Ml Vial.Neb) 2.5 mg INHALE QID PRN PRN Reason: Shortness Of Breath Digoxin (Digoxin 0.5 Mg/2 Ml Ampul) 0.25 mg IVPUSH Q6H KRISHNA Stop: 10/27/23 17:01 Last Admin: 10/27/23 11:00 Dose: 0.25 mg Documented By: CHANTAL Docusate Sodium (Docusate Sodium 100 Mg Capsule) 100 mg PO DAILY PRN PRN Reason: Constipation Dorzolamide/Timolol (Dorzolamide/Timolo 2.23%/0.68% 10 Ml Drbtl) 1 drop EYE- BOTH BID@0900,1800 [facility] Last Admin: 10/27/23 11:00 Dose: 1 drop Documented By: CHANTAL Fluticasone/Umeclidinium/Vilanterol (Fluticasone/Umeclidinium/Vilanterol 200/62.5/25 Blst.W.Dev) 1 puff INHALE RDAILY [facility] Last Admin: 10/27/23 08:59 Dose: 1 puff Documented By: OMEGA Piperacillin Sod/Tazobactam (Sod 3.375 gm/ Sodium Chloride) 50 mls @ 100 mls/hr IV Q6H [facility] Last Admin: 10/27/23 13:42 Dose: 100 mls/hr Documented By: CHANTAL Sodium Chloride (Ns) 1,000 mls @ 100 mls/hr IVCONT .Q10H [facility] Stop: 10/27/23 21:59 Levalbuterol HCl (Levalbuterol Hcl 1.25 Mg/3 Ml Vial.Neb) 1.25 mg INHALE RBID [facility] Melatonin (Melatonin 3 Mg Tablet) 3 mg PO BEDTIME PRN PRN Reason: Insomnia Metoprolol Tartrate (Metoprolol Tartrate 25 Mg Tablet) 25 mg PO BID [facility]; Protocol Last Admin: 10/27/23 08:19 Dose: 25 mg Documented By: CHANTAL Midodrine (Midodrine Hcl 5 Mg Tablet) 5 mg PO BID@0800,1500 [facility] Last Admin: 10/27/23 08:19 Dose: 5 mg Documented By: CHANTAL Non-Formulary Medication (Tafluprost (Pf) [Zioptan (Pf)]) 1 drop EYE-BOTH BEDTIME [facility] Omeprazole (Omeprazole 20 Mg Capsule.Dr) 20 mg PO DAILY@0630 [facility] Last Admin: 10/27/23 05:17 Dose: 20 mg Documented By: ILDA Ondansetron HCl (Ondansetron Hcl 4 Mg/2 Ml Vial) 4 mg IVPUSH Q8H PRN PRN Reason: Nausea and Vomiting Senna (Sennosides 8.6 Mg Tablet) 17.2 mg PO BEDTIME PRN PRN Reason: Constipation Sodium Chloride (0.9 % Sodium Chloride Flush 3 Ml Syringe) 3 ml IVFLUSH QSHIFT [facility] Last Admin: 10/27/23 08:22 Dose: Not Given Documented By: CHANTAL Non-Admin Reason: IV Running Tamsulosin HCl (Tamsulosin Hcl 0.4 Mg Capsule) 0.4 mg PO BEDTIME [facility] Last Admin: 10/26/23 23:36 Dose: 0.4 mg Documented By: ILDA Comments: manual bp 88/38 Dr. Capone notified and to give this med and recheck bp in 1hr. No petoprolol at this time. Labs 10/27/23 07:12 10/27/23 07:12 Labs: Laboratory Results - last 24 hr 10/26/23 10/26/23 10/26/23 12:43 14:55 15:02 MCV MCH MCHC RDW Plt Count MPV Absolute Nucleated RBC Nucleated RBC % (auto) Anion Gap Estim Creat Clear Calc Estimated GFR Random Glucose Lactic Acid F/U @ 2Hr 1.7 Calcium Iron 25 L TIBC 183 L % Saturation 14 L Unsat Iron Binding 158 Ferritin 181 COVID-19 ([facility]) COVID-19 Clin Com Influenza Type A ([facility]NE[facility]) Influenza Type B ([facility]NEST) Influenza A & B Note Blood Type O Positive Antibody Screen NEGATIVE Crossmatch See Detail 10/26/23 10/27/23 15:34 07:12 MCV 85.1 MCH 25.9 L MCHC 30.4 L RDW 20.2 H Plt Count 124 L MPV 10.3 Absolute Nucleated RBC 0.000 Nucleated RBC % (auto) 0.0 Anion Gap 15 Estim Creat Clear Calc 30.7 Estimated GFR 47 Random Glucose 144 H Lactic Acid F/U @ 2Hr Calcium 9.3 Iron TIBC % Saturation Unsat Iron Binding Ferritin COVID-19 ([facility]) Negative COVID-19 Clin Com See Note Influenza Type A ([facility]) Negative Influenza Type B ([facility]) Negative Influenza A & B Note See Note Blood Type Antibody Screen Crossmatch Assessment and Plan (1) Atelectasis of left lung: Status: Acute (2) Cachexia: Status: Acute (3) Pneumonia: Status: Acute (4) Acute and chronic respiratory failure: Status: Acute Plan Acute on chronic hypoxic respiratory failure due to left lung collapse/pneumonia/atelectasis with shift of midline to left Feeling better this morning ,WBC normalized no recurrent fevers, will wean oxygen as tolerated, on 1.5 L of oxygen at home No acute COPD exacerbation noted, ABG unremarkable Continue IV Zosyn/cough medication/ chest PT Case discussed with Dr. Plata he recommend Xopenex for 3 days and Mucomyst b.i.d., repeat chest x-ray at a.m. Acute on chronic normocytic anemia likely due to malnutrition, no active bleed noted Continue PPI , iron profile not consistent with iron deficiency, status post 1 unit of packed RBC hematocrit improved Status post EGD and colonoscopy in January 2022 noted to have 3 mm oozing antral avm, cauterized, duodenitis in bulb and 2nd portion,colonoscopy showed no bleeding or mass Showed mod-extensive zabala diverticulosis. Follow stool guaiac and CBC Chronic persistent atrial fibrillation with RVR Noted to have persistent RVR heart rate in 130s due to soft blood pressures will continue metoprolol 25 mg b.i.d., will load with digoxin Digoxin discontinued as per Pulmonary recommendation in an event that patient need further testing Acute kidney injury likely due to hypotension, will give IV fluids avoid nephrotoxins. Failure to thrive/weight loss moderate to severe protein calorie malnutrition Poor by mouth intake, added protein supplements, will follow nutrition consult. History of ILD/COPD no acute exacerbation noted will continue home inhalers and oxygen as above. BPH Continue tamsulosin dose reduced to 0.4 mg due to hypotension Hyperlipidemia significant weight loss hold statin DVT prophylaxis with Eliquis DNR DNI In my clinical judgment patient need continued inpatient stay for management of failure to thrive , acute on chronic hypoxic respiratory failure atrial fibrillation with RVR and acute anemia Quality Stroke Does the patient have a stroke diagnosis?: No VTE Prior VTE?: No VTE Risk Level:: Medical - moderate - high VTE Device Contraindication: Treatment Not Indicated VTE Drug Contraindication: N/A - Med Ordered
--- NOTE | 2023-10-27 14:53 | MHC.CLN ---
NUTRITION CONSULT FOR POOR PO AND WEIGHT LOSS. DIET LIBERALIZED TO REGULAR TO PROMOTE PO INTAKE. ADDED ENSURE TID (1050 KCALS, 60 G PROTEIN) AND MAGIC CUP BID (580 KCALS, 18 G PROTEIN). PATIENT REPORTS POOR INTAKE AT HOME AND SIGNIFICANT WEIGHT LOSS. REPORTS THAT CURRENTLY EATING VERY WELL. APPROX 40% WEIGHT LOSS X ONE YEAR. SIGNIFICANT WEIGHT LOSS X 30 DAYS, 3 MONTHS, AND 6 MONTHS. ATTRIBUTES WEIGHT LOSS TO POOR APPETITE AND LOSS OF TASTE WITH COVID. SON PRESENT AT VISIT. FAMILY BRINGS FOOD/MEALS AND ENCOURAGES INTAKE. NUTRITION DX NON SEVERE MALNUTRITION IN THE CONTEXT OF CHRONIC ILLNESS. FOLLOW FOR PO INTAKE AND SUPPLEMENT ACCEPTANCE. SEE CLINICAL NUTRITION ASSESSMENT 10/27/23.
[2023-10-27] MEDS: 0.9 % Sodium Chloride 1,000 ML 100 ML IVCONT (15:25)
[2023-10-27] MEDS: Acetylcysteine 10 % 400 MG/4 ML VIAL INHALE (20:13)
[2023-10-27] MEDS: levalbuterol HCL 1.25 MG/3 ML VIAL.NEB INHALE (20:13)
[2023-10-27] MEDS: Tamsulosin HCL 0.4 MG CAPSULE PO (21:15)
[2023-10-27] MEDS: 0.9 % Sodium Chloride Flush 3 ML SYRINGE IVFLUSH (21:16)
[2023-10-28] VITALS (7 sets, daily range): BP systolic 86–147; BP diastolic 48–59; PULSE 88–108; RESP 16–20; TEMP 36.2–36.4; O2SAT 94–99
[2023-10-28] MEDS: 0.9 % Sodium Chloride 1,000 ML 100 ML IVCONT ×3 (01:33→13:42)
[2023-10-28] MEDS: Piperacillin Sodium/Tazobactam 3.375 GM in 0.9 % Sodium Chloride 50 ML IV ×4 (03:30→19:57)
[2023-10-28] MEDS: Omeprazole 20 MG CAPSULE.DR PO (06:15)
[2023-10-28] MEDS: Metoprolol Tartrate 25 MG TABLET PO ×2 (07:45→19:57)
[2023-10-28] MEDS: Midodrine HCl 5 MG TABLET PO ×2 (07:45→15:29)
[2023-10-28] MEDS: Dorzolamide/Timolo 2.23%/0.68% 10 ML DRBTL 1 DROP EYE-BOTH ×2 (07:46→17:21)
[2023-10-28] MEDS: Fluticasone/Umeclidinium/Vilanterol 200/62.5/25 BLST.W.DEV 1 PUFF INHALE (08:03)
[2023-10-28] MEDS: levalbuterol HCL 1.25 MG/3 ML VIAL.NEB INHALE ×2 (08:03→19:30)
[2023-10-28] MEDS: Acetylcysteine 10 % 400 MG/4 ML VIAL INHALE ×2 (08:03→19:30)
--- NOTE | 2023-10-28 09:26 | P.PNPL_ITS ---
Subjective Subjective Date of Service: 10/28/23 Interval history: The patient was seen on exam. Clinically he is feeling better. He is coughing up more mucus. Sometimes difficult to handle his secretions. He is using the Mucomyst along with the flutter valve. In addition to that he has been on the IV antibiotics. White count coming down. I did review the x-ray which appears to be worse. Possibly is in the movement of the secretions to the central airways now causing a more significant obstruction. Hopefully there is improvement in the coming days. He is off the anticoagulation. If he has any worsening symptoms or no improvement in the x-ray then will consider bronchoscopy for therapeutic cleaning and diagnostic purposes. Objective Data Labs 10/27/23 07:12 10/27/23 07:12 Microbiology Microbiology Results: Microbiology 10/26/23 12:43 Blood - Venous Blood Culture - Preliminary No growth after 24 hours. 10/26/23 12:37 Blood - Venous Blood Culture - Preliminary No growth after 24 hours. Review of Systems Review of Systems General no headache, on and off dizziness ,no fever chills, weakness, fatigue weight loss. CVS no chest pain, no palpitation. Respiratory no cough, no sob Gastrointestinal no nausea, no vomiting, no abdominal pain Musculoskeletal complaining of pain at site of prior pleural catheter no urgency, no frequency Skin easy bruisability Physical Exam 2 Vital Signs: Vital Signs: Last Vital Signs Temp 97.5 F 10/28/23 07:17 Pulse 92 10/28/23 08:07 Resp 18 10/28/23 08:07 BP 147/51 H 10/28/23 07:17 Pulse Ox 95 10/28/23 07:17 O2 Del Method Nasal Cannula 10/28/23 07:17 O2 Flow Rate 2 10/28/23 07:17 Oxygen Flow Rate 5 10/26/23 11:06 BMI result Body Mass Index 19.6 Const: Other: thin, frail appearance General: cooperative and comfortable Nutritional Appearance: underweight Orientation/consciousness: patient oriented x3 HEENT: Head: Yes atraumatic Neck: Neck: Yes normal visual inspection and Yes supple Chest: Chest palpation & inspection: normal inspection of the chest Resp: Effort & Inspection: normal respiratory effort Auscultation: no crackles, no rales, no rhonchi, no wheezes and diminished lung sounds Cardio: Jugular venous distension: no JVD Heart sounds: S1 normal heart sound present and S2 normal heart sound present GI: Palpation (GI): Soft to palpation Skin: General skin exam: no rashes or lesions noted Neuro: General: patient oriented x3 Extrem: General: Yes no clubbing, cyanosis or edema Psych: Appearance: grossly normal Mental Status: mental status grossly normal Speech and movement: Normal speech and movement present Procedures Date of Service Date of Service: 10/28/23 Assessment and Plan Assessment and plan (1) Acute and chronic respiratory failure: Status: Acute (2) Atelectasis of left lung: Status: Acute (3) Pneumonia: Status: Acute (4) Atrial fibrillation with RVR: Status: Acute (5) Cachexia: Status: Acute Plan Continue current antibiotic regimen Continue CPT Continue Mucomyst and Xopenex b.i.d. for 48 hours then discontinue Repeat chest x-ray tomorrow If the patient develops any worsening symptoms or no improvement on the x-ray he will require bronchoscopy for further therapy. Time Spent With Patient Time: Total time managing care of this patient today ____ minutes. Progress Note: Quality Stroke Does the patient have a stroke diagnosis?: No
--- NOTE | 2023-10-28 12:19 | MHC.CLN ---
F/U PT IS MODERATELY MALNOURISHED SEE FULL CLINICAL NUTRITION ASSESSMENT DATED 10/27/23 FOR DETAILS PO INTAKE 100// DIET LIBERALIZED TO REGULAR TO PROMOTE PO INTAKE PT RECEIVING ENSURE TID (1050 KCALS, 60 G PROTEIN) AND MAGIC CUP BID (580 KCALS, 18 G PROTEIN) FOLLOW FOR PO INTAKE AND SUPPLEMENT ACCEPTANCE
[2023-10-28 14:27] LABS: INTERNATIONAL NORM RATIO 1.4 (0.9-1.1); Prothrombin Time 17.5 SEC (11.1-13.3)
[2023-10-28 14:40] LABS: Anion Gap 14 (12-20); Blood Urea Nitrogen 43 mg/dL (9-16); Calcium 8.7 mg/dL (8.4-10.2); Carbon Dioxide 20 mmol/L (22-29); Chloride 112 mmol/L (96-108); Creatinine Clr Calc Pharmacy 33.9; Estimated Glomerular Filt Rate 53; Glucose Random 121 mg/dL (60-115); Sodium 142 mmol/L (135-145)
--- NOTE | 2023-10-28 15:20 | HO.PM.IMPN ---
Subjective Subjective Date of Service: 10/28/23 Interval History: Overall feeling better complaining of persistent cough able to bring up more phlegm denies fever, no chills, tolerating diet, no nausea, no vomiting ,no abdominal pain, or diarrhea, oxygenation stable 94 95% on nasal cannula. Review of Systems All other system reviewed and negative. Physical Exam Vital Signs: Vital Signs: Last Vital Signs Temp 97.1 F 10/28/23 11: Pulse 99 10/28/23 11:23 Resp 20 10/28/23 11:23 BP 100/49 L 10/28/23 11:23 Pulse Ox 95 10/28/23 11:23 O2 Del Method Nasal Cannula 10/28/23 11:23 O2 Flow Rate 2 10/28/23 11:23 Oxygen Flow Rate 5 10/26/23 11:06 BMI result Body Mass Index 19.6 Const: Other: General awake alert x3, cachectic, pleasant gentleman in no acute distress. Neck supple no JVD. CVS regular rate rhythm, Respiratory lungs clear to auscultation, diminished, no respiratory distress, no wheeze, no rhonchi. Gastrointestinal abdomen soft, non tender, bowel sounds audible, no guarding , no rigidity. Extremities no edema. Neuro non focal, moving all 4 extremity, speech clear. Skin multiple ecchymosis both upper extremities, skin tear right big toe Psych appropriate affect Objective Data Active Medications Acetaminophen (Acetaminophen 325 Mg Tablet) 650 mg PO Q6H PRN PRN Reason: Pain, Mild (Pain Scale 1-3) Acetylcysteine (Acetylcysteine 10 % 400 Mg/4 Ml Vial) 400 mg INHALE RBID [facility] Last Admin: 10/28/23 08:03 Dose: 400 mg Documented By: KYLIE Albuterol Sulfate (Albuterol Sulfate (0.083%) 2.5 Mg/3 Ml Vial.Neb) 2.5 mg INHALE QID PRN PRN Reason: Shortness Of Breath Docusate Sodium (Docusate Sodium 100 Mg Capsule) 100 mg PO DAILY PRN PRN Reason: Constipation Dorzolamide/Timolol (Dorzolamide/Timolo 2.23%/0.68% 10 Ml Drbtl) 1 drop EYE-BOTH BID@0900,1800 [facility] Last Admin: 10/28/23 07:46 Dose: 1 drop Documented By: CHANTAL Fluticasone/Umeclidinium/Vilanterol (Fluticasone/Umeclidinium/Vilanterol 200/62.5/25 Blst.W.Dev) 1 puff INHALE RDAILY [facility] Last Admin: 10/28/23 08:03 Dose: 1 puff Documented By: KYLIE Piperacillin Sod/Tazobactam (Sod 3.375 gm/ Sodium Chloride) 50 mls @ 100 mls/hr IV Q6H [facility] Last Infusion: 10/28/23 14:15 Dose: Infused Documented By: CHANTAL Sodium Chloride (Ns) 750 mls @ 100 mls/hr IVCONT .Q7H30M [facility] Last Admin: 10/28/23 13:42 Dose: 100 mls/hr Documented By: CHANTAL Levalbuterol HCl (Levalbuterol Hcl 1.25 Mg/3 Ml Vial.Neb) 1.25 mg INHALE RBID [facility] Last Admin: 10/28/23 08:03 Dose: 1.25 mg Documented By: KYLIE Melatonin (Melatonin 3 Mg Tablet) 3 mg PO BEDTIME PRN PRN Reason: Insomnia Metoprolol Tartrate (Metoprolol Tartrate 25 Mg Tablet) 25 mg PO BID [facility]; Protocol Last Admin: 10/28/23 07:45 Dose: 25 mg Documented By: CHANTAL Midodrine (Midodrine Hcl 5 Mg Tablet) 5 mg PO BID@0800,1500 [facility] Last Admin: 10/28/23 07:45 Dose: 5 mg Documented By: CHANTAL Non-Formulary Medication (Tafluprost (Pf) [Zioptan (Pf)]) 1 drop EYE-BOTH BEDTIME [facility] Omeprazole (Omeprazole 20 Mg Capsule.Dr) 20 mg PO DAILY@0630 [facility] Last Admin: 10/28/23 06:15 Dose: 20 mg Documented By: ILDA Ondansetron HCl (Ondansetron Hcl 4 Mg/2 Ml Vial) 4 mg IVPUSH Q8H PRN PRN Reason: Nausea and Vomiting Senna (Sennosides 8.6 Mg Tablet) 17.2 mg PO BEDTIME PRN PRN Reason: Constipation Sodium Chloride (0.9 % Sodium Chloride Flush 3 Ml Syringe) 3 ml IVFLUSH QSHIFT [facility] Last Admin: 10/28/23 07:50 Dose: Not Given Documented By: CHANTAL Non-Admin Reason: IV Running Tamsulosin HCl (Tamsulosin Hcl 0.4 Mg Capsule) 0.4 mg PO BEDTIME [facility] Last Admin: 10/27/23 21:15 Dose: 0.4 mg Documented By: ILDA Labs 10/27/23 07:12 10/28/23 14:10 Labs: Laboratory Results - last 24 hr 10/28/23 14:10 PT 17.5 H D INR 1.4 H Anion Gap 14 Estim Creat Clear Calc 33.9 Estimated GFR 53 Random Glucose 121 H Calcium 8.7 D Microbiology Microbiology Results: Microbiology 10/26/23 12:43 Blood Culture - Preliminary Blood - Venous No growth after 48 hours. 10/26/23 12:37 Blood Culture - Preliminary Blood - Venous No growth after 48 hours. Assessment and Plan (1) Atelectasis of left lung: Status: Acute (2) Cachexia: Status: Acute (3) Pneumonia: Status: Acute (4) Acute and chronic respiratory failure: Status: Acute Plan Acute on chronic hypoxic respiratory failure due to left lung collapse/pneumonia/atelectasis with shift of midline to left Feeling better this morning ,WBC normalized no recurrent fevers, will wean oxygen as tolerated, on 1.5 L of oxygen at home No acute COPD exacerbation noted, ABG unremarkable Repeat chest x-ray of from this a.m. showed worsening left base opacity, clinically patient is improving Continue IV Zosyn/doxycycline/cough medication/ chest PT / Xopenex and Mucomyst b.i.d., Being followed closely by pulmonology of noted to have no improvement will have bronchoscopy. Sepsis due to pneumonia present on admission due to leukocytosis tachypnea tachycardia and lactic acidosis All features of sepsis resolved, recurrent tachycardia is due to atrial fibrillation and has chronic hypotension on midodrine . Acute on chronic normocytic anemia likely due to malnutrition, no active bleed noted Continue PPI , iron profile not consistent with iron deficiency, status post 1 unit of packed RBC hematocrit improved Status post EGD and colonoscopy in January 2022 noted to have 3 mm oozing antral avm, cauterized, duodenitis in bulb and 2nd portion,colonoscopy showed no bleeding or mass Showed mod-extensive zabala diverticulosis. Follow stool guaiac and CBC Chronic persistent atrial fibrillation with RVR Ventricular rate improved status post digoxin loading does, continue metoprolol 25 mg b.i.d., and placed on digoxin 0.125 mg daily Eliquis discontinued as per Pulmonary recommendation in an event that patient need further testing INR dropped to 1.4, will add subq lovenox 40 Hypotension likely due to poor nutrition , atrial fibrillation, beta-blockers and not related to sepsis. Acute kidney injury likely due to hypotension, decreased by mouth intake,sony resolved status post IV fluids,will avoid nephrotoxins,follow bmp. Failure to thrive/weight loss moderate malnutrition Continue Ensure t.i.d. and Magic cup b.i.d. being followed by linux developer History of ILD/COPD no acute exacerbation noted will continue home inhalers and oxygen as above. BPH Continue tamsulosin dose reduced to 0.4 mg due to hypotension Hyperlipidemia significant weight loss hold statin DVT prophylaxis compression boot/Lovenox DNR DNI In my clinical judgment patient need continued inpatient stay for management of failure to thrive , acute on chronic hypoxic respiratory failure atrial fibrillation with RVR and acute anemia Quality Stroke Does the patient have a stroke diagnosis?: No VTE Prior VTE?: No VTE Risk Level:: Medical - moderate - high VTE Device Contraindication: Treatment Not Indicated VTE Drug Contraindication: N/A - Med Ordered
[2023-10-28] MEDS: Enoxaparin Sodium 40 MG/0.4 ML SYRINGE SUBCUT (15:31)
[2023-10-28] MEDS: 0.9 % Sodium Chloride Flush 3 ML SYRINGE IVFLUSH ×2 (17:22→23:57)
[2023-10-28] MEDS: Tamsulosin HCL 0.4 MG CAPSULE PO (19:57)
[2023-10-29] VITALS (9 sets, daily range): BP systolic 90–115; BP diastolic 41–59; PULSE 70–112; RESP 13–20; TEMP 36.3–36.8; O2SAT 92–99
[2023-10-29] MEDS: Piperacillin Sodium/Tazobactam 3.375 GM in 0.9 % Sodium Chloride 50 ML IV ×4 (01:42→20:18)
[2023-10-29] MEDS: Omeprazole 20 MG CAPSULE.DR PO (05:14)
[2023-10-29] MEDS: Acetylcysteine 10 % 400 MG/4 ML VIAL INHALE (07:53)
[2023-10-29] MEDS: levalbuterol HCL 1.25 MG/3 ML VIAL.NEB INHALE ×2 (07:53→18:39)
[2023-10-29] MEDS: Fluticasone/Umeclidinium/Vilanterol 200/62.5/25 BLST.W.DEV 1 PUFF INHALE (07:56)
[2023-10-29] MEDS: Metoprolol Tartrate 25 MG TABLET PO ×2 (08:14→20:18)
[2023-10-29] MEDS: Midodrine HCl 5 MG TABLET PO ×2 (08:14→14:11)
[2023-10-29] MEDS: 0.9 % Sodium Chloride Flush 3 ML SYRINGE IVFLUSH ×2 (08:14→15:35)
[2023-10-29] MEDS: Digoxin 0.125 MG TABLET PO (08:14)
[2023-10-29] MEDS: Dorzolamide/Timolo 2.23%/0.68% 10 ML DRBTL 1 DROP EYE-BOTH ×2 (08:16→18:51)
--- NOTE | 2023-10-29 11:40 | MHC.SL.SWA ---
Speech Pathologist Impression: Risk of Aspiration Due to: History of Pneumonia Poor PO Intake Dysphasia Diet Status: Patient has c/o mouth dryness, loss of taste, decreased appetite, poor fitting dentures, poor motivation for preparing food, which appears to contribute to chronic poor po intake. Liquid Consistency and Strategies for Safe Swallow: Liquid Intake Recommendation: Thin Liquid Intake Strategies: Small Sips Solid Food Consistency: Dietary Recommendations: Regular Additional Modifications to Solid Foods: Patient reports that he is selecting from the menu his preferred foods, and expresses high satisfaction with the food he has been receiving. Patient should be encouraged to take small, individual sips when drinking with straw. Oral Medication Intake: Whole with Liquid Please contact the pharmacy regarding appropriate crushable or liquid drug formulations that are available whenever modified delivery is recommended. Compensatory Strategies and Precautions to be Taken for Safe Swallow: Sitting Upright (90 deg) Liquids from Cup Liquids from Straw Small Bites and Sips Supervision While Eating and Drinking for Safe Swallow: None Needed Foods to Avoid: Tough, difficult to chew solids, crunchy, crumbly dry textures (due to dentures, c/o mouth dryness) Swallowing Recommended Treatments: Recommendation for Speech: NA:Typical Evaluation Comment: Patient presents with all aspects of swallow WFL, although water appears to cause mucous to loosen which leads to coughing (does not appear to be aspiration, though). Patient has a history of chronic poor po intake and weight loss, however reports that he has been eating well since in hospital, expressing satisfaction with the food he has been receiving. No change in current diet is recommended at this time. As swallow is WFL, no further speech and language services at this time, will D/C from speech. Cr ZHONG notified of recommendation by johnathon arnold RN in person. Frequency/Duration: Date Range for Service Req: Timeline to reassess: Seed Specialist Clinican/Clinical Fellow: No Supervisory Statement: I have reviewed and agree with the student/clinical fellow's documentation: N/A Speech Language Pathologist: Saranya Moe M.A., CCC-WINDOWS SERVER SPECIALIST
--- NOTE | 2023-10-29 12:39 | P.PNPL_ITS ---
Subjective Subjective Date of Service: 10/29/23 Interval history: The patient was seen on exam. He had been a little more confused. Sundowning. He also has been weak. Physical therapy could not get him out of bed because he was very unsafe and on study. He is very concerned because he wants to go home. In the meantime he had a repeat chest x-ray it appears that he has complete opacification of the left hemithorax. Clinically he is doing better with less oxygen and his respiratory exam is also fairly reassuring. Although his x-ray is not. Will continue with the broad-spectrum antibiotics and hopefully repeat the chest x-ray tomorrow. He has been on the Mucomyst now more than 48 hours will go ahead and hold off on that he can continue with Xopenex in the chest PT with the [facility]. If his chest x-ray does not improve then a bronchoscopy may be warranted in order to help him with mucus clearance in therapeutic suctioning. Objective Data Labs 10/27/23 07:12 10/28/23 14:10 Labs: Laboratory Results - last 24 hr 10/28/23 14:10 PT 17.5 H D INR 1.4 H Sodium 142 Potassium 4.0 Chloride 112 H Carbon Dioxide 20 L Anion Gap 14 BUN 43 H Creatinine 1.28 Estim Creat Clear Calc 33.9 Estimated GFR 53 Random Glucose 121 H Calcium 8.7 D Microbiology Microbiology Results: Microbiology 10/26/23 12:43 Blood - Venous Blood Culture - Preliminary No growth after 48 hours. 10/26/23 12:37 Blood - Venous Blood Culture - Preliminary No growth after 48 hours. Review of Systems Review of Systems General no headache, on and off dizziness ,no fever chills, weakness, fatigue weight loss. Neuro: +confusion CVS no chest pain, no palpitation. Respiratory +cough, no sob Gastrointestinal no nausea, no vomiting, no abdominal pain Musculoskeletal complaining of weakness no urgency, no frequency Skin easy bruisability Constitutional: Reports weight gain Physical Exam 2 Vital Signs: Vital Signs: Last Vital Signs Temp 97.6 F 10/29/23 11:27 Pulse 95 10/29/23 11:27 Resp 13 10/29/23 11:27 BP 110/49 L 10/29/23 11:27 Pulse Ox 95 10/29/23 11:27 O2 Del Method Nasal Cannula 10/29/23 11:27 O2 Flow Rate 3 10/29/23 11:27 Oxygen Flow Rate 5 10/26/23 11:06 BMI result Body Mass Index 19.6 Const: Other: thin, frail appearance General: cooperative and comfortable Nutritional Appearance: underweight Orientation/consciousness: patient oriented x3 HEENT: Head: Yes atraumatic Neck: Neck: Yes normal visual inspection and Yes supple Chest: Chest palpation & inspection: normal inspection of the chest Resp: Effort & Inspection: normal respiratory effort Auscultation: no crackles, no rales, no rhonchi, no wheezes and diminished lung sounds Cardio: Jugular venous distension: no JVD Heart sounds: S1 normal heart sound present and S2 normal heart sound present GI: Palpation (GI): Soft to palpation Skin: General skin exam: no rashes or lesions noted Neuro: General: patient oriented x3 Extrem: General: Yes no clubbing, cyanosis or edema Psych: Appearance: grossly normal Mental Status: mental status grossly normal Speech and movement: Normal speech and movement present Procedures Date of Service Date of Service: 10/29/23 Assessment and Plan Assessment and plan (1) Acute and chronic respiratory failure: Status: Acute (2) Atelectasis of left lung: Status: Acute (3) Pneumonia: Status: Acute (4) Atrial fibrillation with RVR: Status: Acute (5) Cachexia: Status: Acute Plan Continue current antibiotic regimen Continue CPT stop Mucomyst continue Xopenex b.i.d Repeat chest x-ray tomorrow If the patient develops any worsening symptoms or no improvement on the x-ray he will require bronchoscopy for further therapy. Time Spent With Patient Time: Total time managing care of this patient today ____ minutes. Progress Note: Quality Stroke Does the patient have a stroke diagnosis?: No
[2023-10-29] MEDS: Enoxaparin Sodium 40 MG/0.4 ML SYRINGE SUBCUT (14:11)
--- NOTE | 2023-10-29 15:29 | P.PNIM_ITS ---
Subjective Subjective Date of Service: 10/29/23 Interval History: Patient felt confused yesterday, this morning patient noted to have shortness of breath and hypoxia with physical therapy only with sitting, tele monitor showed 5 beat run of nonsustained V-tach, patient is feeling better with less shortness of breath, has cough but unable to bring up phlegm, denies nausea, no vomiting answering questions appropriately, repeat chest x-ray showed complete opacification of left hemithorax . Review of Systems All other system reviewed and negative. Physical Exam 2 Vital Signs: Vital Signs: Last Vital Signs Temp 98.2 F 10/29/23 15:26 Pulse 108 H 10/29/23 15:26 Resp 13 10/29/23 15:26 BP 115/41 L 10/29/23 15:26 Pulse Ox 98 10/29/23 15: O2 Del Method Nasal Cannula 10/29/23 15:26 O2 Flow Rate 3 10/29/23 15:26 Oxygen Flow Rate 5 10/26/23 11:06 BMI result Body Mass Index 19.6 Const: Other: General awake alert x3,frail, pleasant gentleman in no acute distress. Neck supple no JVD. CVS regular rate rhythm, Respiratory lungs clear to auscultation, diminished left base, no respiratory distress, no wheeze, no rhonchi. Gastrointestinal abdomen soft, non tender, bowel sounds audible, no guarding , no rigidity. Extremities no edema. Neuro non focal, moving all 4 extremity, speech clear. Skin multiple ecchymosis both upper extremities, skin tear right big toe Psych appropriate affect Objective Data Active Medications Acetaminophen (Acetaminophen 325 Mg Tablet) 650 mg PO Q6H PRN PRN Reason: Pain, Mild (Pain Scale 1-3) Albuterol Sulfate (Albuterol Sulfate (0.083%) 2.5 Mg/3 Ml Vial.Neb) 2.5 mg INHALE QID PRN PRN Reason: Shortness Of Breath Digoxin (Digoxin 0.125 Mg Tablet) 0.125 mg PO DAILY [facility] Last Admin: 10/29/23 08:14 Dose: 0.125 mg Documented By: BILLY Docusate Sodium (Docusate Sodium 100 Mg Capsule) 100 mg PO DAILY PRN PRN Reason: Constipation Dorzolamide/Timolol (Dorzolamide/Timolo 2.23%/0.68% 10 Ml Drbtl) 1 drop EYE- BOTH BID@0900,1800 [facility] Last Admin: 10/29/23 08:16 Dose: 1 drop Documented By: BILLY Enoxaparin Sodium (Enoxaparin Sodium 40 Mg/0.4 Ml Syringe) 40 mg SUBCUT Q24H [facility] Last Admin: 10/29/23 14:11 Dose: 40 mg Documented By: BILLY Fluticasone/Umeclidinium/Vilanterol (Fluticasone/Umeclidinium/Vilanterol 200/62.5/25 Blst.W.Dev) 1 puff INHALE RDAILY [facility] Last Admin: 10/29/23 07:56 Dose: 1 puff Documented By: DAHIANA Piperacillin Sod/Tazobactam (Sod 3.375 gm/ Sodium Chloride) 50 mls @ 100 mls/hr IV Q6H [facility] Last Infusion: 10/29/23 14:46 Dose: Infused Documented By: BILLY Levalbuterol HCl (Levalbuterol Hcl 1.25 Mg/3 Ml Vial.Neb) 1.25 mg INHALE RBID [facility] Last Admin: 10/29/23 07:53 Dose: 1.25 mg Documented By: DAHIANA Melatonin (Melatonin 3 Mg Tablet) 3 mg PO BEDTIME PRN PRN Reason: Insomnia Metoprolol Tartrate (Metoprolol Tartrate 25 Mg Tablet) 25 mg PO BID [facility]; Protocol Last Admin: 10/29/23 08:14 Dose: 25 mg Documented By: BILLY Midodrine (Midodrine Hcl 5 Mg Tablet) 5 mg PO BID@0800,1500 [facility] Last Admin: 10/29/23 14:11 Dose: 5 mg Documented By: BILLY Non-Formulary Medication (Tafluprost (Pf) [Zioptan (Pf)]) 1 drop EYE-BOTH BEDTIME [facility] Omeprazole (Omeprazole 20 Mg Capsule.) 20 mg PO DAILY@0630 [facility] Last Admin: 10/29/23 05:14 Dose: 20 mg Documented By: LM Ondansetron HCl (Ondansetron Hcl 4 Mg/2 Ml Vial) 4 mg IVPUSH Q8H PRN PRN Reason: Nausea and Vomiting Senna (Sennosides 8.6 Mg Tablet) 17.2 mg PO BEDTIME PRN PRN Reason: Constipation Sodium Chloride (0.9 % Sodium Chloride Flush 3 Ml Syringe) 3 ml IVFLUSH QSHIFT [facility] Last Admin: 10/29/23 08:14 Dose: 3 ml Documented By: BILLY Tamsulosin HCl (Tamsulosin Hcl 0.4 Mg Capsule) 0.4 mg PO BEDTIME [facility] Last Admin: 10/28/23 19:57 Dose: 0.4 mg Documented By: JARRED Labs 10/27/23 07:12 10/28/23 14:10 Microbiology Microbiology Results: Microbiology 10/26/23 12:43 Blood Culture - Preliminary Blood - Venous No growth after 48 hours. 10/26/23 12:37 Blood Culture - Preliminary Blood - Venous No growth after 48 hours. Assessment and Plan (1) Atelectasis of left lung: Status: Acute (2) Cachexia: Status: Acute (3) Pneumonia: Status: Acute (4) Acute and chronic respiratory failure: Status: Acute Plan Acute on chronic hypoxic respiratory failure due to left lung collapse/pneumonia/atelectasis with shift of midline to left Feeling better , was confused yesterday likely due to , stable oxygenation No recurrent fevers, no worsening shortness of breath , clinically looks stable although chest x-ray showing worsening with complete opacification left hemithorax No acute COPD exacerbation noted, ABG unremarkable Continue IV Zosyn/doxycycline/cough medication/ chest PT / Xopenex ,s/p Mucomyst b.i.d x 48 h., Being followed closely by pulmonology will have repeat chest x-ray if noted to have worsening will undergo bronchoscopy Elevated BNP clinically not in heart failure will follow Sepsis due to pneumonia present on admission due to leukocytosis tachypnea tachycardia and lactic acidosis All features of sepsis resolved, recurrent tachycardia is due to atrial fibrillation and has chronic hypotension on midodrine . Acute on chronic normocytic anemia likely due to malnutrition, no active bleed noted Continue PPI , iron profile not consistent with iron deficiency, status post 1 unit of packed RBC hematocrit improved Status post EGD and colonoscopy in January 2022 noted to have 3 mm oozing antral avm, cauterized, duodenitis in bulb and 2nd portion,colonoscopy showed no bleeding or mass Showed mod-extensive zabala diverticulosis. Follow stool guaiac and CBC Chronic persistent atrial fibrillation with RVR Ventricular rate improved status post digoxin loading does, continue metoprolol 25 mg b.i.d., and digoxin 0.125 mg daily, will follow digoxin level Eliquis discontinued as per Pulmonary recommendation in an event that patient need further testing INR dropped to 1.4, on subq lovenox 40 Five beat run of nonsustained V-tach on beta blockers monitor electrolytes Hypotension likely due to poor nutrition , atrial fibrillation, beta-blockers and not related to sepsis. BP stable Acute kidney injury likely due to hypotension, decreased by mouth intake,sony resolved status post IV fluids,will avoid nephrotoxins,follow bmp. Failure to thrive/weight loss moderate malnutrition Continue Ensure t.i.d. and Magic cup b.i.d. being followed by nurse receptionist History of ILD/COPD no acute exacerbation noted will continue home inhalers and oxygen as above. BPH Continue tamsulosin dose reduced to 0.4 mg due to hypotension Hyperlipidemia significant weight loss hold statin DVT prophylaxis compression boot/Lovenox DNR DNI In my clinical judgment patient need continued inpatient stay for management of failure to thrive , acute on chronic hypoxic respiratory failure atrial fibrillation with RVR and acute anemia and left lung collapse. Quality Stroke Does the patient have a stroke diagnosis?: No VTE Prior VTE?: No VTE Risk Level:: Medical - moderate - high VTE Device Contraindication: Treatment Not Indicated VTE Drug Contraindication: N/A - Med Ordered
--- NOTE | 2023-10-29 16:26 | MHC.CM.PN ---
CM met with pt, his and son today. DC goal is home with services. Family is exploring increasing home care services. Pt is active with [facility], he does not like meals on wheels, family looking into [facility] services. Son expressed concern about pts providing all care and being frail herself. CM to follow and assist with DC planning.
[2023-10-29] MEDS: Tamsulosin HCL 0.4 MG CAPSULE PO (20:18)
[2023-10-30] VITALS (14 sets, daily range): BP systolic 83–103; BP diastolic 50–60; PULSE 86–113; RESP 14–24; TEMP 36.1–36.8; O2SAT 93–100
[2023-10-30] MEDS: Piperacillin Sodium/Tazobactam 3.375 GM in 0.9 % Sodium Chloride 50 ML IV ×3 (02:24→21:42)
[2023-10-30] MEDS: 0.9 % Sodium Chloride Flush 3 ML SYRINGE IVFLUSH ×4 (02:25→21:43)
[2023-10-30 06:19] LABS: Hematocrit 24.8 % (42.0-52.0); Hemoglobin 7.5 g/dl (14.0-18.0); Mean Corpuscular HGB Conc 30.2 g/dl (31.0-36.0); Mean Corpuscular Hemoglobin 25.7 pg (27.0-33.0); Mean Corpuscular Volume 84.9 fL (80.0-98.0); Mean Platelet Volume 9.1 fL (9.4-12.4); Platelet Count 140 X10*3/uL (160-400); Red Blood Count 2.92 X10*6/uL (4.60-5.80); Red Cell Distribution Width 20.1 % (11.0-16.0); White Blood Count 9.9 X10*3/uL (4.8-10.8)
[2023-10-30 06:26] LABS: Anion Gap 13 (12-20); Blood Urea Nitrogen 28 mg/dL (9-16); Calcium 8.3 mg/dL (8.4-10.2); Carbon Dioxide 20 mmol/L (22-29); Chloride 111 mmol/L (96-108); Creatinine Clr Calc Pharmacy 40.9; Estimated Glomerular Filt Rate > 60; Glucose Random 117 mg/dL (60-115); Magnesium 2.1 mg/dL (1.6-2.6); Potassium 3.4 mmol/L (3.3-5.1); Sodium 141 mmol/L (135-145)
[2023-10-30] MEDS: Omeprazole 20 MG CAPSULE.DR PO (06:30)
[2023-10-30] MEDS: Fluticasone/Umeclidinium/Vilanterol 200/62.5/25 BLST.W.DEV 1 PUFF INHALE (07:42)
[2023-10-30] MEDS: levalbuterol HCL 1.25 MG/3 ML VIAL.NEB INHALE ×2 (07:42→19:56)
[2023-10-30] MEDS: Midodrine HCl 5 MG TABLET PO ×2 (08:58→16:02)
[2023-10-30] MEDS: Digoxin 0.125 MG TABLET PO (08:58)
[2023-10-30] MEDS: Metoprolol Tartrate 25 MG TABLET PO ×2 (08:58→21:43)
--- NOTE | 2023-10-30 09:53 | P.PNPL_ITS ---
Subjective Subjective Date of Service: 10/30/23 Interval history: The patient was seen exam. He continues complaint of fatigue and not being able to sleep. He is now coughing up bloody secretions. He is still expectorating a lot. His white count had normalized needs still on broad-spectrum antibiotics. Will try to get a culture. In the meantime if chest x-ray still shows complete atelectasis of the left hemithorax with volume loss. I did talk to the 2 sons and also to his about the findings. They agree with the option of the bronchoscopy for therapeutic cleaning. In addition that I explained to them that he is anemic again in likely requires blood. At this point will try to provide him supportive care broaden the antibiotics and plan for bronchoscopy next week if no better. Objective Data Labs 10/30/23 06:02 10/30/23 06:02 Labs: Laboratory Results - last 24 hr 10/30/23 06:02 WBC 9.9 RBC 2.92 L D Hgb 7.5 L D Hct 24.8 L D MCV 84.9 MCH 25.7 L MCHC 30.2 L RDW 20.1 H Plt Count 140 L MPV 9.1 L Absolute Nucleated RBC 0.000 Nucleated RBC % (auto) 0.0 Sodium 141 Potassium 3.4 Chloride 111 H Carbon Dioxide 20 L Anion Gap 13 BUN 28 H Creatinine 1.06 Estim Creat Clear Calc 40.9 Estimated GFR > 60 Random Glucose 117 H Calcium 8.3 L Magnesium 2.1 Microbiology Microbiology Results: Microbiology 10/26/23 12:43 Blood - Venous Blood Culture - Preliminary No growth after 48 hours. 10/26/23 12:37 Blood - Venous Blood Culture - Preliminary No growth after 48 hours. Review of Systems Review of Systems General no headache, on and off dizziness ,no fever chills, weakness, fatigue weight loss. Neuro: +confusion CVS no chest pain, no palpitation. Respiratory +cough, no sob Gastrointestinal no nausea, no vomiting, no abdominal pain Musculoskeletal complaining of weakness no urgency, no frequency Skin easy bruisability Constitutional: Reports weight gain Physical Exam 2 Vital Signs: Vital Signs: Last Vital Signs Temp 97.4 F 10/30/23 08:00 Pulse 98 10/30/23 08:00 Resp 18 10/30/23 08:00 BP 102/58 L 10/30/23 08:00 Pulse Ox 96 10/30/23 08:00 O2 Del Method Nasal Cannula 10/30/23 08:00 O2 Flow Rate 3 10/30/23 08:00 Oxygen Flow Rate 5 10/26/23 11:06 BMI result Body Mass Index 19.6 Const: Other: thin, frail appearance General: cooperative and comfortable Nutritional Appearance: underweight Orientation/consciousness: patient oriented x3 HEENT: Head: Yes atraumatic Neck: Neck: Yes normal visual inspection and Yes supple Chest: Chest palpation & inspection: normal inspection of the chest Resp: Effort & Inspection: normal respiratory effort and other (pinkish bronchial secretions) Auscultation: no crackles, no rales, no rhonchi, no wheezes and diminished lung sounds Cardio: Jugular venous distension: no JVD Heart sounds: S1 normal heart sound present and S2 normal heart sound present GI: Palpation (GI): Soft to palpation Skin: General skin exam: no rashes or lesions noted Neuro: General: patient oriented x3 Extrem: General: Yes no clubbing, cyanosis or edema Psych: Appearance: grossly normal Mental Status: mental status grossly normal Speech and movement: Normal speech and movement present Procedures Date of Service Date of Service: 10/30/23 Assessment and Plan Assessment and plan (1) Acute and chronic respiratory failure: Status: Acute (2) Atelectasis of left lung: Status: Acute (3) Pneumonia: Status: Acute (4) Atrial fibrillation with RVR: Status: Acute (5) Cachexia: Status: Acute (6) Hemoptysis: Status: Acute (7) Anemia: Status: Acute Plan Continue zosyn Added vancomycin Continue CPT Sputum culture continue Xopenex b.i.d Repeat chest x-ray tomorrow Plan for bronchoscopy next week if no better Time Spent With Patient Time: Total time managing care of this patient today ____ minutes. Progress Note: Quality Stroke Does the patient have a stroke diagnosis?: No
[2023-10-30] MEDS: vancomycin HCL 1,500 MG in 0.9 % Sodium Chloride 500 ML 333.33 MG IV (10:25)
[2023-10-30] MEDS: Dorzolamide/Timolo 2.23%/0.68% 10 ML DRBTL 1 DROP EYE-BOTH ×2 (10:35→18:24)
--- NOTE | 2023-10-30 11:01 | PHA.PROG ---
Admission Date/Time: October 26, 2023 17:06 Indication: RESPIRATORY Weight in k.1 kg Adjusted body weight in K.46 [place] body weight in K.7 Obesity Dosing Indication % IBW: Serum Creatinine - Last 168 Hours 10/26/23 10/27/23 10/28/23 12:43 07:12 14:10 Creatinine 1.13 1.41 H 1.28 10/30/23 06:02 Creatinine 1.06 Estimated CrCl and GFR - Last 168 Hours 10/26/23 10/27/23 10/28/23 12:43 07:12 14:10 Estim Creat Clear Calc 38.6 30.7 33.9 Estimated GFR > 60 47 53 10/30/23 06:02 Estim Creat Clear Calc 40.9 Estimated GFR > 60 Vancomycin Loading Dose: 1500 MG Current Vancomycin Dosing Regimen:1000 MG q24h Vancomycin Monitoring using AUC goal of 400 - 600 range with trough as surrogate marker: 520 Date and Time for next Vancomycin Level to be drawn: Pharmacist Comments on Vancomycin Plan: Vancomycin dosing will take advantage of [employer] as a clinical decision support tool that uses Bayesian modeling to calculate individual patient's pharmacokinetic parameters and forecast the patient's drug concentration time course with the target goal AUC 24 range of 400 - 600 mg/L/hr.
--- NOTE | 2023-10-30 13:24 | MHC.CM.PN ---
CM informed [facility] rep that family is looking to eventually bring pt home with services, has had meals on wheels in the past, declines them, but requested she meet with them for [employer] services. Pt still acute, to remain for treatment / management of acute chronic hypoxic respiratory failure, atrial fib with RVR, acute anemia and L lung collapse.
--- NOTE | 2023-10-30 14:37 | MHC.CLN ---
F/U PO INTAKE FAIR TO GOOD DIET RX: REGULAR -APPROPRIATE PT RECEIVING ENSURE TID (1050 KCALS, 60 G PROTEIN) AND MAGIC CUP BID (580 KCALS, 18 G PROTEIN) MONITOR PO INTAKE AND CONTINUE TO ENCOURAGE SUPPLEMENTS
--- NOTE | 2023-10-30 15:16 | P.PNIM_ITS ---
Subjective Subjective Date of Service: 10/30/23 Interval History: Patient complaining of weakness , coughing up blood, no fevers no chills, no confusion, no nausea, no vomiting, hematocrit dropped this morning to 24.8 with a hemoglobin of 7.5, blood pressure remains soft, heart rate fluctuating between 100-110 patient denies chest pain, no palpitations. Review of Systems All other system reviewed and negative. Physical Exam 2 Vital Signs: Vital Signs: Last Vital Signs Temp 97.9 F 10/30/23 13:50 Pulse 96 10/30/23 13:50 Resp 18 10/30/23 13:50 BP 92/55 L 10/30/23 13:50 Pulse Ox 100 10/30/23 11:57 O2 Del Method Nasal Cannula 10/30/23 11:57 O2 Flow Rate 3 10/30/23 11:57 Oxygen Flow Rate 5 10/26/23 11:06 BMI result Body Mass Index 19.6 Const: Other: General awake alert x3,frail, pleasant gentleman in no acute distress. Neck supple no JVD. CVS regular rate rhythm, Respiratory lungs clear to auscultation, diminished left side, no respiratory distress, no wheeze, no rhonchi. Gastrointestinal abdomen soft, non tender, bowel sounds audible, no guarding , no rigidity. Extremities no edema. Neuro non focal, moving all 4 extremity, speech clear. Skin multiple ecchymosis both upper extremities Psych appropriate affect Objective Data Active Medications Acetaminophen (Acetaminophen 325 Mg Tablet) 650 mg PO Q6H PRN PRN Reason: Pain, Mild (Pain Scale 1-3) Albuterol Sulfate (Albuterol Sulfate (0.083%) 2.5 Mg/3 Ml Vial.Neb) 2.5 mg INHALE QID PRN PRN Reason: Shortness Of Breath Digoxin (Digoxin 0.125 Mg Tablet) 0.125 mg PO DAILY [facility] Last Admin: 10/30/23 08:58 Dose: 0.125 mg Documented By: MANISH Docusate Sodium (Docusate Sodium 100 Mg Capsule) 100 mg PO DAILY PRN PRN Reason: Constipation Dorzolamide/Timolol (Dorzolamide/Timolo 2.23%/0.68% 10 Ml Drbtl) 1 drop EYE- BOTH BID@0900,1800 [facility] Last Admin: 10/30/23 10:35 Dose: 1 drop Documented By: MANISH Enoxaparin Sodium (Enoxaparin Sodium 40 Mg/0.4 Ml Syringe) 40 mg SUBCUT Q24H [facility] Last Admin: 10/29/23 14:11 Dose: 40 mg Documented By: BILLY Fluticasone/Umeclidinium/Vilanterol (Fluticasone/Umeclidinium/Vilanterol 200/62.5/25 Blst.W.Dev) 1 puff INHALE RDAILY [facility] Last Admin: 10/30/23 07:42 Dose: 1 puff Documented By: ROMY Piperacillin Sod/Tazobactam (Sod 3.375 gm/ Sodium Chloride) 50 mls @ 100 mls/hr IV Q6H [facility] Last Infusion: 10/30/23 09:45 Dose: Infused Documented By: MANISH Vancomycin HCl 1,000 mg/ (Sodium Chloride) 270 mls @ 270 mls/hr IV Q24H [facility] Levalbuterol HCl (Levalbuterol Hcl 1.25 Mg/3 Ml Vial.Neb) 1.25 mg INHALE RBID [facility] Last Admin: 10/30/23 07:42 Dose: 1.25 mg Documented By: ROMY Melatonin (Melatonin 3 Mg Tablet) 3 mg PO BEDTIME PRN PRN Reason: Insomnia Metoprolol Tartrate (Metoprolol Tartrate 25 Mg Tablet) 25 mg PO BID [facility]; Protocol Last Admin: 10/30/23 08:58 Dose: 25 mg Documented By: MANISH Midodrine (Midodrine Hcl 5 Mg Tablet) 5 mg PO BID@0800,1500 [facility] Last Admin: 10/30/23 08:58 Dose: 5 mg Documented By: MANISH Patient Own Med ( Tafluprost (Pf) [ Zioptan (Pf)] 0.0015 % Dropperette) 1 drop EYE-BOTH BEDTIME [facility] Last Admin: 10/29/23 20:36 Dose: 1 drop Documented By: JARRED Omeprazole (Omeprazole 20 Mg Capsule.Dr) 20 mg PO DAILY@0630 [facility] Last Admin: 10/30/23 06:30 Dose: 20 mg Documented By: CHERYL Ondansetron HCl (Ondansetron Hcl 4 Mg/2 Ml Vial) 4 mg IVPUSH Q8H PRN PRN Reason: Nausea and Vomiting Pharmacy Consult (Consult Rx Vancomycin Dosing) 1 each MISCELLANE DAILY PRN PRN Reason: Consult order Senna (Sennosides 8.6 Mg Tablet) 17.2 mg PO BEDTIME PRN PRN Reason: Constipation Sodium Chloride (0.9 % Sodium Chloride Flush 3 Ml Syringe) 3 ml IVFLUSH QSHIFT [facility] Last Admin: 10/30/23 08:58 Dose: 3 ml Documented By: MANISH Tamsulosin HCl (Tamsulosin Hcl 0.4 Mg Capsule) 0.4 mg PO BEDTIME [facility] Last Admin: 10/29/23 20:18 Dose: 0.4 mg Documented By: JARERD Labs 10/30/23 06:02 10/30/23 06:02 Labs: Laboratory Results - last 24 hr 10/30/23 10/30/23 06:02 11:57 MCV 84.9 MCH 25.7 L MCHC 30.2 L RDW 20.1 H Plt Count 140 L MPV 9.1 L Absolute Nucleated RBC 0.000 Nucleated RBC % (auto) 0.0 Anion Gap 13 Estim Creat Clear Calc 40.9 Estimated GFR > 60 Random Glucose 117 H Calcium 8.3 L Magnesium 2.1 Blood Type O Positive Antibody Screen NEGATIVE Crossmatch See Detail Microbiology Microbiology Results: Microbiology 10/30/23 11:00 Gram Stain - Final Sputum - Expectorated Assessment and Plan (1) Atelectasis of left lung: Status: Acute (2) Cachexia: Status: Acute (3) Pneumonia: Status: Acute (4) Acute and chronic respiratory failure: Status: Acute Plan Acute on chronic hypoxic respiratory failure due to left lung collapse/pneumonia/atelectasis with shift of midline to left Complaining of weakness coughing up blood no recurrent confusion ,No recurrent fevers, no worsening shortness of breath Chest x-ray from this morning pending ABG unremarkable Continue IV Zosyn started on 10/26 /IV vancomycin added today 10/30, continue cough medication/ Xopenex Being followed closely by pulmonology ,if noted to have worsening symptoms and chest x-ray will undergo bronchoscopy Elevated BNP clinically not in heart failure will follow Sepsis due to pneumonia present on admission due to leukocytosis tachypnea tachycardia and lactic acidosis All features of sepsis resolved, recurrent tachycardia is due to atrial fibrillation and has chronic hypotension on midodrine . Acute on chronic normocytic anemia Status post 1 unit of packed RBC, hematocrit dropped this morning likely due to coughing up blood, will hold Lovenox Will transfuse 1 unit of packed RBC and follow CBC Chronic persistent atrial fibrillation with RVR Ventricular rate improved status post digoxin loading does, continue metoprolol 25 mg b.i.d., and digoxin 0.125 mg daily, will follow digoxin level Eliquis discontinued as per Pulmonary recommendation in an event that patient need further testing Five beat run of nonsustained V-tach on beta blockers ,monitor electrolytes Acute kidney injury likely due to hypotension, decreased by mouth intake,sony resolved status post IV fluids,will avoid nephrotoxins,follow bmp. Failure to thrive/weight loss moderate malnutrition Continue Ensure t.i.d. and Magic cup b.i.d. being followed by cookie breaker History of ILD/COPD no acute exacerbation noted will continue home inhalers and oxygen as above. BPH Continue tamsulosin dose reduced to 0.4 mg due to hypotension Hyperlipidemia significant weight loss, hold statin DVT prophylaxis compression boot/dc Lovenox DNR DNI In my clinical judgment patient need continued inpatient stay for management of failure to thrive , acute on chronic hypoxic respiratory failure , coughing up blood, possible bronchoscopy and acute anemia Requiring blood transfusion Quality Stroke Does the patient have a stroke diagnosis?: No VTE Prior VTE?: No VTE Risk Level:: Medical - moderate - high VTE Device Contraindication: Treatment Not Indicated VTE Drug Contraindication: N/A - Med Ordered
--- NOTE | 2023-10-30 16:18 | MHC.CM.PN ---
Sons have asked to be involved in DC planning because Pt. is confused at times. When [facility] went to meet with him, he said that he does not need any services, and family does want to explore whatever options they can for assistance. [facility] does have a meeting with son scheduled.
[2023-10-30] MEDS: Tamsulosin HCL 0.4 MG CAPSULE PO (21:43)
[2023-10-30] MEDS: Melatonin 3 MG TABLET PO (22:01)
[2023-10-30] MEDS: Docusate Sodium 100 MG CAPSULE PO (22:01)
[2023-10-30] MEDS: Acetaminophen 325 MG TABLET 650 MG PO (22:01)
[2023-10-31] VITALS (11 sets, daily range): BP systolic 69–99; BP diastolic 42–61; PULSE 75–104; RESP 16–22; TEMP 36.1–36.8; O2SAT 95–100
[2023-10-31] MEDS: Piperacillin Sodium/Tazobactam 3.375 GM in 0.9 % Sodium Chloride 50 ML IV ×4 (03:40→21:20)
[2023-10-31] MEDS: Lactated Ringers 500 ML IV (04:43)
[2023-10-31] MEDS: Omeprazole 20 MG CAPSULE.DR PO (04:46)
[2023-10-31] MEDS: Midodrine HCl 5 MG TABLET PO ×4 (04:46→21:23)
[2023-10-31 06:15] LABS: PLT CLUMP 1; Red Cell Distribution Width 19.8 % (11.0-16.0)
[2023-10-31 06:17] LABS: Mean Corpuscular HGB Conc 30.8 g/dl (31.0-36.0); Mean Corpuscular Hemoglobin 26.3 pg (27.0-33.0); Mean Corpuscular Volume 85.5 fL (80.0-98.0); Mean Platelet Volume 8.8 fL (9.4-12.4); Red Blood Count 3.04 X10*6/uL (4.60-5.80)
[2023-10-31 06:18] LABS: Platelet Count 150 X10*3/uL (160-400); White Blood Count 9.5 X10*3/uL (4.8-10.8)
[2023-10-31 06:31] LABS: Digoxin 0.7 ng/mL (0.8-2.0)
[2023-10-31] MEDS: levalbuterol HCL 1.25 MG/3 ML VIAL.NEB INHALE ×2 (08:15→20:03)
[2023-10-31] MEDS: Fluticasone/Umeclidinium/Vilanterol 200/62.5/25 BLST.W.DEV 1 PUFF INHALE (08:15)
[2023-10-31] MEDS: Digoxin 0.125 MG TABLET PO (08:56)
[2023-10-31] MEDS: 0.9 % Sodium Chloride Flush 3 ML SYRINGE IVFLUSH ×3 (08:57→21:21)
[2023-10-31] MEDS: Dorzolamide/Timolo 2.23%/0.68% 10 ML DRBTL 1 DROP EYE-BOTH ×2 (08:57→18:02)
[2023-10-31] MEDS: Albumin Human 25 % 100 ML IV ×4 (09:04→19:10)
[2023-10-31] MEDS: oxyCODONE HCl Immed Release 5 MG TABLET 2.5 MG PO ×2 (11:08→21:34)
[2023-10-31] MEDS: Acetaminophen 325 MG TABLET 650 MG PO (11:08)
[2023-10-31] MEDS: polyethylene glycoL 3350 17 GM POWD.PACK PO (11:19)
[2023-10-31] MEDS: vancomycin HCL 1,000 MG in 0.9 % Sodium Chloride 250 ML 270 MG IV (11:53)
--- NOTE | 2023-10-31 13:43 | P.PNIM_ITS ---
Subjective Subjective Date of Service: 10/31/23 Interval History: Patient noted to have soft blood pressures last night, patient feels discouraged this since he wanted to receive stool softeners to have a bowel movement he received Colace and have small bowel movement but he feels that he needs to go more he denies shortness of breath he denies lightheadedness or dizziness he is tolerating 75% of meals, not coughing of blood, no fevers no chills hematocrit has improved. Review of Systems All other system reviewed and negative. Physical Exam 2 Vital Signs: Vital Signs: Last Vital Signs Temp 97.7 F 10/31/23 12:00 Pulse 84 10/31/23 12:00 Resp 22 H 10/31/23 12:00 BP 96/61 10/31/23 12:00 Pulse Ox 100 10/31/23 12:00 O2 Del Method Nasal Cannula 10/31/23 12:00 O2 Flow Rate 2 10/31/23 12:00 Oxygen Flow Rate 5 10/26/23 11:06 BMI result Body Mass Index 19.6 Const: Other: General awake alert x3,frail, pleasant gentleman in no acute distress. Neck supple no JVD. CVS regular rate rhythm, Respiratory lungs clear to auscultation, diminished left side, no respiratory distress, no wheeze, no rhonchi. Gastrointestinal abdomen soft, non tender, bowel sounds audible, no guarding , no rigidity. Extremities no edema. Neuro non focal, moving all 4 extremity, speech clear. Skin ecchymosis both upper extremities Psych appropriate affect Objective Data Active Medications Acetaminophen (Acetaminophen 325 Mg Tablet) 650 mg PO Q6H PRN PRN Reason: Pain, Mild (Pain Scale 1-3) Last Admin: 10/31/23 11:08 Dose: 650 mg Documented By: MANISH Albuterol Sulfate (Albuterol Sulfate (0.083%) 2.5 Mg/3 Ml Vial.Neb) 2.5 mg INHALE QID PRN PRN Reason: Shortness Of Breath Digoxin (Digoxin 0.125 Mg Tablet) 0.125 mg PO DAILY [facility] Last Admin: 10/31/23 08:56 Dose: 0.125 mg Documented By: MANISH Docusate Sodium (Docusate Sodium 100 Mg Capsule) 100 mg PO DAILY PRN PRN Reason: Constipation Last Admin: 10/30/23 22:01 Dose: 100 mg Documented By: EUNICE Dorzolamide/Timolol (Dorzolamide/Timolo 2.23%/0.68% 10 Ml Drbtl) 1 drop EYE- BOTH BID@0900,1800 [facility] Last Admin: 10/31/23 08:57 Dose: 1 drop Documented By: MANISH Fluticasone/Umeclidinium/Vilanterol (Fluticasone/Umeclidinium/Vilanterol 200/62.5/25 Blst.W.Dev) 1 puff INHALE RDAILY [facility] [place] Last Admin: 10/31/23 08:15 Dose: 1 puff Documented By: OMEGA Piperacillin Sod/Tazobactam (Sod 3.375 gm/ Sodium Chloride) 50 mls @ 100 mls/hr IV Q6H [facility] [place] Last Infusion: 10/31/23 09:35 Dose: Infused Documented By: MANISH Vancomycin HCl 1,000 mg/ (Sodium Chloride) 270 mls @ 270 mls/hr IV Q24H [facility] Last Infusion: 10/31/23 12:58 Dose: Infused Documented By: MANISH Levalbuterol HCl (Levalbuterol Hcl 1.25 Mg/3 Ml Vial.Neb) 1.25 mg INHALE RBID [facility] [place] Last Admin: 10/31/23 08:15 Dose: 1.25 mg Documented By: OMEGA Melatonin (Melatonin 3 Mg Tablet) 3 mg PO BEDTIME PRN PRN Reason: Insomnia Last Admin: 10/30/23 22:01 Dose: 3 mg Documented By: EUNICE Metoprolol Tartrate (Metoprolol Tartrate 25 Mg Tablet) 25 mg PO BID [facility] [place]; Protocol Last Admin: 10/31/23 09:04 Dose: Not Given Documented By: MANISH Non-Admin Reason: Decreased Blood Pressure Midodrine (Midodrine Hcl 5 Mg Tablet) 5 mg PO BID@0800,1500 [facility] Last Admin: 10/31/23 08:57 Dose: 5 mg Documented By: MANISH Patient Own Med ( Tafluprost (Pf) [ Zioptan (Pf)] 0.0015 % Dropperette) 1 drop EYE-BOTH BEDTIME [facility] Last Admin: 10/30/23 21:44 Dose: 1 drop Documented By: EUNICE Omeprazole (Omeprazole 20 Mg Capsule.Dr) 20 mg PO DAILY@0630 [facility] [place] Last Admin: 10/31/23 04:46 Dose: 20 mg Documented By: EUNICE Ondansetron HCl (Ondansetron Hcl 4 Mg/2 Ml Vial) 4 mg IVPUSH Q8H PRN PRN Reason: Nausea and Vomiting Oxycodone HCl (Oxycodone Hcl Immed Release 5 Mg Tablet) 2.5 mg PO Q6H PRN PRN Reason: Pain, Moderate(Pain Scale 4-6) Last Admin: 10/31/23 11:08 Dose: 2.5 mg Documented By: MANISH Pharmacy Consult (Consult Rx Vancomycin Dosing) 1 each MISCELLANE DAILY PRN PRN Reason: Consult order Polyethylene Glycol (Polyethylene Glycol 3350 17 Gm Powd.Pack) 17 gm PO DAILY [facility] Last Admin: 10/31/23 11:19 Dose: 17 gm Documented By: MANISH Senna (Sennosides 8.6 Mg Tablet) 17.2 mg PO BEDTIME PRN PRN Reason: Constipation Sodium Chloride (0.9 % Sodium Chloride Flush 3 Ml Syringe) 3 ml IVFLUSH QSHIFT [facility] Last Admin: 10/31/23 08:57 Dose: 3 ml Documented By: MANISH Tamsulosin HCl (Tamsulosin Hcl 0.4 Mg Capsule) 0.4 mg PO BEDTIME [facility] [place] Last Admin: 10/30/23 21:43 Dose: 0.4 mg Documented By: EUNICE Labs 10/31/23 06:07 10/30/23 06:02 Labs: Laboratory Results - last 24 hr 10/30/23 10/31/23 11:57 06:07 MCV 85.5 MCH 26.3 L MCHC 30.8 L RDW 19.8 H Plt Count 150 L MPV 8.8 L Absolute Nucleated RBC 0.000 Nucleated RBC % (auto) 0.0 Digoxin 0.7 L Crossmatch See Detail Microbiology Microbiology Results: Microbiology 10/30/23 11:00 Gram Stain - Final Sputum - Expectorated Sputum Culture - Preliminary Culture in progress. Assessment and Plan (1) Atelectasis of left lung: Status: Acute (2) Cachexia: Status: Acute (3) Pneumonia: Status: Acute (4) Acute and chronic respiratory failure: Status: Acute Plan Acute on chronic hypoxic respiratory failure due to left lung collapse/pneumonia/atelectasis with shift of midline to left Feeling better this morning, no further episodes of hemoptysis, No recurrent fevers, no worsening shortness of breath Chest x-ray 10/30 showed complete whiteout of left lung Continue IV Zosyn started on 10/26 /IV vancomycin added 10/30, continue cough medication/ Xopenex Being followed closely by pulmonology ,if noted to have worsening symptoms and chest x-ray will undergo bronchoscopy Elevated BNP clinically not in heart failure will follow clinical course Sepsis due to pneumonia present on admission due to leukocytosis tachypnea tachycardia and lactic acidosis All features of sepsis resolved, recurrent tachycardia is due to atrial fibrillation and has chronic hypotension on midodrine . Hypotension noted to have severe hypertension at 3:00 am /asymptomatic Will decrease dose of metoprolol to 12.5 b.i.d., change dose of midodrine to t.i.d., give IV albumin Acute on chronic normocytic anemia Status post 2 unit of packed RBC, hematocrit improved follow CBC Chronic persistent atrial fibrillation with RVR Ventricular rate improved status post digoxin loading does, continue digoxin 0.125 mg daily, digoxin level< 0.7, will decrease dose of metoprolol to 12.5 b.i.d. due to hypotension Eliquis discontinued as per Pulmonary recommendation in an event that patient need further testing Five beat run of nonsustained V-tach on beta blockers ,monitor electrolytes Acute kidney injury likely due to hypotension, decreased by mouth intake,sony resolved status post IV fluids,will avoid nephrotoxins,follow bmp. Failure to thrive/weight loss moderate malnutrition Continue Ensure t.i.d. and Magic cup b.i.d. being followed by liquid sugar fortifier History of ILD/COPD no acute exacerbation noted will continue home inhalers and oxygen as above. BPH Continue tamsulosin dose reduced to 0.4 mg due to hypotension Hyperlipidemia significant weight loss, hold statin DVT prophylaxis compression boot not on anticoagulation due to hemoptysis and likely need further testing DNR DNI In my clinical judgment patient need continued inpatient stay for management of failure to thrive , acute on chronic hypoxic respiratory failure , coughing up blood, possible bronchoscopy and acute anemia Requiring blood transfusion. Quality Stroke Does the patient have a stroke diagnosis?: No VTE Prior VTE?: No VTE Risk Level:: Medical - moderate - high VTE Device Contraindication: Treatment Not Indicated VTE Drug Contraindication: N/A - Med Ordered
[2023-10-31 13:59] LABS: Creatinine Clr Calc Pharmacy 48.2; Estimated Glomerular Filt Rate > 60
[2023-10-31] MEDS: Tamsulosin HCL 0.4 MG CAPSULE PO (21:23)
[2023-10-31] MEDS: Metoprolol Tartrate 12.5 MG HALFTAB PO (21:23)
--- NOTE | 2023-10-31 23:39 | P.PNPL_ITS ---
Subjective Subjective Date of Service: 10/31/23 Interval history: Seen and examined. S/P PRBC tx. HAving low BPs, his CXR is slightly improved. No hemoptysis. I did schedule him from a bronchoscopy on Thursday, but currently to unstable to undergo any procedures. We will continue to follow. Objective Data Labs 10/31/23 06:07 10/31/23 06:07 Labs: Laboratory Results - last 24 hr 10/31/23 06:07 WBC 9.5 RBC 3.04 L Hgb 8.0 L Hct 26.0 L MCV 85.5 MCH 26.3 L MCHC 30.8 L RDW 19.8 H Plt Count 150 L MPV 8.8 L Absolute Nucleated RBC 0.000 Nucleated RBC % (auto) 0.0 Creatinine 0.90 Estim Creat Clear Calc 48.2 Estimated GFR > 60 Digoxin 0.7 L Microbiology Microbiology Results: Microbiology 10/26/23 12:43 Blood - Venous Blood Culture - Final No growth after 5 days. 10/26/23 12:37 Blood - Venous Blood Culture - Final No growth after 5 days. 10/30/23 11:00 Sputum - Expectorated Gram Stain - Final 10/30/23 11:00 Sputum - Expectorated Sputum Culture - Preliminary Culture in progress. Review of Systems Review of Systems General no headache, on and off dizziness ,no fever chills, weakness, fatigue weight loss. Neuro: +confusion CVS no chest pain, no palpitation. Respiratory +cough, no sob Gastrointestinal no nausea, no vomiting, no abdominal pain Musculoskeletal complaining of weakness no urgency, no frequency Skin easy bruisability Physical Exam 2 Vital Signs: Vital Signs: Last Vital Signs Temp 97.4 F 10/31/23 19:15 Pulse 89 10/31/23 20:05 Resp 20 10/31/23 20:05 BP 99/60 10/31/23 21:15 Pulse Ox 96 10/31/23 19:15 O2 Del Method Nasal Cannula 10/31/23 19:15 O2 Flow Rate 3 10/31/23 19:15 Oxygen Flow Rate 5 10/26/23 11:06 BMI result Body Mass Index 19.6 Const: Other: thin, frail appearance General: comfortable Nutritional Appearance: underweight O rientation/consciousness: patient oriented x3 HEENT: Head: Yes atraumatic Neck: Neck: Yes normal visual inspection and Yes supple Chest: Chest palpation & inspection: normal inspection of the chest Resp: Effort & Inspection: normal respiratory effort and other (pinkish bronchial secretions) Auscultation: no crackles, no rales, no rhonchi, no wheezes and diminished lung sounds Cardio: Jugular venous distension: no JVD Heart sounds: S1 normal heart sound present and S2 normal heart sound present GI: Palpation (GI): Soft to palpation Skin: General skin exam: no rashes or lesions noted Neuro: General: patient oriented x3 Extrem: General: Yes no clubbing, cyanosis or edema Psych: Appearance: grossly normal Mental Status: mental status grossly normal Speech and movement: Normal speech and movement present Procedures Date of Service Date of Service: 10/31/23 Assessment and Plan Assessment and plan (1) Acute and chronic respiratory failure: Status: Acute (2) Atelectasis of left lung: Status: Acute (3) Pneumonia: Status: Acute (4) Atrial fibrillation with RVR: Status: Acute (5) Cachexia: Status: Acute (6) Hemoptysis: Status: Acute (7) Anemia: Status: Acute (8) Hypotension: Status: Acute Plan Continue zosyn and vancomycin Continue CPT Sputum culture pending continue Xopenex b.i.d Repeat chest x-ray Thursday Too unstablend frail a for bronchoscopy at this time, we will reassess Guarded condition Time Spent With Patient Time: Total time managing care of this patient today ____ minutes. Progress Note: Quality Stroke Does the patient have a stroke diagnosis?: No
[2023-11-01] VITALS: BP 117/60; PULSE 66; RESP 18; TEMP 36; O2SAT 97
[2023-11-01] MEDS: Acetaminophen 325 MG TABLET 650 MG PO (01:01)
[2023-11-01] MEDS: Melatonin 3 MG TABLET PO (01:02)
[2023-11-01] MEDS: Sennosides 8.6 MG TABLET 17.2 MG PO (01:04)
[2023-11-01] MEDS: Piperacillin Sodium/Tazobactam 3.375 GM in 0.9 % Sodium Chloride 50 ML IV (01:05)
--- NOTE | 2023-11-01 01:31 | PC.NURSE ---
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 2030 10/31. Per RN handover, pt. has had + hemoptysis all day and yankouring secretions out. Pt. received 1 unit RBC and Albumin on day shift for low H/H and soft BP's. VSS this shift. Pt. has frequent coughing up of bright red blood, pt. yankouring secretions out, at least 1-2x/hr. Pt. also c/o pain inside rectum. Pt inc of pasty stool and has pasty stool in rectum. Pt. Reported these findings to Dr. Capone at [address] Capone to come see pt. Pt. has been intermittently moaning and c/o rectam pain that hurts. Stool is black brown. Ocult stool result on 10/12 ws negative. No nausea per pt. Blood thinkers on hold. Pt. states no relief of rectal pain with oxycodone.
[2023-11-01 03:06] VITALS: BP 92/57; PULSE 88; RESP 18; TEMP 36.6
[2023-11-01] MEDS: oxyCODONE HCl Immed Release 5 MG TABLET 2.5 MG PO (03:36)
[2023-11-01 04:35] VITALS: BP 96/66
[2023-11-01] MEDS: Omeprazole 20 MG CAPSULE.DR PO (05:46)
[2023-11-01 07:25] LABS: Hematocrit 23.5 % (42.0-52.0); Hemoglobin 7.2 g/dl (14.0-18.0); Mean Corpuscular HGB Conc 30.6 g/dl (31.0-36.0); Mean Corpuscular Hemoglobin 26.4 pg (27.0-33.0); Mean Corpuscular Volume 86.1 fL (80.0-98.0); NRBC Pct Auto 0.2 /100WBC (0.0-0.2); Platelet Count 136 X10*3/uL (160-400); Red Blood Count 2.73 X10*6/uL (4.60-5.80); Red Cell Distribution Width 19.7 % (11.0-16.0); White Blood Count 8.7 X10*3/uL (4.8-10.8)
[2023-11-01 07:34] LABS: Creatinine Clr Calc Pharmacy 45.6; Estimated Glomerular Filt Rate > 60
[2023-11-01 07:36] LABS: Anion Gap 14 (12-20); Blood Urea Nitrogen 23 mg/dL (9-16); Calcium 8.4 mg/dL (8.4-10.2); Carbon Dioxide 21 mmol/L (22-29); Chloride 112 mmol/L (96-108); Creatinine Clr Calc Pharmacy 45.6; Estimated Glomerular Filt Rate > 60; Glucose Random 81 mg/dL (60-115); Potassium 4.1 mmol/L (3.3-5.1); Sodium 143 mmol/L (135-145)
--- NOTE | 2023-11-01 08:18 | PM.DDS ---
Discharge Sum: Prov Provider Primary care physician: Jomar Sung MD Consults: 10/26/23 15:46 Consult to Thoracic Surgery Stat Consulting Provider: Med Osullivan Reason for consultation: ?empyema w/ left shift Has provider been notified: Yes 10/26/23 17:17 Consult to Pulmonology Routine Consulting Provider: George Plata Reason for consultation: left lower lobe collpase and opacity Has provider been notified: No 10/27/23 12:51 Consult to Pulmonology Routine Consulting Provider: George Plata Reason for consultation: pneumonia 11/01/23 08:14 Consult to [facility] ([facility]) Routine Consulting Provider: [facility] Discharge Sum: Diag Contributing Factors (1) Acute and chronic respiratory failure: (2) Atelectasis of left lung: (3) Pneumonia: (4) Atrial fibrillation with RVR: (5) Cachexia: (6) Hemoptysis: (7) Anemia: (8) Hypotension: Discharge Sum: Summary Date and Time Date of admission: 10/26/23 17:06 Summary Details: Cause of acute on chronic hypoxic respiratory failure. 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, history of COPD, atrial fibrillation, interstitial lung disease, chronic O2 dependent 80 pound wt.loss in last several months, was admitted to [facility] due to generalized weakness, dizziness, in ED patient noted to be hypotensive, in atrial fibrillation with RVR had elevated BNP, hemoglobin 7.9 patient was admitted to [facility] with a diagnosis of complete opacification of left lower lobe bronchus, sepsis with pneumonia and acute anemia,was admitted to telemetry unit with diagnosis of acute on chronic hypoxic respiratory failure due to left lung collapse/sepsis due to pneumonia/atelectasis with shift of midline to left repeat chest x-ray showed complete whiteout of left lung, patient was treated aggressively with IV antibiotics, updraft treatment, Mucomyst and chest physical therapy, patient later developed hemoptysis was followed closely by pulmonology patient was unstable to undergo bronchoscopy, he required 2 units of packed RBC due to acute on chronic normocytic anemia he was noted to have intermittent atrial fibrillation with RVR therefore treated with metoprolol as well as digoxin, required albumin and IV fluid for blood pressure stabilization patient was not making progress due to ongoing intermittent hemoptysis, weakness, hypotension, atrial fibrillation and on November 01 hospital nurse patient was noted to have agonal breathing, son/healthcare proxy was notified and pt. peacefully at 07:20. Patient noted to have no pulse no respirations, pupils fixed and dilated. Additional Data Attending physician: Anibal Blevins MD
--- NOTE | 2023-11-01 11:04 | PC.NURSE ---
At 0710 This RN was in shift report and nurses aide came to desk and stated pt stated he is having trouble breathing. This RN went immediately to check pt and upon entering room noted pt to have agonal respirations. No response to name or sternal rub. Rapid response called. Dr Blevins, respiratory team, assembler 1st shift RN & multiple staff members responded to room. Pt DNR/DNI, Unresponsive. HR on tele in 70's. Dr. Blevins called pt's next of kin, family reiterates pt is DNR/DNI. HR decreasing steadily then asystole/ no respirations noted at 0720. Dr Blevins present in room. May pt rest in peace. Family will come in to view pt.
== END 2023-11-01 07:20 | disposition expired | DRG 871 ==
LOC: HO.ED 15:33 → HO.EDOVER 17:14 → HO.IMC 19:34
PROVIDERS: Hospitalist; Internal Medicine; Admitting Provider Hospitalist; Emergency Provider Student in an Organized Health Care Education/Training Program; PCP Internal Medicine; Visit Provider Hospitalist
DX: A41.9 Sepsis, unspecified organism (principal); J18.9 Pneumonia, unspecified organism; J96.21 Acute and chronic respiratory failure with hypoxia; J91.8 Pleural effusion in other conditions classified elsewhere; J44.0 Chronic obstructive pulmonary disease with (acute) lower respiratory infection; J98.19 Other pulmonary collapse; I48.19 Other persistent atrial fibrillation; E44.0 Moderate protein-calorie malnutrition; Z68.1 Body mass index [BMI] 19.9 or less, adult; N17.9 Acute kidney failure, unspecified; R04.2 Hemoptysis; N40.0 Benign prostatic hyperplasia without lower urinary tract symptoms; I10 Essential (primary) hypertension; I95.9 Hypotension, unspecified; E78.5 Hyperlipidemia, unspecified; Z66 Do not resuscitate; D64.9 Anemia, unspecified; Z20.822 Contact with and (suspected) exposure to COVID-19; Z85.118 Personal history of other malignant neoplasm of bronchus and lung; Z90.2 Acquired absence of lung [part of]; Z99.81 Dependence on supplemental oxygen; Z87.891 Personal history of nicotine dependence; Z79.01 Long term (current) use of anticoagulants; Z79.51 Long term (current) use of inhaled steroids; Z79.899 Other long term (current) drug therapy
CPT/HCPCS: 36415; 71045; 71250; 80048; 80053; 80162; 82565; 82728; 82803; 83540; 83605; 83735; 83880; 84484; 85025; 85027; 85610; 86850; 86900; 86901; 86923; 87040; 87070; 87205; 87502; 87635; 92610; 93005; 94640; 97163; 99285; J1160; J1650; J1940; J2543; J3370; J3371; J3475; J7120; P9016; P9047

== ENCOUNTER → 2023-10-26 11:06 | Outpatient (BNV) | payer MEDICARE, SELFPAY | PROVIDERS: Admitting Provider Hospitalist; Emergency Provider Student in an Organized Health Care Education/Training Program; Visit Provider Internal Medicine | DX: I48.91 Unspecified atrial fibrillation (principal); R94.31 Abnormal electrocardiogram [ECG] [EKG] | CPT/HCPCS: 93010 ==

== ENCOUNTER → 2023-10-26 17:06 | Outpatient (BNV) | payer MEDICARE, SELFPAY | PROVIDERS: Admitting Provider Hospitalist; Emergency Provider Student in an Organized Health Care Education/Training Program; Visit Provider Surgery | DX: J98.11 Atelectasis (principal) | CPT/HCPCS: 99222 ==

== ENCOUNTER → 2023-10-26 17:06 | Outpatient (BNV) | payer MEDICARE, SELFPAY | PROVIDERS: Admitting Provider Hospitalist; Emergency Provider Student in an Organized Health Care Education/Training Program; Visit Provider Hospitalist | DX: J96.21 Acute and chronic respiratory failure with hypoxia (principal); J18.9 Pneumonia, unspecified organism; R64 Cachexia; J84.9 Interstitial pulmonary disease, unspecified; J44.1 Chronic obstructive pulmonary disease with (acute) exacerbation; I48.0 Paroxysmal atrial fibrillation; D64.89 Other specified anemias | CPT/HCPCS: 99223; 99233 ==

== ENCOUNTER → 2023-10-26 17:06 | Outpatient (BNV) | payer MEDICARE, SELFPAY | PROVIDERS: Admitting Provider Hospitalist; Emergency Provider Student in an Organized Health Care Education/Training Program; Visit Provider Hospitalist | DX: J96.21 Acute and chronic respiratory failure with hypoxia (principal); I48.91 Unspecified atrial fibrillation; R64 Cachexia; J98.11 Atelectasis; J18.9 Pneumonia, unspecified organism; R04.2 Hemoptysis; D64.89 Other specified anemias; I95.9 Hypotension, unspecified | CPT/HCPCS: 99223; 99233; 99238 ==

== ENCOUNTER → 2023-11-01 | Outpatient (RCR) | payer MEDICARE, SELFPAY ==
--- NOTE | 2022-06-11 15:37 | HE.ONCSEC ---
I CALLED PATIENT FOR ROUTINE REMIND CALL . PATIENT DID NOT ANSWER , I LEFT A DETAILED VOICEMAIL INFORMING PATIENT OF APPT DATE & TIME .
[2022-06-12 09:27] VITALS: BP 133/60; PULSE 56; RESP 14; TEMP 36.4; O2SAT 98; BMI 30.8
--- NOTE | 2022-06-12 09:34 | PM.HEMONCPN ---
Medical Summary - Medical Summary Date of Service: 06/12/22 Chief complaint: Rash on both legs Medical Summary: Diagnosis: Iron deficiency anemia, 01/2022 Patient's stool guaiac was negative; Hemoglobin noted to be 6.2; vitals stable; chest x-ray showed no acute findings; Patient transfused 2 units of blood. He had previous colonoscopies by Dr. Dela Cruz. He does have a history of bowel obstruction related to diverticulitis. He had surgery by Dr. Sandhu. He had the temporary colostomy bag. Past medical history of: 1. Hypertension, 2. Hyperlipidemia, 3. 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 History of lung cancer status post resection, 5. Legally blind Interval History Interval history: Patient was referred by his PCP as he was noted to have a petechial rash on his legs. It was brought to his attention by a friend a few months ago. He is not sure of the time frame since he did not notice it himself. His now feels that the rash has become more prominent in the last several weeks. He reports a burning sensation especially at nighttime when he gets under the covers. He was admitted to [facility] end of January for severe anemia requiring 2 units of blood transfusion. Workup revealed GI AV malformations that were cauterized. He his platelets have been above 100,000 throughout the hospital course. Rash is confined to lower extremities, it has now spread a little proximally above the knees. There is no rash anywhere else on his body. He denies any fever or chills. He has not been started on any other medications except oral iron. Review of Systems - Constitutional Reports as per HPI, Reports no additional constitutional complaints - Cardiovascular Reports no additional cardiovascular complaints - Respiratory Reports no additional respiratory complaints - Gastrointestinal Reports no additional gastrointestinal complaints [facility] Medical History: Medical History (Last Reviewed 06/12/22 @ 09:31 by VALERIE Bates) COPD (chronic obstructive pulmonary disease) Diverticulitis Glaucoma History of lung cancer Hypercholesterolemia ILD (interstitial lung disease) Normal esophagogastroduodenoscopy (EGD) Osteoarthritis Oxygen dependent Purpura Family History: Family History (Last Reviewed 06/12/22 @ 09:31 by VALERIE Bates) Mother ALS (amyotrophic lateral sclerosis) Surgical History: Surgical History (Last Reviewed 06/12/22 @ 09:31 by VALERIE Bates) H/O colonoscopy History of ERCP History of laparoscopic cholecystectomy History of total left knee replacement Status post Pat procedure Social History: Social History (Last Updated 06/12/22 @ 09:33 by VALERIE Bates) Living Situation History: Household Members: Spouse Housing: Apartment Do you presently have visiting nurse or other home services: No Alcohol History Details: 1. How often do you have a drink containing alcohol?: b. Monthly or less 2. How many drinks containing alcohol do you have on a typical day when you are drinking?: a. 1 or 2 Tobacco History: Patient Tobacco Use Status: Former Tobacco user Tobacco use type: Cigarette Years Smoked: 20 years Smoke Quit Date: 25 YEARS AGO Second Hand Smoke Exposure: No Substance Use History: Use of substances other than those prescribed or required for medical reasons: No Domestic Abuse History: Have you been hit, kicked, punched, or otherwise hurt by someone within the past year? If so, by whom?: No Do you feel safe in your current relationship?: Yes Homicidal Assessment: Do you have thoughts of harming others: None Do you have a plan to hurt others: No Plan Do you have the means to hurt others: No Nutrition Assessment: Recently lost weight without trying: Yes How much weight loss: 2-13 pounds Occupation Assessmet: service: No Current occupational status: retired Oncology Screenings - ECOG Performance Status ECOG Performance Status: 1 Home Medications and Allergies Home Medications Medication Instructions Recorded Confirmed Type simvastatin 10 mg tablet 10 mg PO BEDTIME 08/06/20 06/12/22 History tamsulosin 0.4 mg capsule 0.8 mg PO DAILY 08/06/20 06/12/22 History dorzolamide 22.3 mg-timolol 6.8 1 drp ophthalmic (eye) 10/14/21 06/12/22 History mg/mL eye drops BID@0900,1800 tafluprost (PF) 0.0015 % eye drops 1 drp ophthalmic (eye) BEDTIME 02/25/22 06/12/22 History in a dropperette (Zioptan (PF)) Allergies Allergy/AdvReac Type Severity Reaction Status Date / Time No Known Allergies Allergy Verified 06/12/22 09:33 Exam Vital signs: Vital Signs Temp 97.5 F 06/12/22 09:27 Pulse 56 06/12/22 09:27 Resp 14 06/12/22 09:27 BP 133/60 06/12/22 09:27 Pulse Ox 98 06/12/22 09:27 O2 Del Method 06/12/22 09:27 Intake & Output 06/11/22 06/12/22 06/12/22 18:59 06:59 18:59 Other: Weight 94.7 kg [place] Weight in Grams 33432 Weight 94.7 kg BMI result Body Mass Index 30.8 - Constitutional Present: no acute distress, average body habitus - Routine HEENT Exam Head: Present: normal inspection Eye: Present: normal appearance - Routine Neck Exam Present: full ROM. Absent: lymphadenopathy - Routine Respiratory Exam Present: CTAB. Absent: accessory muscle use - Routine Cardiovascular Exam Cardiovascular: Present: S1, S2 - Routine Abdominal Exam Present: soft Data - Labs CBC & Chem 7: 06/12/22 10:15 Assessment and Plan Patient Active problem list reviewed?: Yes (1) Purpura Status: Acute Assessment and plan: 1. This is a pleasant 87-year-old male who is presenting with bilateral lower extremity, symmetric petechial rash. 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 He received blood transfusion during that admission. He was started on oral iron supplementation and his anemia has resolved. He noticed a rash on both his legs, it was brought to his attention by a friend so he does not know the duration of the rash. However, in the recent weeks he noticed that he gets a burning sensation on his legs especially at nighttime. His thinks his rash is getting worse. Patient is legally blind and cannot be sure. He has not had any prior blood transfusions. He tried stopping iron for a week but that did not help. He has a diffuse petechial lesions on both his legs extending just above his knees. It is not anywhere else on his body. Therefore unlikely for this to be a drug rash or post transfusion purpura which can be seen after blood transfusion. It occurs usually a few days after blood transfusion but platelet counts have to be low. His platelet counts are nearly normal. This appears to be a vasculitic problem. KI level submitted . I am giving a trial of steroids, prednisone 20 mg for 1 week and taper. He may need referral to Rheumatology. - Time Spent With Patient Time Spent with Patient (in minutes): 30
[2022-06-12 10:48] LABS: Hematocrit 49.5 % (42.0-52.0); Hemoglobin 15.5 g/dl (14.0-18.0); Mean Corpuscular HGB Conc 31.3 g/dl (31.0-36.0); Mean Corpuscular Hemoglobin 25.3 pg (27.0-33.0); Mean Corpuscular Volume 80.8 fL (80.0-98.0); Mean Platelet Volume 9.3 fL (9.4-12.4); Platelet Count 146 X10*3/uL (160-400); Red Blood Count 6.13 X10*6/uL (4.60-5.80); Red Cell Distribution Width 16.1 % (11.0-16.0); White Blood Count 9.2 X10*3/uL (4.8-10.8)
[2022-06-12 11:05] LABS: Iron 56 mcg/dL (45-160); Percent Iron Saturation 17 % (15-50); Total Iron Binding Capacity 321 mcg/dL (228-428); Unsaturated Iron Binding 265 ug/dL
--- NOTE | 2022-06-12 11:32 | MHC.HEMONCMA ---
PT SEEN TODAY FOR NEW HEM CONSULT FPR RASH ON BOTH LEGS, LABS,VSS AND 2 WEEK F/U BOOKED.
[2022-06-12 11:45] LABS: Erythrocyte Sedimentation Rate 5 MM/HR (0-15)
[2022-06-18 14:42] LABS: Anti Nuclear Antibody Screen POSITIVE (NEGATIVE)
--- NOTE | 2022-06-25 10:14 | PM.HEMONCPN ---
Medical Summary - Medical Summary Date of Service: 06/25/22 Chief complaint: Follow-up Medical Summary: Diagnosis: Iron deficiency anemia, 01/2022 Patient's stool guaiac was negative; Hemoglobin noted to be 6.2; vitals stable; chest x-ray showed no acute findings; Patient transfused 2 units of blood. He had previous colonoscopies by Dr. Dela Cruz. He does have a history of bowel obstruction related to diverticulitis. He had surgery by Dr. Sandhu. He had the temporary colostomy bag. Past medical history of: 1. Hypertension, 2. Hyperlipidemia, 3. 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 History of lung cancer status post resection, 5. Legally blind Interval History Interval history: Patient is here in follow-up. He is doing better. He finished 10 day course of prednisone, his rash now is much management department chair. There is no itching or burning sensation anymore. He has been off oral iron supplementation. Review of Systems - Constitutional Reports as per HPI - Cardiovascular Denies chest pain with activity - Respiratory Denies cough, Denies dyspnea PMFSH Medical History: Medical History (Last Reviewed 06/25/22 @ 10:19 by Ayleen Wang) COPD (chronic obstructive pulmonary disease) Diverticulitis Glaucoma History of lung cancer Hypercholesterolemia ILD (interstitial lung disease) Normal esophagogastroduodenoscopy (EGD) Osteoarthritis Oxygen dependent Purpura Family History: Family History (Last Reviewed 06/25/22 @ 10:19 by Ayleen Wang) Mother ALS (amyotrophic lateral sclerosis) Surgical History: Surgical History (Last Reviewed 06/25/22 @ 10:19 by Ayleen Wang) H/O colonoscopy History of ERCP History of laparoscopic cholecystectomy History of total left knee replacement Status post Pat procedure Social History: Social History (Last Reviewed 06/25/22 @ 10:19 by Ayleen Wang) Living Situation History: Household Members: Spouse Housing: Apartment Do you presently have visiting nurse or other home services: No Alcohol History Details: 1. How often do you have a drink containing alcohol?: b. Monthly or less 2. How many drinks containing alcohol do you have on a typical day when you are drinking?: a. 1 or 2 Tobacco History: Patient Tobacco Use Status: Former Tobacco user Tobacco use type: Cigarette Years Smoked: 20 years Smoke Quit Date: 25 YEARS AGO Second Hand Smoke Exposure: No Substance Use History: Use of substances other than those prescribed or required for medical reasons: No Domestic Abuse History: Have you been hit, kicked, punched, or otherwise hurt by someone within the past year? If so, by whom?: No Do you feel safe in your current relationship?: Yes Homicidal Assessment: Do you have thoughts of harming others: None Do you have a plan to hurt others: No Plan Do you have the means to hurt others: No Nutrition Assessment: Recently lost weight without trying: Yes How much weight loss: 2-13 pounds Occupation Assessmet: service: No Current occupational status: retired Home Medications and Allergies Home Medications Medication Instructions Recorded Confirmed Type simvastatin 10 mg tablet 10 mg PO BEDTIME 08/06/20 06/25/22 History tamsulosin 0.4 mg capsule 0.8 mg PO DAILY 08/06/20 06/25/22 History dorzolamide 22.3 mg-timolol 6.8 1 drp ophthalmic (eye) 10/14/21 06/25/22 History mg/mL eye drops BID@0900,1800 tafluprost (PF) 0.0015 % eye drops 1 drp ophthalmic (eye) BEDTIME 02/25/22 06/25/22 History in a dropperette (Zioptan (PF)) Allergies Allergy/AdvReac Type Severity Reaction Status Date / Time No Known Allergies Allergy Verified 06/12/22 09:33 Exam Vital signs: Vital Signs Temp 97.5 F 06/12/22 09:27 Pulse 56 06/12/22 09:27 Resp 14 06/12/22 09:27 BP 133/60 06/12/22 09:27 Pulse Ox 98 06/12/22 09:27 O2 Del Method 06/12/22 09:27 Weight 94.7 kg BMI result Body Mass Index 30.8 - Constitutional Present: no acute distress, average body habitus - Routine HEENT Exam Head: Present: normal inspection - Routine Neck Exam Present: full ROM. Absent: lymphadenopathy - Routine Respiratory Exam Present: CTAB. Absent: accessory muscle use - Routine Cardiovascular Exam Cardiovascular: Present: S1, S2 - Routine Abdominal Exam Present: soft Data - Labs CBC & Chem 7: 06/12/22 10:15 Labs: 06/12/22 10:15 KI Reflex Titer and Pattern Routine Complete Blood Count no Diff Stat ESR [Erythrocyte Sedimentation Rate] Routine IRON PROFILE Routine Laboratory Last Values WBC 9.2 X10*3/uL (4.8-10.8) 06/12/22 10:15 RBC 6.13 X10*6/uL (4.60-5.80) H 06/12/22 10:15 Hgb 15.5 g/dl (14.0-18.0) 06/12/22 10:15 Hct 49.5 % (42.0-52.0) 06/12/22 10:15 MCV 80.8 fL (80.0-98.0) 06/12/22 10:15 MCH 25.3 pg (27.0-33.0) L 06/12/22 10:15 MCHC 31.3 g/dl (31.0-36.0) 06/12/22 10:15 RDW 16.1 % (11.0-16.0) H 06/12/22 10:15 Plt Count 146 X10*3/uL (160-400) L 06/12/22 10:15 MPV 9.3 fL (9.4-12.4) L 06/12/22 10:15 Absolute Nucleated RBC 0.000 X10*3/uL (0.0-0.012) 06/12/22 10:15 Nucleated RBC % (auto) 0.0 /100WBC (0.0-0.2) 06/12/22 10:15 ESR 5 MM/HR (0-15) 06/12/22 10:15 Iron 56 mcg/dL (45-160) 06/12/22 10:15 TIBC 321 mcg/dL (228-428) 06/12/22 10:15 % Saturation 17 % (15-50) 06/12/22 10:15 Unsat Iron Binding 265 ug/dL 06/12/22 10:15 KI Screen POSITIVE (NEGATIVE) A 06/12/22 10:15 KI Titer 1:320 titer H 06/12/22 10:15 KI Titer 2 TNP 06/12/22 10:15 KI Titer 3 TNP 06/12/22 10:15 KI Pattern A 06/12/22 10:15 KI Pattern 2 TNP 06/12/22 10:15 KI Pattern 3 TNP 06/12/22 10:15 Assessment and Plan Patient Active problem list reviewed?: Yes (1) Purpura Status: Acute Assessment and plan: 1. This is an 87-year-old male who is presenting with bilateral lower extremity, symmetric petechial rash. 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 He received blood transfusion during that admission. He was started on oral iron supplementation and his anemia has resolved. He noticed a rash on both his legs, it was brought to his attention by a friend so he does not know the duration of the rash. He has a diffuse petechial lesions on both his legs extending just above his knees. It is not anywhere else on his body. Therefore unlikely for this to be a drug rash or post transfusion purpura which can be seen after blood transfusion. It occurs usually a few days after blood transfusion but platelet counts have to be low. His platelet counts are nearly normal. This appears to be a vasculitic problem. KI screen positive, titer 1: 320, cytoplasmic reticular pattern. He is being referred to rheumatology. His rash has almost completely resolved with 10 day course of prednisone. 2. 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 He has received blood transfusion and was on iron supplementation for a few months. Anemia has completely resolved. For now, I have asked him to stay off iron supplementation. Follow-up in 3 months. - Time Spent With Patient Time Spent with Patient (in minutes): 10
[2022-06-25 10:19] VITALS: BP 154/69; PULSE 58; RESP 18; TEMP 36.2; O2SAT 96; BMI 30.6
--- NOTE | 2022-06-25 10:50 | MHC.HEMONCMA ---
faxed office notes and labs to Rheumatology for referral to see Dr. Martinez.
--- NOTE | 2022-06-25 10:56 | MHC.HEMONCMA ---
patient seen today for followup rash on lower extremitites, referral to rheumatology done, VSS.
--- NOTE | 2022-07-02 14:44 | MHC.HEMONC ---
Telephone call from pt. He states he has rash to his legs that he states seemed to be getting better, but now states is not better. Has been on prednisone and has appt with rheumatology, but not until end of september. He is asking if he should restart prednisone. Spoke with Dr Cedillo, and she does not want him to restart prednisone. Pt is aware, and will call if rash worsens.
--- NOTE | 2022-09-29 10:32 | P.PNHO-ONC_ITS ---
Medical Summary - Medical Summary Date of Service: 09/29/22 Chief complaint: Follow-up Medical Summary: Diagnosis: Iron deficiency anemia, 01/2022 Patient's stool guaiac was negative; Hemoglobin noted to be 6.2; vitals stable; chest x-ray showed no acute findings; Patient transfused 2 units of blood. He had previous colonoscopies by Dr. Dela Cruz. He does have a history of bowel obstruction related to diverticulitis. He had surgery by Dr. Sandhu. He had the temporary colostomy bag. Past medical history of: 1. Hypertension, 2. Hyperlipidemia, 3. 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 History of lung cancer status post resection, 5. Legally blind Interval History Interval history: Patient is here in follow-up. He is doing better. He was seen by physical therapy instructor. He denies itching or any new rash. Review of Systems - Constitutional Reports as per HPI, Reports no additional constitutional complaints PMFSH Medical History: Medical History (Last Reviewed 09/29/22 @ 10:37 by Ayleen Wang) COPD (chronic obstructive pulmonary disease) Diverticulitis Glaucoma History of lung cancer Hypercholesterolemia ILD (interstitial lung disease) Normal esophagogastroduodenoscopy (EGD) Osteoarthritis Oxygen dependent Purpura Family History: Family History (Last Reviewed 09/29/22 @ 10:37 by Ayleen Wang) Mother ALS (amyotrophic lateral sclerosis) Surgical History: Surgical History (Last Reviewed 09/29/22 @ 10:37 by Ayleen Wang) H/O colonoscopy History of ERCP History of laparoscopic cholecystectomy History of total left knee replacement Status post Pat procedure Social History: Social History (Last Reviewed 09/29/22 @ 10:37 by Ayleen Wang) Living Situation History: Household Members: Spouse Housing: Apartment Do you presently have visiting nurse or other home services: No Alcohol History Details: 1. How often do you have a drink containing alcohol?: b. Monthly or less 2. How many drinks containing alcohol do you have on a typical day when you are drinking?: a. 1 or 2 Tobacco History: Patient Tobacco Use Status: Former Tobacco user Tobacco use type: Cigarette Years Smoked: 20 years Smoke Quit Date: 12-13 yrs ago Second Hand Smoke Exposure: No Substance Use History: Use of substances other than those prescribed or required for medical reasons : No Domestic Abuse History: Have you been hit, kicked, punched, or otherwise hurt by someone within the past year? If so, by whom?: No Do you feel safe in your current relationship?: Yes Homicidal Assessment: Do you have thoughts of harming others: None Do you have a plan to hurt others: No Plan Do you have the means to hurt others: No Nutrition Assessment: Recently lost weight without trying: Yes How much weight loss: 2-13 pounds Occupation Assessmet: service: No Current occupational status: retired Home Medications and Allergies Home Medications Medication Instructions Recorded Confirmed Type simvastatin 10 mg tablet 10 mg PO BEDTIME 08/06/20 09/29/22 History tamsulosin 0.4 mg capsule 0.8 mg PO DAILY 08/06/20 09/29/22 History dorzolamide 22.3 mg-timolol 6.8 1 drp ophthalmic (eye) 10/14/21 09/29/22 History mg/mL eye drops BID@0900,1800 tafluprost (PF) 0.0015 % eye drops 1 drp ophthalmic (eye) BEDTIME 02/25/22 09/29/22 History in a dropperette (Zioptan (PF)) Allergies Allergy/AdvReac Type Severity Reaction Status Date / Time No Known Allergies Allergy Verified 08/07/22 10:59 Exam Vital signs: Vital Signs Temp 97.2 F 06/25/22 10:19 Pulse 58 06/25/22 10:19 Resp 18 06/25/22 10:19 BP 154/69 H 06/25/22 10:19 Pulse Ox 96 06/25/22 10:19 O2 Del Method 06/12/22 09:27 Weight 94 kg BMI result Body Mass Index 30.6 - Constitutional Present: no acute distress, average body habitus - Routine HEENT Exam Head: Present: normal inspection - Routine Neck Exam Present: full ROM. Absent: lymphadenopathy - Routine Respiratory Exam Present: CTAB. Absent: accessory muscle use - Routine Cardiovascular Exam Cardiovascular: Present: S1, S2 - Routine Abdominal Exam Present: soft Data - Labs CBC & Chem 7: 06/12/22 10:15 Assessment and Plan Patient Active problem list reviewed?: Yes (1) Purpura Status: Chronic Assessment and plan: 1. This is an 87-year-old male who is presenting with bilateral lower extremity, symmetric petechial rash. 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 He received blood transfusion during that admission. He was started on oral iron supplementation and his anemia has resolved. He noticed a rash on both his legs, it was brought to his attention by a friend so he does not know the duration of the rash. He has a diffuse petechial lesions on both his legs extending just above his knees. It is not anywhere else on his body. Therefore unlikely for this to be a drug rash or post transfusion purpura which can be seen after blood transfusion. It occurs usually a few days after blood transfusion but platelet counts have to be low. His platelet counts are nearly normal. This appears to be a vasculitic problem. KI screen positive, titer 1: 320, cytoplasmic reticular pattern. His rash has almost completely resolved with 10 day course of prednisone. He was seen by physical therapy instructor, skin biopsy was recommended but patient deferred this. 2. 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 He has received blood transfusion and was on iron supplementation for a few months. Anemia has completely resolved. He will now follow up with his PCP and return if any new hematological or oncological issues arise. Follow-up prn. - Time Spent With Patient Time Spent with Patient (in minutes): 10
[2022-09-29 10:35] VITALS: BP 125/62; PULSE 58; RESP 14; TEMP 36.3; O2SAT 95; BMI 31.0
--- NOTE | 2022-09-29 10:47 | MHC.HEMONCMA ---
Patient seen today for followup rash bilateral legs, VSS, 3 month followup.
== END | disposition home or self-care (01) ==
LOC: HO.ONC 06-11 15:36
PROVIDERS: PCP Internal Medicine; Referring Provider Internal Medicine; Visit Provider Internal Medicine
DX: R21 Rash and other nonspecific skin eruption (principal); H54.8 Legal blindness, as defined in USA; Z86.2 Personal history of diseases of the blood and blood-forming organs and certain disorders involving the immune mechanism; Z79.899 Other long term (current) drug therapy
CPT/HCPCS: 36415; 83540; 85027; 85652; 86038; 86039; 99214; 99215